=== PATIENT | male | born 1965 | race Caucasian/White ===

== ENCOUNTER 2023-03-01 12:14 | Observation (INO) ==
--- NOTE | 2023-03-01 12:20 | ED Triage Note ---
Date of Service March 01, 2023 History of Present Illness This patient was briefly evaluated while in triage. An abbreviated physical exam was performed. This patient is a 57-year-old Male who was referred to the ED by his [facility] physician. The patient reports chest pain across the entire chest. The pain started a couple of months ago. Patient reports that walking and ambulation. The patient reports that the pain usually goes away when he takes Tums. Patient denies any shortness of breath, substernal or abdominal discomfort. Patient denies history of GERD. Physical Exam CONSTITUTIONAL: Healthy and well nourished. Patient does not appear in any acute distress. HEENT: No scleral icterus or conjunctival injection. RESPIRATORY: Clear to auscultation bilaterally with no wheezing, crackles, rhonchi or stridor. CARDIOVASCULAR: Regular rate and rhythm with no murmurs, rubs or gallops. GASTROINTESTINAL: Bowel sounds present in all quadrants. MUSCULOSKELETAL: No tenderness to palpation across the anterior chest wall or costochondral joints. INTEGUMENTARY: No rash or other significant dermatologic conditions noted. HEMATOLOGIC: No ecchymosis or petechiae. PSYCHIATRIC: Positive affect. NEUROLOGIC: No focal neurologic deficits noted. Initial orders for labs and / or imaging were placed and patient was placed in the waiting area until a bed is available. Please see further documentation for the full ED course.
[2023-03-01 12:38] LABS: Basophils # (auto) 0.05 K/uL (0.00-0.20); Basophils % (auto) 0.6 %; Eosinophils # (auto) 0.09 K/uL (0.00-0.50); Hematocrit (blood only) 43.2 % (42.0-52.0); Hemoglobin 15.6 g/dl (14.0-18.0); Immature Granulocytes # (auto) 0.03 K/uL (0.01-0.20); Immature Granulocytes % (auto) 0.3 %; Lymphocytes # (auto) 2.36 K/uL (1.20-3.40); Lymphocytes % (auto) 27.3 %; Mean Corpuscular Hemoglobin 32.6 pg (25.0-34.0); Mean Corpuscular Hgb Conc 36.1 g/dL (32.0-36.0); Mean Corpuscular Volume 90.2 fL (80.0-100.0); Mean Platelet Volume 9.6 fL (9.4-12.4); Monocytes # (auto) 0.72 K/uL (0.11-0.59); Monocytes % (auto) 8.3 %; Neutrophils # (auto) 5.39 K/uL (1.40-6.50); Neutrophils % (auto) 62.5 %; Platelet Count 237 K/uL (130-400); RDW Coefficient of Variation 11.9 % (11.5-14.5); RDW Standard Deviation 39.4 fL (36.4-46.3); Red Blood Count 4.79 M/uL (4.70-6.10); White Blood Count 8.64 K/ul (4.8-10.8)
[2023-03-01 12:48] LABS: Partial Thromboplastin Ratio 0.9; Partial Thromboplastin Time 26.3 Seconds (21.0-31.0); Prothrombin Time 10.8 Seconds (9.0-12.0)
[2023-03-01 13:06] LABS: Albumin Level 4.9 gm/dl (3.4-5.0); Bilirubin,Total 0.8 mg/dl (0.2-1.0); Calcium 9.8 mg/dl (8.6-10.3)
[2023-03-01 13:12] LABS: BUN Creatinine Ratio 19.8 (10-20); Creatinine Clr Calc Pharmacy 91.9 ml/min; Est GFR (African American) 93.9 ml/min; Globulin 2.4 gm/dl (2.5-4.0); Total Protein 7.3 gm/dl (6.0-8.3)
--- NOTE | 2023-03-01 13:14 | Emergency Department Note ---
Impression & Plan Chest pain ADMIT ED Provider Note HPI: History obtained from patient. The patient is a 57-year-old gentleman who presents emergency department with a chief complaint of chest pain. Patient states that for the past several weeks he has had chest pain that seems to worsen when he exerts himself. Patient states that he gets a substernal discomfort when he goes upstairs or takes a long walk. Patient states he has a history of hyperlipidemia, he is not a smoker, states he does have family history of heart disease. On arrival here to the ED the patient is in no acute distress, denies any current chest pain. ROS: - Per HPI Differential Diagnosis: Acute coronary syndrome, acute gastritis, esophageal spasms, aortic dissection, pneumothorax, amongst other potential pathologies. *Outpatient medications and allergy history reviewed. *Pertinent external medical records reviewed - PE: General: Alert HEENT: Normocephalic, trachea midline Eyes: Extraocular eye movement is intact, no scleral erythema Pulmonary: Clear to auscultation bilaterally, no wheezing Cardio: Regular rate and rhythm GI: Abdomen is soft to palpation : No suprapubic tenderness MSK: No evidence of trauma or malformation of the extremities, no edema Skin: No evidence of rash Neuro: Alert, no focal deficits Psychiatric: Cooperative INDEPENDENT INTERPRETATIONS: cardiac monitor: (As interpreted by myself): - An order was placed for continuous cardiac monitoring - Patient was noted to be in sinus rhythm with a rate of 60 EKG: (As interpreted by myself): Rate: 63 Rhythm: Normal sinus rhythm Intervals: Within normal limits ST changes: No ST elevation Time: 1226 Chest x-ray: (As interpreted by myself): No acute disease Interventions provided in ED: -Aspirin Medical Decision Making: IV was established lab work obtained, patient was placed on cardiac rehabilitation program director when placed in ED room. Lab work shows no leukocytosis, hemoglobin is normal, platelet count is normal, CMP was obtained and shows no critical findings, troponin is negative x1. Chest x-ray per my interpretation does not show any evidence of acute disease. EKG per my interpretation does not show any evidence of acute ischemic changes however there is noted to be some nonspecific T wave flattening in the lateral leads. Given the patient's typical nature of pain that worsens with exertion with lack of improvement with recent PPI therapy, I think would be reasonable to admit the patient for further rule out of ACS. He tells me he has not had a stress test in about 10 years, his risk factors include his age, family history, and history of hyperlipidemia. I discussed the patient's presentation with the [facility] and the patient was placed for admission in stable condition for further care to the service of Dr. Tyson. Consultants/Discussions held with other healthcare providers: [facility] Dr[facility] Tyson Disposition discussion held by myself with: -Patient Diagnosis: 1. Chest pain, acute, exertional in nature 2. History of hyperlipidemia 3. Family history of coronary artery disease 4. Abnormal EKG Disposition: Admission Husam Bolden DO Emergency Medicine Past Med/Surg History Medical History (Updated 03/01/23 @ 17:21 by Husam Bolden DO) GERD (gastroesophageal reflux disease) Gout HLD (hyperlipidemia) Surgical History (Updated 03/01/23 @ 14:09 by Nasima Romero PA-C) Hx of colonoscopy Family History (Updated 03/01/23 @ 14:59 by Nasima Romero PA-C) Father Myocardial infarction sudden [place] at age 75 Sister Myocardial infarction, Onset Age: 54 sudden Social History (Updated 03/01/23 @ 14:10 by Nasima Romero PA-C) Smoking Status: Never smoker Tobacco Type: Smokeless Tobacco (Dip or Chew) Cigarettes Per Day: currently uses chewing tobacco; Hx Alcohol Use: Yes Preferred Language: [place] marital status: Feels Safe at Home: Yes Allergies Allergies Allergy/AdvReac Type Severity Reaction Status Date / Time Penicillins Allergy Unknown Verified 03/26/20 23:34 Sulfa (Sulfonamide Allergy Unknown Verified 03/26/20 23:34 Antibiotics) Home Meds Home Medications Medication Instructions Recorded Confirmed atorvastatin 40 mg tablet 40 mg PO DAILY 03/01/23 03/01/23 fluticasone propionate 50 2 spray intranasal DAILY 03/01/23 03/01/23 mcg/actuation nasal spray,suspension meloxicam 15 mg tablet 15 mg PO DAILY 03/01/23 03/01/23 omeprazole 20 mg capsule,delayed 40 mg PO DAILY 03/01/23 03/01/23 release Results & Data (ED) Vital Signs Vital Signs - 24 hr 03/01/23 12:16 03/01/23 14:52 03/01/23 14:55 Temperature 36.5 C Temperature Source Temporal Artery Scan Pulse Rate 65 53 L Pulse Rate [Left Finger] 57 L Pulse Rate from SpO2 Sensor Pulse Rhythm [Left Finger] Regular Pulse Strength [Left Finger] Normal Respiratory Rate 18 14 Respiratory Effort / Characteristics Non-Labored Spontaneous Respiratory Depth Normal Normal Respiratory Pattern Regular Blood Pressure 164/93 H Blood Pressure [Right Arm] 136/102 H Blood Pressure Mean 116 Blood Pressure Mean [Right Arm] 113 Blood Pressure Position [Right Arm] Lying Pulse Oximetry 96 98 Oxygen Delivery Method Room Air Room Air Sepsis Recent Fever Within 48 Hours No Sepsis New/Unexplained Change in Mental Status No Sepsis Action Taken by Nursing No Action Required 03/01/23 14:56 03/01/23 14:59 03/01/23 14:59 Temperature Temperature Source Pulse Rate 56 L 53 L Pulse Rate [Left Finger] Pulse Rate from SpO2 Sensor 56 L 53 L Pulse Rhythm [Left Finger] Pulse Strength [Left Finger] Respiratory Rate 19 16 Respiratory Effort / Characteristics Respiratory Depth Respiratory Pattern Blood Pressure 142/100 H Blood Pressure [Right Arm] Blood Pressure Mean 108 Blood Pressure Mean [Right Arm] Blood Pressure Position [Right Arm] Pulse Oximetry 97 97 Oxygen Delivery Method Sepsis Recent Fever Within 48 Hours Sepsis New/Unexplained Change in Mental Status Sepsis Action Taken by Nursing 03/01/23 15:00 03/01/23 15:03 03/01/23 15:03 Temperature Temperature Source Pulse Rate 63 51 L Pulse Rate [Left Finger] Pulse Rate from SpO2 Sensor 57 L Pulse Rhythm [Left Finger] Pulse Strength [Left Finger] Respiratory Rate 14 14 Respiratory Effort / Characteristics Respiratory Depth Respiratory Pattern Blood Pressure 156/90 H Blood Pressure [Right Arm] Blood Pressure Mean 104 Blood Pressure Mean [Right Arm] Blood Pressure Position [Right Arm] Pulse Oximetry 97 Oxygen Delivery Method Sepsis Recent Fever Within 48 Hours Sepsis New/Unexplained Change in Mental Status Sepsis Action Taken by Nursing 03/01/23 15:10 03/01/23 15:20 03/01/23 15:30 Temperature Temperature Source Pulse Rate 54 L 49 L 54 L Pulse Rate [Left Finger] Pulse Rate from SpO2 Sensor 54 L 49 L 54 L Pulse Rhythm [Left Finger] Pulse Strength [Left Finger] Respiratory Rate 15 12 13 Respiratory Effort / Characteristics Respiratory Depth Respiratory Pattern Blood Pressure Blood Pressure [Right Arm] Blood Pressure Mean Blood Pressure Mean [Right Arm] Blood Pressure Position [Right Arm] Pulse Oximetry 97 96 99 Oxygen Delivery Method Sepsis Recent Fever Within 48 Hours Sepsis New/Unexplained Change in Mental Status Sepsis Action Taken by Nursing 03/01/23 15:40 03/01/23 15:46 Temperature Temperature Source Pulse Rate 57 L Pulse Rate [Left Finger] Pulse Rate from SpO2 Sensor 59 L Pulse Rhythm [Left Finger] Pulse Strength [Left Finger] Respiratory Rate 14 Respiratory Effort / Characteristics Respiratory Depth Respiratory Pattern Blood Pressure Blood Pressure [Right Arm] Blood Pressure Mean Blood Pressure Mean [Right Arm] Blood Pressure Position [Right Arm] Pulse Oximetry 100 97 Oxygen Delivery Method Room Air Sepsis Recent Fever Within 48 Hours Sepsis New/Unexplained Change in Mental Status Sepsis Action Taken by Nursing Laboratory Data 03/01/23 12:23 03/01/23 12:23 Lab Results 03/01/23 03/01/23 Range/Units 12: 14:53 WBC 8.64 (4.8-10.8) K/ul RBC 4.79 (4.70-6.10) M/uL Hgb 15.6 (14.0-18.0) g/dl Hct 43.2 (42.0-52.0) % MCV 90.2 (80.0-100.0) fL MCH 32.6 (25.0-34.0) pg MCHC 36.1 H (32.0-36.0) g/dL RDW Std Deviation 39.4 (36.4-46.3) fL RDW Coeff of Clint 11.9 (11.5-14.5) % Plt Count 237 (130-400) K/uL MPV 9.6 (9.4-12.4) fL Immature Gran % (Auto) 0.3 % Neut % (Auto) 62.5 % Lymph % (Auto) 27.3 % Pierce % (Auto) 8.3 % Eos % (Auto) 1.0 % Baso % (Auto) 0.6 % Neut # (Auto) 5.39 (1.40-6.50) K/uL Lymph # (Auto) 2.36 (1.20-3.40) K/uL Pierce # (Auto) 0.72 H (0.11-0.59) K/uL Eos # (Auto) 0.09 (0.00-0.50) K/uL Baso # (Auto) 0.05 (0.00-0.20) K/uL Immature Gran # (Auto) 0.03 (0.01-0.20) K/uL PT 10.8 (9.0-12.0) Seconds INR 1.0 (0.9-1.1) APTT 26.3 (21.0-31.0) Seconds PTT Ratio 0.9 Sodium 139 (136-145) mmol/L Potassium 4.0 (3.5-5.1) mmol/L Chloride 107 (98-107) mmol/L Carbon Dioxide 27 (21-32) mmol/L Anion Gap 5 (3-11) BUN 20 (6-23) mg/dl Creatinine 1.01 (0.6-1.4) mg/dl Est Cr Clr Drug Dosing 91.9 ml/min Est GFR ( Amer) 93.9 ml/min Est GFR (Non-Af Amer) 81.0 ml/min BUN/Creatinine Ratio 19.8 (10-20) Glucose 83 (70-99(Fasting)) mg/dl Calcium 9.8 (8.6-10.3) mg/dl Total Bilirubin 0.8 (0.2-1.0) mg/dl AST 21 (13-39) U/L ALT 21 (7-52) U/L Alkaline Phosphatase 57 (34-104) U/L Troponin I High Sens 18.5 19.6 (0-20) pg/ml Total Protein 7.3 (6.0-8.3) gm/dl Albumin 4.9 (3.4-5.0) gm/dl Globulin 2.4 L (2.5-4.0) gm/dl Albumin/Globulin Ratio 2.0 (0.9-2) Lipase 62 (11-82) U/L Administered Medications Discontinued Medications Aspirin (Aspirin Chew 324 Mg) 324 mg PO NOW STA Stop: 03/01/23 13:52 Last Admin: 03/01/23 15:28 Dose: 324 mg Documented By: [facility] Imaging Data Radiologist's Impression: Chest X-Ray 03/01/23 12:20 XR chest 2V PA/lateral CLINICAL HISTORY: C/P TECHNIQUE: 2 views of the chest were obtained. Comparison: None available at the time of this dictation. FINDINGS: No lines and tubes are seen. The cardiomediastinal silhouette is normal. The lungs are clear. No evidence of pleural effusion or pneumothorax. IMPRESSION: No acute chest disease. ACT 112: Negative or not required by law. Electronically signed by: Edwin Ji M.D. 03/01/2023 1:56 PM Discharge Plan Visit Data Chief Complaint: Chest Pain Stated Complaint: CHEST PAIN ED Provider: Husam Bolden Discharge Problem: Chest pain Patient Disposition: Admitted As Inpatient Discharge Instructions Interventions: ED Discharge Assessment Last Done: 03/01/23 17:11 Forms Stand Alone Forms: [facility] Prescriptions Prescriptions: No Action atorvastatin 40 mg tablet 40 mg PO DAILY meloxicam 15 mg tablet 15 mg PO DAILY omeprazole 20 mg capsule,delayed release(DR/EC) 40 mg PO DAILY fluticasone propionate 50 mcg/actuation spray,suspension 2 spray INTRANASAL DAILY Referrals Referrals: PCP,NO [Physician] - Discharge Problem: Chest pain Qualifiers: Chest pain type: unspecified Qualified Code(s): R07.9 - Chest pain, unspecified
[2023-03-01 13:15] LABS: Troponin I High Sensitivity 18.5 pg/ml (0-20)
[2023-03-01] MEDS ORDERED: ASPIRIN CHEW 324 MG PO STA (13:51)
--- NOTE | 2023-03-01 13:58 | XRay Report ---
XR chest 2V PA/lateral CLINICAL HISTORY: C/P TECHNIQUE: 2 views of the chest were obtained. Comparison: None available at the time of this dictation. FINDINGS: No lines and tubes are seen. The cardiomediastinal silhouette is normal. The lungs are clear. No evid ence of pleural effusion or pneumothorax. IMPRESSION: No acute chest disease. ACT 112: Negative or not required by law. Electronically signed by: Edwin Ji M.D. 03/01/2023 1:56 PM
--- NOTE | 2023-03-01 14:14 | History & Physical Report ---
Date of Service March 01, 2023 Assessment & Plan (1) Atypical chest pain: (2) HLD (hyperlipidemia): (3) Tobacco abuse: (4) Obesity (BMI 30.0-34.9): Plan This is a 57 yr old male who has a significant PMH of HLD, GERD and Gout who presents to ED 2/2 chest pain x8 weeks. Atypical chest pain Admit to PCU Cycle troponin, monitor on telemetry Repeat ECG in a.m. Obtain echocardiogram Consult cardiology for consideration for nuclear stress test vs cardiac cath Risk factors include: HLD, obesity, tobacco abuse, Strong FH of sudden with sister in 50s recent lipid panel/a1c done as outpatient A1C 5.4 HLD chronic, stable continue statin 02/16 total chol panel trig 139, [id number]; LDL 97; HDL36 Tobacco abuse chewing tobacco 1/2 can/day encourage cessation Obesity BMI 32.7 encourage diet/lifestyle modifications DVT ppx: SQ Lovenox FULL CODE PCP: Dr. Ricks Dispo: PCU, pending cardiac eval Pt was seen and examined in collaboration with Dr. Tyson, please see addendum History of Present Illness Chief Complaint: Chest pain x 8 weeks. Primary Care Provider: Husam Ricks This is a 57 yr old male who has a significant PMH of HLD, GERD and Gout who presents to ED 2/2 chest pain x8 weeks. He recently saw PCP on 02/20 due to similar sx. He noted that he had chest pain that was located across his chest, "like a band across." It typically would occur with walking a distance, but most recently started with walking up a flight of steps when carrying laundry. He would occasionally get similar sx with eating and tried tums with relief; therefore, PCP started omeprazole without relief. He states he is active been on Prilosec for the past month without any significant improvement. He feels in the last 8 weeks symptoms have been worsening. Chest pain is located on his a nterior aspect of his chest. It is nonradiating. It is not associated with any diaphoresis, dizziness, lightheadedness, nausea or vomiting. He has never experienced anything like this in the past. Every time chest pain would come on he will take Tums and symptoms resolved within 1 to 2 minutes. He also would rest at this time as well. He states just yesterday he was out walking in the [place] when it came on and was persistent while walking for approximately 1 mile. Symptoms again resolved with rest. He also tends to note symptoms are worse in the evening. He denies any pleuritic component of symptoms. He also denies any worsening of symptoms with position change. He denies any orthopnea or PND. He denies recent illness, fever, chills, sweats, lightheadedness, dizziness, nausea, vomit, abdominal pain, changes bowel or urinary habits, melena or hematochezia. Overall he has a good appetite. 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 He also recently from his . He denies any recent traumatic stressful events. He does have a strong family history of cardiac disease. His sister in her 50s of sudden in their father in his 70s. He previously had significantly elevated cholesterol but this has been improving significantly while being on atorvastatin. He is compliant with his medications. He denies any prior history of hypertension. He does chew tobacco approximately half a can a day. He also drinks approximately 10 beers a week. In ED patient's lab work was mostly unremarkable and troponin was undetectable. EKG did reveal some nonspecific T wave abnormalities but otherwise revealed normal sinus rhythm without any significant ischemic change. He did receive full dose aspirin while in ED. Allergies Allergy/AdvReac Type Severity Reaction Status Date / Time Penicillins Allergy Unknown Verified 03/26/20 23:34 Sulfa (Sulfonamide Allergy Unknown Verified 03/26/20 23:34 Antibiotics) Home Medications Medication Instructions Recorded Confirmed Type atorvastatin 40 mg tablet 40 mg PO DAILY 03/01/23 03/01/23 History fluticasone propionate 50 2 spray intranasal DAILY 03/01/23 03/01/23 History mcg/actuation nasal spray,suspension meloxicam 15 mg tablet 15 mg PO DAILY 03/01/23 03/01/23 History omeprazole 20 mg capsule,delayed 40 mg PO DAILY 03/01/23 03/01/23 History release Past Med/Surg History Medical History (Updated 03/01/23 @ 15:20 by Nasima Romero PA-C) GERD (gastroesophageal reflux disease) Gout HLD (hyperlipidemia) Surgical History (Updated 03/01/23 @ 14:09 by Nasima Romero PA-C) Hx of colonoscopy Family History (Updated 03/01/23 @ 14:59 by Nasima Romero PA-C) Father Myocardial infarction sudden [place] at age 75 Sister Myocardial infarction, Onset Age: 54 sudden Social History (Updated 03/01/23 @ 14:10 by Nasima Romero PA-C) Smoking Status: Never smoker Tobacco Type: Smokeless Tobacco (Dip or Chew) Cigarettes Per Day: currently uses chewing tobacco; Hx Alcohol Use: Yes Preferred Language: Pashto marital status: Feels Safe at Home: Yes Review of Systems Review of Systems: All systems reviewed & are unremarkable except as noted in HPI & below Physical Exam Physical Exam: Constitutional: WD/WN, vitals as above, NAD, sitting up in bed, pleasant, conversing easily Head: Normocephalic, Atraumatic Eyes: PERRL, conjunctivae normal, anicteric sclerae ENMT: external ear and nose normal, oropharynx normal Neck: trachea midline, no thyromegaly normal visual inspection Respiratory: normal respiratory effort, lungs clear to auscultation, no wheeze, rales, rhonchi. Normal insp/exp effort, no accessory muscle use Cardiovascular: RRR, no murmur, no edema Vessels: no JVD or carotid bruit Chest: normal inspection of chest Abdomen: normal bowel sounds, soft, nontender, no hepatosplenomegaly Musculoskeletal: no cyanosis or clubbing, extremities motor strength 5/5 Skin: no rashes, warm and dry normal turgor Neurologic: PERRL, EOMI, accommodation nl, no face palsy, no dysarthria CN's II-XI intact bilaterally and moves all extremities Psychiatric: A+Ox3, euthymic affect : deferred Results & Data Results & Data Vital Signs (Past 12 Hours) Vital Signs Temp Pulse Resp BP Pulse Ox O2 Del Method 03/01/23 12:16 36.5 C 65 18 164/93 H 96 Room Air Diagnostic Findings Chest X-Ray 03/01/23 12:20 XR chest 2V PA/lateral CLINICAL HISTORY: C/P TECHNIQUE: 2 views of the chest were obtained. Comparison: None available at the time of this dictation. FINDINGS: No lines and tubes are seen. The cardiomediastinal silhouette is normal. The lungs are clear. No evidence of pleural effusion or pneumothorax. IMPRESSION: No acute chest disease. ACT 112: Negative or not required by law. Electronically signed by: Edwin iJ M.D. 03/01/2023 1:56 PM ECG Additional Comments: 63 bpm, NSR, nonspecific t wave abn noted, qtc 409ms COVID-19 Results Results COVID-19 Adm Lab Results: RBC 4.79 M/uL (4.70-6.10) 03/01/23 WBC 8.64 K/ul (4.8-10.8) 03/01/23 Hgb 15.6 g/dl (14.0-18.0) 03/01/23 Hct 43.2 % (42.0-52.0) 03/01/23 Plt Count 237 K/uL (130-400) 03/01/23 Neutrophils (%) (Auto) 62.5 % 03/01/23 Lymphocytes (%) (Auto) 27.3 % 03/01/23 Monocytes # (Auto) 0.72 K/uL (0.11-0.59) H 03/01/23 Eosinophils # (Auto) 0.09 K/uL (0.00-0.50) 03/01/23 Immature Granulocyte % (Auto) 0.3 % 03/01/23 Neutrophils # (Auto) 5.39 K/uL (1.40-6.50) 03/01/23 Lymphocytes # (Auto) 2.36 K/uL (1.20-3.40) 03/01/23 Monocytes # (Auto) 0.72 K/uL (0.11-0.59) H 03/01/23 Eosinophils # (Auto) 0.09 K/uL (0.00-0.50) 03/01/23 Basophils # (Auto) 0.05 K/uL (0.00-0.20) 03/01/23 Immature Granulocyte # (Auto) 0.03 K/uL (0.01-0.20) 3 Na 139 mmol/L (136-145) 03/01/23 K 4.0 mmol/L (3.5-5.1) 03/01/23 Cl 107 mmol/L (98-107) 03/01/23 CO2 27 mmol/L (21-32) 03/01/23 Anion Gap 5 (3-11) 03/01/23 BUN 20 mg/dl (6-23) 03/01/23 Creatinine 1.01 mg/dl (0.6-1.4) 03/01/23 BUN/Creatinine Ratio 19.8 (10-20) 03/01/23 Glucose Level 83 mg/dl (70-99(Fasting)) 03/01/23 Ca 9.8 mg/dl (8.6-10.3) 03/01/23 Total Bilirubin 0.8 mg/dl (0.2-1.0) 03/01/23 AST/SGOT 21 U/L (13-39) 03/01/23 ALT/SGPT 21 U/L (7-52) 03/01/23 Alkaline Phosphatase 57 U/L (34-104) 03/01/23 Total Protein 7.3 gm/dl (6.0-8.3) 03/01/23 Albumin 4.9 gm/dl (3.4-5.0) 03/01/23 Globulin 2.4 gm/dl (2.5-4.0) L 03/01/23 Albumin/Globulin Ratio 2.0 (0.9-2) 03/01/23 PTT 26.3 Seconds (21.0-31.0) 03/01/23 INR 1.0 (0.9-1.1) 03/01/23 Chest X-Ray 03/01/23 Code Status & VTE Plan Code Status FULL CODE VTE Prophylaxis Plan VTE Prophylaxis will be ordered: Yes Supervising Physician Co-Signing Physician Notes I have seen and discussed the case with the collaborating JOE. I agree with the above H&P. I have reviewed and confirmed the patients medical history, the findings on physical examination, and the patients diagnosis and treatment plan with Heather DIAZ and agree with the information documented. In short, Mr. Ward is a 57 year old gentleman with history of HLD, HTN, obesity, chronic tobacco use, and family history of CAD who is admitted for chest pain evalutation. Pain is present with exertion, substernal and pressure like in character, and resolves with rest. Patient states that TUMS may alleviate pain--but he also notes that he takes the tums when he sits and relaxes, so cannot really parse out whether TUMS v rest contribute the most. HEART score of 6, SILVANO of 61; symptoms consistent with stable angina and story convincing for concerns of underlying CAD. PE notable for man without any acute distress, laying supine, no signs of HF (no crackles, edema) #Chest pain, c/f stable angina -Cardiology for Stress v cath -NPO at midnight -Continue asa and statin Rest of plan as above
--- NOTE | 2023-03-01 16:47 | Electrocardiogram Report ---
Test Reason : Blood Pressure : / mmHG Vent. Rate : 063 BPM Atrial Rate : 063 BPM P-R Int : 168 ms QRS Dur : 090 ms QT Int : 400 ms P-R-T Axes : 045 -18 042 degrees QTc Int : 409 ms Normal sinus rhythm Nonspecific T wave abnormality Lateral leads Abnormal ECG When compared with ECG of 26-MAR-2020 23:12, Nonspecific T wave abnormality now present Confirmed by Mario Kramer ([id number]) on 03/01/2023 4:46:48 PM Referred By: Confirmed By:Mario Kramer
[2023-03-01] MEDS ORDERED: MAGNESIUM HYDROXIDE SUSP 30 ML UDC PO PRN (17:35)
[2023-03-01] MEDS ORDERED: ONDANSETRON INJ 2 MG/ML 2 ML VIAL IV PRN (17:35)
[2023-03-01] MEDS ORDERED: ALUMINUM/MAGNESIUM SUSP 30 ML UDC PO PRN (17:35)
[2023-03-01] MEDS ORDERED: POLYETHYLENE (MIRALAX) 17 GM PACK PO PRN (17:35)
[2023-03-01] MEDS ORDERED: ACETAMINOPHEN 325 MG TAB PO PRN (17:35)
[2023-03-01] MEDS: ENOXAPARIN INJ 40 MG/0.4 ML SYR SQ SCH (21:10)
[2023-03-02 03:17] LABS: Basophils # (auto) 0.03 K/uL (0.00-0.20); Basophils % (auto) 0.4 %; Eosinophils # (auto) 0.16 K/uL (0.00-0.50); Hematocrit (blood only) 39.7 % (42.0-52.0); Hemoglobin 14.4 g/dl (14.0-18.0); Immature Granulocytes # (auto) 0.01 K/uL (0.01-0.20); Immature Granulocytes % (auto) 0.1 %; Lymphocytes # (auto) 2.77 K/uL (1.20-3.40); Lymphocytes % (auto) 34.5 %; Mean Corpuscular Hemoglobin 32.1 pg (25.0-34.0); Mean Corpuscular Hgb Conc 36.3 g/dL (32.0-36.0); Mean Corpuscular Volume 88.4 fL (80.0-100.0); Mean Platelet Volume 9.9 fL (9.4-12.4); Monocytes # (auto) 0.63 K/uL (0.11-0.59); Monocytes % (auto) 7.8 %; Neutrophils # (auto) 4.43 K/uL (1.40-6.50); Neutrophils % (auto) 55.2 %; Platelet Count 202 K/uL (130-400); RDW Coefficient of Variation 11.8 % (11.5-14.5); RDW Standard Deviation 37.8 fL (36.4-46.3); Red Blood Count 4.49 M/uL (4.70-6.10); White Blood Count 8.03 K/ul (4.8-10.8)
[2023-03-02 03:31] LABS: Albumin Globulin Ratio 1.7 (0.9-2); Bilirubin,Total 0.9 mg/dl (0.2-1.0); Calcium 8.9 mg/dl (8.6-10.3); Creatinine Clr Calc Pharmacy 89.9 ml/min; Est GFR (African American) 95.1 ml/min; Globulin 2.4 gm/dl (2.5-4.0); Potassium 3.6 mmol/L (3.5-5.1); Total Protein 6.4 gm/dl (6.0-8.3)
[2023-03-02] MEDS: ATORVASTATIN 40 MG TAB PO SCH (08:24)
[2023-03-02] MEDS: FLUTICASONE PROPIONATE NA SPR 16 GM BTL SCH (08:24)
[2023-03-02] MEDS: PANTOprazole 40 MG TAB PO SCH (08:25)
--- NOTE | 2023-03-02 08:45 | Electrocardiogram Report ---
Test Reason : Blood Pressure : / mmHG Vent. Rate : 047 BPM Atrial Rate : 047 BPM P-R Int : 176 ms QRS Dur : 092 ms QT Int : 462 ms P-R-T Axes : 063 -07 234 degrees QTc Int : 408 ms Sinus bradycardia Nonspecific T wave abnormality Lateral leads Abnormal ECG When compared with ECG of 01-MAR-2023 12:26, No significant change was found Confirmed by Mario Kramer ([id number]) on 03/02/2023 8:45:07 AM Referred By: Husam Ricks Confirmed By:Mario Kramer
[2023-03-02] MEDS ORDERED: MELOXICAM 7.5 MG TAB PO SCH (09:00)
--- NOTE | 2023-03-02 09:51 | Cardiology Consultation ---
Date of Consultation March 02, 2023 Assessment & Plan (1) Unstable angina: (2) HLD (hyperlipidemia): (3) Tobacco abuse: Plan Patient currently chest pain-free at rest. Recommend further ischemic evaluation with cardiac catheterization. Risk, benefits, alternatives to proc edure discussed. Patient agreeable to proceed. Discontinue meloxicam. Add aspirin 81 mg daily. Continue statin therapy. As needed sublingual nitroglycerin and repeat ECG with any recurrent chest discomfort. N.p.o. except medications in anticipation of cardiac catheterization. History of Present Illness Reason for Consultation: Angina, family history of coronary artery disease Requesting Physician: Nasima Romero PA-C Attending Physician: Annalise Ortega MD History of Present Illness 57-year-old male present to the emergency department due to progressive, exertio nal chest discomfort. Symptoms dating back several months. Describes a bandlike tightness and pain across his chest which is consistently reproduced with activity and exertion. Generally reproduces symptoms when climbing stairs. Over the past week symptoms have become progressively more severe, coming on at lower levels of activity and exertion. States "I did not want to go out into the [employer] and of a heart attack". Voices concern regarding sister who in her 50s of a myocardial infarction. Allergies Allergy/AdvReac Type Severity Reaction Status Date / Time Penicillins Allergy Unknown Verified 03/26/20 23:34 Sulfa (Sulfonamide Allergy Unknown Verified 03/26/20 23:34 Antibiotics) Home Medications Medication Instructions Recorded Confirmed Type atorvastatin 40 mg tablet 40 mg PO DAILY 03/01/23 03/01/23 History fluticasone propionate 50 2 spray intranasal DAILY 03/01/23 03/01/23 History mcg/actuation nasal spray,suspension meloxicam 15 mg tablet 15 mg PO DAILY 03/01/23 03/01/23 History omeprazole 20 mg capsule,delayed 40 mg PO DAILY 03/01/23 03/01/23 History release Patient History Medical History GERD (gastroesophageal reflux disease) Gout HLD (hyperlipidemia) Surgical History Hx of colonoscopy Family History Father Myocardial infarction sudden CA at age 75 Sister Myocardial infarction, Onset Age: 54 sudden Social History Smoking Status: Former smoker Tobacco Type: Smokeless Tobacco (Dip or Chew) Cigarettes Per Day: currently uses chewing tobacco; Second Hand Exposure: No; Do You Dip or Chew Tobacco: Yes; Tobacco Cessation Education Requested by Patient: No Hx Alcohol Use: Yes Alcohol type: beer Hx Substance Use: No Preferred Language: Arabic Communication Ability: Effective Manager Balance Required: No Beliefs That Will Affect Care: None marital status: Current Living Situation: Alone Other Information That Helps Us Care for You: No Feels Safe at Home: Yes Safety Concerns: Feels Safe At This Time Assistive Devices: None Review of Systems Review of Systems: All systems reviewed & are unremarkable except as noted in Subjective Physical Exam Constitutional: well nourished and + obese; no acute distress Respiratory: no respiratory distress, no labored breathing and no retractions Auscultation: no crackles, no rales, no rhonchi and no wheezes Cardiovascular: Rate/Rhythm: regular rate and regular rhythm Heart Sounds: normal S1 and normal S2; no murmur Vessels: femoral pulses present and radial pulses present; no JVD and no carotid bruit Extremities: no edema Gastrointestinal (Abdomen): Inspection/Auscultation: normal bowel sounds; abdomen not distended Percussion/Palpation: abdomen soft; abdomen nontender, no guarding and abdomen not rigid Neurologic: CN's II-XI intact bilaterally and moves all extremities; no focal motor deficits Psychiatric: A+Ox3, euthymic affect Results & Data Vital Signs (Past 12 Hours) Vital Signs Temp Pulse Resp BP Pulse Ox O2 Del Method 03/02/23 07:35 36.5 C 54 L 16 125/79 95 Room Air 03/02/23 03:10 36.3 C L 53 L 18 152/80 H 96 Room Air 03/01/23 23:18 36.6 C 51 L 18 103/67 92 Room Air Laboratory Results Cardiac Enzymes 03/01/23 03/01/23 03/01/23 Range/Units 12:23 14:53 21:00 AST 21 (13-39) U/L Troponin I High Sens 18.5 19.6 19.0 (0-20) pg/ml 03/02/23 Range/Units 02:48 AST 17 (13-39) U/L Troponin I High Sens 17.9 (0-20) pg/ml Coagulation 03/01/23 Range/Units 12:23 PT 10.8 (9.0-12.0) Seconds APTT 26.3 (21.0-31.0) Seconds CBC 03/01/23 03/02/23 Range/Units 12:23 02:48 WBC 8.64 8.03 (4.8-10.8) K/ul RBC 4.79 4.49 L (4.70-6.10) M/uL Hgb 15.6 14.4 (14.0-18.0) g/dl Hct 43.2 39.7 L (42.0-52.0) % Plt Count 237 202 (130-400) K/uL Neut # (Auto) 5.39 4.43 (1.40-6.50) K/uL Lymph # (Auto) 2.36 2.77 (1.20-3.40) K/uL [place] # (Auto) 0.72 H 0.63 H (0.11-0.59) K/uL Eos # (Auto) 0.09 0.16 (0.00-0.50) K/uL Baso # (Auto) 0.05 0.03 (0.00-0.20) K/uL Comprehensive Metabolic Panel 03/01/23 03/02/23 Range/Units 12:23 02:48 Sodium 139 139 (136-145) mmol/L Potassium 4.0 3.6 (3.5-5.1) mmol/L Chloride 107 108 H (98-107) mmol/L Carbon Dioxide 27 24 (21-32) mmol/L BUN 20 20 (6-23) mg/dl Creatinine 1.01 1.00 (0.6-1.4) mg/dl Glucose 83 94 (70-99(Fasting)) mg/dl Calcium 9.8 8.9 (8.6-10.3) mg/dl AST 21 17 (13-39) U/L ALT 21 17 (7-52) U/L Alkaline Phosphatase 57 49 (34-104) U/L Total Protein 7.3 6.4 (6.0-8.3) gm/dl Albumin 4.9 4.0 (3.4-5.0) gm/dl Intake and Output 03/01/23 03/02/23 03/02/23 22:59 06:59 14:59 Other: Other Intake Source npo # Unmeasured Voids 1 Weight 100.7 kg 98.6 kg Weight Measurement Method Built in Bedscale Standing Scale ECG Additional Comments: ECG: Sinus bradycardia, nonspecific T wave abnormality. (2) HLD (hyperlipidemia) Hyperlipidemia type: unspecified Qualified Code(s): E78.5 - Hyperlipidemia, unspecified
[2023-03-02] MEDS: ASPIRIN 81 MG CHEW PO SCH (11:28)
--- NOTE | 2023-03-02 11:46 | Hospitalist Progress Note ---
Date of Service March 02, 2023 Assessment & Plan (1) Atypical chest pain: (2) HLD (hyperlipidemia): (3) Tobacco abuse: (4) Obesity (BMI 30.0-34.9): Plan This is a 57 yr old male who has a significant PMH of HLD, GERD and Gout who presents to ED 2/2 chest pain x8 weeks. Atypical chest pain Last EKG with sinus bradycardia hs-trops within normal limits Echocardiogram with EF 60-65%, LVH and grade II diastolic dysfunction Risk factors include: HLD, obesity, tobacco abuse, Strong FH of sudden with sister in 50s recent lipid panel/a1c done as outpatient A1C 5.4 Cardiology consult -pt had cath on 03/02 - recs HLD chronic, stable continue statin 02/16 total chol panel trig 139, [id number]; LDL 97; HDL36 Tobacco abuse chewing tobacco 1/2 can/day encourage cessation Obesity BMI 32.7 encourage diet/lifestyle modifications DVT ppx: SQ Lovenox FULL CODE PCP: Dr. Ricks Dispo: pending cardiac eval Admission and Anticipated Discharge Date Admission Date: March 01, 2023 Subjective Pt seen in the AM before his procedure. States that he was asymptomatic at this time. Denied acute concerns. Review of Systems Review of Systems: All systems reviewed & are unremarkable except as noted in Subjective Physical Exam Physical Exam: General: Alert, oriented. No acute distress Skin: No noted rashes or bruises Psych: Appropriate mood and affect Neuro: No gross deficits HEENT: NC/AT Chest: Nontender to palpation. CV: RRR, Normal s1, s2. No murmurs appreciated Resp: Breath sounds clear bilaterally, no increased effort of breathing. Abdomen: Soft, nontender, nondistended. Extremities: No edema in lower extremities bilaterally. Results & Data Results & Data Vital Signs (Past 12 Hours) Vital Signs Temp Pulse Resp BP Pulse Ox O2 Del Method 03/02/23 11:07 37.0 C 46 L 16 116/77 95 Room Air 03/02/23 07:35 36.5 C 54 L 16 125/79 95 Room Air 03/02/23 03:10 36.3 C L 53 L 18 152/80 H 96 Room Air (2) HLD (hyperlipidemia) Hyperlipidemia type: unspecified Qualified Code(s): E78.5 - Hyperlipidemia, unspecified
--- NOTE | 2023-03-02 15:21 | Pre Anesthesia Assessment ---
Date of Service March 02, 2023 Pre Sedation Assessment Vital Signs Temp Pulse Pulse Resp BP Pulse Ox O2 Del Method 03/02/23 15:04 46 L 18 141/84 H 96 Room Air 03/02/23 14:35 52 L 03/02/23 11:07 37.0 C 46 L 16 116/77 95 Room Air 03/02/23 07:35 36.5 C 54 L 16 125/79 95 Room Air 03/02/23 03:10 36.3 C L 53 L 18 152/80 H 96 Room Air 03/01/23 23:18 36.6 C 51 L 18 103/67 92 Room Air 03/01/23 19:11 36.6 C 53 L 18 126/84 93 Room Air 03/01/23 18:37 147/86 H 03/01/23 18:30 59 L 03/01/23 17:36 36.6 C 53 L 18 182/98 H 99 Room Air 03/01/23 17:35 36.6 C 51 L 182/98 H 99 Room Air 03/01/23 15:46 97 Room Air 03/01/23 15:40 57 L 14 100 03/01/23 15:30 54 L 13 99 Cardiovascular + regular rate, + regular rhythm and + bradycardic + S1 normal and + S2 normal; no murmur + femoral pulses present and + radial pulses present; no JVD and no carotid bruit no edema Respiratory no respiratory distress and no labored breathing no crackles, no rales, no rhonchi and no wheezes Pre-Sedation Airway Assessment Smoking Status: Former smoker Hx Sleep Apnea: No Short, Thick Neck: Yes Thyromental Distance: > or= 3.5 Finger Breadths Oral Cavity: + WNL Mallampati Class: I ASA: ASA2 NPO Status Date of Last Intake of Fluids: 03/01/23 Date of Last Intake of Solid Food: 03/01/23 Procedure Planning Contraindications for Sedation: none Current Medications Reviewed: Yes Notes The planned sedation has been discussed with the patient. Informed Consent was obtained. I have identified the patient, determined the appropriateness of sedation and have assessed the patient immediately prior to the procedure. All medicine(s) and interventions are by my order.
[2023-03-02] MEDS ORDERED: MIDAZOLAM HCL 1 MG/ML 2ML VIAL ONE ×2 (15:22→16:37)
[2023-03-02] MEDS ORDERED: fentaNYL citrate PF 100 MCG/2 ML VIAL ONE (15:23)
[2023-03-02] MEDS ORDERED: niCARdipine HCL INJ 2.5 MG/ML 10 ML AMP ONE (15:23)
[2023-03-02] MEDS ORDERED: NITROGLYCERIN/D5W 100MCG/ML 20ML SYR ONE (15:23)
[2023-03-02] MEDS ORDERED: HEPARIN (PORCINE) 1000 UNIT/ML 10 ML (CATH LAB USE ONLY) ONE (15:23)
--- NOTE | 2023-03-02 16:21 | Cardiac Catheterization ---
Cardiac Cath Procedure Full Procedure Date March 02, 2023 Pre-Procedure Diagnosis Pre-Procedure Diagnosis: Angina AUC Score AUC Score: 7 Post-Procedure Diagnosis Post-Procedure Diagnosis: Severe CAD and Normal Intracardiac Pressures Procedure(s) Performed Procedure(s) Performed: Coronary Angiography and Left Heart Cath Fruit Picker Gaston Ordonez DO Major Case Detective(s) Showers RN Estimated Blood Loss Estimated Blood Loss: 5cc Medication(s) Medication(s): Aspirin Summary of Findings Multivessel coronary artery disease. 90% proximal left circumflex. 75% apical LAD. 100% occluded diagonal branch vessel 80% prox RCA 70% mid RCA Hemodynamics Rest Ao:: 112/55/85 Final Ao: 120/58/82 LV: 115/4/8 Recommendations Recommendations: Management Recommendatons (Case discussed with interventional cardiology. Patient will remain in [facility] for PCI) Radiation Exposure (mGy) 1630 Contrast (mls) 60 Fluids (cc crystalloids) Fluids (cc crystalloids): 110 Nss Drains Drains: N/A Anesthesia Moderate sedation. Start 1542. End 1606. Sedation monitor: Kersteter RN Procedural Complication(s) None I attest to the content of the Intraoperative Record and any orders documented therein. Any exceptions are noted below. ACC Data: [facility] Cardiac Status Clinical evaluation leading to the procedure 57-year-old patient presents to the emergency department with progressive, exertional angina. CAD Presenation: Unstable angina Coronary Anatomy Dominant: Right Left Main (% Stenosis): Normal LAD (% Stenosis): Proximal (Mild luminal irregularities, 10-20%), Mid (Luminal irregularities, 20-30%) and Distal (75%) D1 (% Stenosis): Normal D2 (% Stenosis): Ostial (100%, proximal staining) Circumflex (% Stenosis): Proximal (90%) and Mid (40% proximal to OM1) OM1 (% Stenosis): Proximal (20%) OM2 (% Stenosis): Normal L PL1 (% Stenosis): Normal RCA (% Stenosis): Proximal (80%), Mid (70%) and Distal (luminal irregularities 20%) R PDA (% Stenosis): Normal R PL1 (% Stenosis): Normal Diagnostic Physicians Name: Gaston Ordonez DO Closure Device Percutaneous Entry Location: Radial Closure Device: Radial Band Recommendations: Management Recommendatons (Case discussed with interventional cardiology. Patient will remain in [facility] for PCI) Intraprocedure Events Significant Disection: No Perforation: No
--- NOTE | 2023-03-02 16:21 | Post Anesthesia Assessment ---
Date of Service March 02, 2023 Post Sedation Assessment Vital Signs Temp Pulse Pulse Resp BP Pulse Ox O2 Del Method 03/02/23 15:04 46 L 18 141/84 H 96 Room Air 03/02/23 14:35 52 L 03/02/23 11:07 37.0 C 46 L 16 116/77 95 Room Air 03/02/23 07:35 36.5 C 54 L 16 125/79 95 Room Air 03/02/23 03:10 36.3 C L 53 L 18 152/80 H 96 Room Air 03/01/23 23:18 36.6 C 51 L 18 103/67 92 Room Air 03/01/23 19:11 36.6 C 53 L 18 126/84 93 Room Air 03/01/23 18:37 147/86 H 03/01/23 18:30 59 L 03/01/23 17:36 36.6 C 53 L 18 182/98 H 99 Room Air 03/01/23 17:35 36.6 C 51 L 182/98 H 99 Room Air Recovery Score Respiration: Deep Breath/Cough Circulation: +/-20% PreAnes Value Consciousness: Arouseable (by name) Oxygen Saturation: > 92% On Room Air Discharge Sedation Level of Care: Phase I Post Sedation Plan On clinical assessment, the patient appears to have tolerated the sedation without complications. Patient is recovering as anticipated. Patient will continue to be monitored by nursing and may be discharged when sedation discharge criteria are met per below protocol. Upon Completions of procedure up to 15 minutes continue every 5 minute vital signs and the P.A.R. score; then discharge to a Phase I or Fast Track to Phase II per the following guidelines: * Discharge Patient to appropriate Phase II area if PAR is 8 or greater or return to pre- procedure baseline. The post - procedure orders will be as directed. * If PAR score is less than 8 or not return to pre-procedure baseline then patient will follow Phase I monitoring till PAR is reached for Phase II. The Phase I may be done in procedure room or may call to secure a Phase I area. * If naloxone or flumazenil are used for reversal, hold in Phase I for continued monitoring from when last reversal dose was given for a minimum of 60 minutes or longer pending the nurse and/or physician discretion of patient condition before discharge to Phase II. Please call the Sedation Physician to re-evaluate and complete post-note for discharge to Phase II area. Do NOT discharge from procedure sedation or Phase 1 until post- sedation evaluation note is complete by procedure /sedation MD Sedation Discharge Instructions to be given to the patient at discharge to home.
[2023-03-02] MEDS ORDERED: TICAGRELOR 90 MG TAB ONE (16:57)
--- NOTE | 2023-03-02 17:11 | Post Anesthesia Assessment ---
Date of Service March 02, 2023 Post Sedation Assessment Vital Signs Temp Pulse Pulse Resp BP Pulse Ox O2 Del Method 03/02/23 15:04 46 L 18 141/84 H 96 Room Air 03/02/23 14:35 52 L 03/02/23 11:07 37.0 C 46 L 16 116/77 95 Room Air 03/02/23 07:35 36.5 C 54 L 16 125/79 95 Room Air 03/02/23 03:10 36.3 C L 53 L 18 152/80 H 96 Room Air 03/01/23 23:18 36.6 C 51 L 18 103/67 92 Room Air 03/01/23 19:11 36.6 C 53 L 18 126/84 93 Room Air 03/01/23 18:37 147/86 H 03/01/23 18:30 59 L 03/01/23 17:36 36.6 C 53 L 18 182/98 H 99 Room Air 03/01/23 17:35 36.6 C 51 L 182/98 H 99 Room Air Recovery Score Activity: Moves 4 extremities Respiration: Deep Breath/Cough Circulation: +/-20% PreAnes Value Consciousness: Arouseable (by name) Oxygen Saturation: > 92% On Room Air Discharge Sedation Level of Care: Fast Track Phase II Post Sedation Plan On clinical assessment, the patient appears to have tolerated the sedation without complications. Patient is recovering as anticipated. Patient will continue to be monitored by nursing and may be discharged when sedation discharge criteria are met per below protocol. Upon Completions of procedure up to 15 minutes continue every 5 minute vital signs and the P.A.R. score; then discharge to a Phase I or Fast Track to Phase II per the following guidelines: * Discharge Patient to appropriate Phase II area if PAR is 8 or greater or return to pre- procedure baseline. The post - procedure orders will be as directed. * If PAR score is less than 8 or not return to pre-procedure baseline then patient will follow Phase I monitoring till PAR is reached for Phase II. The Phase I may be done in procedure room or may call to secure a Phase I area. * If naloxone or flumazenil are used for reversal, hold in Phase I for continued monitoring from when last reversal dose was given for a minimum of 60 minutes or longer pending the nurse and/or physician discretion of patient condition before discharge to Phase II. Please call the Sedation Physician to re-evaluate and complete post-note for discharge to Phase II area. Do NOT discharge from procedure sedation or Phase 1 until post- sedation evaluation note is complete by procedure /sedation MD Sedation Discharge Instructions to be given to the patient at discharge to home. [facility] [place] Procedure Codes (Charges) Indication for Procedure Indication for procedure: UNSTABLE ANGINA SEVERE CAD ON DIAGNOSTIC CATH Sedation/Anesthesia Procedure 1: Sedation/Anesthesia: 90456 Mod Sedation by a different physician ;Init15 Min Child Age 5&Up (initial 15 min, new dice table operator start 1618) Total Sedation Time (minutes): 39 Procedure 2: Sedation/Anesthesia: 54275 Mod Sedation by a different physician;Ea Additional 15 Minutes (additional 24 min, end time 1657) Total Sedation Time (minutes): 39
[2023-03-02 21:49] VITALS: O2SAT 96
[2023-03-02] MEDS: TICAGRELOR 90 MG TAB PO SCH (22:42)
[2023-03-02] MEDS: ENOXAPARIN INJ 40 MG/0.4 ML SYR SQ SCH (22:43)
[2023-03-03 07:37] LABS: Basophils # (auto) 0.04 K/uL (0.00-0.20); Basophils % (auto) 0.4 %; Eosinophils # (auto) 0.07 K/uL (0.00-0.50); Eosinophils % (auto) 0.7 %; Hematocrit (blood only) 41.2 % (42.0-52.0); Hemoglobin 15.1 g/dl (14.0-18.0); Immature Granulocytes # (auto) 0.14 K/uL (0.01-0.20); Immature Granulocytes % (auto) 1.4 %; Lymphocytes # (auto) 2.22 K/uL (1.20-3.40); Lymphocytes % (auto) 21.5 %; Mean Corpuscular Hemoglobin 32.1 pg (25.0-34.0); Mean Corpuscular Hgb Conc 36.7 g/dL (32.0-36.0); Mean Corpuscular Volume 87.5 fL (80.0-100.0); Monocytes # (auto) 0.74 K/uL (0.11-0.59); Monocytes % (auto) 7.2 %; Neutrophils % (auto) 68.8 %; Platelet Count 195 K/uL (130-400); RDW Coefficient of Variation 11.7 % (11.5-14.5); RDW Standard Deviation 37.9 fL (36.4-46.3); Red Blood Count 4.71 M/uL (4.70-6.10); White Blood Count 10.31 K/ul (4.8-10.8)
[2023-03-03 07:38] LABS: Albumin Level 4.2 gm/dl (3.4-5.0); Bilirubin,Total 0.7 mg/dl (0.2-1.0); Calcium 9.2 mg/dl (8.6-10.3); Magnesium 2.1 mg/dl (1.7-2.4); Potassium 4.1 mmol/L (3.5-5.1)
[2023-03-03 07:44] LABS: Albumin Globulin Ratio 1.7 (0.9-2); Creatinine Clr Calc Pharmacy 82.3 ml/min; Est GFR (African American) 85.7 ml/min; Est GFR (Non-African American) 73.9 ml/min; Globulin 2.5 gm/dl (2.5-4.0); Phosphorus 3.4 mg/dl (2.5-4.9); Total Protein 6.7 gm/dl (6.0-8.3)
[2023-03-03] MEDS: PANTOprazole 40 MG TAB PO SCH ×2 (08:16→08:20)
[2023-03-03] MEDS: TICAGRELOR 90 MG TAB PO SCH (08:16)
[2023-03-03] MEDS: FLUTICASONE PROPIONATE NA SPR 16 GM BTL SCH ×2 (08:17→08:20)
[2023-03-03] MEDS: ASPIRIN 81 MG CHEW PO SCH (08:17)
[2023-03-03] MEDS: ATORVASTATIN 40 MG TAB PO SCH (08:17)
--- OUTSIDE RECORDS SUMMARY | 2023-03-03 10:06 | External Medical Summary ---
Author Name Unknown Address Unknown Organization [id number]:[facility] [place] [address] [place] [address] Laboratory Report Ordering Provider Test Date Status SYL FRANCISCO 02/16/2023 13:51:12 Final Observation Date Value Abnormality Reference (Units ) Status MYCODE SPECIMEN-SST 02/16/2023 13:51:12 Freezing of extracted DNA, whole blood and/or serum. Final Performing Location [facility] - [address] [place] [address]
--- OUTSIDE RECORDS SUMMARY | 2023-03-03 10:06 | External Medical Summary ---
Author Name Unknown Address Unknown Organization [id number]:[facility] [place] [address] [place] [address] Laboratory Report Ordering Provider Test Date Status SYL FRANCISCO 02/16/2023 13:51:12 Final Observation Date Value Abnormality Reference (Units ) Status MYCODE SPECIMEN-SST 02/16/2023 13:51:12 Freezing of extracted DNA, whole blood and/or serum. Final Performing Location [facility] - [address] [place] [address]
--- OUTSIDE RECORDS SUMMARY | 2023-03-03 10:06 | External Medical Summary | Summary of Care ---
Author Name Unknown Organization [facility] Address [address] [facility] [place] [address] Phone [phone] Care Team Providers Care [employer] Name Role Phone Ju Arboleda PA-C Primary Care Provider [phone] Reason for Referral * Evaluate & Treat - Unlimited Visits (Within 3 days (urgent)) - Authorized Specialty Diagnoses / Procedures Referred By Contmaria elena t Referred To Contact Cardiovascular Medicine / Cardiology Diagnoses Chest pain, unspecified type Gasotn Ordonez DO [address] [place] [address] Referral ID Status Reason Start Date Expiration Date Visits Requested Visits Authorized [id number] Authorized Specialty Services Required 3 [phone] Question Answer Referral Priority Within 3 days (urgent) Where should this appointment be scheduled? [facility] To which of the following clinics are you referring your patient? General Cardiology Clinic Reason for Visit * Reason Onset Date Comments Referral 02/21/2023 Encounter Details Date Type Department Care Team (Late st Contact Info) Description 02/21/2023 Telephone Cardiology, [facility] [address] [place] [address] Gaston Ordonez DO [address] [place] [address] Referral Allergies Active Allergy Reactions Criticality Noted Date Comments Indomethacin Other (Please comment) 11/28/2019 Dizziness Penicillins 11/02/1997 rash Sulfa Antibiotics 11/02/1997 rapid pulse documented as of this encounter (statuses as of 02/28/2023) Medications Medication Sig Dispensed Refills Start Date End Date Status Meclizine HCl 25 MG Oral Tablet ChewableIndications :Benign positional vertigo, bilateral Take 1 Tab by mouth 3 times a day as needed for Dizziness. 30 Tab 1 05/04/2020 Active guaiFENesin-Codeine 100-10 MG/5ML Oral Syrup (Robitussin AC)Indications:Acut e bronchitis, antibiotics not indicated Take 5 mL by mouth every 4 hours as needed for Cough. 120 mL 0 05/10/2022 Active Additional Information Patient not taking.Reported on 02/16/2023 Fluticasone Propionate 50 MCG/ACT Nasal Suspension (Flonase) Administer 2 Sprays into each nostril in the morning. 16 g 5 02/16/2023 Active Atorvastatin Calcium 40 MG Oral Tablet (Lipitor) Take 1 Tablet by mouth in the morning. 90 Tablet 3 02/16/2023 Active Meloxicam 15 MG Oral Tablet Take 1 Tablet by mouth in the morning. 30 Tablet 2 02/16/2023 Active Omeprazole 20 MG Oral Capsule Delayed Release (PriLOSEC)Indicatio ns:Other chest pain,Gastroesophage al reflux disease, unspecified whether esophagitis present Take 2 Capsules by mouth in the morning. Take 40 mg daily for 1 month then 20 mg daily. 0 02/20/2023 Active documented as of this encounter (statuses as of 02/28/2023) Active Problems Problem Noted Date Diagnosed Date Family history of WI (myocardial infarction) 06/2017 Dyslipidemia, goal LDL below 130 10/31/2012 Gout 10/31/2012 TOBACCO USE DISORDER- ORAL 01/29/2007 Esophageal reflux 01/29/2007 ACUTE STRESS 05/25/2004 documented as of this encounter (statuses as of 02/28/2023) Resolved Problems Problem Noted Date Diagnosed Date Resolved Date HTN, goal below 140/90 08/30/201104/18 OBESITY, BMI 30-34 (SEE ACTUAL BMI) 07/08/2009 10/31/2012 Overview: Per Obesity Taxonomy Elevated blood pressure, situational 02/19/2009 10/31/2012 Overview: Modified per HTN Taxonomy. Obesity, BMI not known 01/29/200707/08 Overview: Per Obesity Taxonomy Shortness of breath 01/29/2007 11/01/19 13 Chest pain 01/29/2007 10/31/2012 Elevated blood pressure, situational 01/29/2007 02/19/2009 Overview: Modified per HTN Taxonomy. Abdominal pain, generalized 05/25/2004 10/31/2012 Tobacco use disorder 05/25/2004 013 Chronic alcohol dependence, continuous 05/25/2004 04/03/2022 Dyslipidemia, goal to be determined 05/25/2004 10/31/2012 BACKACHE NOS 05/25/2004 10/31/2012 NONE 08/30/2011 documented as of this encounter (statuses as of 02/28/2023) Immunizations Name Administration Dates Next Due COVID-19, LNP-s, No Preserve , Jerel-sucrose, Ages 12+ (Pfizer) 10/07/2021 TD - Tetanus/Diptheria (ADULT) 02/12/2004 TDAP (age 10 and older)(Boostrix) 04/04/2019 04/04/2029 documented as of this encounter Social History Tobacco Use Types Packs/Day Years Used Date Smoking Tobacco: Never Passive Smoke Exposure: Past Smokeless Tobacco: Current Snuff Alcohol Use Standard Drinks/Week Comments Yes 0 (1 standard drink = 0.6 oz pur e alcohol) 6 pack 2-3 x per week PHQ-2 Answer Date Recorded PHQ-2 Score -1 01/04/2020 Hunger Vital Sign Answer Date Recorded Worried About Running Out of Food in the Last Ye ar Never true 04/04/2019 Ran Out of Food in the Last Year Never true 04/04/2019 Sex and Gender Information Value Date Recorded Sex Assigned at Male 04/04/2019 11:55 AM EST Gender Identity Male 04/04/2019 11:55 AM EST Sexual Orientation Straight 04/04/2019 11 :55 AM EST Job Start Date Occupation Industry Not on file Not on file Not on file documented as of this encounter Miscellaneous Notes * Addendum Note - Samuel Eagle MD - 02/28/2023 1:44 PM ESTAddended by: SAMUEL EAGLE on: 02/28/2023 01:44 PM Modules accepted: Orders * Telephone Encounter - Samuel Eagle MD - 02/28/2023 1:43 PM EST This was sent to me, so I signed referral - but will also forward to provider who saw pt for OV to make sure that 03/26/23 cardiology visit is appropriate. * Telephone Encounter - Josey Mcpherson OSA - 02/27/2023 3:26 PM EST Pt's daughter Mely returned call and patient has been scheduled with Dr. Matthew East in [facility] on 03/26/2023 at 10:00am. Pt has been added to wait list. * Addendum Note - Malu Dhillon LPN - 02/27/2023 2:17 PM ESTAddended by: MALU DHILLON on: 02/27/2023 02:17 PM Modules accepted: Orders * Telephone Encounter - Mariela Rizo OSA - 02/27/2023 11:[address] referral. Patient needs referral for PEBTF insurance nad it cannot be backdated. LMOM to schedule. 02/27/2023 * Telephone Encounter - Anais Flynn OSA - 02/26/2023 4:00 PM EST Patient is very concerned about getting into cardiology. He is having chest pain with any activity. Patient needs to know when he will see cardiology. Please call as soon as possible. Thank you. * Telephone Encounter - Corrine Howard OSA - 02/26/2023 2:09 PM EST Also he is not able to come for any appt in next 2 days due to his double work shift. Please can someone call him with appt date and time so he can request time off. If no answer can call his daughter due to not being allowed to have his phone the next two days, call him today or can speak to his daughter, Mely Mcraer to let her know if appt date and time ok to take or set up appt. Will have her call to the office tomorrow and Wed about setting up his appt. * Telephone Encounter - Shannan Medellin OSA - 02/26/2023 2:[address] cardiology referral, patient needs for insurance purposes. Thanks * Telephone Encounter - Sylvie Vega TECH - 02/21/2023 1:[address] Ricks, Dr. Ordonez reviewed the CAD imaging referral on [facility] for evaluation of chest pain. Symptoms sound concerning for angina and EKG shows new ST and T-wave abnormalities. Recommend urgent Cardiology referral for further evaluation (schedule within 3 days). Thank you, Sylvie Vega, MS, [facility]-CEP Manager Life, Cardiology Imaging Program documented in this encounter Plan of Treatment Upcoming Encounters Date Type Department Care Team (Latest Contact Info) Description 03/01/2023 1:20 PM EST Laboratory Laboratory, [place] [address] [place] [id number] [place] Laboratory [address] [place] [address] 03/26/2023 10:00 AM EST Office Visit Cardiology, [facility] [address] [place] [address] Matthew East MD [address] [place] [address] 04/04/2023 11:00 AM EST Office Visit [facility] [address] [facility] [place] [address] Ju Arboleda PA-C [address] [place] [address] 04/20/2023 1:20 PM EST Hospital Encounter [facility], Operating Room [facility] [address] [place] [id number] Chinmay Rankin, DO [address] [place] [address] 04/20/2023 1:20 PM EST - 04/20/2023 1:45 PM EST Surgery OR [facility], Operating Room [facility] [address] [place] [id number] Chinmay Rankin, DO [address] [place] [id number] INJECTION SPINE LUMBAR OR SACRAL Scheduled Procedures Name Priority Associated Diagnoses Date/Ti me INJECTION SPINE LUMBAR OR SACRAL Lumbar radiculopathy 04/20/2023 1:20 PM EST COLONOSCOPY FLEXIBLE PROXIMAL DIAGNOSTIC Recall History of colonic polyps Scheduled Referrals Name Type Priority Associated Diagnoses Orde r Schedule CARDIOLOGY REFERRAL OP Referral Within 3 days (urgent) Chest pain, unspecified type Ordered: 02/28/2023 Health Maintenance Due Date Last Done Comments Hepatitis B (1 of 3 - 3-dose series) 1963 HIV Screening 1978 Hepatitis C Screening 1981 Zoster Vaccines (1 of 2) 2013 Depression Screening 11/27/2020 11/28/2019 COLONOSCOPY-EVERY 3 YRS AGES 18-100 06/10/2022 06/10/2019, 06/10/2019, 06/18/2015, Additional history exists COVID-19 Vaccine (2 - 2022- season) 2022 10/07/2021 Influenza Vaccine (FLU shot) (#1) 2022 Diabetes Screening 02/16/2026 02/16/2023, 1 04/18/2022, 09/23/2022, Additional history exists Lipid Panel 02/17/2028 02/16/2023, 03/16, 03/31/2021, Additional history exists DTaP,Tdap,and Td Vaccines (2 - Td or Tdap) 04/04/2029 04/04/2019, 02/12/2004 GARDASIL-HPV IMMUNIZATION SERIES Aged Out No longer eligible based on patient's age to complete this topic MENINGOCOCCAL (MENACTRA/MENVEO) Aged Out No longer eligible based on patient's age to complete this topic Pneumococcal Vaccine: Pediatrics (0 to 5 Years) and At-Risk Patients (6 to 64 Years) Aged Out No longer eligible based on patient's age to complete this topic documented as of this encounter Medical Devices Not on filedocumented as of this encounter Visit Diagnoses Diagnosis Chest pain, unspecified type- Primary Lumbar radiculopathy Thoracic or lumbosacral neuritis or radiculitis, unspecified documented in this encounter Care Teams [employer] Relationship Specialty Start Date End Date Ju Arboleda PA-C [address] [facility] [place] [address] PCP - General Physician Rfid Technician 02/28/23 documented as of this encounter
--- OUTSIDE RECORDS SUMMARY | 2023-03-03 10:06 | External Medical Summary | Summary of Care ---
Author Name Unknown Organization [facility] Address [address] [place] [address] Phone [phone] Care Team Providers Care Manager Photography Name Role Phone Trevon Guan MD Primary Care Provider +1- [phone] Reason for Visit * Reason Comments Back Pain * Evaluate & Treat - Unlimited Visits (Within 10 days (routine)) - Authorized Specialty Diagnoses / Procedures Referred By Emelia covington Referred To Contact Pain Management / Pain Medicine Diagnoses Lumbosacral radiculopathy at L5 Mariela De La Torre DO [address] [place] [address] Referral ID Status Reason Start Date Expiration Date Visits Requested Visits Authorized [id number] Authorized Specialty Services Required 12/05/[phone] Encounter Details Date Type Department Care Team Description 01/23/2023 Office Visit [facility], [facility] [address] [place] [address] Marlene Gonzales PA-C [address] [place] [address] Lumbar radicular pain* Allergies Active Allergy Reactions Severity Noted Date Comments Indomethacin Other (Please comment) 11/28/2019 Dizziness Penicillins 11/02/1997 rash Sulfa Antibiotics 11/02/1997 rapid pulse documented as of this encounter (statuses as of 01/23/2023) Medications Medication Sig Dispensed Refills Start Date End Date Status Meclizine HCl 25 MG Oral Tablet ChewableIndicatio ns:Benign positional vertigo, bilateral Take 1 Tab by mouth 3 times a day as needed for Dizziness. 30 Tab 1 05/04/2020 Active guaiFENesin-Codei ne 100-10 MG/5ML Oral Syrup (Robitussin AC)Indications:Ac [place] bronchitis, antibiotics not indicated Take 5 mL by mouth every 4 hours as needed for Cough. 120 mL 0 05/10/2022 Active Montelukast Sodium 10 MG Oral Tablet (Singulair) Take 1 Tablet by mouth in the morning. 90 Tablet 1 06/13/2022 Active Fluticasone Propionate 50 MCG/ACT Nasal Suspension (Flonase) Administer 2 Sprays into each nostril in the morning. 16 g 2 06/21/2022 Active Additional Information Patient not taking.Reported on 01/23/2023 Atorvastatin Calcium 40 MG Oral Tablet (Lipitor) Take 1 Tablet by mouth in the morning. 30 Tablet 5 09/26/2022 Active Meloxicam 7.5 MG Oral Tablet (Mobic)Indication s:Lumbar radicular pain Take 1 Tablet by mouth in the morning. 90 Tablet 0 01/23/2023 Active Proventil HFA 108 (90 Base) MCG/ACT Inhalation Aerosol Solution Inhale 2 Puffs by mouth every 4 hours as needed for Wheezing (cough). 18 g 1 06/13/2022 3 Discontinue d(Patient preference/ discontinua tion) predniSONE 20 MG Oral Tablet (Deltasone) Take 3 tabs for 3 days, 2 tabs for 3 days, 1 tab for 3 days, 1/2 tab for 3 days 20 Tablet 0 11/10/2022 3 Discontinue d(Patient preference/ discontinua tion) documented as of this encounter (statuses as of 01/23/2023) Active Problems Problem Noted Date Family history of [place] (myocardial infarct ion) 04/18/2017 Dyslipidemia, goal LDL below 130 013 Gout 10/31/2012 TOBACCO USE DISORDER- ORAL 01/29/2007 Esophageal reflux 01/29/2007 ACUTE STRESS 05/25/2004 documented as of this encounter (statuses as of 01/23/2023) Resolved Problems Problem Noted Date Resolved Date HTN, goal below 140/90 08/30/2011 8 OBESITY, BMI 30-34 (SEE ACTUAL BMI) 07/08/2009 10/31/2012 Overview: Per Obesity Taxonomy Elevated blood pressure, situational 02/19/2009 10/31/2012 Overview: Modified per HTN Taxonomy. Obesity, BMI not known 01/29/2007 0 Overview: Per Obesity Taxonomy Shortness of breath 01/29/2007 10/31/2012 Chest pain 01/29/2007 10/31/2012 Elevated blood pressure, situational 01/29/2007 02/19/2009 Overview: Modified per HTN Taxonomy. Abdominal pain, generalized 05/25/200410/14 Tobacco use disorder 05/25/2004 10/31/2012 Chronic alcohol dependence, continuous 5 04/03/2022 Dyslipidemia, goal to be determined 05/25/2004 10/31/2012 BACKACHE NOS 05/25/2004 10/31/2012 NONE 08/30/2011 documented as of this encounter (statuses as of 01/23/2023) Immunizations Name Administration Dates Next Due COVID-19, LNP-s, No Preserve , Jerel-sucrose, Ages 12+ (Pfizer) 10/07/2021 TDAP (age 10 and older)(Boostrix) 04/04/2019 04/04/2029 documented as of this encounter Social History Tobacco Use Types Packs/Day Years Used Date Smoking Tobacco: Never Smokeless Tobacco: Current Snuff Alcohol Use Standard Drinks/Week Comments Yes 0 (1 standard drink = 0.6 oz pur e alcohol) 6 pack 2-3 x per week Food Insecurity Answer Date Recorded Within the past 12 months, y ou worried that your food would run out before you got money to buy more. Never true 04/04/2019 Within the past 12 months, t he food you bought just didn't last and you didn't have money to get more. Never true 04/04/2019 Sex Assigned at Date Recorded Male 04/04/2019 11:55 AM EST Job Start Date Occupation Industry Not on file Not on file Not on file documented as of this encounter Progress Notes * Marlene Gonzales PA-C - 01/23/2023 8:04 AM EDT GENERAL HISTORY & PHYSICAL EXAMINATION - Anesthesia and Pain Service Name: Otilio Ward Jr. Location: [facility], [facility] REFERRING PHYSICIAN: Mariela De La Torre DO Thank you for referring Otilio Ward Jr.. CHIEF COMPLAINT: R LE pain HPI: Otilio Ward Jr. is a 57 year old male who complains of R buttock pain that radiates to anterior thigh and mixon. This pain started three months ago after slipping and catching himself while [place] ladder. Did not fall, felt pain started a few days after such incident. 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 R LE U/S negative for DVT on 09/25/22. Reviewed L spine xray 09/23/22 - mild DDD with facet arthropathy, mild listhesis L4/5, mild scoliotic curvature. Reviewed L spine MRI11/17/22 - disc protrusion L2/3 causing moderate central stenosis, diffuse facet arthropathy, mild B subarticular narrowing L4/5, no area of high grade central stenosis. Mild relief with medication management. Symptoms occur daily. Pain is constant, rated 6/10 average, can increase to 9/10. Aggravating factors include: lumbar flexion, prolonged sitting, transitional movement. Alleviating factors include: walking. Admits associated numbness R anterior thigh and calf. Denies weakness R LE. Denies LEFT LE radicular pain, paraesthesia or weakness. Denies significant low back pain. Denies bowel or bladder incontinence. Denies hx spine surgery or injections. 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 EMG R LE 11/09/22 - chronic right L5/S1 radiculopathy with no active denervation. Significant past medical hx includes: HTN. Current medications used for pain: ibuprofen, tylenol. Anticoagulation therapy: no Diabetic: no PAST MEDICAL HISTORY: Past Medical History: Diagnosis Date Gout HTN, goal below 130/80 Past Medical History - Pertinent Findings: (-) clotting disorder PAST SURGICAL HISTORY: Past Surgical History: Procedure Laterality Date COLONOSCOPY, DIAGNOSTIC (RECTUM) 06/18/2015 adenomatous polyp, repeat 3 yrs/COLONOSCOPY FLEXIBLE PROXIMAL DIAGNOSTIC performed by Marti Zavala DO at [facility] COLONOSCOPY, DIAGNOSTIC (RECTUM) 06/10/2019 diverticulosis sigmoid colon/biopsies show hyperplastic polyps/recall 3-5 years/COLONOSCOPY FLEXIBLE PROXIMAL DIAGNOSTIC performed by Marti Zavala DO at [facility] FAMILY HISTORY: Family History Problem Relation Age of Onset Other (calcuili) Mother renal stones Heart Disorder Father sudden RI age 75 Cancer Father prostate Heart attack Sister 54 Family History - Pertinent Findings: (-) clotting disorder SOCIAL HISTORY: Social History Tobacco Use Smoking status: Never Smokeless tobacco: Current Types: Snuff Vaping Use Vaping Use: Not on file Substance Use Topics Alcohol use: Yes Comment: 6 pack 2-3 x per week Drug use: No CURRENT MEDICATIONS: Note that discontinued and completed medications (per the MAR) continue to display for 24 hours. Ordered medications to be given in the future also display. Current Outpatient Medications Medication Sig Dispense Refill Meclizine HCl 25 MG Oral Tablet Chewable Take 1 Tab by mouth 3 times a day as needed for Dizziness.30 Tab 1 guaiFENesin-Codeine 100-10 MG/5ML Oral Syrup (Robitussin AC) Take 5 mL by mouth every 4 hours as needed for Cough. 120 mL 0 Montelukast Sodium 10 MG Oral Tablet (Singulair) Take 1 Tablet by mouth in the morning. 90 Tablet 1 Proventil HFA 108 (90 Base) MCG/ACT Inhalation Aerosol Solution Inhale 2 Puffs by mouth every 4 hours as needed for Wheezing (cough). 18 g 1 Fluticasone Propionate 50 MCG/ACT Nasal Suspension (Flonase) Administer 2 Sprays into each nostril in the morning. 16 g 2 Atorvastatin Calcium 40 MG Oral Tablet (Lipitor) Take 1 Tablet by mouth in the morning. 30 Tablet 5 predniSONE 20 MG Oral Tablet (Deltasone) Take 3 tabs for 3 days, 2 tabs for 3 days, 1 tab for 3 days, 1/2 tab for 3 days 20 Tablet 0 No current facility-administered medications for this visit. ALLERGIES: Indomethacin, Penicillins, and Sulfa antibiotics ROS: Constitutional: Negative for fatigue, fever, appetite change, unexplained weight loss. ENT: Negative for hearing loss, sore throat. Respiratory: Negative for cough, shortness of breath, dyspnea. Musculoskeletal: Negative for neck, mid-back or low back pain. + R LE pain - see HPI Neurological: Negative for headaches, seizures. + paresthesias R LE - see HPI Genitourinary: Negative for dysuria, urinary frequency, hematuria. Hematologic/ Lymphatic: Negative for easy bleeding, bruising, lymphadenopathy. Gastrointestinal: Negative for abdominal pain, nausea, vomiting, constipation, diarrhea. Cardiovascular: Negative for chest pain, palpitations, ankle swelling, orthopnea. PHYSICAL EXAMINATION: Most Recent Vital Signs: There were no vitals filed for this visit. General Appearance: Patient appears to be about stated age, pleasant and cooperative with normal affect. HEENT: head normocephalic, pupils equal round and reactive to light and accommodation, EOMI, hearing intact and equal bilaterally, and nose clear, throat normal Chest: No gross abnormality. Nonlabored breathing. Lumbar Spine: Normal lumbar lordatic curvature is present. Skin is intact without gross abnormalities. No masses palpable. Midline and B paravertebral musculature nontender. B sacroiliac joint nontender. No evidence of myofascial trigger points. Limited active ROM with flexion and extension of the lumbar spine. Increased pain with extension. Lower Extremity Strength: Hip Flexion 5/5 bilaterally. Hip Abductor 5/5 bilaterally. Hip Adductor 5/5 bilaterally. Extensor Hallicus Longus 5/5 bilaterally. Deep Tendon Reflex: Patellar: 2/4 bilaterally. Achilles: 2/4 bilaterally. Low Back Provocative Testing: LOLITA test: negative bilaterally. Straight Leg Raise Test: positive R, negative L. Lumbar Facet Loading: positive R, negative L. Sensation: Dermatomal sensation not formally tested. Grossly normal and symmetric unless otherwise specified. Gait: Intact, no sign of ataxia. Ambulates without assistance. IMAGING: MRI LUMBAR SPINE WITHOUT CONTRAST 11/17/22 The retroperitoneal tissues are unremarkable in appearance. The conus terminates at the T12 level. Signal in the distal cord is normal. Alignment is anatomic aside from trace retrolisthesis of L2 on L3. Disc space heights are relatively well maintained. There is an incidental osseous venous vascular malformation (hemangioma) at L1. No additional focal marrow signal abnormalities are present. At L1-2 there is disc bulge without herniation or thecal sac stenosis and there is no foraminal impingement. At L2-3 a shallow central protrusion in conjunction with facet hypertrophy results in moderate thecal sac narrowing and there is bilateral subarticular narrowing. No foraminal impingement is present. At L3-4 there is disc bulge and facet hypertrophy without thecal sac or subarticular compromise. There is no foraminal impingement. At L4-5 bilateral facet degeneration is present which in conjunction with disc bulge causes bilateral subarticular narrowing but there is no thecal sac stenosis. No foraminal impingement is present. At L5-S1 there is no herniation, thecal sac stenosis, or foraminal compromise. IMPRESSION: Degenerative changes most notably at L2-3 and L4-5 as described above with subarticular narrowing but no thecal sac stenosis or high-grade foraminal compromise. XR L SPINE AP AND LATERAL 09/23/2022 3:04 pm Multilevel spine DDD, at least mild in severity--including [id number] lumbar facet arthropathy, multilevel vertebral endplate spurring, mild retrolisthesis at the intervertebral discs between L1-[id number], and grade 1 anterolisthesis at the L4-L5 level. Mild right convex lumbar spine scoliosis (Shaffer angle of 13 degrees from the superior endplate of L1 to inferior endplate of L5). Limited evaluation of SI joints. Overall maintained joint spaces. Limited evaluation of hip joints. Slight left superomedial hip joint space loss in OA changes). Atheromatous disease. Potential left renal calculi (versus dense alimentary canal debris). IMPRESSION Spine DDD. Other incidental/nonacute findings, as above. ASSESSMENT: Lumbar radicular pain, R LE PLAN: Persistent R LE radiculopathy x's three months despite medication management. Symptoms follows L5 pattern with associated paresthesia. Neurologically intact. EMG R LE 11/09/22 - chronic right L5/S1 radiculopathy with no active denervation. Reviewed L spine xray 09/23/22 - mild DDD with facet arthropathy, mild listhesis L4/5, mild scoliotic curvature. Reviewed L spine MRI 11/17/22 - disc protrusion L2/3 causing moderate central stenosis, diffuse facet arthropathy, mild B subarticular narrowing L4/5, no area of high grade central stenosis. Discussed LESI using fluoroscopy. Risks including, but notlimited to, bleeding, infection, worsening pain, failure to alleviate pain, nerve injury and possible steroid side effects were reviewed. Pre-procedure instructions reviewed, will stop NSAID three days prior, reiterated need for line driver. Due to severity and duration of symptoms, will schedule R interlaminar MIGUEL L5/S1. Follow up eight weeks after procedure. Requesting medication in the meantime, injection likely to occur Apr 2023. Discussed prescription NSAID, meloxicam. Risks of bleeding, GI upset were reviewed and accepted. Tolerating ibuprofen, dizziness with high dose indomethacin while being treated for gout. Follow up in 3 weeks via telephone for medication re-check, will contact clinic sooner if side effects occurs. Defer gabapentin for now, employed as [employer], concern for possible drowsiness. Declines PT referral. Activity as tolerated. Marlene Gonzales PA-C 01/23/2023 documented in this encounter Nursing Notes * Lorena Fay LPN - 01/23/2023 8:05 AM EDT Patient reports right buttock pain since slipping off a ladder [id number] Uses ibuprofen/tylenol No PT Did not take Pred MRI in chart documented in this encounter Plan of Treatment Upcoming Encounters Date Type Specialty Care Team Description 02/07/2023 Telemedicine Pain Medicine Marlene Gonzales PA-C [address] [place] [address] 04/04/2023 Office Visit Family Medicine Ju Arboleda PA-C [address] [place] [address] 04/20/2023 Hospital Encounter Surgery Chinmay Rankin, DO [address] [place] [phone] 04/20/2023 Surgery Surgery Chinmay Rankin, [address] [place] [id number] INJECTION SPINE LUMBAR OR SACRAL Scheduled Orders Name Type Priority Associated Diagnoses Orde r Schedule INJECT DX/THER SUBSTANCE INTERLAMINAR LUMBAR/SACRAL W IMAGE GUIDE Procedures Routine Lumbar radicular pain Ordered: 01/23/2023 Scheduled Procedures Name Priority Associated Diagnoses Date/Ti me INJECTION SPINE LUMBAR OR SACRAL Lumbar radiculopathy 04/20/2023 1:20 PM EST COLONOSCOPY FLEXIBLE PROXIMAL DIAGNOSTIC Recall History of colonic polyps Health Maintenance Due Date Last Done Comments Hepatitis B (1 of 3 - 3-dose series) 1963 HIV Screening 1978 Hepatitis C Screening 1981 Zoster Vaccines (1 of 2) 2013 Depression Screening 11/27/2020 11/28/2019 COLONOSCOPY-EVERY 3 YRS AGES 18-100 06/10/2022 06/10/2019, 06/10/2019, 06/18/2015, Additional history exists COVID-19 Vaccine (2 - 2022- season) 2022 10/07/2021 Influenza Vaccine (FLU shot) (#1) 2022 Diabetes Screening 09/23/2025 09/23/2022, 1 06/04/2021, 04/03/2022, Additional history exists Lipid Panel 04/03/2027 04/03/2022, 03/16, 04/04/2019, Additional history exists DTaP,Tdap,and Td Vaccines (2 [...] as of this encounter Visit Diagnoses Diagnosis Lumbar radicular pain- Primary Thoracic or lumbosacral neuritis or radiculitis, unspecified Lumbar radiculopathy Thoracic or lumbosacral neuritis or radiculitis, unspecified documented in this encounter Care Teams Manager Photography Relationship Specialty Start Date End Date rTevon Guan MD [address] [place] [address] PCP - General Family Medicine 04/04/19 documented as of this encounter
--- OUTSIDE RECORDS SUMMARY | 2023-03-03 10:06 | External Medical Summary | Summary of Care ---
Author Name Unknown Organization [facility] Address [address] [facility] [address] Phone [phone] Care Team Providers Care Waiter/Waitress Economy Class Name Role Phone Trevon Guan MD Primary Care Provider +1- [phone] Reason for Visit * Reason Onset Date Comments Referral 02/21/2023 Encounter Details Date Type Department Care Team (Late st Contact Info) Description 02/21/2023 Telephone Cardiology, [facility] [address] [place] [address] Gaston Ordonez, [address] [place] [address] Referral Allergies Active Allergy Reactions Criticality Noted Date Comments Indomethacin Other (Please comment) 11/28/2019 Dizziness Penicillins 11/02/1997 rash Sulfa Antibiotics 11/02/1997 rapid pulse documented as of this encounter (statuses as of 02/27/2023) Medications Medication Sig Dispensed Refills Start Date [...] as of this encounter (statuses as of 02/27/2023) Active Problems Problem Noted Date Diagnosed Date Family history of [place] (myocardial infarction) 06/2017 Dyslipidemia, goal LDL below 130 10/31/2012 Gout 10/31/2012 TOBACCO USE DISORDER- ORAL 01/29/2007 Esophageal reflux 01/29/2007 ACUTE STRESS 05/25/2004 documented as of this encounter (statuses as of 02/27/2023) Resolved Problems Problem Noted Date Diagnosed Date [...] as of this encounter (statuses as of 02/27/2023) Immunizations Name Administration Dates Next Due COVID-19, [...] as of this encounter Miscellaneous Notes * Telephone Encounter - Mariela Rizo OSA [...] Ordonez reviewed the CAD imaging referral on Otilio Ward for evaluation of chest pain. Symptoms sound concerning for angina and EKG shows new ST and T-wave abnormalities. Recommend urgent Cardiology referral for further evaluation (schedule within 3 days). Thank you, Sylvie Vega MS, [facility] Entry Level Accountant, Cardiology Imaging Program documented in this encounter Plan of Treatment Upcoming Encounters Date Type Department Care Team (Latest Contact Info) Description 04/04/2023 11:00 AM EST Office Visit [facility] [address] [place] [phone] Ju Arboleda PA-C [address] [place] [address] 04/20/2023 1:20 PM EST Hospital Encounter [facility], Operating Room [facility] [address] [place] [phone] Chinmay Rankin DO [address] [place] [phone] 04/20/2023 1:20 PM EST - 04/20/2023 1:45 PM EST Surgery OR [facility], Operating Room [facility] [address] [place] [phone] Chinmay Rankin, DO [address] [place] [phone] INJECTION SPINE LUMBAR OR SACRAL Scheduled Procedures [...] Not on filedocumented as of this encounter Care Teams Waiter/Waitress Economy Class Relationship Specialty Start Date End Date Trevon Guan MD [address] [place] [address] PCP - General Family Medicine 04/04/19 documented as of this encounter
--- OUTSIDE RECORDS SUMMARY | 2023-03-03 10:06 | External Medical Summary | Summary of Care ---
Author Name Unknown Organization [facility] Address [address] [facility] [place] [address] Phone [phone] Care Team Providers Care Deli Manager Name Role Phone Trevon Guan MD Primary Care Provider +1- [phone] Reason for Referral * Evaluate & Treat - Unlimited Visits (Within 10 days (routine)) - Authorized Specialty Diagnoses / Procedures Referred By Emelia covington Referred To Contact Pain Management / Pain Medicine Diagnoses Lumbosacral radiculopathy at L5 Alexandra Bernard DO [address] [place] [address] Referral ID Status Reason Start Date Expiration Date Visits Requested Visits Authorized [id number] Authorized Specialty Services Required 12/05/2022 999 999 Question Answer Referral Priority Within 10 days (routine) Reason for referral? Interventional Pain Management - (Injection) What is the preferred location to have this test performed? [facility] Comments Patient Name: Otilio Ward Jr. Date of : 1965 Department Phone Number: MRI or CT (if unable to have a MRI) is recommended if any of the following apply: 1. Patient has neck or back pain with radiation to extremities. A previous MRI will be accepted if symptoms unchanged since prior MRI. 2. Spinal surgery since last MRI. If yes, order a MRI with and without contrast. 3. Hx or ongoing cancer treatment. Patient will need spine x-ray (Ap/Lat) for axial neck or back pain if not done previously. Fax No. [facility] [phone] or contact front man [phone] Fax No. [facility] [phone] or contact front man [phone] Fax No. [facility] [phone] or contact front man [phone] Reason for Visit * Reason Onset Date Comments Test Results 11/19/2022 Encounter Details Date Type Department Care Team Description 11/19/[address] [facility] [address] [place] [address] Alexandra Bernard DO [address] [place] [id number] Test Results (/) Allergies Active Allergy Reactions Severity Noted Date Comments Indomethacin Other (Please comment) 11/28/2019 Dizziness Penicillins 11/02/1997 rash Sulfa Antibiotics 11/02/1997 rapid pulse documented as of this encounter (statuses as of 12/07/2022) Medications Medication Sig Dispensed Refills Start Date End Date Status Meclizine HCl 25 MG Oral Tablet ChewableIndications: Benign positional vertigo, bilateral Take 1 Tab by mouth 3 times a day as needed for Dizziness. 30 Tab 1 05/04/2020 Active guaiFENesin-Codeine 100-10 MG/5ML Oral Syrup (Robitussin AC)Indications:Acute bronchitis, antibiotics not indicated Take 5 mL by mouth every 4 hours as needed for Cough. 120 mL 0 05/10/2022 Active Montelukast Sodium 10 MG Oral Tablet (Singulair) Take 1 Tablet by mouth in the morning. 90 Tablet 1 06/13/2022 Active Proventil HFA 108 (90 Base) MCG/ACT Inhalation Aerosol Solution Inhale 2 Puffs by mouth every 4 hours as needed for Wheezing (cough). 18 g 1 06/13/2022 Active Fluticasone Propionate 50 MCG/ACT Nasal Suspension (Flonase) Administer 2 Sprays into each nostril in the morning. 16 g 2 06/21/2022 Active Atorvastatin Calcium 40 MG Oral Tablet (Lipitor) Take 1 Tablet by mouth in the morning. 30 Tablet 5 09/26/2022 Active predniSONE 20 MG Oral Tablet (Deltasone) Take 3 tabs for 3 days, 2 tabs for 3 days, 1 tab for 3 days, 1/2 tab for 3 days 20 Tablet 0 11/10/2022 Active documented as of this encounter (statuses as of 12/07/2022) Active Problems Problem Noted Date Family history of [place] (myocardial infarct ion) 04/18/2017 Dyslipidemia, goal LDL below 130 013 Gout 10/31/2012 TOBACCO USE DISORDER- ORAL 01/29/2007 Esophageal reflux 01/29/2007 ACUTE STRESS 05/25/2004 documented as of this encounter (statuses as of 12/07/2022) Resolved Problems Problem Noted Date Resolved Date [...] as of this encounter (statuses as of 12/07/2022) Immunizations Name Administration Dates Next Due COVID-19, [...] encounter Miscellaneous Notes * Telephone Encounter - Antonina Lerma - 12/07/2022 7:51 AM EDT Appt was scheduled * Telephone Encounter - Antonina Lerma - 12/05/2022 10:51 AM EDT LM for pt to call back to schedule with pain mgmt * Addendum Note - Alexandra Bernard DO - 12/05/2022 10:43 AM EDTAddended by: ALEXANDRA BERNARD on: 12/05/2022 10:43 AM Modules accepted: Orders * Telephone Encounter - LOREN Bañuelos - 12/05/2022 9:19 AM EDT Patient has been notified of the message. Patient would like to proceed with pain medicine. Patient can be reached at [phone] * Telephone Encounter - Cassandra Trinh LPN - 11/20/2022 10:27 AM EDT Called voice verified cell and left message below and pt to call back with what he decides to do. * Telephone Encounter - Alexandra Bernard DO - 11/19/2022 9:53 AM EDT Mri showing degenerative changes can offer to see pain medicine for possible injections Thank you documented in this encounter Plan of Treatment Upcoming Encounters Date Type Specialty Care Team Description 01/04/2023 Office Visit Pain Medicine Driss Gtz DO [address] [place] [address] 04/04/2023 Office Visit [facility] [address] [facility] [phone] Scheduled Procedures Name Priority Associated Diagnoses Date/Ti me COLONOSCOPY FLEXIBLE PROXIMA L DIAGNOSTIC Recall History of colonic polyps Scheduled Referrals Name Type Priority Associated Diagnoses Orde r Schedule PAIN MEDICINE REFERRAL OP Referral Within 10 days (routine) Lumbosacral radiculopathy at L5 Ordered: 12/05/2022 Health Maintenance Due Date Last Done Comments Hepatitis B (1 of 3 - 3-dose series) 1965 HIV Screening 1978 Hepatitis C Screening 1981 Zoster Vaccines (1 of 2) 2013 Depression Screening, Annual for Pts 12 and Over 11/27/2020 11/28/2019 COVID-19 Vaccine (2 - Pfizer series) 12/02/2021 10/07/2021 COLONOSCOPY-EVERY 3 YRS AGES 18-100 06/10/2022 06/10/2019, 06/10/2019, 06/18/2015, Additional history exists Influenza Vaccine (FLU shot) (#1) 2022 Diabetes [...] as of this encounter Visit Diagnoses Diagnosis Lumbosacral radiculopathy at L5- Primary Thoracic or lumbosacral neuritis or radiculitis, unspecified documented in this encounter Care Teams Deli Manager Relationship Specialty Start Date End Date Trevon Guan MD [address] [place], [place] [phone] PCP - General Family Medicine 04/04/19 documented as of this encounter
--- OUTSIDE RECORDS SUMMARY | 2023-03-03 10:06 | External Medical Summary | Summary of Care ---
Author Name Unknown Organization [facility] Address [address] [facility] [place] [address] Phone [phone] Care Team Providers Care Spindle Tester Name Role Phone Trevon Guan MD Primary Care Provider +1- [phone] Encounter Details Date Type Department Care Team (Late st Contact Info) Description 02/16/2023 3:30 PM EDT Telemedicine Interventional Pain Center, [facility] [address] [place] [address] Marlene PA-C [address] [place] [phone] Lumbar radicular pain* Allergies Active Allergy Reactions Criticality Noted Date Comments Indomethacin Other (Please comment) 11/28/2019 Dizziness Penicillins 11/02/1997 rash Sulfa Antibiotics 11/02/1997 rapid pulse documented as of this encounter (statuses as of 02/16/2023) Medications Medication Sig Dispensed Refills Start Date End Date Status Meclizine HCl 25 MG Oral Tablet ChewableIndicatio ns:Benign positional vertigo, bilateral Take 1 Tab by mouth 3 times a day as needed for Dizziness. 30 Tab 1 05/04/2020 Active guaiFENesin-Codei ne 100-10 MG/5ML Oral Syrup (Robitussin AC)Indications:Ac aidan bronchitis, antibiotics not indicated Take 5 mL by mouth every 4 hours as needed for Cough. 120 mL 0 05/10/2022 Active Additional Information Patient not taking.Reported on 02/16/2023 Meloxicam 15 MG Oral Tablet Take 1 Tablet by mouth in the morning. 30 Tablet 2 02/16/2023 Active Meloxicam 7.5 MG Oral Tablet (Mobic)Indication s:Lumbar radicular pain Take 1 Tablet by mouth in the morning. 90 Tablet 0 01/23/2023 Discontinue d(Medicatio n List Clean Up) documented as of this encounter (statuses as of 02/16/2023) Active Problems Problem Noted Date Diagnosed Date Family history of [place] (myocardial infarction) 06/2017 Dyslipidemia, goal LDL below 130 10/31/2012 Gout 10/31/2012 TOBACCO USE DISORDER- ORAL 01/29/2007 Esophageal reflux 01/29/2007 ACUTE STRESS 05/25/2004 documented as of this encounter (statuses as of 02/16/2023) Resolved Problems Problem Noted Date Diagnosed Date [...] as of this encounter (statuses as of 02/16/2023) Immunizations Name Administration Dates Next Due COVID-19, [...] Progress Notes * Marlene Gonzales PA-C - 02/16/2023 2:51 PM EDT Name: Otilio Ward Jr. Date: 02/16/2023 After connecting to the patient via telephone, the patient was identified by name and date of . Patient was then informed that this was a telephone call only visit. The patient agreed to participate. Visit Disposition: Routine follow-up Total call duration five minutes. HPI: Otilio Ward Jr. is a 57 year old male known to the Pain Management clinic presents for follow up after starting meloxicam for chronic low back pain. Mld relief, interested in possibly increasing the medication. Denies unwanted side effects. Does follow with family practice for GERD, denies p rogression of such symptoms since starting meloxicam. Denies dizziness, this occurred when using indomethacin. Scheduled for MIGUEL Apr 2023, requesting to be added to cancellation list. History: Past Medical History: Diagnosis Date Gout HTN, goal below 130/80 Past Surgical History: Procedure Laterality Date COLONOSCOPY, DIAGNOSTIC (RECTUM) 06/18/2015 adenomatous polyp, repeat 3 yrs/COLONOSCOPY FLEXIBLE PROXIMAL DIAGNOSTIC performed by Marti Zavala DO at [facility]COPY [facility] COLONOSCOPY, DIAGNOSTIC (RECTUM) 06/10/2019 diverticulosis sigmoid colon/biopsies show hyperplastic polyps/recall 3-5 years/COLONOSCOPY FLEXIBLE PROXIMAL DIAGNOSTIC performed by Marti Zavala DO at ENDOSCOPY [facility] Current Outpatient Medications Medication Sig Dispense Refill Meclizine HCl 25 MG Oral Tablet Chewable Take 1 Tab by mouth 3 times a day as needed for Dizziness.30 Tab 1 guaiFENesin-Codeine 100-10 MG/5ML Oral Syrup (Robitussin AC) Take 5 mL by mouth every 4 hours as needed for Cough. (Patient not taking: Reported on 02/16/2023) 120 mL 0 Meloxicam 7.5 MG Oral Tablet (Mobic) Take 1 Tablet by mouth in the morning. 90 Tablet 0 Fluticasone Propionate 50 MCG/ACT Nasal Suspension (Flonase) Administer 2 Sprays into each nostril in the morning. 16 g 5 Atorvastatin Calcium 40 MG Oral Tablet (Lipitor) Take 1 Tablet by mouth in the morning. 90 Tablet 3 Omeprazole 20 MG Oral Capsule Delayed Release (PriLOSEC) Take 1 Capsule by mouth in the morning. 1 hour before the first meal of the day. 90 Capsule 3 No current facility-administered medications for this visit. Review of patient's allergies indicates: Allergen Reactions Indomethacin Other (Please comment) Dizziness Penicillins rash Sulfa Antibiotics rapid pulse ASSESSMENT: Chronic low back pain RECOMMENDATION: Increased meloxicam to 15 mg once daily, two refills provided. Aware to stop if GERD increases. Denies unwanted side effects. Will send staff message to scheduling team to add to injection cancellation list. Total call duration 5 minutes. Marlene Gonzales PA-C 02/16/2023 documented in this encounter Plan of Treatment Upcoming Encounters Date Type Department Care Team (Latest Contact Info) Description 04/04/2023 11:00 AM EST [facility] [address] [facility] [phone] Ju Arboleda PA-C [address] [facility] [place] [address] 04/20/2023 1:20 PM EST Hospital Encounter OR [facility], Operating Room [facility] [address] [place] [address] Chinmay Rankin DO [address] [place] [phone] 04/20/2023 1:20 PM EST - 04/20/2023 1:45 PM EST Surgery OR [facility], Operating Room [facility] [address] [place] [phone] Chinmay Rankin, [address] [place] [phone] INJECTION SPINE LUMBAR OR SACRAL Scheduled Procedures [...] unspecified documented in this encounter Care Teams Spindle Tester Relationship Specialty Start Date End Date Trevon Guan MD [address] [place] [address] PCP - General Family Medicine 04/04/19 documented as of this encounter
--- OUTSIDE RECORDS SUMMARY | 2023-03-03 10:06 | External Medical Summary | Summary of Care ---
Author Name Unknown Organization [facility] Address [address] [place] [address] Phone [phone] Care Team Providers Care Well Logging Mud Analysis Captain Name Role Phone Trevon Guan MD Primary Care Provider +1- [phone] Encounter Details Date Type Department Care Team (Late st Contact Info) Description 02/07/2023 3:30 PM EDT Telemedicine Interventional Pain Center, [facility] [address] [place] [address] Marlene PA-C [address] [place] [phone] Lumbar radicular pain* Allergies Active Allergy Reactions Criticality Noted Date Comments Indomethacin Other (Please comment) 11/28/2019 Dizziness Penicillins 11/02/1997 rash Sulfa Antibiotics 11/02/1997 rapid pulse documented as of this encounter (statuses as of 02/07/2023) Medications Medication Sig Dispensed Refills Start Date [...] 09/26/2022 Active Meloxicam 7.5 MG Oral Tablet (Mobic)Indications: Lumbar radicular pain Take 1 Tablet by mouth in the morning. 90 Tablet 0 01/23/2023 Active documented as of this encounter (statuses as of 02/07/2023) Active Problems Problem Noted Date Diagnosed Date Family history of [place] (myocardial infarction) 06/2017 Dyslipidemia, goal LDL below 130 10/31/2012 Gout 10/31/2012 TOBACCO USE DISORDER- ORAL 01/29/2007 Esophageal reflux 01/29/2007 ACUTE STRESS 05/25/2004 documented as of this encounter (statuses as of 02/07/2023) Resolved Problems Problem Noted Date Diagnosed Date [...] as of this encounter (statuses as of 02/07/2023) Immunizations Name Administration Dates Next Due COVID-19, [...] Progress Notes * Marlene Gonzales PA-C - 02/07/2023 3:22 PM EDT Name: Otilio Ward Date: 02/07/2023 Unable to connect with patient for scheduled telephone follow up for medication recheck, started mobic for R low back and LE pain. First attempt 1524, second attempt 1551. Left voicemail to return call. Marlene Gonzales PA-C 02/07/2023 documented in this encounter Plan of Treatment Upcoming Encounters Date Type Department Care Team (Latest Contact Info) Description 04/04/2023 11:00 AM EST [facility] [address] [facility] [phone] Ju Arboleda [facility]-C [address] [facility] [place] [address] 04/20/2023 1:20 PM EST Hospital Encounter OR [facility], Operating Room [facility] [address] [place] [address] Chinmay Rankin, [address] [place] [address] 04/20/2023 1:20 PM EST - 04/20/2023 1:45 PM EST Surgery OR [facility], Operating Room [facility] [address] [place] [address] Chinmay Rankin, [address] [place] [address] INJECTION SPINE LUMBAR OR SACRAL Scheduled Procedures [...] unspecified documented in this encounter Care Teams Well Logging Mud Analysis Captain Relationship Specialty Start Date End Date Trevon Guan MD [address] [place] [address] PCP - General Family Medicine 04/04/19 documented as of this encounter
--- OUTSIDE RECORDS SUMMARY | 2023-03-03 10:06 | External Medical Summary ---
Author Name Unknown Address Unknown Organization K01:[facility] [place] - [address] [facility] [place] [address] Laboratory Report Ordering Provider Test Date Status KALYN WASHINGTON 02/16/2023 13:51:12 Final Observation Date Value Abnormality Reference (Units ) Status Triglyceride 02/16/2023 13:51:12 139 <=174 ( mg/dL) Final Triglyceride Reference Range s (mg/dL):
<150 Acceptable
150-174 Borderline high
175-499 High
>=500 Very high Cholesterol 02/16/2023 13:51:12 161 <200 (mg /dL) Final Total Cholesterol Reference Ranges (mg/dL):
<200 Desirable
200-239 Borderline high
>=240 High HDL 02/16/2023 13:51:12 36 Below low normal >39 (mg/dL) Final HDL Cholesterol Reference Ra nges (mg/dL):
>=60 High (Desirable)
<50 Low (Undesirable) For Females
<40 Low (Undesirable) For Males NON-HDL CHOLESTEROL 02/16/2023 13:51:12 125 <=159 (mg/dL) Final Non-HDL Cholesterol Referenc e Range (mg/dL):
<100 Target level for high risk ASCVD patient
<130 Optimal for general population
130-159 Near optimal for general population
160-189 Borderline High
190-219 High
>=220 Very High LDL, (calculated) 02/16/2023 13:51:12 97 <= 129 (mg/dL) Final LDL Cholesterol Reference Ra nges (mg/dL):
<70 Target level for high risk ASCVD patient
<100 Optimal for general population
100-129 Near optimal for general population
130-159 Borderline high
160-189 High
>=190 Very high Performing Location [facility] [place] - [address] [place] [address]
--- OUTSIDE RECORDS SUMMARY | 2023-03-03 10:06 | External Medical Summary | Summary of Care ---
Author Name Unknown Organization [facility] Address [address] [place] [address] Phone [phone] Care Team Providers Care Gum Rolling Machine Tender Name Role Phone Trevon Guan MD Primary Care Provider +1- [phone] Reason for Visit * Reason Comments Outpatient Testing Encounter Details Date Type Department Care Team (Late st Contact Info) Description 02/16/2023 1:50 PM EDT Laboratory Laboratory, [facility] [address] [place] [address] [facility] [address] [place] [address] Arrived Allergies Active Allergy Reactions Criticality Noted Date [...] Information Patient not taking.Reported on 02/16/2023 Meloxicam 7.5 MG Oral Tablet (Mobic)Indications: Lumbar radicular pain Take 1 Tablet by mouth in the morning. 90 Tablet 0 01/23/2023 Active Fluticasone Propionate 50 MCG/ACT Nasal Suspension (Flonase) Administer 2 Sprays into each nostril in the morning. 16 g 5 02/16/2023 Active Atorvastatin Calcium 40 MG Oral Tablet (Lipitor) Take 1 Tablet by mouth in the morning. 90 Tablet 3 02/16/2023 Active Omeprazole 20 MG Oral Capsule Delayed Release (PriLOSEC) Take 1 Capsule by mouth in the morning. 1 hour before the first meal of the day. 90 Capsule 3 02/16/2023 Active documented as of this encounter (statuses as of 02/16/2023) Active Problems Problem Noted Date Diagnosed Date Family history of [place] (myocardial infarction) 06/2017 Dyslipidemia, goal LDL below [...] on file documented as of this encounter Plan of Treatment Upcoming Encounters Date Type Department Care Team (Latest Contact Info) Description 02/16/2023 3:30 PM EDT Telemedicine Interventional Pain Center, [facility] [address] [place] [address] Marlene Gonzales PA-C [address] [place] [address] Arrived 04/04/2023 11:00 AM EST Office Visit [facility] [address] [facility] [phone] Ju Arboleda PA-C [address] [facility] [address] 04/20/2023 1:20 PM EST Hospital Encounter OR [facility], Operating Room [facility] [address] [place] [phone] Chinmay Rankin DO [address] [place] [address] 04/20/2023 1:20 PM EST - 04/20/2023 1:45 PM EST Surgery OR [facility], Operating Room [facility] [address] [place] [phone] Chinmay Rankin, DO [address] [place] [phone] INJECTION SPINE LUMBAR OR SACRAL Scheduled Procedures [...] filedocumented as of this encounter Care Teams Gum Rolling Machine Tender Relationship Specialty Start Date End Date Trevon Guan MD [address] [facility] [place] [address] PCP - General Family Medicine 04/04/19 documented as of this encounter
--- OUTSIDE RECORDS SUMMARY | 2023-03-03 10:06 | External Medical Summary | Summary of Care ---
Author Name Unknown Organization [facility] Address [address] [place] [address] Phone [phone] Care Team Providers Care Command Center Analyst Name Role Phone Trevon Guan MD Primary Care Provider +1- [phone] Reason for Visit * Reason Onset Date Comments Films 12/07/2022 Encounter Details Date Type Department Care Team Description 12/07/2022 Telephone Radiology Film File [address] [place], [place] [phone] Mariela De La Torre, DO [address] [place] [address] Films Allergies Active Allergy Reactions Severity Noted Date [...] Problems Problem Noted Date Family history of [place] (myocardial infarct ion) 04/18/2017 Dyslipidemia, goal LDL [...] encounter Miscellaneous Notes * Telephone Encounter - LOREN Upton - 12/07/2022 11:02 AM EDT [facility] requesting 2022 L Spine images be pushed to their system. [place] Authorization to Release on file. Images pushed to [facility] external connection through [employer] Report(s) faxed to [phone] . Successful fax confirmation received. documented in this encounter Plan of Treatment Upcoming Encounters Date Type Specialty Care Team Description 01/04/2023 Office Visit Pain Medicine Driss Gtz DO [address] [place] [address] 04/04/2023 Office Visit Family Medicine Ju Arboleda PA-C [address] [facility] [place] [address] Scheduled Procedures Name Priority Associated Diagnoses Date/Ti me COLONOSCOPY FLEXIBLE PROXIMA L DIAGNOSTIC Recall History of colonic polyps Health [...] filedocumented as of this encounter Care Teams Command Center Analyst Relationship Specialty Start Date End Date Trevon Guan MD [address] [place], [place] [phone] PCP - General Family Medicine 04/04/19 documented as of this encounter
--- OUTSIDE RECORDS SUMMARY | 2023-03-03 10:06 | External Medical Summary | Summary of Care ---
Author Name Unknown Organization [facility] Address [address] [facility] [address] Phone [phone] Care Team Providers Care Director Of Vital Statistics Name Role Phone Trevon Guan MD Primary Care Provider +1- [phone] Reason for Visit * Reason Onset Date Comments Referral 02/21/2023 Encounter Details Date Type Department Care Team (Late st Contact Info) Description 02/21/2023 Telephone Cardiology, [facility] [address] [place] [address] Gaston Ordonez, [address] [place] [address] Referral Allergies Active Allergy Reactions Criticality Noted [...] Noted Date Diagnosed Date Family history of [place] (myocardial infarction) 06/2017 Dyslipidemia, goal LDL below [...] encounter Miscellaneous Notes * Addendum Note - Malu Dhillon LPN [...] or can speak to his daughter, Mely Abbasi to let her know if appt date [...] Vega TECH - 02/21/2023 1:[address] Ricks, Dr. Ordonez reviewed the CAD imaging referral on Otilio [facility] for evaluation of chest pain. Symptoms sound concerning for angina and EKG shows new ST and T-wave abnormalities. Recommend urgent Cardiology referral for further evaluation (schedule within 3 days). Thank you, Sylvie Vega MS, [facility] Commercial Construction Estimator, Cardiology Imaging Program documented in this encounter Plan of Treatment Upcoming Encounters Date Type Department Care Team (Latest Contact Info) Description 04/04/2023 11:00 AM EST Office Visit [address] [phone] Ju Arboleda PA-C [address] [facility] [place] [address] 04/20/2023 1:20 PM EST Hospital Encounter OR [facility], Operating Room [facility] [address] [place] [phone] Chinmay Rankin, DO [address] [place] [phone] 04/20/2023 1:20 PM EST - 04/20/2023 1:45 PM EST Surgery OR [facility], Operating Room [facility] [address] [place] [phone] Chinmay Rankin, DO [address] [place] [phone] INJECTION SPINE LUMBAR OR SACRAL Scheduled Procedures [...] filedocumented as of this encounter Care Teams Director Of Vital Statistics Relationship Specialty Start Date End Date Trevon Guan MD [address] [place] [address] PCP - General Family Medicine 04/04/19 documented as of this encounter
--- OUTSIDE RECORDS SUMMARY | 2023-03-03 10:06 | External Medical Summary ---
Author Name Unknown Address Unknown Organization K01:[facility] [place] [address] [place] [address] Laboratory Report Ordering Provider Test Date Status DRUGABRIELEKALYN 02/16/2023 13:51:12 Final Observation Date Value Abnormality Reference (Units ) Status HbA1C 02/16/2023 13:51:12 5.4 4.0-5.6 (% ) Final The use of HbA1c to monitor glycemic status is based on normal hemoglobin and HbA composition. This test should not be used in patients with abnormal hemoglobin that affects the half life of the red blood cell or the in vivo glycation rates. Glucose, estimated average 02/16/2023 13:51:12 108 <126 (mg/dL) Final Performing Location [facility] - [address] [place] [address]
--- OUTSIDE RECORDS SUMMARY | 2023-03-03 10:06 | External Medical Summary | Summary of Care ---
Author Name Unknown Organization [facility] Address [address] [place] [address] Phone [phone] Care Team Providers Care Iron Cutter Name Role Phone Trevon Guan MD Primary Care Provider +1- [phone] Reason for Visit * Reason Comments Outpatient Testing Encounter Details Date Type Department Care Team (Late st Contact Info) Description 02/16/2023 2:00 PM EDT Laboratory Laboratory, [place] [address] [place] [address] [place] [address] [place] [address] [employer] Other*[id number]; Dyslipidemia, goal LDL below 130; Physical exam, annual; Class 1 obesity without serious comorbidity with body mass index (BMI) of 34.0 to 34.9 in adult, unspecified obesity type; Gastroesophageal reflux disease, unspecified whether esophagitis present Allergies Active Allergy Reactions Criticality Noted Date [...] Noted Date Diagnosed Date Family history of [place] (myocardial infarction) 06/2017 Dyslipidemia, goal LDL below [...] 3:30 PM EDT Telemedicine Interventional Pain Center, [facility] [address] [place] [address] Marlene Gonzales PA-C [address] [place] [address] Arrived 04/04/2023 11:00 AM EST [facility] [address] [facility] [address] Ju Arboleda PA-C [address] [facility] [place] [address] 04/20/2023 1:20 PM EST Hospital Encounter OR [facility], Operating Room [facility] [address] [place] [address] Chinmay Rankin, DO [address] [place] [address] 04/20/2023 1:20 PM EST - 04/20/2023 1:45 PM EST Surgery OR [facility], Operating Room [facility] [address] [place] [address] Chinmay Rankin, DO [address] [place] [address] INJECTION SPINE LUMBAR OR SACRAL Pending Results Name Type Priority Associated Diagnoses Date /Time MYCODE SUBSEQUENT ADULT Lab Routine [employer] Other*[id number] 02/16/2023 1:51 PM EDT LIPID PANEL WITH DIRECT LDL IF TG IS HIGH Lab Routine Dyslipidemia, goal LDL below 130 Physical exam, annual Class 1 obesity without serious comorbidity with body mass index (BMI) of 34.0 to 34.9 in adult, unspecified obesity type 02/16/2023 1:51 PM EDT HEMOGLOBIN A1C Lab Routine Physical exam, annual Class 1 obesity without serious comorbidity with body mass index (BMI) of 34.0 to 34.9 in adult, unspecified obesity type 02/16/2023 1:51 PM EDT COMPREHENSIVE METABOLIC PANEL Lab Routine Gastroesophageal reflux disease, unspecified whether esophagitis present Dyslipidemia, goal LDL below 130 Physical exam, annual Class 1 obesity without serious comorbidity with body mass index (BMI) of 34.0 to 34.9 in adult, unspecified obesity type 02/16/2023 1:51 PM EDT MYCODE SST1 Lab Routine [employer] Other*[id number] 02/16/2023 1:51 PM EDT MYCODE SST2 Lab Routine [employer] Other*[id number] 02/16/2023 1:51 PM EDT Scheduled Procedures Name Priority Associated Diagnoses Date/Ti [...] as of this encounter Visit Diagnoses Diagnosis [employer] Other*[id number] Dyslipidemia, goal LDL below 130 Other and unspecified hyperlipidemia Physical exam, annual Routine general medical examination at a health care facility Class 1 obesity without serious comorbidity with body mass index (BMI) of 34.0 to 34.9 in adult, unspecified obesity type Gastroesophageal reflux disease, unspecified whether esophagitis present Lumbar radiculopathy Thoracic or lumbosacral neuritis or radiculitis, unspecified documented in this encounter Care Teams Iron Cutter Relationship Specialty Start Date End Date Trevon Guan MD [address], [place] [address] PCP - General Family Medicine 04/04/19 documented as of this encounter
--- OUTSIDE RECORDS SUMMARY | 2023-03-03 10:06 | External Medical Summary | Summary of Care ---
Author Name Unknown Organization [facility] Address [address] [place] [place] [place] [address] Phone [phone] Care Team Providers Care Folding Machine Setter Name Role Phone Trevon Guan MD Primary Care Provider +1- [phone] Reason for Visit * Reason Comments Acute Chest pain and when takes tums it goes away.Taking OTC PrilosecHas a wellness sheet from work that will need filles out.Needs labs Encounter Details Date Type Department Care Team (Latest Contact Info) Description 02/16/2023 1:20 PM EDT Office Visit [facility] [address] [place] [address] Syeda Bueno MD [address] [place] [address] Gastroesophageal reflux disease, unspecified whether esophagitis present*; Class 1 obesity without serious comorbidity with body mass index (BMI) of 34.0 to 34.9 in adult, unspecified obesity type; Dyslipidemia, goal LDL below 130; Physical exam, annual Allergies Active Allergy Reactions Criticality Noted Date Comments Indomethacin Other (Please comment) 11/28/2019 Dizziness Penicillins 11/02/1997 rash Sulfa Antibiotics 11/02/1997 rapid pulse documented as of this encounter (statuses as of 02/16/2023) Medications Medication Sig Dispensed Refills Start Date End Date Status Meclizine HCl 25 MG Oral Tablet ChewableIndicati ons:Benign positional vertigo, bilateral Take 1 Tab by mouth 3 times a day as needed for Dizziness. 30 Tab 1 1 Active guaiFENesin-Code ine 100-10 MG/5ML Oral Syrup (Robitussin AC)Indications:A cute bronchitis, antibiotics not indicated Take 5 mL by mouth every 4 hours as needed for Cough. 120 mL 0 3 Active Additional Information Patient not taking.Reported on 02/16/2023 Meloxicam 7.5 MG Oral Tablet (Mobic)Indicatio ns:Lumbar radicular pain Take 1 Tablet by mouth in the morning. 90 Tablet 0 3 Active Fluticasone Propionate 50 MCG/ACT Nasal Suspension (Flonase) Administer 2 Sprays into each nostril in the morning. 16 g 5 3 Active Atorvastatin Calcium 40 MG Oral Tablet (Lipitor) Take 1 Tablet by mouth in the morning. 90 Tablet 3 3 Active Omeprazole 20 MG Oral Capsule Delayed Release (PriLOSEC) Take 1 Capsule by mouth in the morning. 1 hour before the first meal of the day. 90 Capsule 3 3 Active Montelukast Sodium 10 MG Oral Tablet (Singulair) Take 1 Tablet by mouth in the morning. 90 Tablet 1 3 02/17/20 23 Discontinued Fluticasone Propionate 50 MCG/ACT Nasal Suspension (Flonase) Administer 2 Sprays into each nostril in the morning. 16 g 2 3 02/17/20 23 Discontinued(Ref ill) Atorvastatin Calcium 40 MG Oral Tablet (Lipitor) Take 1 Tablet by mouth in the morning. 30 Tablet 5 3 02/17/20 23 Discontinued(Ref ill) documented as of this encounter (statuses as of 02/16/2023) Active Problems Problem Noted Date Diagnosed Date Family history of [place] (myocardial infarction) 06/2017 Dyslipidemia, goal LDL below [...] Smoke Exposure: Past Smokeless Tobacco: Current Snuff Tobacco Cessation:Ready to Q uit: Not Asked; Counseling Given: Not Answered Alcohol Use Standard Drinks/Week Comments Yes 0 [...] on file documented as of this encounter Last Filed Vital Signs Vital Sign Reading Time Taken Comments Blood Pressure 130/68 02/16/2023 1:20 PM EDT Pulse 65 02/16/2023 1:20 PM EDT Temperature 36.5 C (97.7 F) 02/16/2023 1:20 PM ED T Respiratory Rate 20 02/16/2023 1:20 PM EDT Oxygen Saturation 96% 02/16/2023 1:20 PM EDT Inhaled Oxygen Concentration - - Weight 99.8 kg (220 lb) 02/16/2023 1:20 PM EDT Height 168.9 cm (5' 6.5") 02/16/2023 1:20 PM EDT Body Mass Index 34.98 02/16/2023 1:20 PM EDT documented in this encounter Progress Notes * Syeda Bueno MD - 02/16/2023 1:34 PM EDT Subjective Otilio Ward Jr. is a 57 year old male. Chief Complaint Patient presents with Acute Chest pain and when takes tums it goes away. Taking OTC Prilosec Has a wellness sheet from work that will need filles out. Needs labs HPI: Here for B/L heartburn sx, reflux Usually it resolved right after taking tums Also tried omeprazole which seems most helpful Denies lt sided , exertional chest pain , SOB, abd pain, leg swelling, palpitation, arm pain neck pain Some weight gain Chew tobacco Poor diet, late night eating, occ alcohol drinks, and fast eating Allergy , stable, flonase HL, statin PMH: Patient Active Problem List Diagnosis Code ACUTE STRESS F43.89 TOBACCO USE DISORDER- ORAL F17.200 Esophageal reflux K21.9 Dyslipidemia, goal LDL below 130 E78.5 Gout M10.9 Family history of [place] (myocardial infarction) Z82.49 Current Outpatient Medications Medication Sig Dispense Refill Meclizine HCl 25 MG Oral Tablet Chewable Take 1 Tab by mouth 3 times a day as needed for Dizziness.30 Tab 1 Meloxicam 7.5 MG Oral Tablet (Mobic) Take [...] meal of the day. 90 Capsule 3 guaiFENesin-Codeine 100-10 MG/5ML Oral Syrup (Robitussin AC) Take 5 mL by mouth every 4 hours as needed for Cough. (Patient not taking: Reported on 02/16/2023) 120 mL 0 No current facility-administered medications for this visit. Past Medical History: Diagnosis Date Gout HTN, goal below 130/80 Past Surgical History: Procedure Laterality Date COLONOSCOPY, DIAGNOSTIC (RECTUM) 06/18/2015 adenomatous polyp, repeat 3 yrs/COLONOSCOPY FLEXIBLE PROXIMAL DIAGNOSTIC performed by Marti Zavala DO at [facility] COLONOSCOPY, DIAGNOSTIC (RECTUM) 06/10/2019 diverticulosis sigmoid colon/biopsies show hyperplastic polyps/recall 3-5 years/COLONOSCOPY FLEXIBLE PROXIMAL DIAGNOSTIC performed by Marti Zavala DO at [facility] Review of patient's allergies indicates: Allergen Reactions Indomethacin Other (Please comment) Dizziness Penicillins rash Sulfa Antibiotics rapid pulse Family History Problem Relation Age of Onset Other (calcuili) Mother renal stones Heart Disorder Father sudden [place] age 75 Cancer Father prostate Heart attack Sister 54 Family Status Relation Status Mo Alive renal calculi Fa at age 75 Sis Sis Alive Sis Alive Brayden Alive Son Alive Son Alive Social History Socioeconomic History Marital status: Spouse name: Tomasa Lamar Number of children: 3 Years of education: Not on file Highest education level: Not on file Occupational History 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 Tobacco Use Smoking status: Never Passive exposure: Past Smokeless tobacco: Current Types: Snuff Vaping Use Vaping Use: Not on file Substance and Sexual Activity Alcohol use: Yes Comment: 6 pack 2-3 x per week Drug use: No Sexual activity: Yes Partners: Female Other Topics Concern Not on file Social History Narrative Not on file Social Determinants of Health Financial Resource Strain: Not on file Food Insecurity: No Food Insecurity (04/04/2019) Hunger Vital Sign Worried About Running Out of Food in the Last Year: Never true Ran Out of Food in the Last Year: Never true Transportation Needs: Not on file Physical Activity: Not on file Stress: Not on file Social Connections: Not on file Intimate Partner Violence: Not on file Housing Stability: Not on file Review of Systems Constitutional: Negative for activity change, appetite change, chills, diaphoresis, fatigue, fever and unexpected weight change. HENT: Positive for congestion. Negative for ear pain, postnasal drip, rhinorrhea, sinus pressure and sinus pain. Eyes: Negative for visual disturbance. Respiratory: Negative for cough, chest tightness, shortness of breath and wheezing. Cardiovascular: Negative for chest pain, palpitations and leg swelling. Gastrointestinal: Positive for nausea. Negative for abdominal distention, abdominal pain, blood in stool, constipation, diarrhea and vomiting. Heartburn , comes and goes Allergic/Immunologic: Positive for environmental allergies. Neurological: Negative for dizziness and light-headedness. Psychiatric/Behavioral: Positive for sleep disturbance (reflux). Negative for agitation and behavioral problems. Objective BP 130/68 | Pulse 65 | Temp 36.5 C (97.7 F) (Infrared ) | Resp 20 | Ht 1.689 m (5' 6.5") | Wt 99.8 kg (220 lb) | SpO2 96% | BMI 34.98 kg/m | BSA 2.16 m Physical Exam Constitutional: General: He is not in acute distress. Appearance: Normal appearance. He is obese. He is not ill-appearing, toxic- appearing or diaphoretic. HENT: Head: Normocephalic and atraumatic. Nose: Nose normal. Eyes: Extraocular Movements: Extraocular movements intact. Cardiovascular: Rate and Rhythm: Normal rate and regular rhythm. Pulmonary: Effort: Pulmonary effort is normal. No respiratory distress. Abdominal: Tenderness: There is no abdominal tenderness. Musculoskeletal: Right lower leg: No edema. Left lower leg: No edema. Neurological: General: No focal deficit present. Mental Status: He is alert and oriented to person, place, and time. Psychiatric: Behavior: Behavior normal. ASSESSMENT/PLAN: Gastroesophageal reflux disease, unspecified whether esophagitis present (Primary) - COMPREHENSIVE METABOLIC PANEL; Future; Expected date: 02/16/2023 - TROPONIN T, HIGH SENSITIVITY; Future; Expected date: 02/16/2023 Class 1 obesity without serious comorbidity with body mass index (BMI) of 34.0 to 34.9 in adult, unspecified obesity type - LIPID PANEL WITH DIRECT LDL IF TG IS HIGH; Future; Expected date: 02/16/2023 - HEMOGLOBIN A1C; Future; Expected date: 02/16/2023 - COMPREHENSIVE METABOLIC PANEL; Future; Expected date: 02/16/2023 Dyslipidemia, goal LDL below 130 - LIPID PANEL WITH DIRECT LDL IF TG IS HIGH; Future; Expected date: 02/16/2023 - COMPREHENSIVE METABOLIC PANEL; Future; Expected date: 02/16/2023 Physical exam, annual - LIPID PANEL WITH DIRECT LDL IF TG IS HIGH; Future; Expected date: 02/16/2023 - HEMOGLOBIN A1C; Future; Expected date: 02/16/2023 - COMPREHENSIVE METABOLIC PANEL; Future; Expected date: 02/16/2023 Other orders - Fluticasone Propionate 50 MCG/ACT Nasal Suspension (Flonase); Administer 2 Sprays into each nostril in the morning. - Atorvastatin Calcium 40 MG Oral Tablet (Lipitor); Take 1 Tablet by mouth in the morning. - Omeprazole 20 MG Oral Capsule Delayed Release (PriLOSEC); Take 1 Capsule by mouth in the morning.1 hour before the first meal of the day. Omeprazole, Diet change Fasting 4 hours before bed time Slow eating F/u blood tsets If no improvement, will consider EGD Syeda Bueno MD documented in this encounter Nursing Notes * Cris Kelsey LPN - 02/16/2023 1:16 PM EDT Chief Complaint Patient presents with Acute Chest pain and when takes tums it goes away. Taking OTC Prilosec Has a wellness sheet from work that will need filles out. Needs labs documented in this encounter Plan of Treatment Upcoming Encounters Date Type Department Care Team (Latest Contact Info) Description 02/16/2023 3:30 PM EDT Telemedicine Interventional Pain Center, [facility] [address] [place] [address] Marlene Gonzales PA-C [address] [address] Arrived 04/04/2023 11:00 AM EST [address] [address] Ju Arboleda PA-C [address] [facility], [place] [address] 04/20/2023 1:20 PM EST Hospital Encounter OR [facility], Operating Room [facility] [address] [place] [phone] Chinmay Rankin, DO [address] [place] [address] 04/20/2023 1:20 PM EST - 04/20/2023 1:45 PM EST Surgery OR [facility], Operating Room [facility] [address] [place] [phone] Chinmay Rankin, DO [address] [place] [address] INJECTION SPINE LUMBAR OR SACRAL Pending Results Name Type Priority Associated Diagnoses Date /Time LIPID PANEL WITH DIRECT LDL IF TG [...] unspecified obesity type 02/16/2023 1:51 PM EDT Scheduled Orders Name Type Priority Associated Diagnoses Orde r Schedule LIPID PANEL WITH DIRECT LDL IF TG IS HIGH Lab Routine Dyslipidemia, goal LDL below 130 Physical exam, annual Class 1 obesity without serious comorbidity with body mass index (BMI) of 34.0 to 34.9 in adult, unspecified obesity type Expected: 02/16/2023, Expires: 02/17/2024 HEMOGLOBIN A1C Lab Routine Physical exam, annual Class 1 obesity without serious comorbidity with body mass index (BMI) of 34.0 to 34.9 in adult, unspecified obesity type Expected: 02/16/2023 (Approximate), Expires: 02/16/2024 COMPREHENSIVE METABOLIC PANEL Lab Routine Gastroesophageal reflux disease, unspecified whether esophagitis present Dyslipidemia, goal LDL below 130 Physical exam, annual Class 1 obesity without serious comorbidity with body mass index (BMI) of 34.0 to 34.9 in adult, unspecified obesity type Expected: 02/16/2023 (Approximate), Expires: 02/16/2024 TROPONIN T, HIGH SENSITIVITY Lab Routine Gastroesophageal reflux disease, unspecified whether esophagitis present Expected: 02/16/2023 (Approximate), Expires: 02/16/2024 Scheduled Procedures Name Priority Associated Diagnoses Date/Ti [...] as of this encounter Visit Diagnoses Diagnosis Gastroesophageal reflux disease, unspecified whether esophagitis present- Primary Class 1 obesity without serious comorbidity with body mass index (BMI) of 34.0 to 34.9 in adult, unspecified obesity type Dyslipidemia, goal LDL below 130 Other and unspecified hyperlipidemia Physical exam, annual Routine general medical examination at a health care facility Lumbar radiculopathy Thoracic or lumbosacral neuritis or radiculitis, unspecified documented in this encounter Care Teams Folding Machine Setter Relationship Specialty Start Date End Date Trevon Guan MD [address] [place] [facility] [place] [address] PCP - General Family Medicine 04/04/19 documented as of this encounter
--- OUTSIDE RECORDS SUMMARY | 2023-03-03 10:06 | External Medical Summary | Summary of Care ---
Author Name Unknown Organization [facility] Address [address] [facility] [place] [address] Phone [phone] Care Team Providers Care Business Office Manager Name Role Phone Trevon Guan MD Primary Care Provider +1- [phone] Reason for Visit * Reason Onset Date Comments Referral 02/21/2023 Encounter Details Date Type Department Care Team (Late st Contact Info) Description 02/21/2023 Telephone Cardiology, [facility] [address] [place] [id number] Gaston Ordonez, [address] [place] [address] Referral Allergies Active Allergy Reactions Criticality Noted [...] Noted Date Diagnosed Date Family history of [place] (myocardial infarction) 06/2017 Dyslipidemia, goal LDL below [...] encounter Miscellaneous Notes * Telephone Encounter - Josey Mcpherson [facility] - 02/27/2023 3:26 PM EST Pt's daughter Mely returned call and patient has been scheduled with Dr. Matthew East in [facility] on 03/26/2023 at 10:00am. Pt has [...] within 3 days). Thank you, Sylvie Vega, , [facility] Customer Energy Specialist, Cardiology Imaging Program documented in this encounter Plan of Treatment Upcoming Encounters Date Type Department Care Team (Latest Contact Info) Description 03/26/2023 10:00 AM EST Office Visit Cardiology, [facility] [address] [place] [address] Matthew East MD [address] [place] [address] 04/04/2023 11:00 AM EST Office Visit [facility] [address] [place] [address] Ju Arboleda PASupaC [address] [place] [address] 04/20/2023 1:20 PM EST Hospital Encounter OR [facility], Operating Room [facility] [address] [place] [address] Chinmay Rankin, [address] [place] [phone] 04/20/2023 1:20 PM EST - 04/20/2023 1:45 PM EST Surgery OR [facility], Operating Room [facility] [address] [place] [phone] Chinmay Rankin, DO [address] [place] [phone] INJECTION SPINE LUMBAR OR SACRAL Scheduled Procedures [...] filedocumented as of this encounter Care Teams Business Office Manager Relationship Specialty Start Date End Date Trevon Guan MD [address] [place] [address] PCP - General Family Medicine 04/04/19 documented as of this encounter
--- OUTSIDE RECORDS SUMMARY | 2023-03-03 10:06 | External Medical Summary | Summary of Care ---
Author Name Unknown Organization [facility] Address [address] [place] [address] Phone [phone] Care Team Providers Care Boiler/Chiller Operator Name Role Phone Trevon Guan MD Primary Care Provider +1- [phone] Reason for Referral * Ancillary Services (Within 10 days (routine)) - Authorized Specialty Diagnoses / Procedures Referred By Emelia covington Referred To Contact Cardiovascular Medicine Diagnoses Other chest pain Husam Ricks MD [address] [place] [address] Referral ID Status Reason Start Date Expiration Date Visits Requested Visits Authorized [id number] Authorized Ancillary Services Required 02/20/2023 999 999 Question Answer Referral Priority Within 10 days (routine) Where should this appointment be scheduled? [facility] What is the preferred location to have this test performed? [facility] How soon should this test be performed? 1 Month or Less Comments Not for rest Echo. Reason for Study (chest pain or anginal equivalent): Stable chest pain, no CAD: first imaging exam Select the preferred exam: Stress Echo Exercise: ischemia, EF, wall motion, and structural heart disease Does the patient have a current EKG? Yes Does the patient have a prior history of a stent or bypass? No Lab Results Component Value Date/Time CREATININE - [facility]* 1.1 02/16/2023 01:51 PM CREATININE - GEISIN* 1.1 04/04/2019 01:19 PM Lab Results Component Value Date/Time BUN - [facility] 18 02/16/2023 01:51 PM BUN - [facility] 16 04/04/2019 01:19 PM Reason for Visit * Reason Comments Follow Up Fill out forms and p t has pains in chest as getting worse Encounter Details Date Type Department Care Team (Late st Contact Info) Description 02/20/2023 1:20 PM EST Office Visit [facility] [place] [address] [facility] [address] Husam Ricks MD [address] [facility] [address] Other chest pain*; Gastroesophageal reflux disease, unspecified whether esophagitis present Allergies Active Allergy Reactions Criticality Noted Date Comments Indomethacin Other (Please comment) 11/28/2019 Dizziness Penicillins 11/02/1997 rash Sulfa Antibiotics 11/02/1997 rapid pulse documented as of this encounter (statuses as of 02/20/2023) Medications Medication Sig Dispensed Refills Start Date [...] Omeprazole 20 MG Oral Capsule Delayed Release (PriLOSEC)Indicat ions:Other chest pain,Gastroesopha geal reflux disease, unspecified whether esophagitis present Take 2 Capsules by mouth in the morning. Take 40 mg daily for 1 month then 20 mg daily. 0 02/20/2023 Active Omeprazole 20 MG Oral Capsule Delayed Release (PriLOSEC) Take 1 Capsule by mouth in the morning. 1 hour before the first meal of the day. 90 Capsule 3 02/16/2023 Discontinue d(Refill) documented as of this encounter (statuses as of 02/20/2023) Active Problems Problem Noted Date Diagnosed Date Family history of [place] (myocardial infarction) 06/2017 Dyslipidemia, goal LDL below 130 10/31/2012 Gout 10/31/2012 TOBACCO USE DISORDER- ORAL 01/29/2007 Esophageal reflux 01/29/2007 ACUTE STRESS 05/25/2004 documented as of this encounter (statuses as of 02/20/2023) Resolved Problems Problem Noted Date Diagnosed Date [...] as of this encounter (statuses as of 02/20/2023) Immunizations Name Administration Dates Next Due COVID-19, [...] Sign Reading Time Taken Comments Blood Pressure 136/76 02/20/2023 1:41 PM EST Pulse 60 02/20/2023 1:41 PM EST Temperature 36.2 C (97.1 F) 02/20/2023 1:41 PM ES T Respiratory Rate 22 02/20/2023 1:41 PM EST Oxygen Saturation 96% 02/20/2023 1:41 PM EST Inhaled Oxygen Concentration - - Weight 101.4 kg (223 lb 9.6 oz) 02/20/2023 1:41 PM EST Height 168.9 cm (5' 6.5") 02/20/2023 1:41 PM EST Body Mass Index 35.55 02/20/2023 1:41 PM EST documented in this encounter Progress Notes * Husam Ricks MD - 02/20/2023 2:49 PM EST Subjective: Otilio Ward . is a 57 year old male. Chief Complaint Patient presents with Follow Up Fill out forms and pt has pains in chest as getting worse HPI: 57-year-old seen today because of persistent chest pain. He also needs his wellness form completed for his employer. He is already had the blood work done. He has been bothered with a chest discomfort that he describes as a band across the chest. This predictably occurs if he is walking a distance. It also occurs walking up cellar steps especially if he is carrying laundry. He gets the same d iscomfort often times after eating but it does not matter what he eats in it only then occurs if heis walking after eating. The discomfort is consistently relieved if he takes a couple of antacid tablets. He was just started on omeprazole a couple of days ago but had already use 2 weeks worth before the prescription refill. No affect 1 way or another so far. Patient Active Problem List Diagnosis Code ACUTE STRESS F43.89 TOBACCO USE DISORDER- ORAL F17.200 Esophageal reflux K21.9 Dyslipidemia, goal LDL below 130 E78.5 Gout M10.9 Family history of [place] (myocardial infarction) Z82.49 Current Outpatient Medications Medication Sig Dispense Refill Meclizine HCl 25 MG Oral Tablet Chewable Take 1 Tab by mouth 3 times a day as needed for Dizziness.30 Tab 1 Fluticasone Propionate 50 MCG/ACT Nasal Suspension [...] meal of the day. 90 Capsule 3 Meloxicam 15 MG Oral Tablet Take 1 Tablet by mouth in the morning. 30 Tablet 2 guaiFENesin-Codeine 100-10 MG/5ML Oral Syrup (Robitussin AC) Take 5 mL by mouth every 4 hours as needed for Cough. (Patient not taking: Reported on 02/16/2023) 120 mL 0 No current facility-administered medications for this visit. Review of patient's allergies indicates: Allergen Reactions Indomethacin Other (Please comment) Dizziness Penicillins rash Sulfa Antibiotics rapid pulse Objective: BP 136/76 | Pulse 60 | Temp 36.2 C (97.1 F) (Infrared ) | Resp 22 | Ht 1.689 m (5' 6.5") | Wt 101.4 kg (223 lb 9.6 oz) | SpO2 96% | BMI 35.55 kg/m | BSA 2.18 m Physical Exam: CONST: alert, pleasant, no acute distress HEAD: normocephalic, atraumatic Eyes - PERRLA, EOM'I OROPHARYNX: clear, no swelling or erythema, moist CV: regular rate and rhythm, no murmur CHEST: clear to auscultation bilaterally, no rales or wheezing. No chest wall tenderness ABD: soft, non tender, non distended, no masses or hepatosplenomegaly EXT: no edema, no joint swelling or deformities, EKG shows sinus bradycardia with a rate of 55. There were ST he-T wave abnormalities. Lateral ischemia to be considered. I did compare this EKG to 1 done [address] their are [address] changes-depression in the lateral leads. ASSESSMENT/PLAN: Other chest pain (Primary)-consider ischemic heart disease. - EKG I ordered stress testing-. I ordered stress echo but ultimately this will be up to Cardiology Possible gastroesophageal reflux disease-increase his omeprazole to tablets daily i.e. 40 mg daily.He may continue the antacid tablets as necessary. If his stress test is unremarkable and he still having chest discomfort, then he needs to be set up for EGD and probable GI referral. Husam Ricks MD documented in this encounter Procedure Notes * Gaston Ordonez DO - 02/20/2023 2:45 PM ESTAssociated Order(s): EKG REASON FOR STUDY: exertional chest pain CONCLUSIONS: Sinus bradycardia ST & T wave abnormality, consider lateral ischemia Abnormal ECG When compared with ECG of 15-OCT-2014 18:23, Nonspecific T wave abnormality, worse in Inferior leads Ventricular Rate: 55 Atrial Rate: 55 SC Interval: 160 QRS Duration: 92 QT/QTc: 450/430 ms P-R-T [place]: 42 : -2 : 225 degrees documented in this encounter Nursing Notes * rCis Kelsey LPN - 02/20/2023 1:39 PM EST Chief Complaint Patient presents with Follow Up Fill out forms and pt has pains in chest as getting worse documented in this encounter Plan of Treatment Upcoming Encounters Date Type Department Care Team (Latest Contact Info) Description 04/04/2023 11:00 AM EST Office Visit [facility] [address] [facility], [place] [address] Ju Arboleda PA-C [address] [facility], [place] [address] 04/20/2023 1:20 PM EST Hospital Encounter OR [facility], Operating Room [facility] [address] [place] [id number] Chinmay Rankin, DO [address] [place] [address] 04/20/2023 1:20 PM EST - 04/20/2023 1:45 PM EST Surgery OR [facility], Operating Room [facility] [address] [place] [id number] Chinmay Rankni, [address] [place] [id number] INJECTION SPINE LUMBAR OR SACRAL Scheduled Procedures Name Priority Associated Diagnoses Date/Ti me INJECTION SPINE LUMBAR OR SACRAL Lumbar radiculopathy 04/20/2023 1:20 PM EST COLONOSCOPY FLEXIBLE PROXIMAL DIAGNOSTIC Recall History of colonic polyps Scheduled Referrals Name Type Priority Associated Diagnoses Orde r Schedule CAD IMAGING REFERRAL OP Referral Within 10 days (routine) Other chest pain Ordered: 02/20/2023 Health Maintenance Due Date Last Done Comments [...] Not on filedocumented as of this encounter Procedures Procedure Name Priority Date/Time Associated Diagnosis Comments SC ECG ROUTINE ECG W/LEAST 12 LDS I&R ONLY Routine 02/20/2023 2:45 PM EST Other chest pain documented in this encounter Results * EKG (02/20/2023 2:45 PM EST) 02/20/2023 2:45 PM EST Narrative Procedure Note Gaston Ordonez DO - 02/20/2023 2:45 PM EST REASON FOR STUDY: exertional chest pain CONCLUSIONS: Sinus bradycardia ST & T wave abnormality, consider lateral ischemia Abnormal ECG When compared with ECG of 15-OCT-2014 18:23, Nonspecific T wave abnormality, worse in Inferior leads Ventricular Rate: 55 Atrial Rate: 55 SC Interval: 160 QRS Duration: 92 QT/QTc: 450/430 ms P-R-T [place]: 42 : -2 : 225 degrees Husam Ricks MD EKG [facility] documented in this encounter Visit Diagnoses Diagnosis Other chest pain- Primary Gastroesophageal reflux disease, unspecified whether esophagitis present Lumbar radiculopathy Thoracic or lumbosacral neuritis or radiculitis, unspecified documented in this encounter Care Teams Boiler/Chiller Operator Relationship Specialty Start Date End Date Trevon Guan MD [address] [place] [address] PCP - General Family Medicine 04/04/19 documented as of this encounter
--- OUTSIDE RECORDS SUMMARY | 2023-03-03 10:06 | External Medical Summary ---
Author Name Unknown Address Unknown Organization [id number][place] [place] [address] [place] [address] Laboratory Report Ordering Provider Test Date Status KALYN WASHINGTON 02/16/2023 13:51:12 Final Observation Date Value Abnormality Reference (Units ) Status BUN 02/16/2023 13:51:12 18 6-20 (mg/dL) Final Creatinine 02/16/2023 13:51:12 1.1 0.6-1.2 (mg/dL) Final Glomerular filtration rate/1.73 sq M.predicted [Volume Rate/Area] in Serum, Plasma or Blood by Creatinine-based formula (CKD-EPI) 02/16/2023 13:51:12 81 >=60 (mL/min) Final eGFR is calculated based on the CKD-EPI 2020 equation SODIUM 02/16/2023 13:51:12 138 135-146 (m mol/L) Final Potassium 02/16/2023 13:51:12 4.4 3.5-5.1 (m mol/L) Final Cl 02/16/2023 13:51:12 104 98-107 (mm ol/L) Final CO2 02/16/2023 13:51:12 23 22-32 (mmo l/L) Final Anion gap 02/16/2023 13:51:12 11 7-15 (mmol /L) Final Glucose 02/16/2023 13:51:12 88 70-120 (mg /dL) Final Albumin 02/16/2023 13:51:12 5.0 3.8-5.0 (g /dL) Final AST (Aspartate aminotransferase) 02/16/2023 13:51:12 25 10-50 (U/L) Final Alk Phos 02/16/2023 13:51:12 66 35-130 (U/ L) Final Bilirubin, Total 02/16/2023 13:51:12 1.1 <=1 .2 (mg/dL) Final Calcium 02/16/2023 13:51:12 9.6 8.4-10.2 ( mg/dL) Final Protein 02/16/2023 13:51:12 7.3 6.0-8.3 (g /dL) Final ALT (Alanine aminotransferase) 02/16/2023 13:51:12 30 10-50 (U/L) Final Performing Location [facility] [place] [facility] [address] [facility] [address]
--- OUTSIDE RECORDS SUMMARY | 2023-03-03 10:07 | External Medical Summary ---
Author Name Unknown Address Unknown Organization [id number]:[facility] [place] [facility] [address] [facility] [address] [place] [address] Laboratory Report Ordering Provider Test Date Status ALEXANDRAITZ MAHONEYTA 09/23/2022 14:55:02 Final Observation Date Value Abnormality Reference (Units ) Status WBC, Total 09/23/2022 14:55:02 8.49 4.00-10.80 (K/uL) Final RBC 09/23/2022 14:55:02 5.00 4.50-5.25 (M/uL) Final Hemoglobin 09/23/2022 14:55:02 15.8 14.0-16.8 (g/dL) Final HCT 09/23/2022 14:55:02 46.0 40.0-48.4 (%) Final MCV 09/23/2022 14:55:02 92.0 82.0-99.5 (fL) Final MCH 09/23/2022 14:55:02 31.6 27.0-34.0 (pg) Final MCHC 09/23/2022 14:55:02 34.3 32.0-36.0 (g/dL) Final RDW 09/23/2022 14:55:02 12.7 11.5-15.5 (%) Final Platelets 09/23/2022 14:55:02 221 140-400 (K/uL) Final MPV 09/23/2022 14:55:02 10.2 6.6-11.1 (fL) Final Nucleated erythrocytes/100 leukocytes [Ratio] in Blood by Automated count 09/23/2022 14:55:02 0 <=0 (/100 WBCs) Final Performing Location [facility] [place] [address] [place] [address]
--- OUTSIDE RECORDS SUMMARY | 2023-03-03 10:07 | External Medical Summary | Summary of Care ---
Author Name Unknown Organization [facility] Address [address] [place] [address] Phone [phone] Care Team Providers Care Roofer Vinyl Coating Name Role Phone Trevon Guan MD Primary Care Provider +1- [phone] Reason for Visit * Reason Onset Date Comments Test Results 11/19/2022 Encounter Details Date Type Department Care Team Description 11/19/2022 Telephone Family Practice [facility] [address] [place] [address] Mariela De La Torre DO [address] [facility] [address] Test Results (/) Allergies Active Allergy Reactions Severity Noted Date Comments Indomethacin Other (Please comment) 11/28/2019 Dizziness Penicillins 11/02/1997 rash Sulfa Antibiotics 11/02/1997 rapid pulse documented as of this encounter (statuses as of 12/05/2022) Medications Medication Sig Dispensed Refills Start Date [...] as of this encounter (statuses as of 12/05/2022) Active Problems Problem Noted Date Family history of [place] (myocardial infarct ion) 04/18/2017 Dyslipidemia, goal LDL below 130 013 Gout 10/31/2012 TOBACCO USE DISORDER- ORAL 01/29/2007 Esophageal reflux 01/29/2007 ACUTE STRESS 05/25/2004 documented as of this encounter (statuses as of 12/05/2022) Resolved Problems Problem Noted Date Resolved Date [...] as of this encounter (statuses as of 12/05/2022) Immunizations Name Administration Dates Next Due COVID-19, LNP-s, No Preserve , Jeerl-sucrose, Ages 12+ (Pfizer) 10/07/2021 TD - Tetanus/Diptheria [...] Miscellaneous Notes * Telephone Encounter - LOREN Bañuelos - 12/05/2022 9:19 AM EDT Patient has been notified of the message. Patient would like to proceed with pain medicine. Patient can be reached at [phone] * Telephone Encounter - Cassandra Trinh LPN - 11/20/2022 10:27 AM EDT Called voice verified cell and left message below and pt to call back with what he decides to do. * Telephone Encounter - Mariela De La Torre DO - 11/19/2022 9:53 AM EDT Mri showing degenerative changes can offer to see pain medicine for possible injections Thank you documented in this encounter Plan of Treatment Upcoming Encounters Date Type Specialty Care Team Description 04/04/2023 Office Visit Family Medicine Ju Arboleda PA-C [address] [place] [address] Scheduled Procedures Name Priority Associated Diagnoses Date/Ti [...] filedocumented as of this encounter Care Teams Roofer Vinyl Coating Relationship Specialty Start Date End Date Trevon Guan MD [address] [place] [address] PCP - General Family Medicine 04/04/19 documented as of this encounter
--- OUTSIDE RECORDS SUMMARY | 2023-03-03 10:07 | External Medical Summary | Summary of Care ---
Author Name Unknown Organization [facility] Address [address] [place] [address] Phone [phone] Care Team Providers Care Cupola Patcher Name Role Phone Trevon Guan MD Primary Care Provider +1- [phone] Reason for Visit * Reason Onset Date Comments Test Results 11/19/2022 Encounter Details Date Type Department Care Team Description 11/19/2022 Telephone Family Practice [facility] [address] [place] [address] Mariela De La Torre DO [address] [place] [address] Test Results (/) Allergies Active Allergy Reactions Severity Noted Date Comments Indomethacin Other (Please comment) 11/28/2019 Dizziness Penicillins 11/02/1997 rash Sulfa Antibiotics 11/02/1997 rapid pulse documented as of this encounter (statuses as of 11/20/2022) Medications Medication Sig Dispensed Refills Start Date [...] as of this encounter (statuses as of 11/20/2022) Active Problems Problem Noted Date Family history of [place] (myocardial infarct ion) 04/18/2017 Dyslipidemia, goal LDL below 130 013 Gout 10/31/2012 TOBACCO USE DISORDER- ORAL 01/29/2007 Esophageal reflux 01/29/2007 ACUTE STRESS 05/25/2004 documented as of this encounter (statuses as of 11/20/2022) Resolved Problems Problem Noted Date Resolved Date [...] as of this encounter (statuses as of 11/20/2022) Immunizations Name Administration Dates Next Due COVID-19, [...] encounter Miscellaneous Notes * Telephone Encounter - Cassandra Trinh LPN [...] Family Medicine Ju Arboleda PA-C [address] [place] [address] Scheduled Procedures Name Priority Associated Diagnoses Date/Ti [...] filedocumented as of this encounter Care Teams Cupola Patcher Relationship Specialty Start Date End Date Trevon Guan MD [address] [place], [place] [phone] PCP - General Family Medicine 04/04/19 documented as of this encounter
--- OUTSIDE RECORDS SUMMARY | 2023-03-03 10:07 | External Medical Summary | Summary of Care ---
Author Name Unknown Organization [facility] Address [address] [place] [address] Phone [phone] Care Team Providers Care Track Repairer Helper Name Role Phone Trevon Guan MD Primary Care Provider +1- [phone] Reason for Visit * Reason Comments EMG Encounter Details Date Type Department Care Team Description 11/09/2022 NeuroDiagnostic Study Neurophysiology [facility] [address] [facility] [place] [address] Alireza Calzada, [address] [facility] [place] [id number] Arrived Allergies Active Allergy Reactions Severity Noted Date Comments Indomethacin Other (Please comment) 11/28/2019 Dizziness Penicillins 11/02/1997 rash Sulfa Antibiotics 11/02/1997 rapid pulse documented as of this encounter (statuses as of 11/09/2022) Medications Medication Sig Dispensed Refills Start Date [...] the morning. 30 Tablet 5 09/26/2022 Active documented as of this encounter (statuses as of 11/09/2022) Active Problems Problem Noted Date Family history of [place] (myocardial infarct ion) 04/18/2017 Dyslipidemia, goal LDL below 130 013 Gout 10/31/2012 TOBACCO USE DISORDER- ORAL 01/29/2007 Esophageal reflux 01/29/2007 ACUTE STRESS 05/25/2004 documented as of this encounter (statuses as of 11/09/2022) Resolved Problems Problem Noted Date Resolved Date [...] as of this encounter (statuses as of 11/09/2022) Immunizations Name Administration Dates Next Due COVID-19, [...] as of this encounter Progress Notes * Alireza Calzada DO - 11/09/2022 11:03 AM EDT [facility] Neurophysiology Laboratory Electromyography Report Name: Otilio Ward Date of : 1965 (57 year old) Sex: male Referring Physician: Mariela De La Torre DO Examining Physician: Alireza Calzada DO Examination Date: 11/09/2022 Ht Readings from Last 1 Encounters: 06/21/22 1.727 m (5' 7.99") Wt Readings from Last 1 Encounters: 06/21/22 97.8 kg (215 lb 11.2 oz) Impression: Abnormal study. This electrodiagnostic study suggestive of a chronic right L5/S1 radiculopathy withno active denervation. MRI of the lumbar spine may be useful for further evaluation. History and Physical examination: A 57-year-old male with numbness in his right lateral thigh particularly in the L5 nerve distribution. He denies sciatic pain. Sensation is intact to light touch. EMG/NCS performed for evaluation of radiculopathy. Nerve Conduction Studies Examination Findings: Nerve conduction studies were performed in the right lower extremity. The sural and superficial peroneal sensory nerve study showed normal peak latencies, normal amplitudes, and normal conduction velocities. The peroneal motor nerve study showed a normal distal latency, normal amplitude, and normalconduction velocity. Tibial motor nerve study showed a normal distal latency, reduced amplitude, slow conduction velocity with temporal dispersion. Please see the attached document for raw data or the scanned document in EPIC. Reference values are from the [facility] normative data guidelines that are attached at the end ofthis document. Electromyography Examination Findings: Needle examination was performed with a disposable concentric needle electrode in selected muscles of the right lower extremity, as recorded in the tables. No abnormal spontaenous activity was seen. The tibialis anterior and medial gastrocnemius muscles demonstrated normal size and mildly reduced recruitment. The motor unit action potentials in the other muscles tested demonstrated normal size, duration, and recruitment. Please see the attached document for raw data or the scanned document in EPIC. The study was done with a concentric needle examination. Alireza Calzada DO documented in this encounter Plan of Treatment Upcoming Encounters Date Type Specialty Care Team Description 04/04/2023 Office Visit Family Medicine Ju Arboleda PA-C [address] [place], [place] [phone] Scheduled Procedures Name Priority Associated Diagnoses Date/Ti [...] as of this encounter Visit Diagnoses Diagnosis Numbness and tingling of right leg- Primary Disturbance of skin sensation documented in this encounter Care Teams Track Repairer Helper Relationship Specialty Start Date End Date Trevon Guan MD [address] [place], [place] [phone] PCP - General Family Medicine 04/04/19 documented as of this encounter
--- OUTSIDE RECORDS SUMMARY | 2023-03-03 10:07 | External Medical Summary ---
Author Name Unknown Address Unknown Organization [id number]:[facility] [place] [address] [place] [address] Laboratory Report Ordering Provider Test Date Status MARCO ANTONIO MORRIS 09/23/2022 14:55:02 Final Observation Date Value Abnormality Reference (Units ) Status Vitamin B12 09/23/2022 14:55:02 [id number] (pg/mL) Final Performing Location [facility] [place] - [address] [place] [address]
--- OUTSIDE RECORDS SUMMARY | 2023-03-03 10:07 | External Medical Summary ---
Author Name Unknown Address Unknown Organization [id number]:[facility] [place] [address] [place] [address] Laboratory Report Ordering Provider Test Date Status MARCO ANTONIO MORRIS 09/23/2022 14:55:02 Final Observation Date Value Abnormality Reference (Units ) Status TSH 09/23/2022 14:55:02 3.33 0.27-4.20 (uIU/mL) Final Performing Location [facility]ORY [facility] - [address] [facility] [address]
--- OUTSIDE RECORDS SUMMARY | 2023-03-03 10:07 | External Medical Summary | Summary of Care ---
Author Name Unknown Organization [facility] Address [address] [place] [address] Phone [phone] Care Team Providers Care Commercial Green Retrofit Architect Name Role Phone Trevon Guan MD Primary Care Provider +1- [phone] Reason for Visit * Reason Onset Date Comments FYI 12/05/2022 Encounter Details Date Type Department Care Team Description 12/05/2022 Telephone [facility] [address] [place] [address] Trevon Guan MD [address] [place] [address] FYI Allergies Active Allergy Reactions Severity Noted Date [...] Problems Problem Noted Date Family history of [place] (myocardial infarct ion) 04/18/2017 Dyslipidemia, goal LDL [...] encounter Miscellaneous Notes * Telephone Encounter - Mary Shore LPN - 12/05/2022 4:04 PM EDT noted * Telephone Encounter - LOREN Millard - 12/05/2022 3:42 PM EDT Pt returning call from the clinic - he was asked to call Timothy Lancaster but he got me - re" schedulingpain mgmnt appt - tried warm transferred to clinic - no answer and pt stated he will call the clinic directly documented in this encounter Plan of Treatment Upcoming Encounters Date Type Specialty Care Team Description 04/04/2023 Office Visit Family Medicine Ju Arboleda PA-C [address] [place] [address] Scheduled Procedures Name Priority Associated Diagnoses Date/Ti [...] filedocumented as of this encounter Care Teams Commercial Green Retrofit Architect Relationship Specialty Start Date End Date Trevon Guan MD [address] [place] [address] PCP - General Family Medicine 04/04/19 documented as of this encounter
--- OUTSIDE RECORDS SUMMARY | 2023-03-03 10:07 | External Medical Summary | Summary of Care ---
Author Name Unknown Organization [facility] Address [address] [facility] [address] Phone [phone] Care Team Providers Care Store Stocker Name Role Phone Trevon Guan MD Primary Care Provider +1- [phone] Reason for Visit * Reason Comments Acute Noted right lower le g sensation, vein is bulging a bit. Mom has blood clot hx. Can "maybe feel a bit of warmth". Pins/needle sensation. Encounter Details Date Type Department Care Team Description 09/23/2022 Office Visit Family Medicine [facility] [address] [place] [id number] Mariela Villaseñor DO [address] [place] [address] Right leg paresthesias*; Varicose veins of right lower extremity, unspecified whether complicated Allergies Active Allergy Reactions Severity Noted Date Comments Indomethacin Other (Please comment) 11/28/2019 Dizziness Penicillins 11/02/1997 rash Sulfa Antibiotics 11/02/1997 rapid pulse documented as of this encounter (statuses as of 09/23/2022) Medications Medication Sig Dispensed Refills Start Date End Date Status Meclizine HCl 25 MG Oral Tablet ChewableIndicatio ns:Benign positional vertigo, bilateral Take 1 Tab by mouth 3 times a day as needed for Dizziness. 30 Tab 1 05/04/2020 Active Atorvastatin Calcium 20 MG Oral Tablet (Lipitor)Indicati ons:Dyslipidemia, goal LDL below 130 Take 1 Tablet by mouth in the morning. 30 Tablet 11 04/03/2022 Active guaiFENesin-Codei ne 100-10 MG/5ML Oral Syrup [...] the morning. 16 g 2 06/21/2022 Active Azithromycin 250 MG Oral Tablet (Zithromax Z-Toribio) Take two tablets by mouth on first day, then 1 tablet daily until gone 6 Tablet 0 06/13/2022 09/23/2022 Discontinue d(Medicatio n List Clean Up) documented as of this encounter (statuses as of 09/23/2022) Active Problems Problem Noted Date Family history of [place] (myocardial infarct ion) 04/18/2017 Dyslipidemia, goal LDL below 130 013 Gout 10/31/2012 TOBACCO USE DISORDER- ORAL 01/29/2007 Esophageal reflux 01/29/2007 ACUTE STRESS 05/25/2004 documented as of this encounter (statuses as of 09/23/2022) Resolved Problems Problem Noted Date Resolved Date [...] as of this encounter (statuses as of 09/23/2022) Immunizations Name Administration Dates Next Due COVID-19, [...] Sign Reading Time Taken Comments Blood Pressure 130/80 09/23/2022 2:32 PM EDT Pulse 60 09/23/2022 2:32 PM EDT Temperature - - Respiratory Rate - - Oxygen Saturation - - Inhaled Oxygen Concentration - - Weight - - Height - - Body Mass Index - - documented in this encounter Progress Notes * Mariela Villaseñor, DO - 09/23/2022 2:39 PM EDT Subjective: Otilio Ward Jr. is a 57 year old male. Chief Complaint Patient presents with Acute Noted right lower leg sensation, vein is bulging a bit. Mom has blood clot hx. Can "maybe feel a bit of warmth". Pins/needle sensation. There are no exam notes on file for this visit. HPI: This is a 57 year old male with PMHx as below presents with acute illness 1 month with paresthesias in R leg and bulging vein Health Maintenance Due Topic Date Due Hepatitis B (1 of 3 - 3-dose series) Never done HIV Screening Never done Hepatitis C Screening Never done Zoster Vaccines (1 of 2) Never done Depression Screening, Annual for Pts 12 and Over 11/27/2020 COVID-19 Vaccine (2 - Pfizer series) 12/02/2021 COLONOSCOPY-EVERY 3 YRS AGES 18-100 06/10/2022 Patient Active Problem List Diagnosis Code ACUTE STRESS F43.89 TOBACCO USE DISORDER- ORAL F17.200 Esophageal reflux K21.9 Dyslipidemia, goal LDL below 130 E78.5 Gout M10.9 Family history of [place] (myocardial infarction) Z82.49 Current Outpatient Medications Medication Sig Dispense Refill Meclizine HCl 25 MG Oral Tablet Chewable Take 1 Tab by mouth 3 times a day as needed for Dizziness. 30 Tab 1 Atorvastatin Calcium 20 MG Oral Tablet (Lipitor) Take 1 Tablet by mouth in the morning. 30 Tablet 11 guaiFENesin-Codeine 100-10 MG/5ML Oral Syrup (Robitussin AC) Take 5 mL by mouth every 4 hours as needed for Cough. 120 mL 0 Montelukast Sodium 10 MG Oral Tablet (Singulair) Take 1 Tablet by mouth in the morning. 90 Tablet 1 Proventil HFA 108 (90 Base) MCG/ACT Inhalation Aerosol Solution Inhale 2 Puffs by mouth every 4hours as needed for Wheezing (cough). 18 g 1 Fluticasone Propionate 50 MCG/ACT Nasal Suspension (Flonase) Administer 2 Sprays into each nostril in the morning. 16 g 2 No current facility-administered medications for this visit. Past Medical History: Diagnosis Date Gout HTN, goal below 130/80 Past Surgical History: Procedure Laterality Date COLONOSCOPY, DIAGNOSTIC (RECTUM) 06/18/2015 adenomatous polyp, repeat 3 yrs/COLONOSCOPY FLEXIBLE PROXIMAL DIAGNOSTIC performed by Marti Zavala DO at [facility] COLONOSCOPY, DIAGNOSTIC (RECTUM) 06/10/2019 diverticulosis sigmoid colon/biopsies show hyperplastic polyps/recall 3-5 years/COLONOSCOPY FLEXIBLE PROXIMAL DIAGNOSTIC performed by Marti Zavala DO at [facility] Review of patient's allergies indicates: Allergen Reactions Indomethacin Other (Please comment) Dizziness Penicillins rash Sulfa Antibiotics rapid pulse Family History Problem Relation Age of Onset Other (calcuili) Mother renal stones Heart Disorder Father sudden [place] age 75 Cancer Father prostate Heart attack Sister 54 Family Status Relation Status Mo Alive renal calculi Fa at age 75 Sis Sis Alive Sis Alive Brayden Alive Son Alive Son Alive Social History Socioeconomic History Marital status: Spouse name: Tomasa Lamar Number of children: 3 Years of education: Not on file Highest education level: Not on file Occupational History 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 Tobacco Use Smoking status: Never Smokeless tobacco: Current Types: Snuff Vaping Use Vaping Use: Not on file Substance and Sexual Activity Alcohol use: Yes Comment: 6 pack 2-3 x per week Drug use: No Sexual activity: Yes Partners: Female Other Topics Concern Not on file Social History Narrative Not on file Social Determinants of Health Financial Resource Strain: Not on file Food Insecurity: Not on file Transportation Needs: Not on file Physical Activity: Not on file Stress: Not on file Social Connections: Not on file Intimate Partner Violence: Not on file Housing Stability: Not on file Review of Systems: As per HPI all other ROS negative. Wt Readings from Last 3 Encounters: 06/21/22 97.8 kg (215 lb 11.2 oz) 06/13/22 98.7 kg (217 lb 11.2 oz) 05/10/22 98.9 kg (218 lb) Results for orders placed or performed in visit on 08/04/22 ECHO, COMPLETE (2D), TRANS-THORACIC Result Value Ref Range LEFT VENTRICULAR EJECTION FRACTION 55 % OBJECTIVE: Physical Exam: BP 130/80 | Pulse 60 General: alert, healthy and no distress Heart: regular rate & rhythm Lungs: lungs clear to auscultation Back: no tenderness to percussion or palpation Extremities: no joint deformities, effusion, or inflammation, no edema Neuro Exam: alert & oriented x 3 with fluent speech, no focal motor/sensory deficits, gait normal Right leg paresthesias (Primary) - VASC DUPLEX VENOUS LE UNILAT - XR L SPINE AP AND LATERAL - EMG - CBC WITH WBC DIFFERENTIAL; Future; Expected date: 09/23/2022 - COMPREHENSIVE METABOLIC PANEL; Future; Expected date: 09/23/2022 - VITAMIN B12; Future; Expected date: 09/23/2022 - TSH WITH FREE T4 IF INDICATED; Future; Expected date: 09/23/2022 Varicose veins of right lower extremity, unspecified whether complicated - VASC DUPLEX VENOUS LE UNILAT low suspicion for DVT at this time Mariela Villaseñor DO documented in this encounter Plan of Treatment Upcoming Encounters Date Type Specialty Care Team Description 04/04/2023 Office Visit Family Medicine Ju Arboleda PA-C [address] [place] [address] Pending Results Name Type Priority Associated Diagnoses Date /Time XR L SPINE AP AND LATERAL Medical Imaging Routine Right leg paresthesias 09/23/2022 3:04 PM EDT CBC WITH WBC DIFFERENTIAL Lab Routine Right leg paresthesias 09/23/2022 2:55 PM EDT COMPREHENSIVE METABOLIC PANEL Lab Routine Right leg paresthesias 09/23/2022 2:55 PM EDT VITAMIN B12 Lab Routine Right leg paresthesias 09/23/2022 2:55 PM EDT TSH WITH FREE T4 IF INDICATED Lab Routine Right leg paresthesias 09/23/2022 2:55 PM EDT Scheduled Orders Name Type Priority Associated Diagnoses Orde r Schedule VASC DUPLEX VENOUS LE UNILAT Medical Imaging Routine Right leg paresthesias Varicose veins of right lower extremity, unspecified whether complicated Ordered: 09/23/2022 CBC WITH WBC DIFFERENTIAL Lab Routine Right leg paresthesias Expected: 09/23/2022 (Approximate), Expires: 09/24/2023 COMPREHENSIVE METABOLIC PANEL Lab Routine Right leg paresthesias Expected: 09/23/2022 (Approximate), Expires: 09/23/2023 VITAMIN B12 Lab Routine Right leg paresthesias Expected: 09/23/2022 (Approximate), Expires: 09/23/2023 TSH WITH FREE T4 IF INDICATED Lab Routine Right leg paresthesias Expected: 09/23/2022 (Approximate), Expires: 09/23/2023 Scheduled Procedures Name Priority Associated Diagnoses Date/Ti [...] Additional history exists Influenza Vaccine (FLU shot) (Season Ended) 2022 Diabetes Screening 04/03/2025 04/03/2022, 1 06/04/2021, 03/31/2021, Additional history exists Lipid Panel 04/03/2027 04/03/2022, [...] as of this encounter Visit Diagnoses Diagnosis Right leg paresthesias- Primary Disturbance of skin sensation Varicose veins of right lower extremity, unspecified whether complicated documented in this encounter Care Teams Store Stocker Relationship Specialty Start Date End Date Trevon Guan MD [address] [place] [address] PCP - General Family Medicine 04/04/19 documented as of this encounter
--- OUTSIDE RECORDS SUMMARY | 2023-03-03 10:07 | External Medical Summary | Summary of Care ---
Author Name Unknown Organization [facility] Address [address] [facility] [place] [address] Phone [phone] Care Team Providers Care Industrial Maintenance Electrician Name Role Phone Trevon Guan MD Primary Care Provider +1- [phone] Reason for Visit * Reason Onset Date Comments Test Results 09/26/2022 Encounter Details Date Type Department Care Team Description 09/26/2022 Telephone Family Practice [facility] [address] [place] [address] Mariela Villaseñor DO [address] [place] [address] Test Results (/) Allergies Active Allergy Reactions Severity Noted Date Comments Indomethacin Other (Please comment) 11/28/2019 Dizziness Penicillins 11/02/1997 rash Sulfa Antibiotics 11/02/1997 rapid pulse documented as of this encounter (statuses as of 09/26/2022) Medications Medication Sig Dispensed Refills Start Date End Date Status Meclizine HCl 25 MG Oral Tablet ChewableIndicatio ns:Benign positional vertigo, bilateral Take 1 Tab by mouth 3 times a day as needed for Dizziness. 30 Tab 1 05/04/2020 Active guaiFENesin-Codei ne 100-10 MG/5ML Oral Syrup (Robitussin AC)Indications:Ac [place] bronchitis, antibiotics not indicated Take 5 mL [...] the morning. 30 Tablet 5 09/26/2022 Active Atorvastatin Calcium 20 MG Oral Tablet (Lipitor)Indicati ons:Dyslipidemia, goal LDL below 130 Take 1 Tablet by mouth in the morning. 30 Tablet 11 04/03/2022 3 Discontinued documented as of this encounter (statuses as of 09/26/2022) Active Problems Problem Noted Date Family history of [place] (myocardial infarct ion) 04/18/2017 Dyslipidemia, goal LDL below 130 013 Gout 10/31/2012 TOBACCO USE DISORDER- ORAL 01/29/2007 Esophageal reflux 01/29/2007 ACUTE STRESS 05/25/2004 documented as of this encounter (statuses as of 09/26/2022) Resolved Problems Problem Noted Date Resolved Date [...] as of this encounter (statuses as of 09/26/2022) Immunizations Name Administration Dates Next Due COVID-19, [...] Telephone Encounter - Cassandra Trinh LPN - 09/26/2022 3:20 PM EDT Pt has been called and given information below and will let Dr Villaseñor know if any problems arise with dose in crease with the statin. He has no issues with pain and will hold off doing any further testing at this time. * Telephone Encounter - Mariela Villaseñor DO - 09/26/2022 1:43 PM EDT Statin sent - advise to call pcp with any problems after dosage adjustment Based on xray it is "potential" stone vs debris - if not having symptoms would not do any additional testing at this time, if wants to confirm can consider renal US Scoliosis is curvature of back - nothing to do at this time Thank you * Telephone Encounter - Vaishali Carrion LPN - 09/26/2022 1:08 PM EDT Called patient. Informed of message. Willing to comply with cholesterol medication. Asking about the kidney stone. Is that something to worry about? He has no symptoms at all. Should he change his diet? Also asking about the scoliosis. What does he need to do for it? Pharmacy pended. * Telephone Encounter - Mariela Villaseñor DO - 09/26/2022 12:41 PM EDT Please call pt re: xray 1. Mild arthritis of low back with spine scoliosis 2. Pos cholesterol noted in arteries 3. Possible L renal stone Please continue with EMG for further eval Incidental notes of cholesterol and possible renal stone - would recommend inc dosage of statin. Any urinary sx? Thank you documented in this encounter Plan of Treatment Upcoming Encounters Date Type Specialty Care Team Description 11/09/2022 NeuroDiagnostic Study Neurophysiology Alireza Calzada DO [address] [facility] [place] [address] 04/04/2023 Office Visit Family Medicine Ju Arboleda PA-C [address], [place] [id number] Scheduled Procedures Name Priority Associated Diagnoses Date/Ti [...] (FLU shot) (Season Ended) 2022 Diabetes Screening 09/23/2025 09/23/2022, 1 06/04/2021, [...] filedocumented as of this encounter Care Teams Industrial Maintenance Electrician Relationship Specialty Start Date End Date Trevon Guan MD [address] [place] [address] PCP - General Family Medicine 04/04/19 documented as of this encounter
--- OUTSIDE RECORDS SUMMARY | 2023-03-03 10:07 | External Medical Summary | Summary of Care ---
Author Name Unknown Organization [facility] Address [address] [facility] [place] [address] Phone [phone] Care Team Providers Care Department Of Mathematics Chair Name Role Phone Trevon Guan MD Primary Care Provider +1- [phone] Reason for Referral * Evaluate & Treat - Unlimited Visits (Within 10 days (routine)) - Authorized Specialty Diagnoses / Procedures Referred By Emelia covington Referred To Contact Pain Management / Pain Medicine Diagnoses Lumbosacral radiculopathy at L5 Alexandra Bernard DO [address] [place] [address] Referral ID Status Reason Start Date Expiration Date Visits Requested Visits Authorized [id number] Authorized Specialty Services Required 12/05/2022 999 999 [...] pain if not done previously. Fax No. [facility] [phone] or contact front window cashier [phone] Fax No. [facility] [phone] or contact front window cashier [phone] Fax No. [facility] [phone] or contact front window cashier [phone] Reason for Visit * Reason Onset Date Comments Test Results 11/19/2022 Encounter Details Date Type Department Care Team Description 11/19/2022 Telephone Family Practice [facility] [address] [place] [address] Alexandra Bernard DO [address] [place] [address] Test Results (/) Allergies Active Allergy Reactions [...] Problems Problem Noted Date Family history of [place] (myocardial infarct ion) 04/18/2017 Dyslipidemia, goal LDL [...] encounter Miscellaneous Notes * Addendum Note - Alexandra Bernard DO - 12/05/2022 10:43 AM EDTAddended by: ALEXANDRA BERNARD on: 12/05/2022 10:43 AM Modules accepted: Orders * Telephone Encounter - LOREN Bañuelos - 12/05/2022 9:19 AM EDT Patient has been notified of the message. Patient would like to proceed with pain medicine. Patient can be reached at [phone] * Telephone Encounter - Cassandra Trinh LPN [...] Family Medicine Ju Arboleda PA-C [address] [place] [address] Scheduled Procedures Name Priority Associated Diagnoses Date/Ti [...] unspecified documented in this encounter Care Teams Department Of Mathematics Chair Relationship Specialty Start Date End Date Trevon Guan MD [address] [place] [facility] [place] [address] PCP - General Family Medicine 04/04/19 documented as of this encounter
--- OUTSIDE RECORDS SUMMARY | 2023-03-03 10:07 | External Medical Summary | Summary of Care ---
Author Name Unknown Organization [facility] Address [address] [facility] [place] [address] Phone [phone] Care Team Providers Care Unload Associate Name Role Phone Trevon Guan MD Primary Care Provider +1- [phone] Reason for Referral * Evaluate & Treat - Unlimited Visits (Within 10 days (routine)) - Authorized Specialty Diagnoses / Procedures Referred By Emelia covington Referred To Contact Pain Management / Pain Medicine Diagnoses Lumbosacral radiculopathy at L5 Alexandra Bernard DO [address] [place] [address] Referral ID Status Reason Start Date Expiration Date Visits Requested Visits Authorized [id number] Authorized Specialty Services Required 12/05/2022 999 999 [...] pain if not done previously. Fax No. [facility] [phone] or contact front elevator operator [phone] Fax No. [facility] [phone] or contact front elevator operator [phone] Fax No. [facility] [phone] or contact front elevator operator [phone] Reason for Visit * Reason Onset Date Comments Test Results 11/19/2022 Encounter Details Date Type Department Care Team Description 11/19/2022 Telephone Family Practice [facility] [address] [place] [address] Alexandra Bernard DO [address] [place] [address] Test Results (/) Allergies Active Allergy Reactions [...] Problems Problem Noted Date Family history of [place] (myocardial infarct ion) 04/18/2017 Dyslipidemia, goal LDL [...] pain medicine. Patient can be reached at [phone] * Telephone Encounter - Cassandra Trinh LPN [...] Family Medicine Ju Arboleda PA-C [address] [place] [address] Scheduled Procedures Name Priority Associated Diagnoses Date/Ti [...] unspecified documented in this encounter Care Teams Unload Associate Relationship Specialty Start Date End Date Trevon Guan MD [address] [place] [address] PCP - General Family Medicine 04/04/19 documented as of this encounter
--- OUTSIDE RECORDS SUMMARY | 2023-03-03 10:07 | External Medical Summary ---
Author Name Unknown Address Unknown Organization K01:[facility] [place] [address] [facility] [address] [place] [address] Laboratory Report Ordering Provider Test Date Status MARCO ANTONIO MORRIS 09/23/2022 14:55:02 Final Observation Date Value Abnormality Reference (Units ) Status SYNC LEUKOCYTES IN BLOOD BY AUTOMATED COUNT 09/23/2022 14:55:02 8.49 4.00-10.80 (K/uL) Final Segs 09/23/2022 14:55:02 50.9 40.0-75.0 (%) Final Lymphs % 09/23/2022 14:55:02 38.6 18.0-42.0 (%) Final Monos 09/23/2022 14:55:02 7.9 1.0-11.0 (%) Final Eosinophils 09/23/2022 14:55:02 2.0 0.0-6.0 (%) Final Basos 09/23/2022 14:55:02 0.5 0.0-2.0 (%) Final Immature Granulocyte, Percent 09/23/2022 14:55:02 0.1 0.0-2.0 (%) Final Absolute Segs 09/23/2022 14:55:02 4.32 1.80-7.70 (K/uL) Final Lymphs, absolute 09/23/2022 14:55:02 3.28 1.00-4.80 (K/ul) Final Monos, Abs 09/23/2022 14:55:02 0.67 0.00-1.10 (K/uL) Final Eos, Abs 09/23/2022 14:55:02 0.17 0.00-0.70 (K/uL) Final Basos, Abs 09/23/2022 14:55:02 0.04 0.00-0.20 (K/uL) Final Immature Granulocytes, Number 09/23/2022 14:55:02 0.01 0.00-0.20 (K/uL) Final Performing Location [facility] - [address] [facility] [address]
--- OUTSIDE RECORDS SUMMARY | 2023-03-03 10:07 | External Medical Summary | Summary of Care ---
Author Name Unknown Organization [facility] Address [address] [place] [facility] [place] [address] Phone [phone] Care Team Providers Care Tree Tapping Laborer Name Role Phone Trevon Guan MD Primary Care Provider +1- [phone] Reason for Visit * Reason Onset Date Comments Appointment 09/25/2022 EMG Encounter Details Date Type Department Care Team Description 09/25/2022 Telephone [facility] [address] [place] [address] Trevon Guan MD [address] [place] [address] Appointment (EMG) Allergies Active Allergy Reactions Severity Noted Date Comments Indomethacin Other (Please comment) 11/28/2019 Dizziness Penicillins 11/02/1997 rash Sulfa Antibiotics 11/02/1997 rapid pulse documented as of this encounter (statuses as of 09/25/2022) Medications Medication Sig Dispensed Refills Start Date End Date Status Meclizine HCl 25 MG Oral Tablet ChewableIndications: Benign positional vertigo, bilateral Take 1 Tab by mouth 3 times a day as needed for Dizziness. 30 Tab 1 05/04/2020 Active Atorvastatin Calcium 20 MG Oral Tablet (Lipitor)Indications :Dyslipidemia, goal LDL below 130 Take 1 Tablet by mouth in the morning. 30 Tablet 11 04/03/2022 Active guaiFENesin-Codeine 100-10 MG/5ML Oral Syrup (Robitussin [...] the morning. 16 g 2 06/21/2022 Active documented as of this encounter (statuses as of 09/25/2022) Active Problems Problem Noted Date Family history of [place] (myocardial infarct ion) 04/18/2017 Dyslipidemia, goal LDL below 130 013 Gout 10/31/2012 TOBACCO USE DISORDER- ORAL 01/29/2007 Esophageal reflux 01/29/2007 ACUTE STRESS 05/25/2004 documented as of this encounter (statuses as of 09/25/2022) Resolved Problems Problem Noted Date Resolved Date [...] as of this encounter (statuses as of 09/25/2022) Immunizations Name Administration Dates Next Due COVID-19, [...] Miscellaneous Notes * Telephone Encounter - LOREN Noriega - 09/25/2022 1:24 PM EDT Patient has been notified of the message. Patient has no further questions. * Telephone Encounter - LOREN Fernandez - 09/25/2022 8:50 AM EDT LMOM to schedule EMG. 09/25/2022 documented in this encounter Plan of Treatment Upcoming Encounters Date Type Specialty Care Team Description 09/25/2022 Imaging Radiology 11/09/2022 NeuroDiagnostic Study Neurophysiology Alireza Calzada, DO [address] [place] [address] 04/04/2023 Office Visit Family Medicine Ju Arboleda PA-C [address] [place], [place] [phone] Scheduled Procedures Name Priority Associated Diagnoses Date/Ti [...] filedocumented as of this encounter Care Teams Tree Tapping Laborer Relationship Specialty Start Date End Date Trevon Guan MD [address] [place], [place] [id number] PCP - General Family Medicine 04/04/19 documented as of this encounter
--- OUTSIDE RECORDS SUMMARY | 2023-03-03 10:07 | External Medical Summary | Summary of Care ---
Author Name Unknown Organization [facility] Address [address] [place] [address] Phone [phone] Care Team Providers Care Correctional Maintenance Technician Name Role Phone Trevon Guan MD Primary Care Provider +1- [phone] Reason for Visit * Reason Onset Date Comments Appointment 09/25/2022 LVM TO SCHED EMG Encounter Details Date Type Department Care Team Description 09/25/2022 Telephone Neurophysiology, [place] [address] [place] [address] Specified, [place] [facility] [address] [place] [address] Appointment (LVM TO SCHED EMG) Allergies Active Allergy Reactions Severity Noted Date [...] Problems Problem Noted Date Family history of [place] (myocardial infarct ion) 04/18/2017 Dyslipidemia, goal LDL [...] Miscellaneous Notes * Telephone Encounter - LOREN Cristina - 09/25/2022 9:08 AM EDT LVM TO SCHED EMG documented in this encounter Plan of Treatment Upcoming Encounters Date Type Specialty Care Team Description 09/25/2022 Imaging Radiology 04/04/2023 Office Visit Family Medicine Ju Arboleda, JOE [address] [place] [address] Scheduled Procedures Name Priority Associated Diagnoses Date/Ti [...] filedocumented as of this encounter Care Teams Correctional Maintenance Technician Relationship Specialty Start Date End Date Trevon Guan MD [address] [place] [address] PCP - General Family Medicine 04/04/19 documented as of this encounter
--- OUTSIDE RECORDS SUMMARY | 2023-03-03 10:07 | External Medical Summary ---
Author Name Unknown Address Unknown Organization K01:LABORATORY [facility] [place] - [address] [facility] [address] [place] [address] Laboratory Report Ordering Provider Test Date Status MARCO ANTONIO MORRIS 09/23/2022 14:55:02 Final Observation Date Value Abnormality Reference (Units ) Status BUN 09/23/2022 14:55:02 21 Above high normal 6-20 (mg/dL) Final Creatinine 09/23/2022 14:55:02 1.0 0.6-1.2 (mg/dL) Final Glomerular filtration rate/1.73 sq M.predicted [Volume Rate/Area] in Serum, Plasma or Blood by Creatinine-based formula (CKD-EPI) 09/23/2022 14:55:02 87 >=60 (mL/min) Final eGFR is calculated based on the CKD-EPI 2020 equation SODIUM 09/23/2022 14:55:02 138 135-146 (m mol/L) Final Potassium 09/23/2022 14:55:02 4.2 3.5-5.1 (m mol/L) Final Cl 09/23/2022 14:55:02 106 98-107 (mm ol/L) Final CO2 09/23/2022 14:55:02 20 Below low normal 22- 32 (mmol/L) Final Anion gap 09/23/2022 14:55:02 12 7-15 (mmol /L) Final Glucose 09/23/2022 14:55:02 94 70-120 (mg /dL) Final Albumin 09/23/2022 14:55:02 4.6 3.8-5.0 (g /dL) Final AST (Aspartate aminotransferase) 09/23/2022 14:55:02 27 10-50 (U/L) Fin al Alk Phos 09/23/2022 14:55:02 68 35-130 (U/ L) Final Bilirubin, Total 09/23/2022 14:55:02 0.5 <=1 .2 (mg/dL) Final Calcium 09/23/2022 14:55:02 9.3 8.4-10.2 ( mg/dL) Final Protein 09/23/2022 14:55:02 7.2 6.0-8.3 (g /dL) Final ALT (Alanine aminotransferase) 09/23/2022 14:55:02 27 10-50 (U/L) Claudio lafleur Performing Location LABORATORY [facility] [place] - [address] [facility] [address]
--- OUTSIDE RECORDS SUMMARY | 2023-03-03 10:07 | External Medical Summary | Summary of Care ---
Author Name Unknown Organization [facility] Address [address] [place] [facility] [place] [address] Phone [phone] Care Team Providers Care Tank Truck Milk Receiver Name Role Phone Trevon Guan MD Primary Care Provider +1- [phone] Reason for Visit * Reason Onset Date Comments Test Results 09/25/2022 Encounter Details Date Type Department Care Team Description 09/25/2022 Telephone Family Practice [facility] [address] [place] [address] Mariela De La Torre DO [address] [facility], [place] [id number] Test Results Allergies Active Allergy Reactions Severity Noted Date [...] Telephone Encounter - Cassandra Trinh LPN - 09/25/2022 6:17 PM EDT Pt called and aware of message below. * Telephone Encounter - Mariela De La Torre DO - 09/25/2022 5:33 PM EDT Please call pt neg DVT Thank you documented in this encounter Plan of Treatment Upcoming Encounters Date Type Specialty Care Team Description 11/09/2022 NeuroDiagnostic Study Neurophysiology Alireza Calzada DO [address] [place] [address] 04/04/2023 Office Visit Family Medicine Ju Arboleda PA-C [address] [place], [place] [id number] Scheduled Procedures Name Priority Associated Diagnoses Date/Ti [...] filedocumented as of this encounter Care Teams Tank Truck Milk Receiver Relationship Specialty Start Date End Date Trevon Guan MD [address] [place] [address] PCP - General Family Medicine 04/04/19 documented as of this encounter
--- OUTSIDE RECORDS SUMMARY | 2023-03-03 10:07 | External Medical Summary | Summary of Care ---
Author Name Unknown Organization [facility] Address [address] [facility] [address] Phone [phone] Care Team Providers Care Weather Analyst Name Role Phone Trevon Guan MD Primary Care Provider +1- [phone] Reason for Referral * Precert (Within 10 days (routine)) - Pending Review Specialty Diagnoses / Procedures Referred By Emelia covington Referred To Contact Radiology Diagnoses Lumbosacral radiculopathy at L5 Procedures MRI L SPINE WO CONTRAST Mariela De La Torre DO [address] [place] [address] Referral ID Status Reason Start Date Expiration Date V isits Requested Visits Authorized [id number] Pending Review 11/17/2022 999 999 Reason for Visit * Reason Onset Date Comments Test Results 11/09/2022 Encounter Details Date Type Department Care Team Description 11/09/2022 Telephone Family Practice [facility] [address] [place] [address] Mariela De La Torre DO [address] [place] [address] Test Results (/) Allergies Active Allergy Reactions Severity Noted Date Comments Indomethacin Other (Please comment) 11/28/2019 Dizziness Penicillins 11/02/1997 rash Sulfa Antibiotics 11/02/1997 rapid pulse documented as of this encounter (statuses as of 11/19/2022) Medications Medication Sig Dispensed Refills Start Date [...] as of this encounter (statuses as of 11/19/2022) Active Problems Problem Noted Date Family history of [place] (myocardial infarct ion) 04/18/2017 Dyslipidemia, goal LDL below 130 013 Gout 10/31/2012 TOBACCO USE DISORDER- ORAL 01/29/2007 Esophageal reflux 01/29/2007 ACUTE STRESS 05/25/2004 documented as of this encounter (statuses as of 11/19/2022) Resolved Problems Problem Noted Date Resolved Date [...] as of this encounter (statuses as of 11/19/2022) Immunizations Name Administration Dates Next Due COVID-19, [...] encounter Miscellaneous Notes * Telephone Encounter - Queta Durand - 11/10/2022 2:01 PM EDT Appt scheduled with patient. * Telephone Encounter - Mariela De La Torre DO - 11/10/2022 10:57 AM EDT Prednisone sent MRI ordered Regarding hip pain and neck pain - not fully evaluated at exam - pt was having R leg pain, will need to set up acute appt with pcp Thank you * Telephone Encounter - Cassandra Trinh LPN - 11/09/2022 2:28 PM EDT Provider to address: [place] Reason for Call: Test Results (/) Contact: Telephone Call Contact Type: Test Results Outcome: Pt called and given test results, he is willing to do the MRI you suggested. He did say heis still is having pain in hip really bad and asking if there is anything he can try to take. He also states he has pain the goes up into his neck area as well. Told him we will send message to the doctor to address and order MRI and possible medication for pain. Total Time including non face to face (minutes): 10 * Telephone Encounter - Mariela De La Torre DO - 11/09/2022 11:16 AM EDT EMG Abnormal study. This electrodiagnostic study suggestive of a chronic right L5/S1 radiculopathy withno active denervation. MRI of the lumbar spine may be useful for further evaluation. Please see if agreeable to MRI Thank you documented in this encounter Plan of Treatment Upcoming Encounters Date Type Specialty Care Team Description 04/04/2023 Office Visit Family Medicine Ju Arboleda, PASupaC [address] [place] [address] Scheduled Procedures Name Priority Associated Diagnoses Date/Ti [...] Not on filedocumented as of this encounter Results * MRI L SPINE WO CONTRAST (11/17/2022 3:06 PM EDT) Anatomical Region Laterality Modality Vertebra, Lspine Magnetic Resona nce 11/18/2022 6:23 PM EDT Narrative 11/18/2022 6:21 PM EDT EXAM: MRI LUMBAR SPINE WITHOUT CONTRAST HISTORY: Low back pain; Neurologic deficit, non-traumatic; LE numbness/paresthesia; Increasing/persistent LE numbness/paresthesia; No known/automatically detected potential contraindications to imaging COMPARISON: September 23, 2022. TECHNIQUE: Multiplanar multisequence MRI of the lumbar spine without contrast was performed. FINDINGS: The retroperitoneal tissues are unremarkable in appearance. [...] thecal sac stenosis or high-grade foraminal compromise. Procedure Note Cristóbal Steele MD - 11/18/2022 EXAM: MRI LUMBAR SPINE WITHOUT CONTRAST HISTORY: Low back pain; Neurologic deficit, non-traumatic; LE numbness/paresthesia;Increasing/persistent LE numbness/paresthesia; No known/automaticallydetected potential contraindications to imaging COMPARISON: September 23, 2022. TECHNIQUE: Multiplanar multisequence MRI of the lumbar spine without contrast wasperformed. FINDINGS: The retroperitoneal tissues are unremarkable in appearance. The conusterminates at the T12 level. Signal in the distal cord is normal.Alignment is anatomic aside from trace retrolisthesis of L2 on L3. Discspace heights are relatively well maintained. There is an incidentalosseous venous vascular malformation (hemangioma) at L1. No additionalfocal marrow signal abnormalities are present. At L1-2 there is disc bulge without herniation or thecal sac stenosis andthere is no foraminal impingement. At L2-3 a shallow central protrusion in conjunction with facet hypertrophyresults in moderate thecal sac narrowing and there is bilateralsubarticular narrowing. No foraminal impingement is present. At L3-4 there is disc bulge and facet hypertrophy without thecal sac orsubarticular compromise. There is no foraminal impingement. At L4-5 bilateral facet degeneration is present which in conjunction withdisc bulge causes bilateral subarticular narrowing but there is no thecalsac stenosis. No foraminal impingement is present. At L5-S1 there is no herniation, thecal sac stenosis, or foraminalcompromise. IMPRESSION: Degenerative changes most notably at L2-3 and L4-5 as described above withsubarticular narrowing but no thecal sac stenosis or high-grade foraminalcompromise. Mariela De La Torre DO RAD MRI-MRA documented in this encounter Visit Diagnoses Diagnosis Lumbosacral radiculopathy at L5- Primary Thoracic or lumbosacral neuritis or radiculitis, unspecified Lumbosacral radiculopathy at L5 Thoracic or lumbosacral neuritis or radiculitis, unspecified documented in this encounter Care Teams Weather Analyst Relationship Specialty Start Date End Date Trevon Guan MD [address] [place] [address] PCP - General Family Medicine 04/04/19 documented as of this encounter
--- OUTSIDE RECORDS SUMMARY | 2023-03-03 10:07 | External Medical Summary | Summary of Care ---
Author Name Unknown Organization [facility] Address [address] [place] [address] Phone [phone] Care Team Providers Care Saddle And Side Wire Stitcher Name Role Phone Trevon Guan MD Primary Care Provider +1- [phone] Reason for Visit * Reason Onset Date Comments Test Results 11/19/2022 Encounter Details Date Type Department Care Team Description 11/19/2022 Telephone Family Practice [facility] [address] [place] [address] Mariela De La Torre DO [address] [employer] [facility] [place] [address] Test Results (/) Allergies Active Allergy Reactions [...] Problems Problem Noted Date Family history of [place] (myocardial infarct ion) 04/18/2017 Dyslipidemia, goal LDL [...] pain medicine. Patient can be reached at [phone] * Telephone Encounter - Cassandra Trinh LPN [...] Family Medicine Ju Arboleda PA-C [address] [place] [address] Scheduled Procedures Name Priority Associated Diagnoses Date/Ti [...] filedocumented as of this encounter Care Teams Saddle And Side Wire Stitcher Relationship Specialty Start Date End Date Trevon Guan MD [address] [place] [address] PCP - General Family Medicine 04/04/19 documented as of this encounter
[2023-03-03 10:27] LABS: Estimated Average Glucose 105 mg/dl; Hemoglobin A1C 5.3 % (4.5-5.6)
[2023-03-03 11:30] VITALS: BP 134/90; PULSE 61; RESP 20; TEMP 97.2
--- NOTE | 2023-03-03 12:09 | Cardiology Progress Note ---
"Date of Service March 03, 2023 Assessment & Plan (1) Unstable angina: (2) HLD (hyperlipidemia): (3) Tobacco abuse: Plan Mr. Ward is a 57 year old gentleman with history of HLD, HTN, obesity, chronic tobacco use, and family history of CAD who is admitted for chest pain evaluation. s/p coronary angiogram yesterday. S/p JAIDEN to pLCx 90%-->0% RCA lesion: p80% and 70% mid Plan for staged PCI early next week (03/06 or 03/07) Pt is insisting on discharge. No chest pain or unstable angina. Plan for DC home today. Increase lipitor to 80mg qday Continue aspirin 81mg qday and Ticagrelor 90mg bid Discussed plan with Dr. Ordnoez. Patient will be notified Sunday AM in regards to time of repeat catheterization. I provided 55 min of care to the patient, discussing CAD and ICMP. Admission and Anticipated Discharge Date Admission Date: March 01, 2023 Subjective No acute events overnight. No chest pain. Wants to go home. Review of Systems Review of Systems: A comprehensive review of systems is otherwise negative unless noted above. Physical Exam Constitutional: well nourished and + obese; no acute distress ENMT: Mallampati Class: I Respiratory: no respiratory distress, no labored breathing and no retractions Auscultation: no crackles, no rales, no rhonchi and no wheezes Cardiovascular: Rate/Rhythm: regular rate, regular rhythm and + bradycardic Heart Sounds: normal S1 and normal S2; no murmur Vessels: femoral pulses present and radial pulses present; no JVD and no carotid bruit Extremities: no edema Gastrointestinal (Abdomen): Inspection/Auscultation: normal bowel sounds; abdomen not distended Percussion/Palpation: abdomen soft; abdomen nontender, no guarding and abdomen not rigid Neurologic: CN's II-XI intact bilaterally and moves all extremities; no focal motor deficits Psychiatric: A+Ox3, euthymic affect Results & Data Vital Signs (Past 12 Hours) Vital Signs Temp Pulse Pulse Resp BP BP Pulse Ox 03/03/23 11:29 36.2 C L 61 20 134/90 96 03/03/23 07:44 36.9 C 60 18 126/82 96 03/03/23 07:17 51 L 03/03/23 03:17 36.9 C 52 L 18 161/70 H 96 03/03/23 00:18 63 O2 Del Method 03/03/23 11:29 Room Air 03/03/23 07:44 Room Air 03/03/23 07:17 03/03/23 03:17 Room Air 03/03/23 00:18 Laboratory Results Na | 139 | | 136-145 mmol/L | K | 4.1 | | 3.5-5.1 mmol/L | Cl | 110 | H | 98-107 mmol/L | CO2 | 21 | | 21-32 mmol/L | Gap | 8 | | 3-11 | BUN | 24 | H | 6-23 mg/dl | Creat | 1.09 | | 0.6-1.4 mg/dl | Creat Calc PHA | 82.3 | | ml/min | | Est. Creatinine Clearance (Mod Cockcroft-Gault) for pharmacy | dosing purposes. EGFR AA | 85.7 | | ml/min | | Units: ml/min per 1.73 meters squared | | The estimated GFR (CKD-EPI equation) has not been validated | for inpatient settings and may not be an accurate reflection | of renal function in critically ill patients or those with | rapidly changing renal function (e.g. CHANEL). EGFR LEON | 73.9 | | ml/min | | Units: ml/min per 1.73 meters squared | | The estimated GFR (CKD-EPI equation) has not been validated | for inpatient settings and may not be an accurate reflection | of renal function in critically ill patients or those with | rapidly changing renal function (e.g. CHANEL). BUN Creat Ratio | 22.0 | H | 10-20 | Glu | 98 | | 70-99(Fasting) mg/dl | Ca | 9.2 | | 8.6-10.3 mg/dl | Phos | 3.4 | | 2.5-4.9 mg/dl | MG | 2.1 | | 1.7-2.4 mg/dl | Total Bilirubin | 0.7 | | 0.2-1.0 mg/dl | AST | 17 | | 13-39 U/L | Alt | 16 | | 7-52 U/L | TP | 6.7 | | 6.0-8.3 gm/dl | Alb | 4.2 | | 3.4-5.0 gm/dl | Globulin | 2.5 | | 2.5-4.0 gm/dl | A/G Ratio | 1.7 | | 0.9-2 | Alk Phos | 57 | | 34-104 U/L | Medications Administered Aspirin 81mg Ticagrelor 90mg bid Lipitor 40mg qday (2) HLD (hyperlipidemia) Hyperlipidemia type: unspecified Qualified Code(s): E78.5 - Hyperlipidemia, unspecified"
--- NOTE | 2023-03-03 13:49 | Discharge Summary ---
Discharge Summary Date of Service March 03, 2023 Notes For Next Care Provider Pt had cardiac catheterization on 03/02, with PCI scheduled for 03/06 or 03/07 Continue aspirin 81mg and Brilinta 90mg BID Increased Atorvastatin from 40mg to 80mg daily Close cardiology and PCP follow up after discharge Medication Changes From Visit Atorvastatin dose increased to 80mg daily Aspirin 81mg daily with Brilinta 90mg BID Admission HPI Per Admitting Provider This is a 57 yr old male who has a significant PMH of HLD, GERD and Gout who presents to ED 2/2 chest pain x8 weeks. He recently saw PCP on 02/20 due to similar sx. He noted that he had chest pain that was located across his chest, "like a band across." It typically would occur with walking a distance, but most recently started with walking up a flight of steps when carrying laundry. He would occasionally get similar sx with eating and tried tums with relief; therefore, PCP started omeprazole without relief. He states he is active been on Prilosec for the past month without any significant improvement. He feels in the last 8 weeks symptoms have been worsening. Chest pain is located on his anterior aspect of his chest. It is nonradiating. It is not associated with any diaphoresis, dizziness, lightheadedness, nausea or vomiting. He has never experienced anything like this in the past. Every time chest pain would come on he will take Tums and symptoms resolved within 1 to 2 minutes. He also would rest at this time as well. He states just yesterday he was out walking in [place] when it came on and was persistent while walking for approximately 1 mile. Symptoms again resolved with rest. He also tends to note symptoms are worse in the evening. He denies any pleuritic component of symptoms. He also denies any worsening of symptoms with position change. He denies any orthopnea or PND. He denies recent illness, fever, chills, sweats, lightheadedness, dizziness, nausea, vomit, abdominal pain, changes bowel or urinary habits, melena or hematochezia. Overall he has a good appetite. 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 He also recently from his . He denies any recent traumatic stressful events. He does have a strong family history of cardiac disease. His sister in her 50s of sudden in their fa ther in his 70s. He previously had significantly elevated cholesterol but this has been improving significantly while being on atorvastatin. He is compliant with his medications. He denies any prior history of hypertension. He does chew tobacco approximately half a can a day. He also drinks approximately 10 beers a week. In ED patient's lab work was mostly unremarkable and troponin was undetectable. EKG did reveal some nonspecific T wave abnormalities but otherwise revealed normal sinus rhythm without any significant ischemic change. He did receive full dose aspirin while in ED. Admission Exam Per Admitting Provider Constitutional: WD/WN, vitals as above, NAD, sitting up in bed, pleasant, conversing easily Head: Normocephalic, Atraumatic Eyes: PERRL, conjunctivae normal, anicteric sclerae ENMT: external ear and nose normal, oropharynx normal Neck: trachea midline, no thyromegaly normal visual inspection Respiratory: normal respiratory effort, lungs clear to auscultation, no wheeze, rales, rhonchi. Normal insp/exp effort, no accessory muscle use Cardiovascular: RRR, no murmur, no edema Vessels: no JVD or carotid bruit Chest: normal inspection of chest Abdomen: normal bowel sounds, soft, nontender, no hepatosplenomegaly Musculoskeletal: no cyanosis or clubbing, extremities motor strength 5/5 Skin: no rashes, warm and dry normal turgor Neurologic: PERRL, EOMI, accommodation nl, no face palsy, no dysarthria CN's II-XI intact bilaterally and moves all extremities Psychiatric: A+Ox3, euthymic affect : deferred Principal Dx & Hospital Course #1 = Principal Diagnosis (1) Atypical chest pain: (2) HLD (hyperlipidemia): (3) Tobacco abuse: (4) Obesity (BMI 30.0-34.9): Plan This is a 57 yr old male who has a significant PMHx of HLD, GERD and Gout who presents to ED with chest pain x8 weeks. Atypical chest pain CAD EKG with sinus bradycardia hs-troponin within normal limits Echocardiogram with EF 60-65%, LVH and grade II diastolic dysfunction Risk factors include: HLD, obesity, tobacco abuse, Strong FH of sudden with sister in 50s recent lipid panel/a1c done as outpatient, A1C 5.4 Cardiology consulted -pt had cardiac catheterization on 03/02, with PCI scheduled for 03/06 or 03/07 -Continue aspirin 81mg and Brilinta 90mg BID -Increase Atorvastatin from 40mg to 80mg daily Close cardiology and PCP follow up after discharge HLD chronic, stable Statin increased to Atorvastatin 80mg per Cardiology recs 02/16 total chol panel trig 139, roct639; LDL 97; HDL36 Tobacco abuse chewing tobacco 1/2 can/day encourage cessation Obesity BMI 32.7 encourage diet/lifestyle modifications Discharge Exam General: Alert, oriented. No acute distress Skin: No noted rashes or bruises Psych: Appropriate mood and affect Neuro: No gross deficits HEENT: NC/AT Chest: Nontender to palpation. CV: RRR, Normal s1, s2. No murmurs appreciated Resp: Breath sounds clear bilaterally, no increased effort of breathing. Abdomen: Soft, nontender, nondistended. Extremities: No edema in lower extremities bilaterally. Updated Medication List Medication Instructions Recorded Confirmed Type fluticasone propionate 50 2 spray intranasal DAILY 03/01/23 03/01/23 History mcg/actuation nasal spray,suspension meloxicam 15 mg tablet 15 mg PO DAILY 03/01/23 03/01/23 History omeprazole 20 mg capsule,delayed 40 mg PO DAILY 03/01/23 03/01/23 History release aspirin 81 mg chewable tablet 81 mg PO DAILY #30 tabs 03/03/23 Rx (Children's Aspirin) atorvastatin 80 mg tablet 80 mg PO DAILY #30 tabs 03/03/23 Rx ticagrelor 90 mg tablet (Brilinta) 90 mg PO BID #60 tabs 03/03/23 Rx Hospital Stay Data Consultations 03/01/23 14:02 ED Decision to Admit Stat 03/01/23 15:13 Consult Cardiology Routine Procedures Performed Operation Date: 03/02/23 15:30 Actual Procedures p Cineradiography w/Routine Exam - Gaston Ordonez DO p Cath, Left with Cors and Vent - Gaston Ordonez DO s Drug Eluting Stent SGl Vessel - Sebastien Shine MD, PhD s Placement Art Occlusive Device - Sebastien Shine MD, PhD s Ultrasound Vascular Access - Sebastien Shine MD, PhD Diagnostic Imagining Performed 03/02/23 09:39 CL Cath Imgs for PACS use only Routine Chest X-Ray 03/01/23 12:20 XR chest 2V PA/lateral CLINICAL HISTORY: C/P TECHNIQUE: 2 views of the chest were obtained. Comparison: None available at the time of this dictation. FINDINGS: No lines and tubes are seen. The cardiomediastinal silhouette is normal. The lungs are clear. No evidence of pleural effusion or pneumothorax. IMPRESSION: No acute chest disease. ACT 112: Negative or not required by law. Electronically signed by: Edwin Ji M.D. 03/01/2023 1:56 PM Discharge Instructions Given to Patient (Per Discharging Provider) Mr. Ward, You were admitted with chest pain and had a procedure done by cardiology yesterday on 03/03. They put a stent into one of your heart vessels but they determined that another procedure is needed to further investigate and help your symptoms. Per Cardiology, this will likely be done on 03/06 or 03/07 but you would like to be discharged home. Cardiology is recommending discharging you home with the medications aspirin and Brilinta, and increasing the dose of your cholesterol medication Atorvastatin to 80mg. Cardiology will contact you the needed procedure on 03/06 or 03/07. Please keep close follow up with your aircraft metalsmith and primary care provider after discharge. Please do not hesitate to come back to the emergency room with chest pain or trouble breathing, or if your symptoms return or feel like they are worsening. It was a pleasure taking care of you while you were here. Total Time Total Time Spent Total Time Spent (In Minutes): >30 minutes
--- NOTE | 2023-03-04 11:55 | Cardiac Catheterization ---
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 Cardiac Status Clinical evaluation leading to the procedure CAD Presenation: Stable angina Anginal Classification: CCS III Heart Failure: No Cardiogenic Shock within 24 Hours: No Cardiac Arrest within 24 Hours: No Coronary Anatomy Dominant: Right Circumflex (% Stenosis): Proximal (90%) Diagnostic Physicians Name: Sebastien Shine MD, PhD Closure Device Percutaneous Entry Location: Radial and femoral Closure Device: Angio-Seal and Radial Band Recommendations: Medical Therapy and/or Counseling and PCI without planned CABG PCI Indication: Stable Angina Lesion Segment Name: Proximal circumflex Culprit Artery: Yes Stenosis Prior to Rx (%): 90 Chronic Total Occlusion: No Pre-Procedure IVANA Flow: 3 Previously Treated Lesion: No Lesion Complexity: Non-High/Non-C Lesion Length (mm): 8 Thrombus Present: No Bifurcation Lesion: No Guidewire Across Lesion: Yes Intraprocedure Events Significant Disection: No Perforation: No Cardiac Cath Procedure Full Procedure Date March 04, 2023 Pre-Procedure Diagnosis Pre-Procedure Diagnosis: Angina AUC Score AUC Score: 7 Post-Procedure Diagnosis Post-Procedure Diagnosis: Severe CAD and Successful PCI Procedure(s) Performed Procedure(s) Performed: Drug Eluting Stent and Ultrasound Guided Vascular Access Skip Tender Sebastien Shine MD, PhD Dish Stacker(s) Showers RN Estimated Blood Loss Estimated Blood Loss: 5cc Medication(s) Medication(s): Fentanyl, Heparin, Lidocaine 1% and Versed Summary of Findings Brief description: Patient had just completed diagnostic coronary angiography performed by Dr. Ordonez. He had a 6 Vincentian radial artery sheath in place. He had been sedated prior to the diagnostic cath. Patient received additional sedation using IV Versed and fentanyl. ACT was checked and additional heparin was provided as needed to maintain therapeutic anticoagulation. A 6 Vincentian EBU 3.0 guide catheter was advanced through the radial artery sheath. However because of the tortuosity in his innominate artery we were unable to deliver the catheter and engage the left main coronary. Decision was made to proceed with femoral artery approach. Soft tissue the right groin were anesthetized using 10 mils of 1% Xylocaine. Using ultrasound for guidance (image saved), right femoral artery was accessed and a 6 Vincentian femoral artery sheath was placed. All catheters were advanced and exchanged over a 0.035 J-tip wire. EBU 3.5 guide catheter was used to engage the left main. BMW universal guidewire was advanced and with significant difficulty was eventually passed across the lesion in the circumflex and positioned distally. The lesion was predilated using a 2.5 x 8 mm trek balloon at 8 followed by 14 melissa. Balloon was removed. Attempted to pass a 2.5 x 8 mm [place] drug-eluting stent but because of the tortuosity in the early circumflex we could not deliver this. Stent was removed. A guide liner was advanced over the guidewire to the ostium of the circumflex. A 2.5 x 8 mm [place] drug-eluting stent was then advanced through the guide liner and eventually we were able to cross the lesion. Ady drug-eluting stent was deployed at 14 melissa. The guide liner was removed. Stent delivery system was removed and seed expert angiography performed. Guidewire was removed. Final angiographic evaluation was performed. Guide catheter was removed. Limited right femoral artery angiography was performed to evaluate for closure. Findings were favorable, therefore, the femoral artery sheath was exchanged for a 6 Vincentian Angio-Seal closure device. This was deployed in the recommended fashion. We obtained immediate hemostasis and the patient remained hemodynamically stable. The the radial artery sheath was removed and hemostasis obtained using the TR band. Patient was then transported to the recovery area. This ended the case. PCI of proximal circumflex: Severely angulated/tortuous proximal segment with lesion of 90%. This is reduced to 0% residual stenosis after stent implantation. No evidence of dissection or perforation post PCI. IVANA-3 flow post PCI Summary: 1. Successful PCI of severe left circumflex lesion. There remains severe residual stenosis in the RCA as described in diagnostic report 2. Dual antiplatelet therapy with aspirin 81 mg daily and Brilinta 90 mg p.o. twice daily 3. Guideline directed medical therapy for secondary prevention of coronary disease per primary casing trimmer 4. Staged PCI of the RCA at the discretion of and arranged by primary cardiology Hemodynamics Rest Ao:: 112/55 mmHg Final Ao: 120/59 mmHg LV: Not performed Recommendations Recommendations: Medical Therapy and/or Counseling and PCI without planned CABG Radiation Exposure (mGy) Intervention 2102 mGy, total 3732 mGy. Fluoroscopy time 22.1 min Contrast (mls) Intervention 90 cc, total 150 cc Anesthesia Total 3 mg IV Versed, 75 mg IV fentanyl start 1618. End 1657 Disposition Recovery Room\PACU I attest to the content of the Intraoperative Record and any orders documented therein. Any exceptions are noted below. 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 End time 1657) Stenting Procedure 1: Cardiovascular Stent Procedures: 47334 Perc transcatheter placement of intracoronary stent(s), with ang (LCx) PG Care Time/CCT Total # of Minutes Spent Total Time Spent with Patient: Total time spent is greater than 50% in coordination of care (as documented) at patient's floor/unit and/or counseling patient:
== END 2023-03-03 15:16 | disposition home or self-care (01) ==
LOC: ED 12:14 → 2S 12:14 → SUATTDRO 14:05 → 2S 17:11
DX: Z88.0 Allergy status to penicillin; F17.220 Nicotine dependence, chewing tobacco, uncomplicated; R07.89 Other chest pain; I25.118 Atherosclerotic heart disease of native coronary artery with other forms of angina pectoris; Z68.30 Body mass index [BMI] 30.0-30.9, adult; Z79.899 Other long term (current) drug therapy; E66.9 Obesity, unspecified; Z88.2 Allergy status to sulfonamides

== ENCOUNTER 2024-05-06 13:34 | Inpatient (IN) ==
--- NOTE | 2024-05-06 13:39 | ED Triage Note ---
Date of Service May 06, 2024 Provider in Triage Author: Birgit Pham History of Present Illness This patient was briefly evaluated while in triage. An abbreviated physical exam was performed. This patient is a 58-year-old Male who presents to the ED for evaluation left sided chest pain since this morning, nausea and vomiting didn't try any nitro hx of CAD, stents, only on baby ASA Physical Exam GENERAL: NAD CARDIOVASCULAR: RRR RESPIRATORY: CTA ABDOMEN: BS x 4. Nontender to palpation. Initial orders for labs and / or imaging were placed and patient was placed in the waiting area until a bed is available. Please see further documentation for the full ED course.
[2024-05-06] MEDS: ASPIRIN 81 MG CHEW PO STA (14:00)
--- NOTE | 2024-05-06 14:09 | Electrocardiogram Report ---
Test Reason : Blood Pressure : */* mmHG Vent. Rate : 111 BPM Atrial Rate : 111 BPM P-R Int : 128 ms QRS Dur : 80 ms QT Int : 324 ms P-R-T Axes : 6 -27 34 degrees QTcB Int : 440 ms Sinus tachycardia Otherwise normal ECG When compared with ECG of 11-Jan-2024 13:29, Vent. rate has increased by 43 bpm Confirmed by Alexander Murcia ([id number]) on 05/06/2024 2:09:07 PM Referred By: Confirmed By: Alexander Murcia
[2024-05-06 14:20] LABS: Basophils # (auto) 0.01 K/uL (0.00-0.20); Basophils % (auto) 0.2 %; Hematocrit (blood only) 45.8 % (42.0-52.0); Hemoglobin 16.3 g/dl (14.0-18.0); Immature Granulocytes # (auto) 0.03 K/uL (0.01-0.20); Immature Granulocytes % (auto) 0.5 %; Lymphocytes # (auto) 0.37 K/uL (1.20-3.40); Lymphocytes % (auto) 6.5 %; Mean Corpuscular Hemoglobin 32.8 pg (25.0-34.0); Mean Corpuscular Hgb Conc 35.6 g/dL (32.0-36.0); Mean Corpuscular Volume 92.2 fL (80.0-100.0); Mean Platelet Volume 9.2 fL (9.4-12.4); Monocytes # (auto) 0.29 K/uL (0.11-0.59); Monocytes % (auto) 5.1 %; Neutrophils % (auto) 87.7 %; Platelet Count 198 K/uL (130-400); RDW Coefficient of Variation 13.2 % (11.5-14.5); RDW Standard Deviation 44.5 fL (36.4-46.3); Red Blood Count 4.97 M/uL (4.70-6.10)
[2024-05-06 14:36] LABS: Albumin Globulin Ratio 1.7 (0.9-2); Albumin Level 4.5 gm/dl (3.4-5.0); BUN Creatinine Ratio 22.5 (10-20); Bilirubin,Total 1.3 mg/dl (0.2-1.0); Calcium 8.9 mg/dl (8.6-10.3); Creatinine Clr Calc Pharmacy 79.6 ml/min; Globulin 2.7 gm/dl (2.5-4.0); Potassium 4.3 mmol/L (3.5-5.1); Total Protein 7.2 gm/dl (6.0-8.3)
--- NOTE | 2024-05-06 14:42 | XRay Report ---
XR chest 1V not portable CLINICAL HISTORY: Chest pain. COMPARISON STUDY: Chest radiograph January 11, 2024. FINDINGS: Lung volumes are normal. Lungs are clear. There is no pneumothorax or pleural effusion. Car diac size is normal. Mediastinal contours are normal. There is no evidence for pulmonary edema. IMPRESSION: No acute cardiopulmonary findings. ACT 112: Negative or not required by law. Electronically signed by: Bart Alvarado M.D. 05/06/2024 2:41 PM
[2024-05-06 14:45] LABS: Troponin I High Sensitivity 1181.7 pg/ml (0-20)
--- NOTE | 2024-05-06 14:58 | Emergency Department Note ---
Impression & Plan NSTEMI (non-ST elevated myocardial infarction), Chest pain, Unstable angina ED Provider Note NAME: SHAWN LUU Jr AGE: 58 SEX: M : 1965 ARRIVES VIA: Walk-In INFORMANT: Patient ED PROVIDER(S): Blayne Emmanuel DO CHIEF COMPLAINT: chest pain HPI: Patient is a 58-year-old male with a past medical history of obesity, hyperlipidemia, multivessel CAD who presents to the ER for chest pain which started this morning around 4 AM. He notes he started vomiting with it. He had shortness of breath and right shoulder pain. He notes he eventually fell back asleep. Pain lasted for about 2 hours. He came in as he notes this felt like his previous [place]. He has no pain currently, no arm or jaw pain. No symptoms at this time. Denies any dysuria, urgency, or frequency. Denies any exertional symptoms recently but notes that he has been weak and tired. Denies any recent trips or travel, coughing up blood history of blood clots or clotting disorders. No swelling of the cast. ADDITIONAL HISTORY OBTAINED: Per HPI Chronic Medical/Social Conditions Affecting Care: Per HPI PAST MEDICAL HISTORY:See Below PAST SURGICAL HISTORY:See Below FAMILY HISTORY:See Below SOCIAL HISTORY:See Below HOME MEDICATIONS:See Below ALLERGIES:See Below VITALS:See Below PHYSICAL EXAMINATION: GENERAL: Sitting up in bed, alert, well appearing, well nourished, no distress, non-toxic EYE EXAM: normal conjunctiva. OROPHARYNX: mucous membranes are moist NECK: supple, no nuchal rigidity, no adenopathy, non-tender LUNGS: Clear to auscultation. Normal chest wall mechanics HEART: no murmurs, S1 normal and S2 normal ABDOMEN: abdomen soft, non-tender, normo-active bowel sounds, no masses, no rebound or guarding. UPPER EXTREMITIES: upper extremities are grossly normal. Radial pulses are equal bilaterally LOWER EXTREMITIES: No pitting edema. Calves are equal bilaterally NEURO EXAM: Normal sensorium, cranial nerves II-XII grossly intact, normal speech, no gross weakness of arms, no gross weakness of legs. MEDICAL DECISION MAKING: Patient is a 58-year-old male who presents to the ER with history of CAD for chest pain this morning and that has now resolved. IV was established and blood work was obtained. Labs show no significant leukocytosis or anemia. INR unremarkable. BMP with LFTs and bilirubin is unremarkable. Troponin was significantly elevated at 1200. Lipase was normal. Discussed with cardiology Dr. Murcia as well as Dr. Shine. Patient was given heparin low-dose without bolus per Dr. Toro. They will see and evaluate. Discussed with Dr. Tim from the [facility] service for further evaluation management treatment. Consults/Care Managements Discussions: Per [facility] Triage Nursing notes reviewed. Limited review of prior medical records performed Vital Signs: reviewed and remarkable for tachy Differential diagnosis: Cardiac ischemia, aortic dissection, pulmonary embolism, pneumothorax, pneumonia, pericarditis, myocarditis, esophageal rupture, GERD, cholecystitis, pancreatitis, musculoskeletal, as well as other pathologies. ER treatment provided: See below Diagnostics interpreted by me include EKG and cardiac monitoring as listed below: -Cardiac Monitoring: An order was placed for continuous cardiac monitoring. The monitor shows a rate of 98 with sinus rhythm. -ECG: Sinus tachycardia rate of 111 Left axis No PVCs QTc 440 -Laboratory studies:Interpreted by me as stated above in MDM and shown below. Imaging studies: Xrays: As interpreted by me: Portable AP upright 1 view of the chest shows no focal infiltrate CTs show: none Procedures:none Critical Care: I have personally spent 45 minutes of critical care time in the direct management of this patient. This includes bedside care, interpretation of diagnostic studies, and testing, discussion with consultants, patient, and family members, and other required patient management activities. This 45 minutes is in excess of all separately billable procedures. Past Med/Surg History Problem List (Updated 05/06/24 @ 21:40 by Blayne Emmanuel DO) NSTEMI (non-ST elevated myocardial infarction) (Acute) Multi-vessel coronary artery stenosis Atypical chest pain Tobacco abuse Obesity (BMI 30.0-34.9) Chest pain (Acute) Unstable angina (Acute) HLD (hyperlipidemia) Medical History GERD (gastroesophageal reflux disease) Gout Surgical History H/O heart artery stent Hx of colonoscopy Family History Father Myocardial infarction sudden [place] at age 75 Heart disease Sister Myocardial infarction, Onset Age: 54 sudden Mother Heart disease Uncle Heart disease Social History Smoking Status: Never smoker Tobacco Type: Smokeless Tobacco (Dip or Chew) Cigarettes Per Day: currently uses chewing tobacco; Second Hand Exposure: No; Do You Dip or Chew Tobacco: Yes; Hx Alcohol Use: Yes Alcohol type: beer Hx Substance Use: No Preferred Language: Yemeni Communication Ability: Effective Freight Booker Required: No Beliefs That Will Affect Care: None marital status: Legally Current Living Situation: Alone Current Living Situation Comment: home in a house by self current occupational status: employed Other Information That Helps Us Care for You: No Feels Safe at Home: Yes Safety Concerns: Feels Safe At This Time Diet: regular during the past year weight has: remained stable Assistive Devices: None Allergies Allergies Allergy/AdvReac Type Severity Reaction Status Date / Time Penicillins Allergy Unknown Verified 03/11/24 14:04 Sulfa (Sulfonamide Allergy Unknown Verified 03/11/24 14:04 Antibiotics) Home Meds Home Medications Medication Instructions Recorded Confirmed fluticasone propionate 50 2 spray intranasal DAILY 03/01/23 05/06/24 mcg/actuation nasal spray,suspension nitroglycerin 0.4 mg sublingual 0.4 mg sublingual UD PRN Chest Pain 04/22/23 05/06/24 tablet gabapentin 300 mg capsule 300 mg PO TID 03/11/24 05/06/24 Previous Rx's Medication Instructions Recorded aspirin 81 mg chewable tablet 81 mg PO DAILY #30 tabs 03/03/23 (Children's Aspirin) ezetimibe 10 mg tablet (Zetia) 10 mg PO DAILY #30 tabs 03/12/24 losartan 100 mg tablet 100 mg PO DAILY #30 tabs 03/12/24 rosuvastatin 40 mg tablet 40 mg PO DAILY #30 tabs 03/12/24 Results & Data (ED) Vital Signs Vital Signs - 24 hr 05/06/24 13:37 05/06/24 15:05 05/06/24 15:32 Temperature 36.5 C Temperature Source Temporal Artery Scan Pulse Rate 112 H 93 H Respiratory Rate 20 Respiratory Effort / Characteristics Non-Labored Respiratory Depth Normal Blood Pressure 120/87 Blood Pressure Mean 98 Pulse Oximetry 98 97 Oxygen Delivery Method Room Air Sepsis Recent Fever Within 48 Hours No Sepsis New/Unexplained Change in Mental Status N/A Sepsis Action Taken by Nursing No Action Required 05/06/24 15:41 Temperature Temperature Source Pulse Rate Respiratory Rate Respiratory Effort / Characteristics Respiratory Depth Blood Pressure 117/78 Blood Pressure Mean 97 Pulse Oximetry Oxygen Delivery Method Sepsis Recent Fever Within 48 Hours Sepsis New/Unexplained Change in Mental Status Sepsis Action Taken by Nursing Laboratory Data 05/06/24 13:54 05/06/24 13:54 Lab Results 05/06/24 Range/Units 13:54 WBC 5.70 (4.8-10.8) K/ul RBC 4.97 (4.70-6.10) M/uL Hgb 16.3 (14.0-18.0) g/dl Hct 45.8 (42.0-52.0) % MCV 92.2 (80.0-100.0) fL MCH 32.8 (25.0-34.0) pg MCHC 35.6 (32.0-36.0) g/dL RDW Std Deviation 44.5 (36.4-46.3) fL RDW Coeff of Clint 13.2 (11.5-14.5) % Plt Count 198 (130-400) K/uL MPV 9.2 L (9.4-12.4) fL Immature Gran % (Auto) 0.5 % Neut % (Auto) 87.7 % Lymph % (Auto) 6.5 % Buchanan % (Auto) 5.1 % Eos % (Auto) 0.0 % Baso % (Auto) 0.2 % Neut # (Auto) 5.00 (1.40-6.50) K/uL Lymph # (Auto) 0.37 L (1.20-3.40) K/uL Buchanan # (Auto) 0.29 (0.11-0.59) K/uL Eos # (Auto) 0.00 (0.00-0.50) K/uL Baso # (Auto) 0.01 (0.00-0.20) K/uL Immature Gran # (Auto) 0.03 (0.01-0.20) K/uL PT 10.3 (9.0-12.0) Seconds INR 0.9 (0.9-1.1) APTT 24 (21-31) Seconds PTT Ratio 0.9 Sodium 137 (136-145) mmol/L Potassium 4.3 (3.5-5.1) mmol/L Chloride 105 (98-107) mmol/L Carbon Dioxide 23 (21-32) mmol/L Anion Gap 9 (3-11) BUN 25 H (6-23) mg/dl Creatinine 1.11 (0.6-1.4) mg/dl Est Cr Clr Drug Dosing 79.6 ml/min eGFR 76.02 BUN/Creatinine Ratio 22.5 H (10-20) Glucose 127 H (70-99(Fasting)) mg/dl Calcium 8.9 (8.6-10.3) mg/dl Total Bilirubin 1.3 H (0.2-1.0) mg/dl AST 22 (13-39) U/L ALT 23 (7-52) U/L Alkaline Phosphatase 43 (34-104) U/L Troponin I High Sens 1181.7 H* (0-20) pg/ml Total Protein 7.2 (6.0-8.3) gm/dl Albumin 4.5 (3.4-5.0) gm/dl Globulin 2.7 (2.5-4.0) gm/dl Albumin/Globulin Ratio 1.7 (0.9-2) Lipase 31 (11-82) U/L Administered Medications Acetaminophen (Acetaminophen 325 Mg Tab) 650 mg PO Q4H PRN PRN Reason: Pain or Fever Stop: 06/05/24 16:52 Last Admin: 05/06/24 17:57 Dose: 650 mg Documented By: REGINE Gabapentin (Gabapentin 300 Mg Cap) 300 mg PO TID [facility] Stop: 06/05/24 20:59 Last Admin: 05/06/24 20:19 Dose: Not Given Documented By: ALONSO Heparin Sodium/Dextrose (Heparin Sodium/Dextrose) 25,000 units in 500 mls @ 19 mls/hr IV .Q24H [facility]; Protocol Stop: 06/05/24 15:29 Last Titration: 05/06/24 19:02 Dose: 950 units/hr, 19 mls/hr Documented By: REGINE Co-signed By: ALONSO Admin: 05/06/24 15:35 Dose: 950 units/hr, 19 mls/hr Documented By: YASMIN Co-signed By: DERRICK Nitroglycerin (Nitroglycerin Sl 0.4 Mg/Tab Tab) 0.4 mg SL Q5M PRN PRN Reason: Chest Pain Stop: 06/05/24 16:52 Last Admin: 05/06/24 17:27 Dose: 0.4 mg Documented By: REGINE Discontinued Medications Aspirin (Aspirin 81 Mg Chew) 324 mg PO NOW STA Stop: 05/06/24 13:39 Last Admin: 05/06/24 14:00 Dose: 324 mg Documented By: JUANA Heparin Sodium/Dextrose (Heparin Iv Adult Wt-Based Low-Dose *No* Initial Bolus Protocol) 1 each IV ONE STA; Protocol Stop: 05/06/24 15:09 Last Admin: 05/06/24 19:02 Dose: Not Given Documented By: REGINE Metoprolol Tartrate (Metoprolol Tartrate 1 Mg/Ml Vial) 5 mg IV NOW ONE Stop: 05/06/24 16:24 Last Admin: 05/06/24 18:11 Dose: Not Given Documented By: REGINE Ticagrelor (Ticagrelor 90 Mg Tab) 180 mg PO ONE ONE Stop: 05/06/24 16:27 Last Admin: 05/06/24 18:01 Dose: 180 mg Documented By: REGINE Imaging Data Radiologist's Impression: Chest X-Ray 05/06/24 13:38 XR chest 1V not portable CLINICAL HISTORY: Chest pain. COMPARISON STUDY: Chest radiograph January 11, 2024. FINDINGS: Lung volumes are normal. Lungs are clear. There is no pneumothorax or pleural effusion. Cardiac size is normal. Mediastinal contours are normal. There is no evidence for pulmonary edema. IMPRESSION: No acute cardiopulmonary findings. ACT 112: Negative or not required by law. Electronically signed by: Bart Alvarado M.D. 05/06/2024 2:41 PM Discharge Plan Visit Data Chief Complaint: Chest Pain Stated Complaint: CHEST PAIN ED Provider: Blayne Emmanuel Discharge Problem: NSTEMI (non-ST elevated myocardial infarction), Chest pain, Unstable angina Patient Disposition: Admitted As Inpatient Discharge Instructions Interventions: ED Discharge Assessment Last Done: 05/06/24 16:30 Discharge Problem: Chest pain Qualifiers: Chest pain type: unspecified Qualified Code(s): R07.9 - Chest pain, unspecified
--- NOTE | 2024-05-06 15:08 | History & Physical Report ---
Date of Service May 06, 2024 Assessment & Plan (1) NSTEMI (non-ST elevated myocardial infarction): Plan Otilio Ward is a 58y/o M with PMHx significant for HLD, HTN, multivessel CAD, unstable angina s/p 2 JAIDEN to RCA + 1 JAIDEN to pLCx in 02/2023, LVH with diastolic dysfunction, sinus bradycardia, paroxysmal SVT, GERD, lumbar DDD, primary osteoarthritis of R hip, chronic pain of R knee, chewing tobacco use and gout who presented to the ED on 05/06/2024 for evaluation of chest pain and was found to have an NSTEMI. NSTEMI: Patient with chest pain radiating across his entire chest wall starting this morning around 4AM with associated vomiting, body sweats and SOB. Initial troponin 1181.7. EKG without any evidence of ST elevation. He was loaded with aspirin 324mg in the ED. Cardiology consulted by ED provider. Chest pain free at the time of our conversation however he mentions it does still come and go. Patient follows with [facility] [place] cardiology, Dr. Morgan. IV heparin was initiated in the ED as directed by Dr. Murcia; Dr. Shine also contacted to evaluate the patient. Keep him NPO for now. Vitals in the ED only notable for transient tachycardia which has since resolved. NSR on telemetry. CXR negative. Additional laboratory evaluation reviewed and unremarkable. Repeat troponin pending. Continue close telemetry monitoring. Trend troponin Q4H for now. EKG with chest pain PRN. PRN sublingual nitro ordered. Check AM fasting lipid panel. Hgb A1c was 5.6% this month. Obtain resting echocardiogram. Further plans of care as outlined by cardiology. Multivessel CAD, HLD H/O Unstable Angina S/P Intervention: Of note, patient was seen admitted to [facility] back in 02/2023 with progressive exertional chest discomfort over the preceding few months. He underwent cardiac catheterization at that time which revealed multivessel disease including 95% proximal LCx and sequential severe lesions in RCA. He subsequently had JAIDEN placed to proximal circumflex at that time and then later underwent staged outpatient PCI of RCA with 2 nonoverlapping JAIDEN. Outpatient lipid panel from 02/2024 revealed triglycerides 303, total cholesterol 188, HDL 45 and LDL 107. Continue rosuvastatin, Zetia and ASA. Resting echocardiogram from 02/2023 showed LVEF = 60-65%, mild concentric LVH, grade II diastolic dysfunction. There was no significant valvular pathology. HTN: Patient reports his losartan dosage was increased to 100mg daily from 50mg daily back in February [address] Morgan, however there was confusion at his outpatient pharmacy and therefore he is still only taking the 50mg daily. Relatively hypotensive in the ED. Holding losartan for now. Monitor BP closely and resume losartan as able. Other Chronic Medical Conditions: Lumbar DDD/primary osteoarthritis of R hip --> Can continue gabapentin. DVT Prophylaxis: On IV heparin as per above - continue. Code Status: FULL CODE PCP: Husam Ricks MD Disposition: Admit to PCU/Telemetry for further inpatient evaluation and management. Patient seen in collaboration with Dr. Tim. Please see addendum. I spent a total of 55 minutes coordinating, documenting, and providing care for this patient excluding time spent in the performance of separately billed services and time spent by another provider/QHP. This included personally reviewing all current laboratories and imaging studies, medical reconciliation, outpatient chart review and discussion with specialists. This chart was completed in part utilizing Speech Voice Recognition Software. Grammatical errors, random word insertions, pronoun errors, and incomplete sentences are an occasional consequence of this system due to software limitations, ambient noise, and hardware issues. Any formal questions or concerns about the content, text, or information contained within the body of this dictation should be directly addressed to the provider for clarification. History of Present Illness Chief Complaint: Chest Pain Primary Care Provider: Husam Ricks MD Otilio Ward is a 58y/o M with PMHx significant for HLD, HTN, multivessel CAD, unstable angina s/p 2 JAIDEN to RCA + 1 JAIDEN to pLCx in 02/2023, LVH with diastolic dysfunction, sinus bradycardia, paroxysmal SVT, GERD, lumbar DDD, primary os teoarthritis of R hip, chronic pain of R knee, chewing tobacco use and gout who presented to the ED on 05/06/2024 for evaluation of chest pain. History obtained from the patient and associated chart review. Patient seen in the ED with Dr. Tim. Patient with chest pain radiating across his entire chest wall starting this morning around 4AM with associated vomiting, body sweats and SOB. Initial troponin 1181.7. EKG without any evidence of ST elevation. He was loaded with aspirin 324mg in the ED. Currently without any chest pain at the time of our conversation however he mentions it does still come and go. He also endorses some abdominal bloating. ED provider, Dr. Emmanuel, contacted Dr. Murcia who is on-call with [facility] cardiology. Patient follows with [facility] cardiology, Dr. Morgan, as an outpatient. IV heparin was initiated in the ED as directed by Dr. Murcia; Dr. Shine also contacted to evaluate the patient. Vitals in the ED notable for transient tachycardia with had resolved at the time of our evaluation in the ED, his HR was in the 80s and he was in NSR. CXR negative. Additional laboratory evaluation reviewed and unremarkable. Of note, patient was seen admitted to [facility] back in 02/2023 with progressive exertional chest discomfort over the preceding few months. He underwent cardiac catheterization at that time which revealed multivessel disease including 95% proximal LCx and sequential severe lesions in RCA. He subsequently had JAIDEN placed to proximal circumflex at that time and then later underwent staged outpatient PCI of RCA with 2 nonoverlapping JAIDEN. Outpatient lipid panel from 02/2024 revealed triglycerides 303, total cholesterol 188, HDL 45 and LDL 107. Hgb A1c was 5.6% on 04/22/2024. Resting echocardiogram from 02/2023 showed LVEF = 60-65%, mild concentric LVH, grade II diastolic dysfunction. There was no significant valvular pathology. Dr. Tim and I discussed the patient's case with Dr. Murcia in the ED. Allergies Allergy/AdvReac Type Severity Reaction Status Date / Time Penicillins Allergy Unknown Verified 03/11/24 14:04 Sulfa (Sulfonamide Allergy Unknown Verified 03/11/24 14:04 Antibiotics) Home Medications Medication Instructions Recorded Confirmed Type fluticasone propionate 50 2 spray intranasal DAILY 03/01/23 05/06/24 History mcg/actuation nasal spray,suspension aspirin 81 mg chewable tablet 81 mg PO DAILY #30 tabs 03/03/23 05/06/24 Rx (Children's Aspirin) nitroglycerin 0.4 mg sublingual 0.4 mg sublingual UD PRN Chest Pain 04/22/23 05/06/24 History tablet gabapentin 300 mg capsule 300 mg PO TID 03/11/24 05/06/24 History ezetimibe 10 mg tablet (Zetia) 10 mg PO DAILY #30 tabs 03/12/24 05/06/24 Rx losartan 100 mg tablet 100 mg PO DAILY #30 tabs 03/12/24 05/06/24 Rx rosuvastatin 40 mg tablet 40 mg PO DAILY #30 tabs 03/12/24 05/06/24 Rx Past Med/Surg History Problem List NSTEMI (non-ST elevated myocardial infarction) Multi-vessel coronary artery stenosis Atypical chest pain Tobacco abuse Obesity (BMI 30.0-34.9) Chest pain (Acute) Unstable angina HLD (hyperlipidemia) Medical History GERD (gastroesophageal reflux disease) Gout Surgical History H/O heart artery stent Hx of colonoscopy Family History Father Myocardial infarction sudden [place] at age 75 Heart disease Sister Myocardial infarction, Onset Age: 54 sudden Mother Heart disease Uncle Heart disease Social History Smoking Status: Never smoker Tobacco Type: Smokeless Tobacco (Dip or Chew) Cigarettes Per Day: currently uses chewing tobacco; Second Hand Exposure: No; Do You Dip or Chew Tobacco: Yes; Hx Alcohol Use: Yes Alcohol type: beer and hard liquor Hx Substance Use: No Preferred Language: Frisian Communication Ability: Effective Talent Management Specialist Required: No Beliefs That Will Affect Care: None marital status: Legally Current Living Situation: Alone current occupational status: employed Feels Safe at Home: Yes Diet: regular during the past year weight has: remained stable Assistive Devices: None Review of Systems Review of Systems: At least ten systems reviewed and negative, except as noted in the HPI. Physical Exam Physical Exam: Please refer to Dr. Tim's addendum for physical examination findings. Results & Data Results & Data Vital Signs (Past 12 Hours) Vital Signs Temp Pulse Resp BP Pulse Ox O2 Del Method 05/06/24 15:05 97 Room Air 05/06/24 13:37 36.5 C 112 H 20 120/87 98 Laboratory Results Short CBC 05/06/24 Range/Units 13:54 WBC 5.70 (4.8-10.8) K/ul Hgb 16.3 (14.0-18.0) g/dl Hct 45.8 (42.0-52.0) % Plt Count 198 (130-400) K/uL BMP 05/06/24 13:54 Sodium 137 Potassium 4.3 Chloride 105 Carbon Dioxide 23 BUN 25 H Creatinine 1.11 Glucose 127 H Calcium 8.9 Liver Function 05/06/24 Range/Units 13:54 Total Bilirubin 1.3 H (0.2-1.0) mg/dl AST 22 (13-39) U/L ALT 23 (7-52) U/L Alkaline Phosphatase 43 (34-104) U/L Albumin 4.5 (3.4-5.0) gm/dl Diagnostic Findings Chest X-Ray 05/06/24 13:38 XR chest 1V not portable CLINICAL HISTORY: Chest pain. COMPARISON STUDY: Chest radiograph January 11, 2024. FINDINGS: Lung volumes are normal. Lungs are clear. There is no pneumothorax or pleural effusion. Cardiac size is normal. Mediastinal contours are normal. There is no evidence for pulmonary edema. IMPRESSION: No acute cardiopulmonary findings. ACT 112: Negative or not required by law. Electronically signed by: Bart Alvarado M.D. 05/06/2024 2:41 PM Medications Administered Discontinued Medications Aspirin (Aspirin 81 Mg Chew) 324 mg PO NOW STA Stop: 05/06/24 13:39 Last Admin: 05/06/24 14:00 Dose: 324 mg Documented By: AMS Code Status & VTE Plan Code Status FULL CODE Supervising Physician Co-Signing Physician Notes Pt seen and examined by me, care coordinated w/ JOE, pls refer to her note above for further detail. 58y/o M w/ HLD, HTN, multivessel CAD s/p 2 JAIDEN to RCA + 1 JAIDEN to pLCx in 02/2023, LVH with diastolic dysfunction, sinus bradycardia, paroxysmal SVT, GERD, lumbar DDD, primary osteoarthritis of R hip, chronic pain of R knee, chewing tobacco use and gout who presents w/ chest pain, elevated troponin c/w NSTEMI. Pt reports chest pain, nausea, vomiting, diaphoresis this AM, which made him present to the hospital. ED provider already contacted cardiology, IV heparin was started. Currently without any chest pain however he mentions it does still come and go. He is awake, alert, oriented, answers appropriately. Heart sounds regular, lungs CTAB, abdomen soft, nontender. No significant LE edema, pt is moving extremities. Discussed w/ Dr. Murcia (cardiology), IV heparin started, echo ordered, likely plan for cardiac cath tmrw.
[2024-05-06] MEDS: HEPARIN 25000 UNIT/500 ML 25,000 UNITS/500 ML BAG IV SCH (15:35)
[2024-05-06 15:50] LABS: INR 0.9 (0.9-1.1); Partial Thromboplastin Ratio 0.9; Partial Thromboplastin Time 24 Seconds (21-31); Prothrombin Time 10.3 Seconds (9.0-12.0)
[2024-05-06] MEDS ORDERED: CLOPIDOGREL BISULFATE 300 MG TAB PO ONE (16:24)
--- NOTE | 2024-05-06 16:37 | Cardiology Consultation ---
Date of Consultation May 06, 2024 Assessment & Plan (1) NSTEMI (non-ST elevated myocardial infarction): (2) Multi-vessel coronary artery stenosis: (3) Chest pain: (4) HLD (hyperlipidemia): Plan 1. NSTEMI: Patient has symptoms suggestive of an acute coronary syndrome and elevations in cardiac biomarkers. Known history of coronary disease. Will plan on invasive evaluation. Essentially pain-free at this point. Some residual atypical symptoms. We will give a dose of metoprolol, will load him with ticagrelor, will continue heparin infusion. 2. Coronary artery disease: History of multivessel disease including severe stenosis of the proximal left circumflex and right coronary artery. Known residual disease in the apical portion of the LAD. Known 100% occlusion of a second diagonal. Will continue aggressive secondary prevention with aspirin, Zetia and high-dose rosuvastatin. Will evaluate high-sensitivity CRP to see if the patient benefits from anti-inflammatory therapy. 3. Chest pain: Most likely associated with an acute coronary syndrome. There are some atypical features and he still has some abdominal bloating. However, the history and elevated biomarkers would suggest this is the true etiology. Essentially pain-free at this point. Will continue to monitor for recurrent symptoms. The goal this evening will be to keep him pain-free. For additional symptoms more beta-blockade, nitrates or analgesics can be administered. For refractory symptoms more urgent evaluation may be required. 4. Hyperlipidemia: Not at goal previously. On Zetia and high-dose rosuvastatin, changed from high-dose atorvastatin. We can measure lipids tomorrow morning. History of Present Illness Reason for Consultation: Chest pain, elevated troponin Requesting Physician: Cholo Attending Physician: Glenroy History of Present Illness The patient is a 58-year-old gentleman with a history of coronary artery disease having previously presented with unstable angina in February 2023. At that time he was discovered to have significant left circumflex and right coronary disease. The circumflex artery was addressed first with PCI and 3 days later the patient underwent intervention to the right coronary artery. He was noted to have residual disease in the distal LAD. He states that since that time he is active done quite well. He is limited mostly by orthopedic disease at this point. He has significant left hip discomfort and is entertaining the option of operative intervention. This morning patient states that about 4 AM he awoke with significant nausea and vomiting. He was somewhat diaphoretic at that time and subsequently developed some substernal chest pain. He took some antacids for relief and was able to fall back asleep. However, when he woke up he was again diaphoretic and not feeling well. He continued to have some substernal chest discomfort and right shoulder pain. He recalls the symptoms as similar to those he experienced in 2022. Based on the nature of the symptoms he eventually decided to present to the emergency room for an evaluation. It seems that symptoms had resolved significantly prior to evaluation. He reports resolution of most of the chest discomfort. Now he seems to have some intermittent and fairly discrete points of discomfort. Overall just not feeling well. Still some abdominal bloating. Mild dyspnea when the episode started earlier this morning. This appears resolved currently. Earlier this week the patient felt as if his heart was racing. This was not an irregularity but just a higher heart rate. Perhaps some mild dyspnea throughout the week as well. No dizziness or lightheadedness. No chest pain until this morning. He was able to work yesterday and ambulate with difficulty but without chest pain. No history of lower extremity edema. Allergies Allergy/AdvReac Type Severity Reaction Status Date / Time Penicillins Allergy Unknown Verified 03/11/24 14:04 Sulfa (Sulfonamide Allergy Unknown Verified 03/11/24 14:04 Antibiotics) Home Medications Medication Instructions Recorded Confirmed Type fluticasone propionate 50 2 spray intranasal DAILY 03/01/23 05/06/24 History mcg/actuation nasal spray,suspension aspirin 81 mg chewable tablet 81 mg PO DAILY #30 tabs 03/03/23 05/06/24 Rx ([facility] Aspirin) nitroglycerin 0.4 mg sublingual 0.4 mg sublingual UD PRN Chest Pain 04/22/23 05/06/24 History tablet gabapentin 300 mg capsule 300 mg PO TID 03/11/24 05/06/24 History ezetimibe 10 mg tablet (Zetia) 10 mg PO DAILY #30 tabs 03/12/24 05/06/24 Rx losartan 100 mg tablet 100 mg PO DAILY #30 tabs 03/12/24 05/06/24 Rx rosuvastatin 40 mg tablet 40 mg PO DAILY #30 tabs 03/12/24 05/06/24 Rx Patient History Medical History GERD (gastroesophageal reflux disease) Gout Surgical History H/O heart artery stent Hx of colonoscopy Family History Father Myocardial infarction sudden [place] at age 75 Heart disease Sister Myocardial infarction, Onset Age: 54 sudden Mother Heart disease Uncle Heart disease Social History Smoking Status: Never smoker Tobacco Type: Smokeless Tobacco (Dip or Chew) Cigarettes Per Day: currently uses chewing tobacco; Second Hand Exposure: No; Do You Dip or Chew Tobacco: Yes; Hx Alcohol Use: Yes Alcohol type: beer and hard liquor Hx Substance Use: No Preferred Language: Vincentian Communication Ability: Effective Front End Assistant Required: No Beliefs That Will Affect Care: None marital status: Legally Current Living Situation: Alone current occupational status: employed Feels Safe at Home: Yes Diet: regular during the past year weight has: remained stable Assistive Devices: None Review of Systems Review of Systems: Per HPI Physical Exam Physical Exam: The patient is alert and oriented. Mood and affect appeared normal. He answered all questions appropriately. HEENT: Pupils are equal and reactive to light and accommodation. Extraocular movements are intact. The sclerae are anicteric. Neuro: Cranial nerves intact Lungs: Clear to auscultation bilaterally. He has good air movement without use of accessory muscles. No rales wheezes or rhonchi. Cardiac: Heart demonstrates a regular rate and rhythm. Normal S1 and S2. No murmurs on examination. Pulses: The patient has palpable radial pulses bilaterally that are equal in intensity Extremities: There was no evidence of hypoperfusion. There is no cyanosis or clubbing. There is no edema. Skin: I did not appreciate any rashes on examination today. Results & Data Vital Signs (Past 12 Hours) Vital Signs Temp Pulse Resp BP Pulse Ox O2 Del Method 05/06/24 16:00 84 13 94 05/06/24 15:45 88 16 94 05/06/24 15:41 117/78 05/06/24 15:32 93 H 05/06/24 15:05 97 Room Air 05/06/24 13:37 36.5 C 112 H 20 120/87 98 Laboratory Results Abnormal Lab Results 05/06/24 05/06/24 13:54 15:45 WBC 5.70 RBC 4.97 Hgb 16.3 Hct 45.8 MCV 92.2 MCH 32.8 MCHC 35.6 RDW Std Deviation 44.5 RDW Coeff of Clint 13.2 Plt Count 198 MPV 9.2 L Immature Gran % (Auto) 0.5 Neut % (Auto) 87.7 Lymph % (Auto) 6.5 [place] % (Auto) 5.1 Eos % (Auto) 0.0 Baso % (Auto) 0.2 Neut # (Auto) 5.00 Lymph # (Auto) 0.37 L [place] # (Auto) 0.29 Eos # (Auto) 0.00 Baso # (Auto) 0.01 Immature Gran # (Auto) 0.03 PT 10.3 INR 0.9 APTT 24 PTT Ratio 0.9 Sodium 137 Potassium 4.3 Chloride 105 Carbon Dioxide 23 Anion Gap 9 BUN 25 H Creatinine 1.11 Est Cr Clr Drug Dosing 79.6 eGFR 76.02 BUN/Creatinine Ratio 22.5 H Glucose 127 H Calcium 8.9 Total Bilirubin 1.3 H AST 22 ALT 23 Alkaline Phosphatase 43 Troponin I High Sens 1181.7 H* 1503.4 H* D Total Protein 7.2 Albumin 4.5 Globulin 2.7 Albumin/Globulin Ratio 1.7 Lipase 31 Diagnostic Findings Cardiac catheterization 03/02/2023: 75% distal small LAD, 100% ostial D2, 90% proximal circumflex, 80% proximal RCA and 70% mid RCA. PCI to left circumflex with staged procedure to RCA Echocardiogram 03/02/2023: Normal LV systolic function with ejection fraction of 60 to 65%. Mild LVH. Stage II diastolic dysfunction. No significant valvular heart disease. Chest x-ray obtained at time admission: No acute cardiopulmonary disease Medications Administered EKG obtained at time admission revealed a sinus rhythm without significant ST or T wave changes. PG Care Time/CCT Total # of Minutes Spent Total Time Spent with Patient: Total time spent is greater than 50% in coordination of care (as documented) at patient's floor/unit and/or counseling patient: Coding Level of Care Code 76376 IN/OBS CONSULT LVL 4,60M Diagnoses NSTEMI (non-ST elevated myocardial infarction) I21.4 Multi-vessel coronary artery stenosis I25.10 Chest pain R07.9 Chest pain type: unspecified Hyperlipidemia, unspecified hyperlipidemia type E78.5 Hyperlipidemia type: unspecified (3) Chest pain Chest pain type: unspecified Qualified Code(s): R07.9 - Chest pain, unspecified (4) HLD (hyperlipidemia) Hyperlipidemia type: unspecified Qualified Code(s): E78.5 - Hyperlipidemia, unspecified
[2024-05-06] MEDS ORDERED: ONDANSETRON INJ 2 MG/ML 2 ML VIAL IV PRN (16:53)
[2024-05-06] MEDS ORDERED: POLYETHYLENE (MIRALAX) 17 GM PACK PO PRN (16:53)
[2024-05-06] MEDS ORDERED: MAGNESIUM HYDROXIDE SUSP 30 ML UDC PO PRN (16:53)
[2024-05-06] MEDS: NITROGLYCERIN SL 0.4 MG/TAB TAB SL PRN (17:27)
[2024-05-06] MEDS: ACETAMINOPHEN 325 MG TAB PO PRN (17:57)
[2024-05-06] MEDS: TICAGRELOR 90 MG TAB PO ONE (18:01)
[2024-05-06] MEDS: METOPROLOL TARTRATE 1 MG/ML VIAL IV ONE (18:11)
[2024-05-06] MEDS: Heparin IV Adult Wt-Based Low-Dose *NO* INITIAL Bolus Protocol IV STA (19:02)
--- OUTSIDE RECORDS SUMMARY | 2024-05-06 19:42 | External Medical Summary | Summary of Care ---
Author Name Unknown Organization [facility] Address [address] [place] [address] Phone [phone] Care Team Providers Care Urban Planning Teacher Name Role Phone Syeda Bueno MD Primary Care Provider [phone] Encounter Details Date Type Department Care Team (Late st Contact Info) Description 05/05/2024 Population Health External Data Unspecified Department Allergies Active Allergy Reactions Criticality Noted Date Comments Indomethacin Other (Please comment) 11/28/2019 Dizziness Penicillins 11/02/1997 rash Sulfa Antibiotics 11/02/1997 rapid pulse documented as of this encounter (statuses as of 05/05/2024) Medications Aspirin 81 MG Oral Tablet Delayed Release (Aspirin 81) Take 1 Tablet by mouth in the morning. Active Nitroglycerin 0.4 MG Sublingual Tablet Sublingual (Nitrostat) Place 1 Tablet under the tongue every 5 minutes as needed for Pain, Chest. up to 3 doses in 15 minutes 25 Tablet 11 3 Active Cyclobenzaprine HCl 5 MG Oral Tablet (Flexeril) Take 1 Tablet by mouth in the morning and 1 Tablet at noon and 1 Tablet before bedtime. 4 Active Gabapentin 300 MG Oral Capsule (Neurontin) Take 1 Capsule by mouth in the morning and 1 Capsule at noon and 1 Capsule before bedtime. 90 Capsule 5 4 Active Ezetimibe 10 MG Oral Tablet (Zetia) Take 1 Tablet by mouth in the morning. 4 Active Rosuvastatin Calcium 40 MG Oral Tablet (Crestor) Take 1 Tablet by mouth in the morning. 4 Active Losartan Potassium 100 MG Oral Tablet (Cozaar) Take 1 Tablet by mouth in the morning. 4 Active Fluticasone Propionate 50 MCG/ACT Nasal Suspension (Flonase) Administer 2 Sprays into nostril in the morning. 48 g 1 5 Active Cyclobenzaprine HCl 10 MG Oral Tablet (Flexeril) Take 1 Tablet by mouth in the morning and 1 Tablet before bedtime. 60 Tablet 1 5 Active documented as of this encounter (statuses as of 05/05/2024) Active Problems Problem Noted Date Diagnosed Date Primary osteoarthritis of right hip 05/01/2024 Chronic pain of right knee 05/01/2024 DDD (degenerative disc disease), lumbar 04/30/19 24 S/P angioplasty with stent 03/16/2023 Coronary artery disease invo lving [place] heart with unstable angina pectoris 03/16/2023 Family history of [place] (myocardial infarction) 06/2017 Dyslipidemia, goal LDL below 130 10/31/2012 Gout 10/31/2012 HTN, goal below 140/90 08/30/2011 TOBACCO USE DISORDER- ORAL 01/29/2007 Esophageal reflux 01/29/2007 ACUTE STRESS 05/25/2004 documented as of this encounter (statuses as of 05/05/2024) Resolved Problems Problem Noted Date Diagnosed Date Resolved Date OBESITY, BMI 30-34 (SEE ACTUAL BMI) 07/08/2009 10/31/2012 Overview (07/08/2009): Per Obesity Taxonomy Elevated blood pressure, situational 02/19/2009 10/31/2012 Overview (02/19/2009): Modified per HTN Taxonomy. Obesity, BMI not known 01/29/200707/08 Overview (07/08/2009): Per Obesity Taxonomy Shortness of breath 01/29/2007 11/01/19 13 Chest pain 01/29/2007 10/31/2012 Elevated blood pressure, situational 01/29/2007 02/19/2009 Overview (02/19/2009): Modified per HTN Taxonomy. Abdominal pain, generalized 05/25/2004 10/31/2012 Tobacco use disorder 05/25/2004 013 Chronic alcohol dependence, continuous 05/25/2004 04/03/2022 Dyslipidemia, goal to be determined 05/25/2004 10/31/2012 BACKACHE NOS 05/25/2004 10/31/2012 NONE 08/30/2011 documented as of this encounter (statuses as of 05/05/2024) Immunizations Name Administration Dates Next Due COVID-19, [...] x per week PHQ-2 Answer Date Recorded PHQ Adult Total Score 0 02/28/2024 Hunger Vital Sign Answer Date Recorded Within the past 12 months, y ou worried that your food would run out before you got the money to buy more. Never true 02/28/20 Within the past 12 months, t he food you bought just didn't last and you didn't have money to get more. Never true 02/28/2024 Childcare Answer Date Recorded Do you feel overwhelmed with taking care of a child, family member or friend? No 02/28/2024 Does your family need help f inding childcare? (Household - for ages 0-17 years) Not on file 02/28/2024 Clothing Answer Date Recorded Have you been unable to get clothing when it was really needed? No 02/28/2024 Is your family able to get c lothes or diapers when needed? (Household - for ages 0-17 years) Not on file 02/28/2024 Personal Safety Answer Date Recorded Do you feel unsafe or have concerns for your saf ety? No 02/28/2024 Do you have concerns for you r family's safety? (Household - for ages 0-17 years) Not on file 02/28/2024 Utilities Answer Date Recorded Do you have trouble paying y our heating, water, or electric bill? No 02/28/2024 Is your family able to pay t he heat, water, or electric bill? (Household - for ages 0-17 years) Not on file 02/28/2024 Does your family have access to good internet? (Household - for ages 0-17 years) Not on file 02/28/2024 Employment Status Answer Date Recorded Are you unemployed or without regular income? No 02/28/2024 Does the household have a re gular source of income? (Household - for ages 0-17 years) Not on file 02/28/2024 Social Connections Answer Date Recorded How often do you feel lonely or isolated from th ose around you? Never 02/28/2024 Financial Resource Strain Answer Date R ecorded Do you have any trouble payi ng for your medications, or do you think you might in the future? No 02/28/2024 Does your family have troubl e paying for medicine? (Household - for ages 0-17 years) Not on file 02/28/2024 Transportation Needs Answer Date Record ed Do you have trouble getting a ride to medical visits or work? (Adult - for ages 18 years and over) Not on file 02/28/2024 Does your family have a hard time getting a ride to doctors visits? (Household - for ages 0-17 years) Not on file 02/28/2024 Has lack of transportation k ept you from medical appointments, meetings, work, or from getting things needed for daily living? Check all that apply. No 02/28/2024 Do you (or your family) have trouble finding or paying for a ride (transportation)? (Household - for ages 0-17 years) Not on file 02/28/2024 Housing Stability Answer Date Recorded Do you currently live in a s helter or have no steady place to sleep at night? No 02/28/2024 Do you think you are at risk of becoming homeless? (Adult - for ages 18 years and over) Not on file 02/28/2024 Does your family worry about paying for your home or becoming homeless? (Household - for ages 0-17 years) Not on file 1 04/29/2023 Are you homeless or worried that you might be in the future? No 02/28/2024 Are you (or your family) selma eless or worried that you might be in the future? (Household - for ages 0-17 years) Not on file Food Insecurity Answer Date Recorded Do you need food for this week? No 02/28/2024 Are you able to get enough f ood for your family? (Household - for ages 0-17 years) Not on file 02/28/2024 Does your family need food t his week? (Household - for ages 0-17 years) Not on file 02/28/2024 Do you always have enough fo od for your family? 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 Not on file Not on file documented as of this encounter Plan of Treatment Upcoming Encounters Date Type Department Care Team (Late st Contact Info) Description 05/16/2024 1:30 PM EST Office Visit Interventional Pain Center [facility] [address] [place] [phone] Marlene Steinberg PA-C [address] [place] [phone] 06/17/2024 1:30 PM EST Office Visit Otolaryngology [facility] [address] [place] [address] Clary Mart PA-C [address] [place] [address] 03/02/2025 9:00 AM EST Office Visit Family [facility] [address] [phone] Syeda Bueno MD [address] [place] [address] Scheduled Procedures Name Priority Associated Diagnoses Date/Ti me COLONOSCOPY FLEXIBLE PROXIMA L DIAGNOSTIC Recall Appendicitis, unspecified appendicitis type Special screening for malignant neoplasm of colon Health Maintenance Due Date Last Done Comments Albumin/Creatinine Ratio 1981 Cologuard 2008 Fecal Occult Blood Test 2008 Sigmoidoscopy 2008 Pneumococcal Vaccine: 50+ Years (1 of 1 - PCV) 2013 Colonoscopy 06/10/2022 06/10/2019, 05/18, 06/18/2015, Additional history exists Colorectal Cancer Screening 06/10/2022 COVID-19 Vaccine ( season) 2023 10/07/2021, 08/12/2020, 07/22/2020 Influenza Vaccine (FLU shot) (#1) 2023 Depression Screening 02/27/2025 02/28/2024 GFR 04/22/2025 04/22/2024, 02/14, 03/03/2023, Additional history exists Diabetes Screening 04/22/2027 04/22/2024, 0 04/22/2024, 02/28/2024, Additional history exists DTap/Tdap Vaccines (2 - Td or Tdap) 04/04/2029 04/04/2019, 02/12/2004 HIV Screening Discontinued HPV (Gardasil) Vaccine Aged Out No lo nger eligible based on patient's age to complete this topic Hepatitis B Vaccine Aged Out No longe r eligible based on patient's age to complete this topic Hepatitis C Screening Discontinued MENINGOCOCCAL (MENACTRA/MENVEO) Aged Out No longer eligible based on patient's age to complete this topic Zoster Vaccines Discontinued documented as of this encounter Medical Devices Not on filedocumented as of this encounter Care Teams Urban Planning Teacher Relationship Specialty Start Date End Date Syeda Bueno MD [facility] [place] [address] PCP - General Internal Medicine 04/23/24 documented as of this encounter
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
--- OUTSIDE RECORDS SUMMARY | 2024-05-06 19:43 | External Medical Summary | Summary of Care ---
Author Name Unknown Organization [facility] Address [address] [facility] [place] [address] Phone [phone] Care Team Providers Care Hop Picker Name Role Phone Ju Arboleda PA-C Primary Care Provider [phone] Encounter Details Date Type Department Care Team (Late st Contact Info) Description 03/31/2024 Telephone [facility] [place] [address] [facility] [place] [phone] Ju Arboleda PA-C [address] [place] [address] Allergies Active Allergy Reactions Criticality Noted Date Comments Indomethacin Other (Please comment) 11/28/2019 Dizziness Penicillins 11/02/1997 rash Sulfa Antibiotics 11/02/1997 rapid pulse documented as of this encounter (statuses as of 04/02/2024) Medications Aspirin 81 MG Oral Tablet Delayed Release (Aspirin 81) Take 1 Tablet by mouth in the morning. Active Nitroglycerin 0.4 MG Sublingual Tablet Sublingual (Nitrostat) Place 1 Tablet under the tongue every 5 minutes as needed for Pain, Chest. up to 3 doses in 15 minutes 25 Tablet 11 03/26/2023 Active Fluticasone Propionate 50 MCG/ACT Nasal Suspension (Flonase) USE TWO SPRAYS IN EACH NOSTRIL IN THE MORNING 48 g 1 08/08/2023 Active Cyclobenzaprine HCl 5 MG Oral Tablet (Flexeril) Take 1 Tablet by mouth in the morning and 1 Tablet at noon and 1 Tablet before bedtime. 02/27/2024 Active traMADol HCl 50 MG Oral Tablet (Ultram) Take 1 Tablet by mouth every 8 hours as needed for Pain, Mild. 02/24/2024 Active Gabapentin 300 MG Oral Capsule (Neurontin) Take 1 Capsule by mouth in the morning and 1 Capsule at noon and 1 Capsule before bedtime. 90 Capsule 5 02/28/2024 Active documented as of this encounter (statuses as of 04/02/2024) Active Problems Problem Noted Date Diagnosed Date DDD (degenerative disc disease), lumbar 04/30/19 24 S/P angioplasty with stent 03/16/2023 Coronary artery disease invo lving [place] heart with unstable angina pectoris 03/16/2023 Family history of [place] (myocardial infarction) 06/2017 Dyslipidemia, goal LDL below 130 10/31/2012 Gout 10/31/2012 TOBACCO USE DISORDER- ORAL 01/29/2007 Esophageal reflux 01/29/2007 ACUTE STRESS 05/25/2004 documented as of this encounter (statuses as of 04/02/2024) Resolved Problems Problem Noted Date Diagnosed Date [...] as of this encounter (statuses as of 04/02/2024) Immunizations Name Administration Dates Next Due COVID-19, [...] money to buy more. 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 Not on file documented as of this encounter Plan of Treatment Upcoming Encounters Date Type Department Care Team (Late st Contact Info) Description 04/24/2024 2:00 PM EST Scheduled Telephone Interventional Pain Center, [facility] [address] [place] [address] [facility] Nurse Phone Call [facility] [address] [place] [address] 05/16/2024 1:30 PM EST Office Visit Interventional Pain [place], [facility] [address] [place] [address] Marlene Steinberg PA-C [address] [place] [address] 06/17/2024 1:30 PM EST Office Visit Otolaryngology [facility] [address] [place] [address] Clary Mart PA-C [address] [place] [address] 03/02/2025 9:00 AM EST Office Visit Family [address] [place] [phone] Syeda Bueno MD [address] [place] [address] Scheduled Procedures Name Priority Associated Diagnoses Date/Ti me COLONOSCOPY FLEXIBLE PROXIMA L DIAGNOSTIC Recall Appendicitis, unspecified appendicitis type Special screening for malignant neoplasm of colon Health Maintenance Due Date Last Done Comments Cologuard 2008 Fecal Occult Blood Test 2008 Sigmoidoscopy 2008 Colonoscopy 06/10/2022 06/10/2019, 05/18, 06/18/2015, Additional history exists Colorectal Cancer Screening 06/10/2022 COVID-19 Vaccine ( season) 2023 10/07/2021, 08/12/2020, 07/22/2020 Influenza Vaccine (FLU shot) (#1) 2023 Depression Screening 02/27/2025 02/28/2024 Diabetes Screening 02/27/2027 02/28/2024, 1 04/29/2023, 03/03/2023, Additional history exists DTap/Tdap Vaccines (2 - [...] filedocumented as of this encounter Care Teams Hop Picker Relationship Specialty Start Date End Date Ju Arboleda PA-C PCP - General Physician Supervisor Lead Burning 02/28/23 documented as of this encounter
--- OUTSIDE RECORDS SUMMARY | 2024-05-06 19:43 | External Medical Summary ---
Author Name Unknown Address Unknown Organization [id number]:[facility] [place] [address] [place] [address] Laboratory Report Ordering Provider Test Date Status DRUGABRIELEKALYN 04/22/2024 15:22:25 Final Observation Date Value Abnormality Reference (Units ) Status HbA1C 04/22/2024 15:22:25 5.6 4.0-5.6 (% ) Final The use of HbA1c to monitor glycemic status is based on normal hemoglobin and HbA composition. This test should not be used in patients with abnormal hemoglobin that affects the half life of the red blood cell or the in vivo glycation rates. Glucose, estimated average 04/22/2024 15:22:25 114 <126 (mg/dL) Final Performing Location [facility] - [address] [place] [address]
--- OUTSIDE RECORDS SUMMARY | 2024-05-06 19:43 | External Medical Summary | Summary of Care ---
Author Name Unknown Organization [facility] Address [address] [facility] [place] [address] Phone [phone] Care Team Providers Care Centralized Traffic Control Operator Name Role Phone Syeda Bueno MD Primary Care Provider [phone] Reason for Visit * Reason Onset Date Comments Advice 04/23/2024 Hip replacement Encounter Details Date Type Department Care Team (Late st Contact Info) Description 04/23/2024 Telephone [facility] [address]astacia Guillory [address] [facility] [place] [phone] Ju Arboleda PA-C [address] [employer] [facility] [place] [address] Advice (Hip replacement ) Allergies Active Allergy Reactions Criticality Noted Date Comments Indomethacin Other (Please comment) 11/28/2019 Dizziness Penicillins 11/02/1997 rash Sulfa Antibiotics 11/02/1997 rapid pulse documented as of this encounter (statuses as of 04/24/2024) Medications Aspirin 81 MG Oral Tablet Delayed [...] as of this encounter (statuses as of 04/24/2024) Active Problems Problem Noted Date Diagnosed Date DDD (degenerative disc disease), lumbar 04/30/19 24 S/P angioplasty with stent 03/16/2023 Coronary artery disease invo lving [place] heart with unstable angina pectoris 03/16/2023 Family history of [place] (myocardial infarction) 06/2017 Dyslipidemia, goal LDL below 130 10/31/2012 Gout 10/31/2012 TOBACCO USE DISORDER- ORAL 01/29/2007 Esophageal reflux 01/29/2007 ACUTE STRESS 05/25/2004 documented as of this encounter (statuses as of 04/24/2024) Resolved Problems Problem Noted Date Diagnosed Date [...] as of this encounter (statuses as of 04/24/2024) Immunizations Name Administration Dates Next Due COVID-19, [...] 02/28/2024 Does the household have a re lar source of income? 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 Let patient know that he needs to call the number on the back of his insurance card for a list of places that are in network. 04/24/2024 * Telephone Encounter - Emma Prieto LPN - 04/24/2024 9:16 AM EST Is this something you can assist the patient with? * Telephone Encounter - Mariela Meek OSA - 04/23/2024 3:35 PM EST Pt had a pre op clearance for a hip replacement on 04/22/24. Pt was scheduled at [facility] but pt was told that they now don't take his insurance. Pt is wondering where else he can go for his hipreplacement. Please call pt back. documented in this encounter Plan of Treatment Upcoming Encounters Date Type Department Care Team (Late st Contact Info) Description 04/24/2024 2:00 PM EST Scheduled Telephone Interventional Pain Center, [facility] [address] [address] [place], Nurse Phone Call Interventional Pain [facility] [address] [place] [address] Arrived 05/16/2024 1:30 PM EST Office Visit Interventional Pain [facility] [address] [place] [phone] Marlene Steinberg PA-C [address] [place] [address] 06/17/2024 1:30 PM EST Office Visit Otolaryngology [facility] [address] [place] [address] Clary Mart PA-C [address] [place] [address] 03/02/2025 9:00 AM EST Office Visit [facility] Anastacia Guillory [address] [place] [phone] Syeda Bueno MD [address] [place] [address] Scheduled Procedures Name Priority Associated Diagnoses Date/Ti [...] 2023 Depression Screening 02/27/2025 02/28/2024 Diabetes Screening 04/22/2027 04/22/2024, 0 04/22/2024, 02/28/2024, [...] filedocumented as of this encounter Care Teams Centralized Traffic Control Operator Relationship Specialty Start Date End Date Syeda Bueno MD [address] [place] [address] PCP - General Internal Medicine 04/23/24 documented as of this encounter
--- OUTSIDE RECORDS SUMMARY | 2024-05-06 19:43 | External Medical Summary | Summary of Care ---
Author Name Unknown Organization [facility] Address [address] [facility] [place] [address] Phone [phone] Care Team Providers Care General Education Professor Name Role Phone Syeda Bueno MD Primary Care Provider [phone] Reason for Visit * Reason Onset Date Comments Nurse Telephone Follow Up 04/24/2024 Encounter Details Date Type Department Care Team (Late st Contact Info) Description 04/24/2024 2:00 PM EST Scheduled Telephone Interventional Pain Center, [facility] [address] [place] [address] [facility] Nurse Phone Call Interventional Pain [facility] [address] [facility] [address] Allergies Active Allergy Reactions Criticality Noted Date [...] stent 03/16/2023 Coronary artery disease invo lving [place] heart with unstable angina pectoris 03/16/2023 Family history of [place] (myocardial infarction) 06/2017 Dyslipidemia, goal LDL below [...] 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 documented in this encounter Plan of Treatment Upcoming Encounters Date Type Department Care Team (Late st Contact Info) Description 05/16/2024 1:30 PM EST Office Visit Interventional Pain Center [facility] [address] [place] [phone] Marlene Steinberg PA-C [address] [place] [address] 06/17/2024 1:30 PM EST Office Visit Otolaryngology [facility] [address] [place] [address] Clary Mart PA-C [address] [place] [address] 03/02/2025 9:00 AM EST Office [facility] [address] [place] [phone] Syeda Bueno MD [address] [facility] [address] Scheduled Procedures Name Priority Associated Diagnoses Date/Ti [...] filedocumented as of this encounter Care Teams General Education Professor Relationship Specialty Start Date End Date Syeda Bueno MD [address] [place] [address] PCP - General Internal Medicine 04/23/24 documented as of this encounter
--- OUTSIDE RECORDS SUMMARY | 2024-05-06 19:43 | External Medical Summary | Summary of Care ---
Author Name Unknown Organization [facility] Address [address] [place] [facility] [facility] [place] [address] Phone [phone] Care Team Providers Care Is Technician Name Role Phone Syeda Bueno MD Primary Care Provider [phone] Reason for Visit * Reason Onset Date Comments Advice 04/23/2024 Hip replacement Encounter Details Date Type Department Care Team (Late st Contact Info) Description 04/23/2024 Telephone [facility] Anastacia Guillory [address] [facility] [place] [phone] Ju Arboleda PA-C [address] [facility] [place] [address] Advice (Hip replacement ) Allergies Active [...] stent 03/16/2023 Coronary artery disease invo lving [place] heart with unstable angina pectoris 03/16/2023 Family history of [place] (myocardial infarction) 06/2017 Dyslipidemia, goal LDL below [...] 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 I am not sure why they did not tell him this on the phone when he called as it is clearly stated below. 04/24/2024 * Telephone Encounter - Cris Mcmahan OSA - 04/24/2024 12:17 PM EST Pt is calling in stating he has [employer] insurance and was going to ask for [...] replacement on 04/22/24. [facility] but pt was told that they now don't take his insurance. Pt is wondering where else he can go for his hipreplacement. Please call pt back. documented in this encounter Plan of Treatment Upcoming Encounters Date Type Department Care Team (Late st Contact Info) Description 04/24/2024 2:00 PM EST Scheduled Telephone Interventional Pain Center, [facility] [address] [place] [place] [address] [place] Nurse Phone Call Interventional Pain [facility] [address] [place] [address] Arrived 05/16/2024 1:30 PM EST Office Visit Interventional Pain Center [facility] [address] [place] [phone] Marlene Steinberg PA-C [address] [place] [address] 06/17/2024 1:30 PM EST Office Visit Otolaryngology [facility] [address] [place] [address] Clary Mart PA-C [address] [place] [address] 03/02/2025 9:00 AM EST Office Visit [facility] Anastacia Guillory [address] [place] [phone] Syeda Bueno MD [address] [place] [address] Scheduled Procedures Name Priority Associated Diagnoses Date/Ti [...] filedocumented as of this encounter Care Teams Is Technician Relationship Specialty Start Date End Date Syeda Bueno MD [address] [place] [address] PCP - General Internal Medicine 04/23/24 documented as of this encounter
--- OUTSIDE RECORDS SUMMARY | 2024-05-06 19:43 | External Medical Summary | Summary of Care ---
Author Name Unknown Organization [facility] Address [address] [place] [facility] [place] [address] Phone [phone] Care Team Providers Care Marketing Instructor Name Role Phone ySeda Bueno MD Primary Care Provider [phone] Reason for Visit * Reason Onset Date Comments Advice 04/23/2024 Hip replacement Encounter Details Date Type Department Care Team (Late st Contact Info) Description 04/23/2024 Telephone [facility] Anastacia Guillory [address] [facility] [place] [phone] Ju Arboleda PA-C [address] [place] [facility] [address] Advice (Hip replacement [...] stent 03/16/2023 Coronary artery disease invo lving [place] heart with unstable angina pectoris 03/16/2023 Family [...] 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 Pt was scheduled at [facility] but pt was told that they now don't take his insurance. Pt is wondering where else he can go for his hipreplacement. Please call pt back. documented in this encounter Plan of Treatment Upcoming Encounters Date Type Department Care Team (Late st Contact Info) Description 04/24/2024 2:00 PM EST Scheduled Telephone Interventional Pain Center, [facility] [address] [place] [address] [place] Nurse Phone Call Interventional Pain [facility] [address] [place] [address] Arrived 05/16/2024 1:30 PM EST Office Visit Interventional Pain Center [facility] [address] [place] [phone] Marlene Steinberg PA-C [address] [place] [address] 06/17/2024 1:30 PM EST Office Visit Otolaryngology [facility] [address] [place] [address] Clary Mart PA-C [address] [place] [address] 03/02/2025 9:00 AM EST [facility] [place] [address] [place] [phone] Syeda Bueno MD [address] [place] [address] Scheduled Procedures Name Priority Associated Diagnoses Date/Ti [...] Colorectal Cancer Screening 06/10/2022 COVID-19 Vaccine ( - season) 2023 10/07/2021, 08/12/2020, 07/22/2020 Influenza Vaccine [...] filedocumented as of this encounter Care Teams Marketing Instructor Relationship Specialty Start Date End Date Syeda Bueno MD [address] [place] [address] PCP - General Internal Medicine 04/23/24 documented as of this encounter
--- OUTSIDE RECORDS SUMMARY | 2024-05-06 19:43 | External Medical Summary | Summary of Care ---
Author Name Unknown Organization [facility] Address [address] [facility] [place] [address] Phone [phone] Care Team Providers Care Hospital Scientist Name Role Phone Ju Arboleda PA-C Primary Care Provider [phone] Reason for Visit * Reason Comments eRx-Medication Refill Encounter Details Date Type Department Care Team (Late st Contact Info) Description 04/01/2024 Refill Cardiology, [facility] [address] [place] [place] [phone] Matthew Hickman MD [address] [place] [address] Allergies Active Allergy Reactions Criticality Noted Date Comments Indomethacin Other (Please comment) 11/28/2019 Dizziness Penicillins 11/02/1997 rash Sulfa Antibiotics 11/02/1997 rapid pulse documented as of this encounter (statuses as of 04/03/2024) Medications Aspirin 81 MG Oral Tablet Delayed Release (Aspirin 81) Take 1 Tablet by mouth in the morning. Active Nitroglycerin 0.4 MG Sublingual Tablet Sublingual (Nitrostat) Place 1 Tablet under the tongue every 5 minutes as needed for Pain, Chest. up to 3 doses in 15 minutes 25 Tablet 11 3 Active Fluticasone Propionate 50 MCG/ACT Nasal Suspension (Flonase) USE TWO SPRAYS IN EACH NOSTRIL IN THE MORNING 48 g 1 4 Active Cyclobenzaprin e HCl 5 MG Oral Tablet (Flexeril) Take 1 Tablet by mouth in the morning and 1 Tablet at noon and 1 Tablet before bedtime. 4 Active traMADol HCl 50 MG Oral Tablet (Ultram) Take 1 Tablet by mouth every 8 hours as needed for Pain, Mild. 4 Active Gabapentin 300 MG Oral Capsule (Neurontin) Take 1 Capsule by mouth in the morning and 1 Capsule at noon and 1 Capsule before bedtime. 90 Capsule 5 4 Active Losartan Potassium 50 MG Oral Tablet (Cozaar) TAKE 1 TABLET BY MOUTH EVERY MORNING 100 Tablet 4 Active Atorvastatin Calcium 80 MG Oral Tablet (Lipitor) TAKE 1 TABLET BY MOUTH EVERY MORNING 90 Tablet 3 4 Active Losartan Potassium 50 MG Oral Tablet (Cozaar) Take 1 Tablet by mouth in the morning. 100 Tablet 3 3 04/02/20 24 Discontinued documented as of this encounter (statuses as of 04/03/2024) Active Problems Problem Noted Date Diagnosed Date DDD (degenerative disc disease), lumbar 04/30/19 24 S/P angioplasty with stent 03/16/2023 Coronary artery disease invo lving [place] heart with unstable angina pectoris 03/16/2023 Family history of [place] (myocardial infarction) 06/2017 Dyslipidemia, goal LDL below 130 10/31/2012 Gout 10/31/2012 TOBACCO USE DISORDER- ORAL 01/29/2007 Esophageal reflux 01/29/2007 ACUTE STRESS 05/25/2004 documented as of this encounter (statuses as of 04/03/2024) Resolved Problems Problem Noted Date Diagnosed Date [...] as of this encounter (statuses as of 04/03/2024) Immunizations Name Administration Dates Next Due COVID-19, [...] No 02/28/2024 Does the household have a zuni hospitallar source of income? 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 Patient was notified. Successfully contacted patient and provided [facility] message. * Telephone Encounter - Alejandro Lang [facility] - 04/02/2024 1:57 PM ESTSigned Prescriptions: Disp Refills Losartan Potassium 50 MG Oral Tablet (Coza*100 Ta*0 Sig: TAKE 1 TABLET BY MOUTH EVERY MORNING Authorizing Provider: MATTHEW HICKMAN Ordering User: ALEJANDRO LANG * Telephone Encounter - Alejandro Lang RPh - 04/02/2024 1:53 PM EST Please contact patient so that an appointment can be scheduled with his CARDIOLOGY provider. Refillauthorized to hold patient over in the mean time. Last Visit: 03/26/2023 (in office), Visit date not found (telemedicine) Next Visit: Visit date not found Alejandro Lang, Pharm.D. Clinical Pharmacist Centralized Clinical Pharmacy Services ([facility]) 04/02/2024, 1:56 PM [phone] documented in this encounter Plan of Treatment Upcoming Encounters Date Type Department Care Team (Late st Contact Info) Description 04/24/2024 2:00 PM EST Scheduled Telephone Interventional Pain Center, [facility] [address] [address] [facility] Nurse Phone Call Interventional Pain [facility] [address] [place] [address] 05/16/2024 1:30 PM EST Office Visit Interventional Pain Center, [facility] [address] [place] [address] Marlene Setinberg PA-C [address] [place] [address] 06/17/2024 1:30 PM EST Office Visit Otolaryngology [facility] [address] [place] [address] Clary Mart PA-C [address] [place] [address] 03/02/2025 9:00 AM EST [facility] [place] [address] [place] [phone] Syeda Bueno MD [address] [place] [address] Scheduled Procedures Name Priority Associated Diagnoses Date/Ti [...] filedocumented as of this encounter Care Teams Hospital Scientist Relationship Specialty Start Date End Date Ju Arboleda PA-C PCP - General Physician Silk Screen Frame Assembler 02/28/23 documented as of this encounter
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
--- OUTSIDE RECORDS SUMMARY | 2024-05-06 19:43 | External Medical Summary | Summary of Care ---
Author Name Unknown Organization [facility] Address [address] [facility] [place] [address] Phone [phone] Care Team Providers Care Data Typist Name Role Phone Syeda Bueno MD Primary Care Provider [phone] Reason for Visit * Reason Onset Date Comments Nurse Telephone Follow Up 04/24/2024 Encounter Details Date Type Department Care Team (Late st Contact Info) Description 04/24/2024 2:00 PM EST Scheduled Telephone [facility] [address] [place] [address] [facility] Nurse Phone Call Interventional Pain [facility] [address] [place] [address] Allergies Active Allergy Reactions Criticality Noted Date Comments Indomethacin Other (Please comment) 11/28/2019 Dizziness Penicillins 11/02/1997 rash Sulfa Antibiotics 11/02/1997 rapid pulse documented as of this encounter (statuses as of 04/25/2024) Medications Aspirin 81 MG Oral Tablet Delayed [...] as of this encounter (statuses as of 04/25/2024) Active Problems Problem Noted Date Diagnosed Date DDD (degenerative disc disease), lumbar 04/30/19 24 S/P angioplasty with stent 03/16/2023 Coronary artery disease invo lving [place] heart with unstable angina pectoris 03/16/2023 Family history of [place] (myocardial infarction) 06/2017 Dyslipidemia, goal LDL below 130 10/31/2012 Gout 10/31/2012 TOBACCO USE DISORDER- ORAL 01/29/2007 Esophageal reflux 01/29/2007 ACUTE STRESS 05/25/2004 documented as of this encounter (statuses as of 04/25/2024) Resolved Problems Problem Noted Date Diagnosed Date [...] as of this encounter (statuses as of 04/25/2024) Immunizations Name Administration Dates Next Due COVID-19, [...] 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 file Not on file documented as of this encounter Miscellaneous Notes * Telephone Encounter - Lorena Fay LPN - 04/25/2024 8:57 AM EST Pt aware * Telephone Encounter - Lorena Fay LPN [...] PM EST Office Visit [facility] [address] [place] [phone] Marlene Steinberg PA-C [address] [place] [address] 06/17/2024 1:30 PM EST Office Visit Otolaryngology [facility] [address] [place] [address] Clary Mart PA-C [address] [place] [address] 03/02/2025 9:00 AM EST [facility] [address] [place] [phone] Syeda Bueno MD [address] [place] [address] Scheduled Procedures Name Priority Associated Diagnoses Date/Ti [...] filedocumented as of this encounter Care Teams Data Typist Relationship Specialty Start Date End Date Syeda Bueno MD [address] [facility] [place] [address] PCP - General Internal Medicine 04/23/24 documented as of this encounter
--- OUTSIDE RECORDS SUMMARY | 2024-05-06 19:43 | External Medical Summary ---
Author Name Unknown Address Unknown Organization [id number]:LABORATORY [facility] - [address] [facility] [place] [address] Laboratory Report Ordering Provider Test Date Status KALYN W[place] 04/22/2024 15:22:25 Final Observation Date Value Abnormality Reference (Units ) Status SYNC LEUKOCYTES IN BLOOD BY AUTOMATED COUNT 04/22/2024 15:22:25 11.34 Above high normal 4.00-10.80 (K/uL) Final Segs 04/22/2024 15:22:25 61.5 40.0-75.0 (%) Final Lymphs % 04/22/2024 15:22:25 30.6 18.0-42.0 (%) Final Monos 04/22/2024 15:22:25 6.6 1.0-11.0 (%) Final Eosinophils 04/22/2024 15:22:25 0.4 0.0-6.0 (%) Final Basos 04/22/2024 15:22:25 0.4 0.0-2.0 (%) Final Immature Granulocyte, Percent 04/22/2024 15:22:25 0.5 0.0-2.0 (%) Final Absolute Segs 04/22/2024 15:22:25 6.97 1.80-7.70 (K/uL) Final Lymphs, absolute 04/22/2024 15:22:25 3.47 1.00-4.80 (K/ul) Final Monos, Abs 04/22/2024 15:22:25 0.75 0.00-1.10 (K/uL) Final Eos, Abs 04/22/2024 15:22:25 0.05 0.00-0.70 (K/uL) Final Basos, Abs 04/22/2024 15:22:25 0.04 0.00-0.20 (K/uL) Final Immature Granulocytes, Number 04/22/2024 15:22:25 0.06 0.00-0.20 (K/uL) Final Performing Location LABORATORY [facility] - [address] [facility] [address]
--- OUTSIDE RECORDS SUMMARY | 2024-05-06 19:43 | External Medical Summary | Summary of Care ---
Author Name Unknown Organization [facility] Address [address] [facility] [place] [address] Phone [phone] Care Team Providers Care Senior Gamemaster Name Role Phone Syeda Bueno MD Primary Care Provider [phone] Reason for Referral * Evaluate & Treat - Unlimited Visits (Within 10 days (routine)) - Authorized Specialty Diagnoses / Procedures Referred By Contac t Referred To Contact Orthopaedic Surgery / Orthopedics Diagnoses Primary osteoarthritis of right hip Syeda Bueno MD [address] [place] [address] Phone: tel: fax: Referral ID Status Reason Start Date Expiration Date Visits Requested Visits Authorized [id number] Authorized Specialty Services Required 05/01/[phone] Question Answer Referral Priority Within 10 days (routine) Where should this appointment be scheduled? [facility] What body part is the patient being seen for? Hip What condition is the patient being seen for? Arthritis including related infection Reason for Visit * Reason Comments Follow Up Pt states that he wa nts to discuss going back to work Encounter Details Date Type Department Care Team (Late st Contact Info) Description 05/01/2024 1:40 PM EST Office Visit [facility] [address] [place] [phone] Syeda Bueno MD [address] [place] [address] Primary osteoarthritis of right hip*; Chronic pain of right knee; S/P angioplasty with stent; HTN, goal below 140/90 Allergies Active Allergy Reactions Criticality Noted Date [...] stent 03/16/2023 Coronary artery disease invo lving [place] heart with unstable angina pectoris 03/16/2023 Family history of [place] (myocardial infarction) 06/2017 Dyslipidemia, goal LDL below [...] 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 Not on file Not on file documented as of this encounter Last Filed Vital Signs Vital Sign Reading Time Taken Comments Blood Pressure 138/80 05/01/2024 1:32 PM EST Pulse 78 05/01/2024 1:32 PM EST Temperature 36.1 C (96.9 F) 05/01/2024 1:32 PM ES T Respiratory Rate 16 05/01/2024 1:32 PM EST Oxygen Saturation 96% 05/01/2024 1:32 PM EST Inhaled Oxygen Concentration - - Weight 101.3 kg (223 lb 4.8 oz) 05/01/2024 1:32 PM EST Height 170.2 cm (5' 7") 05/01/2024 1:32 PM EST Body Mass Index 34.97 05/01/2024 1:32 PM EST documented in this encounter Progress Notes * Syeda Bueno MD - 05/01/2024 1:42 PM EST Subjective Otilio Aston Ward Jr. is a 58 year old male. Chief Complaint Patient presents with Follow Up Pt states that he wants to discuss going back to work HPI: Here to discuss about date for returning to work His rt hip surgery was canceled due to possible insurance coverage problem Will need a surgeon under [facility] Had rt knee injection which seems helping But PT for hip does not help His MRI showed advanced hip OA and labral tear Has been missing work since nov Would like to return to work on may 05 Known HTN, CAD, stent Taking medication as prescribed, see med list. No medication side effects noted. Advised patient tokeep healthy life style, regular exercise with good diet, gracia. low sodium diet. And also check BP at home too. Denies associated chest discomfort, chest heaviness, chest pressure, chest tightness, edema, palpitations and shortness of breath. PMH: Patient Active Problem List Diagnosis ACUTE STRESS TOBACCO USE DISORDER- ORAL Esophageal reflux HTN, goal below 140/90 Dyslipidemia, goal LDL below 130 Gout Family history of [place] (myocardial infarction) S/P angioplasty with stent Coronary artery disease involving [place] heart with unstable angina pectoris (HCC) DDD (degenerative disc disease), lumbar Primary osteoarthritis of right hip Chronic pain of right knee Current Outpatient Medications Medication Sig Dispense Refill Aspirin 81 MG Oral Tablet Delayed Release (Aspirin 81) Take 1 Tablet by mouth in the morning. Nitroglycerin 0.4 MG Sublingual Tablet Sublingual (Nitrostat) Place 1 Tablet under the tongue every5 minutes as needed for Pain, Chest. up to 3 doses in 15 minutes 25 Tablet 11 Cyclobenzaprine HCl 5 MG Oral Tablet (Flexeril) Take 1 Tablet by mouth in the morning and 1 Tablet at noon and 1 Tablet before bedtime. Gabapentin 300 MG Oral Capsule (Neurontin) Take 1 Capsule by mouth in the morning and 1 Capsule at noon and 1 Capsule before bedtime. 90 Capsule 5 Ezetimibe 10 MG Oral Tablet (Zetia) Take 1 Tablet by mouth in the morning. Rosuvastatin Calcium 40 MG Oral Tablet (Crestor) Take 1 Tablet by mouth in the morning. Losartan Potassium 100 MG Oral Tablet (Cozaar) Take 1 Tablet by mouth in the morning. Fluticasone Propionate 50 MCG/ACT Nasal Suspension (Flonase) Administer 2 Sprays into nostril in the morning. 48 g 1 Cyclobenzaprine HCl 10 MG Oral Tablet (Flexeril) Take 1 Tablet by mouth in the morning and 1 Tabletbefore bedtime. 60 Tablet 1 No current facility-administered medications for this visit. Past Medical History: Diagnosis Date Gout HTN, goal below 130/80 Past Surgical History: Procedure Laterality Date COLONOSCOPY, DIAGNOSTIC (RECTUM) 06/18/2015 adenomatous polyp, repeat 3 yrs/COLONOSCOPY FLEXIBLE PROXIMAL DIAGNOSTIC performed by Marti Zavala DO at [facility]OSCOPY [facility] COLONOSCOPY, DIAGNOSTIC (RECTUM) 06/10/2019 diverticulosis sigmoid colon/biopsies show hyperplastic polyps/recall 3-5 years/COLONOSCOPY FLEXIBLE PROXIMAL DIAGNOSTIC performed by Marti Zavala DO at [facility]OSCOPY [facility] INJECT DX/THER SUBSTANCE INTERLAMINAR LUMBAR/SACRAL W IMAGE GUIDE 03/21/2024 INJECTION SPINE LUMBAR OR SACRAL performed by Chinmay Rankin DO at OR [facility] Review of patient's allergies indicates: Allergen Reactions Indomethacin Other (Please comment) Dizziness Penicillins rash Sulfa Antibiotics rapid pulse Family History Problem Relation Name Age of Onset Other (calcuili) Mother renal stones Heart Disorder Father sudden [place] age 75 Cancer Father prostate Heart attack Sister 54 Family Status Relation Status Mo Alive renal calculi Fa at age 75 Sis Sis Alive Sis Alive Brayden Alive Son Alive Son Alive Social History Socioeconomic History Marital status: Spouse name: Tomasa Lamar Number of children: 3 Years of education: Not on file Highest education level: Not on file Occupational History 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 (Adult - for ages 18 years and over): No Does your family have trouble paying for medicine? (Household - for ages 0-17 years): Not on file Food Insecurity: No Food Insecurity (02/28/2024) Food Insecurity Do you need food for this week? (Adult - for ages 18 years and over): No Are you able to get enough food for your family? (Household - for ages 0-17 years): Not on file Does your family need food this week? (Household - for ages 0-17 years): Not on file Do you always have enough food for your family? (Household - for ages 0-17 years): Not on file Transportation Needs: No Transportation Needs (02/28/2024) Transportation Needs Do you have trouble getting a ride to medical visits or work? (Adult - for ages 18 years and over):Not on file Does your family have a hard time getting a ride to doctors visits? (Household - for ages 0-17 years): Not on file Has lack of transportation kept you from medical appointments, meetings, work, or from getting things needed for daily living? Check all that apply. (Adult - for ages 18 years and over): No Do you (or your family) have trouble finding or paying for a ride (transportation)? (Household - for ages 0-17 years): Not on file Social Connections: Socially Integrated (02/28/2024) Social Connections How often do you feel lonely or isolated from those around you? (Adult - for ages 18 years and over): Never Housing Stability: Low Risk (02/28/2024) Housing Stability Do you currently live in a fpc or have no steady place to sleep at night? (Adult - for ages 18 years and over): No Do you think you are at risk of becoming homeless? (Adult - for ages 18 years and over): Not on file Does your family worry about paying for your home or becoming homeless? (Household - for ages 0-17 years): Not on file Are you homeless or worried that you might be in the future? (Adult - for ages 18 years and over): No Are you (or your family) homeless or worried that you might be in the future? (Household - for ages0-17 years): Not on file Review of Systems Constitutional: Positive for activity change (rt hip , knee pain) and fatigue. Negative for appetite change, chills, diaphoresis, fever and unexpected weight change. Respiratory: Negative for cough, chest tightness, shortness of breath and wheezing. Cardiovascular: Negative for chest pain, palpitations and leg swelling. Gastrointestinal: Negative for abdominal distention and abdominal pain. Musculoskeletal: Positive for arthralgias, back pain and gait problem. Neurological: Negative for dizziness and light-headedness. Psychiatric/Behavioral: Positive for sleep disturbance. Negative for agitation and behavioral problems. The patient is nervous/anxious. Objective BP 138/80 | Pulse 78 | Temp 96.9 F (36.1 C) (Tympanic) | Resp 16 | Ht 5' 7" (1.702 m) | Wt 223lb 4.8 oz (101.3 kg) | SpO2 96% | BMI 34.97 kg/m | BSA 2.19 m Physical Exam Constitutional: General: He is not in acute distress. Appearance: Normal appearance. He is obese. He is not ill-appearing, toxic- appearing or diaphoretic. HENT: Head: Normocephalic and atraumatic. Nose: Nose normal. Eyes: Extraocular Movements: Extraocular movements intact. Cardiovascular: Rate and Rhythm: Normal rate and regular rhythm. Pulses: Normal pulses. Heart sounds: Normal heart sounds. Pulmonary: Effort: Pulmonary effort is normal. No respiratory distress. Breath sounds: Normal breath sounds. Musculoskeletal: General: Tenderness present. Right lower leg: No edema. Left lower leg: No edema. Neurological: Mental Status: He is alert and oriented to person, place, and time. Psychiatric: Behavior: Behavior normal. ASSESSMENT/PLAN: Primary osteoarthritis of right hip (Primary) - ORTHOPAEDICS REFERRAL OP Chronic pain of right knee S/P angioplasty with stent HTN, goal below 140/90 Other orders - Cyclobenzaprine HCl 10 MG Oral Tablet (Flexeril); Take 1 Tablet by mouth in the morning and 1 Tablet before bedtime. Check-out note: Ortho referral Ortho referral for rt hip OA Cont meds Work note Syeda Bueno MD documented in this encounter Nursing Notes * Yahaira Shah LPN - 05/01/2024 1:32 PM EST Otilio Aston Ward Jr. is a 58 year old male who presents today for Chief Complaint Patient presents with Follow Up Pt states that he wants to discuss going back to work documented in this encounter Plan of Treatment Upcoming Encounters Date Type Department Care Team (Late st Contact Info) Description 05/16/2024 1:30 PM EST Office Visit Inter[facility] Center [facility] [address] [place] [phone] Marlene Steinberg PA-C [address] [place] [address] 06/17/2024 1:30 PM EST Office Visit Otolaryngology [facility] [address] [place] [address] Clary Mart PA-C [address] [place] [address] 03/02/2025 9:00 AM EST [facility] [address] [place] [phone] Syeda Bueno MD [address] [place] [address] Scheduled Procedures Name Priority Associated Diagnoses Date/Ti me COLONOSCOPY FLEXIBLE PROXIMA L DIAGNOSTIC Recall Appendicitis, unspecified appendicitis type Special screening for malignant neoplasm of colon Scheduled Referrals Name Type Priority Associated Diagnoses Orde r Schedule ORTHOPAEDICS REFERRAL OP Referral Within 10 days (routine) Primary osteoarthritis of right hip Ordered: 05/01/2024 Health Maintenance Due Date Last Done Comments [...] Primary localized osteoarthrosis, pelvic region and thigh Chronic pain of right knee S/P angioplasty with stent Postsurgical percutaneous transluminal coronary angioplasty status HTN, goal below 140/90 Unspecified essential hypertension documented in this encounter Care Teams Senior Gamemaster Relationship Specialty Start Date End Date Syeda Bueno MD [address] [place] [address] PCP - General Internal Medicine 04/23/24 documented as of this encounter
--- OUTSIDE RECORDS SUMMARY | 2024-05-06 19:43 | External Medical Summary ---
Author Name Unknown Address Unknown Organization K01:LABORATORY [facility] - [address] [place] [address] Laboratory Report Ordering Provider Test Date Status KALYN [place] 04/22/2024 15:22:25 Final Observation Date Value Abnormality Reference (Units ) Status WBC, Total 04/22/2024 15:22:25 11.34 Above high normal 4.00-10.80 (K/uL) Final RBC 04/22/2024 15:22:25 4.91 4.50-5.25 (M/uL) Final Hemoglobin 04/22/2024 15:22:25 16.3 14.0-16.8 (g/dL) Final HCT 04/22/2024 15:22:25 47.7 40.0-48.4 (%) Final MCV 04/22/2024 15:22:25 97.1 82.0-99.5 (fL) Final MCH 04/22/2024 15:22:25 33.2 27.0-34.0 (pg) Final MCHC 04/22/2024 15:22:25 34.2 32.0-36.0 (g/dL) Final RDW 04/22/2024 15:22:25 12.7 11.5-15.5 (%) Final Platelets 04/22/2024 15:22:25 282 140-400 (K/uL) Final MPV 04/22/2024 15:22:25 9.4 6.6-11.1 (fL) Final Nucleated erythrocytes/100 leukocytes [Ratio] in Blood by Automated count 04/22/2024 15:22:25 0 <=0 (/100 WBCs) Final Performing Location LAB[facility]ATORY [facility] - [address] [facility] [place] [address]
--- OUTSIDE RECORDS SUMMARY | 2024-05-06 19:43 | External Medical Summary | Summary of Care ---
Author Name Unknown Organization [facility] Address [address] [place] [address] Phone [phone] Care Team Providers Care Auto Headlight Mechanic Name Role Phone Ju Arboleda PA-C Primary Care Provider [phone] Reason for Visit * Reason Onset Date Comments Imaging Records Request 04/17/2024 Encounter Details Date Type Department Care Team (Late st Contact Info) Description 04/17/2024 Telephone Radiology Film File [address] [place] [address] Support, Imaging Radiology [address] [place] [address] Imaging Records Request Allergies Active Allergy Reactions Criticality Noted Date Comments Indomethacin Other (Please comment) 11/28/2019 Dizziness Penicillins 11/02/1997 rash Sulfa Antibiotics 11/02/1997 rapid pulse documented as of this encounter (statuses as of 04/17/2024) Medications Aspirin 81 MG Oral Tablet Delayed [...] before bedtime. 90 Capsule 5 02/28/2024 Active Losartan Potassium 50 MG Oral Tablet (Cozaar) TAKE 1 TABLET BY MOUTH EVERY MORNING 100 Tablet 04/02/2024 Active Atorvastatin Calcium 80 MG Oral Tablet (Lipitor) TAKE 1 TABLET BY MOUTH EVERY MORNING 90 Tablet 3 04/02/2024 Active documented as of this encounter (statuses as of 04/17/2024) Active Problems Problem Noted Date Diagnosed Date DDD (degenerative disc disease), lumbar 04/30/19 24 S/P angioplasty with stent 03/16/2023 Coronary artery disease invo lving [place] heart with unstable angina pectoris 03/16/2023 Family history of [place] (myocardial infarction) 06/2017 Dyslipidemia, goal LDL below 130 10/31/2012 Gout 10/31/2012 TOBACCO USE DISORDER- ORAL 01/29/2007 Esophageal reflux 01/29/2007 ACUTE STRESS 05/25/2004 documented as of this encounter (statuses as of 04/17/2024) Resolved Problems Problem Noted Date Diagnosed Date [...] as of this encounter (statuses as of 04/17/2024) Immunizations Name Administration Dates Next Due COVID-19, [...] No 02/28/2024 Does the household have [facility]? 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 [place] Authorization to Release on file. Images pushed to [facility] external connection through [employer] Report(s) faxed to [phone] . Successful fax confirmation received. documented in this encounter Plan of Treatment Upcoming Encounters Date Type Department Care Team (Late st Contact Info) Description 04/24/2024 2:00 PM EST Scheduled Telephone Interventional Pain Center, [facility] [address] [place] [address] [place] Nurse Phone Call Interventional Pain [facility] [address] [place] [address] 05/16/2024 1:30 PM EST Office Visit Interventional Pain Center [facility] [address] [phone] Marlene Steinberg PA-C [address] [place] [address] 06/17/2024 1:30 PM EST Office Visit Otolaryngology [facility] [address] [place] [address] Clary Mart PA-C [address] [place] [address] 03/02/2025 9:00 AM EST Office Visit [facility] [address] [facility] [place] [phone] Syeda Bueno MD [address] [facility] [place] [address] Scheduled Procedures Name Priority Associated Diagnoses Date/Ti [...] Cancer Screening 06/10/2022 COVID-19 Vaccine ( - 2023- season) 2023 10/07/2021, 08/12/2020, 07/22/2020 Influenza Vaccine [...] filedocumented as of this encounter Care Teams Auto Headlight Mechanic Relationship Specialty Start Date End Date Ju Arboleda PA-C PCP - General Physician Electronic Security Technician 02/28/23 documented as of this encounter
--- OUTSIDE RECORDS SUMMARY | 2024-05-06 19:43 | External Medical Summary | Summary of Care ---
Author Name Unknown Organization [facility] Address [address] [place] [facility] [place] [address] Phone [phone] Care Team Providers Care Track Production Engineer Name Role Phone Syeda Bueno MD Primary Care Provider [phone] Reason for Visit * Reason Onset Date Comments Advice 04/23/2024 Hip replacement Encounter Details Date Type Department Care Team (Late st Contact Info) Description 04/23/2024 Telephone [facility] [address] [facility] [phone] Ju Arboleda PA-C [address] [place] [place] [address] Advice (Hip replacement ) Allergies Active [...] stent 03/16/2023 Coronary artery disease invo lving [place] heart with unstable angina pectoris 03/16/2023 Family history of [place] (myocardial infarction) 06/2017 Dyslipidemia, goal LDL below [...] 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 Pt was scheduled at [facility] but pt was told that they now don't take his insurance. Pt is wondering where else he can go for his hipreplacement. Please call pt back. documented in this encounter Plan of Treatment Upcoming Encounters Date Type Department Care Team (Late st Contact Info) Description 04/24/2024 2:00 PM EST Scheduled Telephone Interventional Pain Center, [facility] [address] [place] [address] [place], Nurse Phone Call Interventional Pain [facility] [address] [place] [address] Arrived 05/16/2024 1:30 PM EST Office Visit Interventional Pain [facility] [address] [place] [phone] Marlene Steinberg PA-C [address] [place] [address] 06/17/2024 1:30 PM EST Office Visit Otolaryngology [facility] [address] [place] [address] Clary Mart PA-C [address] [place] [address] 03/02/2025 9:00 AM EST Office Visit [facility] [address]ast[address] Guillory [address] [place] [phone] Syeda Bueno MD [address] [place] [place] [address] Scheduled Procedures Name Priority Associated Diagnoses Date/Ti [...] filedocumented as of this encounter Care Teams Track Production Engineer Relationship Specialty Start Date End Date Syeda Bueno MD [address] [place] [address] PCP - General Internal Medicine 04/23/24 documented as of this encounter
--- OUTSIDE RECORDS SUMMARY | 2024-05-06 19:43 | External Medical Summary ---
Author Name Unknown Address Unknown Organization K[place] [place] [address] [place] [address] Laboratory Report Ordering Provider Test Date Status KALYN W[place] 04/22/2024 15:22:25 Final Warfarin Therapy
INR: 2 .0-3.0 conventional anticoagulation
INR: 2.5- 3.5 high intensity anticoagulation Observation Date Value Abnormality Reference (Units ) Status PT 04/22/2024 15:22:25 12.0 11.6-15.2 (seconds) Final INR 04/22/2024 15:22:25 0.9 0.8-1.2 Final Performing Location [facility] [place] [address] [place] [address]
--- OUTSIDE RECORDS SUMMARY | 2024-05-06 19:43 | External Medical Summary ---
Author Name Unknown Address Unknown Organization K[facility] [place] [address] [facility] [address] [address] Laboratory Report Ordering Provider Test Date Status KALYN W[place] 04/22/2024 15:22:25 Final Observation Date Value Abnormality Reference (Units ) Status BUN 04/22/2024 15:22:25 24 Above high normal 6-20 (mg/dL) Final Creatinine 04/22/2024 15:22:25 1.1 0.6-1.2 (mg/dL) Final Glomerular filtration rate/1.73 sq M.predicted [Volume Rate/Area] in Serum, Plasma or Blood by Creatinine-based formula (CKD-EPI) 04/22/2024 15:22:25 76 >=60 (mL/min) Final eGFR is calculated based on the CKD-EPI 2020 equation. Sodium 04/22/2024 15:22:25 138 135-146 (m mol/L) Final Potassium 04/22/2024 15:22:25 4.6 3.5-5.1 (m mol/L) Final Cl 04/22/2024 15:22:25 103 98-107 (mm ol/L) Final CO2 04/22/2024 15:22:25 21 Below low normal 22- 32 (mmol/L) Final Anion gap 04/22/2024 15:22:25 14 7-15 (mmol /L) Final Glucose 04/22/2024 15:22:25 78 70-120 (mg /dL) Final Albumin 04/22/2024 15:22:25 4.8 3.8-5.0 (g /dL) Final AST (Aspartate aminotransferase) 04/22/2024 15:22:25 20 10-50 (U/L) Fin al Alk Phos 04/22/2024 15:22:25 59 35-130 (U/ L) Final Bilirubin, Total 04/22/2024 15:22:25 0.8 <=1 .2 (mg/dL) Final Calcium 04/22/2024 15:22:25 9.4 8.4-10.2 ( mg/dL) Final Protein 04/22/2024 15:22:25 7.0 6.0-8.3 (g /dL) Final ALT (Alanine aminotransferase) 04/22/2024 15:22:25 45 10-50 (U/L) Claudio lafleur Performing Location [facility] [place] [address] [facility] [address]
--- OUTSIDE RECORDS SUMMARY | 2024-05-06 19:43 | External Medical Summary | Summary of Care ---
Author Name Unknown Organization [facility] Address [address] [facility] [address] Phone [phone] Care Team Providers Care Operating Room Assistant Name Role Phone Ju Arboleda PA-C Primary Care Provider [phone] Reason for Visit * Reason Comments Outpatient Testing Encounter Details Date Type Department Care Team (Late st Contact Info) Description 04/22/2024 2:50 PM EST [facility] [address] [place] [address] [facility] [address] [facility] [place] [id number] Preoperative general physical examination; Coronary artery disease involving [place] heart with unstable angina pectoris, unspecified vessel or lesion type (HCC) Allergies Active Allergy Reactions Criticality Noted Date Comments Indomethacin Other (Please comment) 11/28/2019 Dizziness Penicillins 11/02/1997 rash Sulfa Antibiotics 11/02/1997 rapid pulse documented as of this encounter (statuses as of 04/22/2024) Medications Aspirin 81 MG Oral Tablet Delayed [...] as of this encounter (statuses as of 04/22/2024) Active Problems Problem Noted Date Diagnosed Date DDD (degenerative disc disease), lumbar 04/30/19 24 S/P angioplasty with stent 03/16/2023 Coronary artery disease invo lving [place] heart with unstable angina pectoris 03/16/2023 Family history of [place] (myocardial infarction) 06/2017 Dyslipidemia, goal LDL below 130 10/31/2012 Gout 10/31/2012 TOBACCO USE DISORDER- ORAL 01/29/2007 Esophageal reflux 01/29/2007 ACUTE STRESS 05/25/2004 documented as of this encounter (statuses as of 04/22/2024) Resolved Problems Problem Noted Date Diagnosed Date [...] as of this encounter (statuses as of 04/22/2024) Immunizations Name Administration Dates Next Due COVID-19, [...] 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 Not on file Not on file documented as of this encounter Plan of Treatment Upcoming Encounters Date Type Department Care Team (Late st Contact Info) Description 04/24/2024 2:00 PM EST Scheduled Telephone Interventional Pain [place], [facility] [address] [place] [address] [place] Nurse Phone Call Interventional Pain [facility] [address] [place] [address] 05/16/2024 1:30 PM EST Office Visit Interventional Pain Center [facility] [address] [phone] Marlene Steinberg PA-C [address] [place] [address] 06/17/2024 1:30 PM EST Office Visit Otolaryngology [facility] [address] [address] Clary Mart PA-C [address] [place] [address] 03/02/2025 9:00 AM EST [facility] [address] [place] [phone] Syeda Bueno MD [address] [place] [address] Pending Results Name Type Priority Associated Diagnoses Date /Time CBC WITH WBC DIFFERENTIAL Lab Routine Preoperative general physical examination Coronary artery disease involving [place] heart with unstable angina pectoris, unspecified vessel or lesion type (HCC) 04/22/2024 3:22 PM EST COMPREHENSIVE METABOLIC PANEL Lab Routine Preoperative general physical examination Coronary artery disease involving [place] heart with unstable angina pectoris, unspecified vessel or lesion type (HCC) 04/22/2024 3:22 PM EST HEMOGLOBIN A1C Lab Routine Preoperative general physical examination 04/22/2024 3:22 PM EST PT INR Lab Routine Preoperative general physical examination Coronary artery disease involving [place] heart with unstable angina pectoris, unspecified vessel or lesion type (HCC) 04/22/2024 3:22 PM EST CBC Lab Routine Preoperative general physical examination Coronary artery disease involving [place] heart with unstable angina pectoris, unspecified vessel or lesion type (HCC) 04/22/2024 3:22 PM EST DIFFERENTIAL, AUTOMATED Lab Routine Preoperative general physical examination Coronary artery disease involving [place] heart with unstable angina pectoris, unspecified vessel or lesion type (HCC) 04/22/2024 3:22 PM EST Scheduled Procedures Name Priority Associated Diagnoses Date/Ti [...] as of this encounter Visit Diagnoses Diagnosis Preoperative general physical examination Other specified pre-operative examination Coronary artery disease involving [place] heart with unstable angina pectoris, unspecified vessel or lesion type (HCC) documented in this encounter Care Teams Operating Room Assistant Relationship Specialty Start Date End Date Ju Arboleda PA-C PCP - General Physician Radiologic Technologist Mammogram 02/28/23 documented as of this encounter
--- OUTSIDE RECORDS SUMMARY | 2024-05-06 19:43 | External Medical Summary | Summary of Care ---
Author Name Unknown Organization [facility] Address [address] [facility] [place] [address] Phone [phone] Care Team Providers Care Airline Managerial Supervisor Name Role Phone Ju Arboleda PA-C Primary Care Provider [phone] [phone] Reason for Visit * Reason Comments pre-op exam Pt is here today for pre op exam Encounter Details Date Type Department Care Team (Late st Contact Info) Description 04/22/2024 2:40 PM EST Office [facility] [address] [facility] [place] [address] Syeda Bueno MD [address] [facility] Gaby [place] [id number] Preoperative general physical examination*; Primary osteoarthritis of right hip; Coronary artery disease involving beaver heart with unstable angina pectoris, unspecified vessel or lesion type ([facility]); S/P angioplasty with stent; Idiopathic gout of left foot, unspecified chronicity; Dyslipidemia, goal LDL below 130; Degeneration of intervertebral disc of lumbar region with discogenic back pain and lower extremity pain; Atherosclerosis of beaver coronary artery with unstable angina pectoris, unspecified whether beaver or transplanted heart (HCC) Allergies Active Allergy Reactions Criticality Noted [...] doses in 15 minutes 25 Tablet 11 03/26/20 23 Active Cyclobenzaprin e HCl 5 MG Oral Tablet (Flexeril) Take 1 Tablet by mouth in the morning and 1 Tablet at noon and 1 Tablet before bedtime. 02/27/20 24 Active Gabapentin 300 MG Oral Capsule (Neurontin) Take 1 Capsule by mouth in the morning and 1 Capsule at noon and 1 Capsule before bedtime. 90 Capsule 5 02/28/20 24 Active Ezetimibe 10 MG Oral Tablet (Zetia) Take 1 Tablet by mouth in the morning. 04/14/20 24 Active Rosuvastatin Calcium 40 MG Oral Tablet (Crestor) Take 1 Tablet by mouth in the morning. 04/14/20 24 Active Losartan Potassium 100 MG Oral Tablet (Cozaar) Take 1 Tablet by mouth in the morning. 03/12/20 24 Active Fluticasone Propionate 50 MCG/ACT Nasal Suspension (Flonase) Administer 2 Sprays into nostril in the morning. 48 g 1 04/22/19 25 Active Fluticasone Propionate 50 MCG/ACT Nasal Suspension (Flonase) USE TWO SPRAYS IN EACH NOSTRIL IN THE MORNING 48 g 1 08/08/19 24 025 Discontinued(Re fill) traMADol HCl 50 MG Oral Tablet (Ultram) Take 1 Tablet by mouth every 8 hours as needed for Pain, Mild. 02/24/20 24 025 Discontinued(Jag negron preference/disc ontinuation) Losartan Potassium 50 MG Oral Tablet (Cozaar) TAKE 1 TABLET BY MOUTH EVERY MORNING 100 Tablet 04/02/20 24 025 Discontinued Atorvastatin Calcium 80 MG Oral Tablet (Lipitor) TAKE 1 TABLET BY MOUTH EVERY MORNING 90 Tablet 3 04/02/20 24 025 Discontinued(Pa migdalia preference/disc ontinuation) documented as of this encounter (statuses as of 04/22/2024) Active Problems Problem Noted Date Diagnosed Date DDD (degenerative disc disease), lumbar 04/30/19 24 S/P angioplasty with stent 03/16/2023 Coronary artery disease invo lving beaver heart with unstable angina pectoris 03/16/2023 Family [...] 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 Not on file Not on file documented as of this encounter Last Filed Vital Signs Vital Sign Reading Time Taken Comments Blood Pressure 120/83 04/22/2024 2:40 PM EST Pulse 76 04/22/2024 2:40 PM EST Temperature 36.4 C (97.6 F) 04/22/2024 2:40 PM ES T Respiratory Rate 16 04/22/2024 2:40 PM EST Oxygen Saturation 95% 04/22/2024 2:40 PM EST Inhaled Oxygen Concentration - - Weight 99.8 kg (220 lb) 04/22/2024 2:40 PM EST Height - - Body Mass Index 34.46 02/28/2024 1:54 PM EST documented in this encounter Patient Instructions * Patient Instructions* Cris Kelsey LPN - 04/22/2024 2:42 PM EST ~~PATIENT INSTRUCTIONS FOR PNEUMOCOCCAL VACCINE~~ Possible side effects of pneumococcal vaccine, (pneumonia shot), are usually mild and can include: 1. Soreness or redness at injection site 2. Low grade fever 3. Body aches You may use Tylenol/Acetaminophen as needed for these symptoms. LET YOUR DOCTOR KNOW IMMEDIATELY IF YOU HAVE DIFFICULTY BREATHING OR SWALLOWING, EXPERIENCE ITCHINGOF FEET OR HANDS, HAVE SWELLING OF EYES, FACE OR INSIDE OF NOSE. documented in this encounter Progress Notes * Syeda Bueno MD - 04/22/2024 2:47 PM EST Subjective: Otilio Aston Ward Jr. is a 58 year old male. Presents for medical clearance for Rt hip op MRI last oct showed .IMPRESSION 1. Moderate osteoarthritis of both hips, right greater than left. 2. Complex degenerative bilateral labral tears. 3. Right gluteus medius and minimus tendinopathy. EKG today and labs today Hypertension , CAD, stent ( feb 2023), HL Taking medication as prescribed, see med list. No medication side effects noted. Advised patient tokeep healthy life style, regular exercise with good diet, gracia. low sodium diet. And also check BP at home too. Denies associated chest discomfort, chest heaviness, chest pressure, chest tightness, edema, palpitations Taking neurontin for pain Known lumbar DDD, getting injection too but not very helpful PHM: Patient Active Problem List Diagnosis ACUTE STRESS TOBACCO USE DISORDER- ORAL Esophageal reflux Dyslipidemia, goal LDL below 130 Gout Family history of [place] (myocardial infarction) S/P angioplasty with stent Coronary artery disease involving beaver heart with unstable angina pectoris (HCC) DDD (degenerative disc disease), lumbar Current Outpatient Medications Medication Sig Dispense Refill [...] nostril in the morning. 48 g 1 No current facility-administered medications for this visit. Past Medical History: Diagnosis Date Gout HTN, goal below 130/80 Past Surgical History: Procedure Laterality Date COLONOSCOPY, DIAGNOSTIC (RECTUM) 06/18/2015 adenomatous polyp, repeat 3 yrs/COLONOSCOPY FLEXIBLE PROXIMAL DIAGNOSTIC performed by Marti Zavala DO at ENDOSCOPY [facility] COLONOSCOPY, DIAGNOSTIC (RECTUM) 06/10/2019 diverticulosis sigmoid colon/biopsies show hyperplastic polyps/recall 3-5 years/COLONOSCOPY FLEXIBLE PROXIMAL DIAGNOSTIC performed by Marti Zavala DO at ENDOSCOPY [facility] INJECT DX/THER SUBSTANCE INTERLAMINAR LUMBAR/SACRAL W IMAGE GUIDE 03/21/2024 INJECTION SPINE LUMBAR OR SACRAL performed by Chinmay Rankin DO at OR [facility] Review of patient's allergies indicates: Allergen Reactions Indomethacin Other (Please comment) Dizziness Penicillins rash Sulfa Antibiotics rapid pulse Family History Problem Relation Name Age of Onset Other (calcuili) Mother renal stones Heart Disorder Father sudden AL age 75 Cancer Father prostate Heart attack Sister 54 Family Status Relation Status Mo Alive renal calculi Fa at age 75 Sis Sis Alive Sis Alive Brayden Alive Son Alive Son Alive Social History Tobacco Use Smoking status: Never Passive exposure: Past Smokeless tobacco: Current Types: Snuff Substance Use Topics Alcohol use: Yes Comment: 6 pack 2-3 x per week Vaping/E-Cigarette Use Vaping/E-Cigarette Use Never Assessed Vaping/E-Cigarette Substances Vaping/E-Cigarette Devices Review of Systems Constitutional: Positive for activity change and fatigue. Negative for appetite change, chills, diaphoresis, fever and unexpected weight change. HENT: Negative for hearing loss. Eyes: Negative for visual disturbance. Respiratory: Positive for shortness of breath. Negative for cough, chest tightness and wheezing. Cardiovascular: Negative for chest pain, palpitations and leg swelling. Gastrointestinal: Negative for abdominal distention, abdominal pain, nausea and vomiting. Endocrine: Negative. Musculoskeletal: Positive for arthralgias, back pain, gait problem and myalgias (rt leg). Neurological: Positive for weakness (rt leg) and numbness. Negative for dizziness, light-headednessand headaches. Psychiatric/Behavioral: Positive for sleep disturbance. Negative for agitation and behavioral problems. The patient is nervous/anxious. Objective: BP 120/83 | Pulse 76 | Temp 97.6 F (36.4 C) (Infrared ) | Resp 16 | Wt 220 lb (99.8 kg) | SpO2 95% | BMI 34.46 kg/m | BSA 2.17 m Physical Exam Constitutional: General: He is not in acute distress. Appearance: Normal appearance. He is not ill-appearing, toxic-appearing or diaphoretic. HENT: Head: Normocephalic and atraumatic. Nose: Nose normal. Eyes: Extraocular Movements: Extraocular movements intact. Cardiovascular: Rate and Rhythm: Normal rate and regular rhythm. Pulses: Normal pulses. Heart sounds: Normal heart sounds. No murmur heard. Pulmonary: Effort: Pulmonary effort is normal. No respiratory distress. Breath sounds: Normal breath sounds. No stridor. No wheezing, rhonchi or rales. Chest: Chest wall: No tenderness. Musculoskeletal: General: Tenderness (rt hip , lower back , rt leg) present. Right lower leg: No edema. Left lower leg: No edema. Neurological: Mental Status: He is alert and oriented to person, place, and time. Cranial Nerves: No cranial nerve deficit. Psychiatric: Behavior: Behavior normal. ASSESSMENT: Diagnosis for procedure: Rt hip OA Preoperative Examination PLAN: Patient is medically cleared. (Z01.818) Preoperative general physical examination (primary encounter diagnosis) Plan: EKG, CBC WITH WBC DIFFERENTIAL, COMPREHENSIVE METABOLIC PANEL, HEMOGLOBIN A1C, PT INR op (M16.11) Primary osteoarthritis of right hip Plan: op (I25.110) Coronary artery disease involving beaver heart with unstable angina pectoris, unspecifiedvessel or lesion type (HCC) Plan: CBC WITH WBC DIFFERENTIAL, COMPREHENSIVE METABOLIC PANEL, PT INR Meds F/u with cardio (Z95.820) S/P angioplasty with stent (E78.5) Dyslipidemia, goal LDL below 130 Plan: med (M51.362) Degeneration of intervertebral disc of lumbar region with discogenic back pain and lower extremity pain Plan: pain medicine Syeda Bueno MD documented in this encounter Nursing Notes * Cris Kelsey LPN - 04/22/2024 3:08 PM EST ekg done as per 's order Pt tolerated well. * Cris Kelsey LPN - 04/22/2024 2:33 PM EST Chief Complaint Patient presents with pre-op exam Pt is here today for pre op exam documented in this encounter Plan of Treatment Upcoming Encounters Date Type Department Care Team (Late st Contact Info) Description 04/24/2024 2:00 PM EST Scheduled Telephone [facility] [address] [place] [address] [facility], Nurse Phone Call Interventional Pain [facility] [address] [place] [address] 05/16/2024 1:30 PM EST Office Visit [facility] [address] [place] [phone] Marlene Steinberg PA-C [address] [place] [address] 06/17/2024 1:30 PM EST Office Visit Otolaryngology [facility] [address] [place] [address] Clary Mart PA-C [address] [place] [address] 03/02/2025 9:00 AM EST [facility] [address] [facility] [place] [address] Syeda Bueno MD [address] [facility] [place] [address] Pending Results Name Type Priority Associated Diagnoses Date /Time CBC WITH WBC DIFFERENTIAL Lab Routine Preoperative general physical examination Coronary artery disease involving beaver heart with unstable angina pectoris, unspecified vessel or lesion type ([facility]) 04/22/2024 3:22 PM EST COMPREHENSIVE METABOLIC PANEL Lab Routine Preoperative general physical examination Coronary artery disease involving beaver heart with unstable angina pectoris, unspecified vessel or lesion type ([facility]) 04/22/2024 3:22 PM EST HEMOGLOBIN A1C Lab Routine Preoperative general physical examination 04/22/2024 3:22 PM EST PT INR Lab Routine Preoperative general physical examination Coronary artery disease involving beaver heart with unstable angina pectoris, unspecified vessel or lesion type ([facility]) 04/22/2024 3:22 PM EST Scheduled Orders Name Type Priority Associated Diagnoses Orde r Schedule EKG EKG Routine Preoperative general physical examination Expected: 04/22/2024 (Approximate), Expires: 05/23/2025 CBC WITH WBC DIFFERENTIAL Lab Routine Preoperative general physical examination Coronary artery disease involving beaver heart with unstable angina pectoris, unspecified vessel or lesion type (HCC) Expected: 04/22/2024 (Approximate), Expires: 04/22/2025 COMPREHENSIVE METABOLIC PANEL Lab Routine Preoperative general physical examination Coronary artery disease involving beaver heart with unstable angina pectoris, unspecified vessel or lesion type (HCC) Expected: 04/22/2024 (Approximate), Expires: 04/22/2025 HEMOGLOBIN A1C Lab Routine Preoperative general physical examination Expected: 04/22/2024 (Approximate), Expires: 04/22/2025 PT INR Lab Routine Preoperative general physical examination Coronary artery disease involving beaver heart with unstable angina pectoris, unspecified vessel or lesion type (HCC) Expected: 04/22/2024 (Approximate), Expires: 04/22/2025 Scheduled Procedures Name Priority Associated Diagnoses Date/Ti [...] encounter Visit Diagnoses Diagnosis Preoperative general physical examination- Primary Other specified pre-operative examination Primary osteoarthritis of right hip Primary localized osteoarthrosis, pelvic region and thigh Coronary artery disease involving beaver heart with unstable angina pectoris, unspecified vessel or lesion type (HCC) S/P angioplasty with stent Postsurgical percutaneous transluminal coronary angioplasty status Idiopathic gout of left foot, unspecified chronicity Dyslipidemia, goal LDL below 130 Other and unspecified hyperlipidemia Degeneration of intervertebral disc of lumbar region with discogenic back pain and lower extremity pain Atherosclerosis of beaver coronary artery with unstable angina pectoris, unspecified whether beaver or transplanted heart (HCC) documented in this encounter Care Teams Airline Managerial Supervisor Relationship Specialty Start Date End Date Ju Arboleda PA-C PCP - General Physician Airline Security Representative 02/28/23 documented as of this encounter"
--- OUTSIDE RECORDS SUMMARY | 2024-05-06 19:44 | External Medical Summary | Summary of Care ---
Author Name Unknown Organization [facility] Address [address] [facility] [address] Phone [phone] Care Team Providers Care Pharmacy Service Associate Name Role Phone Ju Arboleda PA-C Primary Care Provider [phone] Reason for Visit * Reason Onset Date Comments Medication Question 03/20/2024 Encounter Details Date Type Department Care Team (Late st Contact Info) Description 03/20/2024 Telephone [facility] [place] Guillory [address] [place] [address] Syeda Bueno MD [address] [place] [address] Medication Question Allergies Active Allergy Reactions Criticality Noted Date Comments Indomethacin Other (Please comment) 11/28/2019 Dizziness Penicillins 11/02/1997 rash Sulfa Antibiotics 11/02/1997 rapid pulse documented as of this encounter (statuses as of 03/20/2024) Medications Aspirin 81 MG Oral Tablet Delayed Release (Aspirin 81) Take 1 Tablet by mouth in the morning. Active Losartan Potassium 50 MG Oral Tablet (Cozaar) Take 1 Tablet by mouth in the morning. 100 Tablet 3 3 Active Nitroglycerin 0.4 MG Sublingual Tablet Sublingual (Nitrostat) Place 1 Tablet under the tongue every 5 minutes as needed for Pain, Chest. up to 3 doses in 15 minutes 25 Tablet 11 3 Active Brilinta 90 MG Oral Tablet (Ticagrelor) Take 1 Tablet by mouth in the morning and 1 Tablet before bedtime. 180 Tablet 3 3 Active Atorvastatin Calcium 80 MG Oral Tablet (Lipitor) Take 1 Tablet by mouth in the morning. 90 Tablet 3 3 Active predniSONE 20 MG Oral Tablet (Deltasone)Alina cations:Acute idiopathic gout of right foot Take 2 Tablets by mouth daily as needed for Other (gout flare). Take for 3-5 days as soon as gout flare starts. 20 Tablet 1 4 Active Additional Information Patient not taking.Reported on 03/07/2024 Fluticasone Propionate 50 MCG/ACT Nasal Suspension (Flonase) USE TWO SPRAYS IN EACH NOSTRIL IN THE MORNING 48 g 1 4 Active Cyclobenzaprine HCl 5 MG Oral Tablet [...] before bedtime. 90 Capsule 5 4 Active oxyCODONE HCl 5 MG Oral Capsule (Oxy IR) Take 1 Capsule by mouth every 4 hours as needed. Active documented as of this encounter (statuses as of 03/20/2024) Active Problems Problem Noted Date Diagnosed Date DDD (degenerative disc disease), lumbar 04/30/19 24 S/P angioplasty with stent 03/16/2023 Coronary artery disease invo lving [place] heart with unstable angina pectoris 03/16/2023 Family history of [place] (myocardial infarction) 06/2017 Dyslipidemia, goal LDL below 130 10/31/2012 Gout 10/31/2012 TOBACCO USE DISORDER- ORAL 01/29/2007 Esophageal reflux 01/29/2007 ACUTE STRESS 05/25/2004 documented as of this encounter (statuses as of 03/20/2024) Resolved Problems Problem Noted Date Diagnosed Date [...] as of this encounter (statuses as of 03/20/2024) Immunizations Name Administration Dates Next Due COVID-19, [...] 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 [facility]i refused refill until 03/28/2024. Pt says he only takes 3 per day. No more. Pt says [facility] didn't give him 90 capsules last time. Pharmacy says they did. Tomi needs DR Jimmy to call them to give permission to fill medication early for pt.Tomi can be reached at [phone]. Thank You, Bobo Lockhart [facility] Assignment Editor II Centralized Clinical Pharmacy Services 03/20/2024, 12:37 PM documented in this encounter Plan of Treatment Upcoming Encounters Date Type Department Care Team (Latest Contact Info) Description 03/21/2024 10:05 AM EST Hospital Encounter [facility], Operating Room [facility] [address] [place] [address] Chinmay Rankin, [address] [place] [address] 03/21/2024 10:05 AM EST - 03/21/2024 10:30 AM EST Surgery OR [facility], Operating Room [facility] [address] [place] [address] Chinmay Rankin, [address] [place] [address] INJECTION SPINE LUMBAR OR SACRAL 06/17/2024 1:30 PM EST Office Visit [facility]ol[facility]ology [facility] [address] [place] [address] Clary aMrt PA-C [address] [place] [address] 03/02/2025 9:00 AM EST Office Visit [facility] [place] Guillory [address] [place] [phone] Syeda Bueno MD [address] [place] [address] Scheduled Procedures Name Priority Associated Diagnoses Date/Ti me INJECTION SPINE LUMBAR OR SACRAL Lumbar radiculopathy 03/21/2024 10:05 AM EST COLONOSCOPY FLEXIBLE PROXIMAL DIAGNOSTIC Recall Appendicitis, unspecified appendicitis type Special [...] filedocumented as of this encounter Care Teams Pharmacy Service Associate Relationship Specialty Start Date End Date Ju Arboleda PA-C [address] [place] [address] PCP - General Physician Utilization Coordinator 02/28/23 documented as of this encounter
--- OUTSIDE RECORDS SUMMARY | 2024-05-06 19:44 | External Medical Summary | Summary of Care ---
Author Name Unknown Organization [facility] Address [address] [facility] [place] [address] Phone [phone] Care Team Providers Care Digital Analytics Manager Name Role Phone Ju Arboleda PA-C Primary Care Provider [phone] Reason for Visit * Reason Onset Date Comments Medication Question 03/20/2024 Encounter Details Date Type Department Care Team (Late st Contact Info) Description 03/20/2024 Telephone [facility] [place] Guillory [address] [place] [phone] Syeda Bueno MD [address] [place] [address] Medication Question Allergies Active Allergy Reactions [...] stent 03/16/2023 Coronary artery disease invo lving [place] heart with unstable angina pectoris 03/16/2023 Family history of [place] (myocardial infarction) 06/2017 Dyslipidemia, goal LDL below [...] No 02/28/2024 Does the household have a [facility] hospital[facility] source of income? 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 He will notify pt. * Telephone Encounter - Syeda Bueno MD - 03/20/2024 4:55 PM EST Yes * Telephone Encounter - Babar Aguilar CMA - 03/20/2024 4:14 PM EST Pharmacy stated it is the insurance blocking the early fill, but can be filled on Sunday. If pt is willing to pay OOP, they can run through a discount card, if they received the okay from provider. Would, if willing, this be ok for pt to pay OOP for fill so this can be relayed to the pharmacy? * Telephone Encounter - Syeda Bueno MD - 03/20/2024 3:07 PM EST Only this time I will approve Make sure to take three times per day * Telephone Encounter - Ju Arboleda PA-C - 03/20/2024 1:[address] EST Up to [address] Bueno as she has been seeing him recently * Telephone Encounter - Bobo Lockhart, biochemistry technician - 03/20/2024 12:36 PM EST Pt called stating he is out of Gabapentin. Tomi refused refill until 03/28/2024. Pt says he only takes 3 per day. No more. Pt says Tomi didn't give him 90 capsules last time. Pharmacy says they did. Tomi needs DR Marquez to call them to give permission to fill medication early for pt.Tomi can be reached at [phone]. Thank You, Bobo Lockhart [facility] Dive Master II Centralized Clinical Pharmacy Services 03/20/2024, 12:37 PM documented in this encounter Plan of Treatment Upcoming Encounters Date Type Department Care Team (Latest Contact Info) Description 03/21/2024 10:05 AM EST Hospital Encounter [facility], Operating Room [facility] [address] [place] [place] [phone] Chinmay Rankin, DO [address] [place] [phone] 03/21/2024 10:05 AM EST - 03/21/2024 10:30 AM EST Surgery OR [facility], Operating Room [facility] [address] [place] [phone] Chinmay Rankin, DO [address] [place] [address] INJECTION SPINE LUMBAR OR SACRAL 06/17/2024 1:30 PM EST Office Visit Otol[facility]ology [facility] [address] [place] [address] Clary Mart PA-C [address] [place] [address] 03/02/2025 9:00 AM EST [facility] [address] [place] [phone] Syeda Bueno MD [address] [address] Scheduled Procedures Name Priority Associated Diagnoses Date/Ti [...] filedocumented as of this encounter Care Teams Digital Analytics Manager Relationship Specialty Start Date End Date Ju Arboleda PA-C [address] [place] [address] PCP - General Physician Resident Associate 02/28/23 documented as of this encounter
--- OUTSIDE RECORDS SUMMARY | 2024-05-06 19:44 | External Medical Summary | Summary of Care ---
Author Name Unknown Organization [facility] Address [address] [place] [address] Phone [phone] Care Team Providers Care Business Job Titles Name Role Phone Ju Arboleda PA-C Primary Care Provider [phone] Reason for Visit * Reason Onset Date Comments Fax 03/06/2024 Update to [facility] results Encounter Details Date Type Department Care Team ([facility] st Contact Info) Description 03/06/2024 Telephone [facility] [address] [place] [address] Ju Arboleda PA-C [address] [place] [address] Fax (Update to [facility] results) Allergies Active Allergy Reactions Criticality Noted Date Comments Indomethacin Other (Please comment) 11/28/2019 Dizziness Penicillins 11/02/1997 rash Sulfa Antibiotics 11/02/1997 rapid pulse documented as of this encounter (statuses as of 03/12/2024) Medications Aspirin 81 MG Oral Tablet Delayed Release (Aspirin 81) Take 1 Tablet by mouth in the morning. Active Losartan Potassium 50 MG Oral Tablet (Cozaar) Take 1 Tablet by mouth in the morning. 100 Tablet 3 03/26/20 Active Nitroglycerin 0.4 MG Sublingual Tablet Sublingual (Nitrostat) Place 1 Tablet under the tongue every 5 minutes as needed for Pain, Chest. up to 3 doses in 15 minutes 25 Tablet 11 03/26/20 23 Active Brilinta 90 MG Oral Tablet (Ticagrelor) Take 1 Tablet by mouth in the morning and 1 Tablet before bedtime. 180 Tablet 3 03/26/20 23 Active Atorvastatin Calcium 80 MG Oral Tablet (Lipitor) Take 1 Tablet by mouth in the morning. 90 Tablet 3 04/10/20 23 Active predniSONE 20 MG Oral Tablet (Deltasone)Indicat ions:Acute idiopathic gout of right foot Take 2 Tablets by mouth daily as needed for Other (gout flare). Take for 3-5 days as soon as gout flare starts. 20 Tablet 1 07/18/19 24 Active Additional Information Patient not taking.Reported on 03/07/2024 Fluticasone Propionate 50 MCG/ACT Nasal Suspension (Flonase) USE TWO SPRAYS IN EACH NOSTRIL IN THE MORNING 48 g 1 08/08/19 24 Active Cyclobenzaprine HCl 5 MG Oral Tablet (Flexeril) Take 1 Tablet by mouth in the morning and 1 Tablet at noon and 1 Tablet before bedtime. 02/27/20 24 Active traMADol HCl 50 MG Oral Tablet (Ultram) Take 1 Tablet by mouth every 8 hours as needed for Pain, Mild. 02/24/20 24 Active Gabapentin 300 MG Oral Capsule (Neurontin) Take 1 Capsule by mouth in the morning and 1 Capsule at noon and 1 Capsule before bedtime. 90 Capsule 5 02/28/20 24 Active Meloxicam 15 MG Oral Tablet Disintegrating Take by mouth. 024 Discontin ued(End of Procedure ) documented as of this encounter (statuses as of 03/12/2024) Active Problems Problem Noted Date Diagnosed Date DDD (degenerative disc disease), lumbar 04/30/19 24 S/P angioplasty with stent 03/16/2023 Coronary artery disease invo lving [place] heart with unstable angina pectoris 03/16/2023 Family history of [place] (myocardial infarction) 06/2017 Dyslipidemia, goal LDL below 130 10/31/2012 Gout 10/31/2012 TOBACCO USE DISORDER- ORAL 01/29/2007 Esophageal reflux 01/29/2007 ACUTE STRESS 05/25/2004 documented as of this encounter (statuses as of 03/12/2024) Resolved Problems Problem Noted Date Diagnosed Date [...] as of this encounter (statuses as of 03/12/2024) Immunizations Name Administration Dates Next Due COVID-19, [...] No 02/28/2024 Are you (or your family) selam eless or worried that you might be [...] 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 * Telephone Encounter - Tami Cutler LPN - 03/12/2024 8:11 AM EST Attempted to call patient, there was no answer, left voicemail. When patient returns call, ok for LOREN to relay message, please refer to below documentation. If needed, can transfer to dedicated nurse line. * Telephone Encounter - Syeda Bueno MD - 03/06/2024 12:54 PM EST Please ask him to drop off new form * Telephone Encounter - Otilio Murray OSA - 03/06/2024 10:20 AM EST Patients otis Boone is asking if Dr. Bueno can review the forms filled out and faxed to [employer]. Caller requesting the following information to be faxed: Name/Company of caller: Patients otis [place] via [employer] Information requested to be faxed: Form from 02/28/[address] Bueno for work physical through [employer]. She states the forms lab test was missing and cannot complete the order request without this correction with new signature and date and time. This needs to be completed by Mar 16. Fax number: Attention to Name/Company: [employer] Any additional information?: None documented in this encounter Plan of Treatment Upcoming Encounters Date Type Department Care Team (Latest Contact Info) Description 03/21/2024 10:05 AM EST Hospital Encounter [facility], Operating Room [facility] [address] [place] [address] Chinmay Rankin, [address] [place] [address] 03/21/2024 10:05 AM EST - 03/21/2024 10:30 AM EST Surgery OR [facility], Operating Room [facility] [address] [place] [id number] Chinmay Rankin DO [address] [place] [address] INJECTION SPINE LUMBAR OR SACRAL 06/17/2024 1:30 PM EST Office Visit Otol[facility]ology [facility] [address] [place] [address] Clary Mart PA-C [address] [place] [address] 03/02/2025 9:00 AM EST [facility] [address] [place] [phone] Syeda Bueno MD [address] [place] [address] Scheduled Procedures Name Priority Associated Diagnoses Date/Ti [...] as of this encounter Care Teams Business Job Titles Relationship Specialty Start Date End Date Ju Arboleda PA-C [address] [place] [address] PCP - General Physician Insurance Sales Manager 02/28/23 documented as of this encounter
--- OUTSIDE RECORDS SUMMARY | 2024-05-06 19:44 | External Medical Summary | Summary of Care ---
Author Name Unknown Organization [facility] Address [address] [facility] [place] [address] Phone [phone] Care Team Providers Care Glycerin Operator Name Role Phone Ju Arboleda PA-C Primary Care Provider [phone] Reason for Visit * Auth/Cert Specialty Diagnoses / Procedures Referred By Emelia t Referred To Contact Diagnoses Lumbar radiculopathy Lumbar radiculopathy [M54.16] Procedures INJECT DX/THER SUBSTANCE INTERLAMINAR LUMBAR/SACRAL W IMAGE GUIDE INJECTION SPINE LUMBAR OR SACRAL Chinmay Rankin DO [address] [place] [address] Phone: tel: fax: OR [facility], Operating Room [facility] [address] [place] [address] Phone: tel: Referral ID Status Reason Start Date Expiration Date Visits Re quested Visits Authorized [id number] Encounter Details Date Type Department Care Team (Latest Contact Info) Description 03/21/2024 9:22 AM EST - 03/21/2024 11:07 AM EST Hospital Encounter OR [facility], Operating Room [facility] [address] [place] [address] Chinmay Rankin DO [address] [place] [phone] Discharge Disposition: Home - Self Care Allergies Active Allergy Reactions Criticality Noted Date Comments Indomethacin Other (Please comment) 11/28/2019 Dizziness Penicillins 11/02/1997 rash Sulfa Antibiotics 11/02/1997 rapid pulse documented as of this encounter (statuses as of 03/21/2024) Medications Aspirin 81 MG Oral Tablet Delayed [...] as of this encounter (statuses as of 03/21/2024) Active Problems Problem Noted Date Diagnosed Date DDD (degenerative disc disease), lumbar 04/30/19 24 S/P angioplasty with stent 03/16/2023 Coronary artery disease invo lving [place] heart with unstable angina pectoris 03/16/2023 Family history of [place] (myocardial infarction) 06/2017 Dyslipidemia, goal LDL below 130 10/31/2012 Gout 10/31/2012 TOBACCO USE DISORDER- ORAL 01/29/2007 Esophageal reflux 01/29/2007 ACUTE STRESS 05/25/2004 documented as of this encounter (statuses as of 03/21/2024) Resolved Problems Problem Noted Date Diagnosed Date [...] as of this encounter (statuses as of 03/21/2024) Immunizations Name Administration Dates Next Due COVID-19, [...] 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 Not on file Not on file documented as of this encounter Last Filed Vital Signs Vital Sign Reading Time Taken Comments Blood Pressure 156/90 03/21/2024 10:58 AM EST Pulse 63 03/21/2024 10:58 AM EST Temperature 36.2 C (97.2 F) 03/21/2024 10:[address] Respiratory Rate 20 03/21/2024 10:58 AM EST Oxygen Saturation 99% 03/21/2024 10:58 AM EST Inhaled Oxygen Concentration - - Weight - - Height - - Body Mass Index - - documented in this encounter Discharge Instructions * Discharge Instr - AVS* Chinmay Rankin DO - 03/21/2024 10:58 AM EST [facility] [address] [place] [address] Discharge Date: 03/21/2024 You may call [facility] at [phone] during business hours. For after-hours emergencies call 911. Your attending physician at the time of your discharge was: [facility] DO [address] [facility] [address] The information below provides you with the instructions and the list of medications you need to betaking following discharge from the hospital. If you have any questions, please ask before leaving.Please carry this letter with you when you see your doctor in the clinic. Diet: Resume your normal diet If you are diabetic, follow your blood sugars closely for next 2-3 days as they are likely to be elevated. If you are having difficulty controlling your blood sugars call your family doctor or the physician that treats your diabetes. Activity: Do not engage in strenuous activity today Resume your normal activities tomorrow Do not soak in water for 24 hours. No swimming, hot tub or bath but showering is allowed. Do not use heat on the injection site for 24 hours. If uncomfortable ice may be helpful. Some injections may make your arms or legs weak for a few hours. Be extremely careful when walking or changing positions that you do not fall. Have someone assist you for the next 6 hours. If weakness or numbness becomes progressive CALL IMMEDIATELY or GO TO THE NEAREST EMERGENCY ROOM Do not restart physical therapy or chiropractic manipulation until 48 hours after your injection Call : If weakness or numbness suddenly becomes worse or become progressive If the injection site becomes red, swollen, warm to the touch, begins to bleed or drain fluid, or is excessively painful. If you have any questions Medications: Resume all the medications you were taking prior to your injection. Resume your anticoagulants tomorrow unless otherwise instructed by your family physician, hog man or the anticoagulation clinic. Additional Instructions: None Driving: You may resume driving in 12-24 hours if no weakness is noted . Date you may return to work or school: N/A Follow Up: Please make a follow-up telephone appointment with our nursing staff in 4-6 weeks. documented in this encounter Progress Notes * Chinmay Rankin DO - 03/21/2024 10:58 AM EST [facility] [place] [address] [facility] [address] OUTPATIENT SURGERY DISCHARGE SUMMARY NOTE Name: Otilio Ward Location: [facility] Date: 03/21/2024 Time: 10:58 AM Surgery Date: 03/21/2024 Procedure: INJECTION SPINE LUMBAR OR SACRAL No laterality found for procedure #1 Surgeon: Chinmay Rankin DO Discharge Diagnosis: lumbosacral radicular pain After examination of this patient, I have determined he is ready for discharge to home when the patient meets criteria. Discharge instructions were given to the patient. Chinmay Rankin DO OR [facility], Operating Room [facility] [address] [facility] [address] documented in this encounter H&P Notes * Chinmay Rankin DO - 03/21/2024 10:38 AM EST Interventional Pain H&P Subjective: History of Present Illness: Otilio Ward Jr. is a 58 year old year-old male with a past medical history significant for lumbosacral radicular pain who is presenting for L4/5 MIGUEL to improve his pain and function. his pain is essentially unchanged since our last office visit with him . ASA 3 AW nml Review of Systems: A focused 12-pt ROS were of reviewed with the patient including difficulty with sleep, snoring, aspiration history, dysphagia, stomach pain, nausea and vomiting, severe headaches, confusion, open skin lesions or wounds, chest pain, shortness of breath, excessive thirst, somnolence, dysuria, incomplete bladder emptying, easy bruising, recent clotting problems or bleeding, depression or rushed thoughts unless noted previously. Review of patient's allergies indicates: Allergen Reactions Indomethacin Other (Please comment) Dizziness Penicillins rash Sulfa Antibiotics rapid pulse Medications, Past Medical History, Past Surgical History reviewed and documented in Epic. See detailed report if needed. Pertinent Labs/Test Results: No results found for: "INR" No results found for: "CREATININE" Hemoglobin A1C (%) Date Value 02/28/2024 5.6 04/04/2019 5.4 HEMOGLOBIN, [id number] LAB (%) Date Value 03/03/2023 5.3 No results found for: "AMPHETAMINE", "BARBITURATES", "BENZODIAZEPINES", "BUPRENORPHINE", "METHADONE", "OPIATES", "OXYCODONE", "PHENCYCLIDINE", "CANNABINOIDS", "TOX SCREEN", "URINE", "TOX SCREEN-SERUM", "TOX SCREEN, URINE" Imaging: I personally reviewed the imaging and my findings were . MRI HIP RIGHT WO CONTRAST Narrative: EXAM MRI HIP RIGHT WO CONTRAST-RT 02/09/2024 3:33 pm HISTORY Provided clinical history: "Tear of right acetabular labrum, initial encounter" COMPARISON CT scan dated April 22, 2023 (obtained at an outside institution). TECHNIQUE Multi-planar, multi-sequence MRI of the right hip and pelvis was obtained without IV contrast. FINDINGS Bones and Joints: Moderate osteoarthritis of both hips, right greater than left. No fracture or bone lesion identified. No evidence of avascular necrosis of the femoral heads. No significant joint effusion. Mild bilateral sacroiliac osteoarthritis, left greater than right. Labrum: Complex degenerative bilateral labral tears. Muscles and Tendons: Regional musculature is normal in bulk and signal intensity. Right gluteus medius and minimus tendinopathy. Neurovascular structures: Unremarkable. Other: Visualized pelvic viscera are unremarkable. Impression: IMPRESSION 1. Moderate osteoarthritis of both hips, right greater than left. 2. Complex degenerative bilateral labral tears. 3. Right gluteus medius and minimus tendinopathy. Objective Physical Exam: Vital Signs: There were no vitals taken for this visit. There is no height or weight on file to calculate BMI. General: No apparent distress. Eyes: pupils equal and round, sclera white, pupils midsize. ENT: mucous membranes moist Resp: Non-labored breathing CV: Extremities warm and well-perfused. Psych: Oriented; affect warm, insight good. Skin: No rashes or lesions appreciated on exposed skin Neuromuscular Exam: ,, TTT over lumbar spine Assessment: Otilio is a 58 year old year-old male with: Lumbosacral radicular pain Plan: The patient is undergoing L4/5 MIGUEL today to alleviate his pain and improve his function. The risks,benefits and alternatives to the procedure were reviewed at length and the patient was provided theopportunity to ask questions which were answered to their voiced understanding. Following this comprehensive discussion, the patient opted to proceed. The patient was consented to the procedure follow ing this comprehensive conversation. Chinmay Rankin DO OR [facility], Operating Room [address] [address] documented in this encounter Nursing Notes * Anna Mcclain RN - 03/21/2024 11:05 AM EST Visited by Dr Rankin. Verbalized understanding of discharge directions. Ready for discharge to home. * Georgina Sena RN - 03/21/2024 10:54 AM EST Band aid applied to area. Patient transferred to PACU 11 via wheelchair * Georgina Sena RN - 03/21/2024 10:51 AM EST Patient tolerating pain management injection well. documented in this encounter OR Notes * OR Surgeon - Chinmay Rankin DO - 03/21/2024 10:57 AM EST INTERLAMINAR LUMBAR EPIDURAL STEROID INJECTION DATE: 03/21/2024 PHYSICIAN: Chinmay Rankin DO PREOPERATIVE DIAGNOSIS: Lumbar spondylosis with lumbar radiculopathy. POSTOPERATIVE DIAGNOSIS: Lumbar spondylosis with lumbar radiculopathy. PROCEDURE PERFORMED: L4/5 interlaminar epidural steroid injection on the right side. Fluoroscopy for precise needle placement. ANESTHESIA: Local infiltration with 1% lidocaine. MONITORS: Automatic blood pressure cuff, pulse oximetry. There was no administrative services assistant, EBL or drains placed during this procedure. INDICATIONS: I had the pleasure of seeing Otilio Ward Jr. ([id number]) in the pain management clinic at the the [facility] today. Otilio Ward Jr. is a 58 year old year-old male has a history of lumbar radiculopathy. he is here today for an interlaminar lumbar epidural steroid injection today. MEDICATIONS: No current facility-administered medications for this encounter. ALLERGIES: Review of patient's allergies indicates: Allergen Reactions Indomethacin Other (Please comment) Dizziness Penicillins rash Sulfa Antibiotics rapid pulse REVIEW OF SYSTEMS: Negative for fever, chills, chest pain, SOB, bleeding abnormalities, nausea, vomiting, diarrhea, worsening edema, or new rashes. FOCUSED PHYSICAL EXAMINATION: The patient is awake, alert and oriented, and is in no acute distress. Vital signs are stable. The patient is afebrile. The rest of the PE is essentially unchanged from the patient's recent visit to our office. I explained the procedure to the patient including the risks, benefits and alternatives to the procedure. The risks discussed with the patient included but were not limited to: bleeding, infection, and damage to surrounding nerves, tissues, and organs, paralysis, increased pain, pain at the site ofinjection, allergic reaction, blood pressure instability, seizures, heart block, headaches, increase in blood sugar, worsening of glaucoma, blindness, manic episodes, mood instability, . Alternatives to the procedure were also explained and include: do nothing, surgery, medications, and physical therapy. The patient verbalized understanding and was willing to proceed. PROCEDURE IN DETAIL: An informed consent was obtained. The patient was taken to the procedure room,was positively identified by the staff and attending physician. The patient was positioned prone onthe procedure bed. Vital signs were monitored as above and remained stable throughout the procedure. The skin was prepped and draped in a standard sterile fashion. A surgical pause time-out was performed and agreed upon by the members of the team. Fluoroscopic view of the lumbar spine was obtained and the area of interest was identified. The skin and subcutaneous tissues were anesthetized using 1% lidocaine and 25-gauge 1-1/2 inch needle. After that, a 20-gauge, 3.5-inch epidural needle was advanced towards the L4/5 interlaminar window in the right paramedian position. AP, contralateral oblique and lateral views were used to assess appropriate needle position. Loss of resistance to air technique was utilized and was obtained at 7.5 cm from the skin. The needle's position was additionally verified by injecting radiopaque dye, whichshowed spread of the dye in the epidural space in AP and lateral views. After negative aspiration for CSF and blood, 80 mg of Kenalog diluted in 1 mL of 1% lidocaine and 1 mL of sterile PFNS was injected into the epidural space. The needle was withdrawn. The patient tolerated the procedure well. COMPLICATIONS: None DISPOSITION: 1. Return to clinic in 1-2 months for follow-up evaluation, sooner as needed. 2. Resume activity as tolerated. 3. Patient can drive after 12-24 hours if no weakness noted. Chinmay Rankin DO OR [facility], Operating Room [facility] [address] [facility] [place] [address] documented in this encounter Plan of Treatment Upcoming Encounters Date Type Department Care Team (Late st Contact Info) Description 04/24/2024 2:00 PM EST Scheduled Telephone Interventional Pain Center, [facility] [address] [place] [address] [place], Nurse Phone Call Interventional Pain Timothy [address] [place] [address] 06/17/2024 1:30 PM EST Office Visit Otol[facility]ology [facility] [address] [place] [address] Clary Mart PA-C [address] [place] [address] 03/02/2025 9:00 AM EST [facility] [address] [facility] [place] [phone] Syeda Bueno MD [address] [place] [address] Scheduled Procedures Name Priority Associated Diagnoses Date/Ti me INJECTION SPINE LUMBAR OR SACRAL Lumbar radiculopathy 03/21/2024 10:49 AM EST COLONOSCOPY FLEXIBLE PROXIMAL DIAGNOSTIC Recall [...] Procedure Name Priority Date/Time Associated Diagnosis Comments FLUORO INTERVENTIONAL PAIN PROCEDURE NONBILLABLE Routine 03/21/2024 11:00 AM EST documented in this encounter Results * FLUORO INTERVENTIONAL PAIN PROCEDURE NONBILLABLE (03/21/2024 11:00 AM EST) Narrative Scheduling, Silent - 03/21/2024 11:01 AM EST This procedure will not be read by a Radiologist. Please see operative note. us Chinmay Rankin DO RAD FLUOROSCOPY Final Result documented in this encounter Administered Medications Inactive Administered Medications - up to 3 most recent administrations Medication Order MAR Action Action Date Dose Rate Site Iohexol (Omnipaque 240) inj 0.5 mL 0.5 mL, Epidural, ONCE, On Sun03/21/24 at 1115, For 1 dose, For caudal epidural, Intra-Op Given 03/21/2024 10:52 AM EST 2 mL lidocaine 1 % inj 20 mg 20 mg (2 mL), Subcutaneous, ONCE, On Sun03/21/24 at 1115, For 1 dose, Intra-Op Given 03/21/2024 10:51 AM EST 5 mL Other-Specify Triamcinolone Acetonide (Kenalog) 40 MG/ML inj 40 mg 40 mg, Injection, ONCE, On Sun03/21/24 at 1115, For 1 dose, Intra-Op Given 03/21/2024 10:53 AM EST 80 mg documented in this encounter Active and Recently Administered Medications Times are shown in EST. Scheduled Medication Order 03/19/2024 03/20/2024 03/21/2024 Iohexol (Omnipaque 240) inj 0.5 mL (COMPLETED) 0.5 mL, Epidural, ONCE, On Sun03/21/24 at 1115, For 1 dose, For caudal epidural, Intra-Op 1052 (Given - Provid er: Georgina Sena RN) lidocaine 1 % inj 20 mg (COMPLETED) 20 mg (2 mL), Subcutaneous, ONCE, On Sun03/21/24 at 1115, For 1 dose, Intra-Op 1051 (Given - Provid er: Georgina Sena RN) Triamcinolone Acetonide (Kenalog) 40 MG/ML inj 40 mg (COMPLETED) 40 mg, Injection, ONCE, On Sun03/21/24 at 1115, For 1 dose, Intra-Op 1053 (Given - Provid er: Georgina Sena RN) documented in this encounter Care Teams Glycerin Operator Relationship Specialty Start Date End Date Ju Arboleda PA-C [address] [place] [address] PCP - General Physician Fellmongery Worker 02/28/23 documented as of this encounter
--- OUTSIDE RECORDS SUMMARY | 2024-05-06 19:44 | External Medical Summary | Summary of Care ---
Author Name Unknown Organization [facility] Address [address] [facility] [place] [address] Phone [phone] Care Team Providers Care Direct Support Staff Member Name Role Phone Ju Arboleda PA-C Primary Care Provider +1 [phone] Reason for Visit * Reason Onset Date Comments Medication Refill 03/19/2024 Encounter Details Date Type Department Care Team (Late st Contact Info) Description 03/19/2024 Refill [facility] Anastacia Guillory [address] [address] Ju Arboleda PA-C [address] [facility] [place] [place] [address] Allergies Active Allergy Reactions Criticality Noted Date Comments Indomethacin Other (Please comment) 11/28/2019 Dizziness Penicillins 11/02/1997 rash Sulfa Antibiotics 11/02/1997 rapid pulse documented as of this encounter (statuses as of 03/19/2024) Medications Aspirin 81 MG Oral Tablet Delayed [...] as of this encounter (statuses as of 03/19/2024) Active Problems Problem Noted Date Diagnosed Date DDD (degenerative disc disease), lumbar 04/30/19 24 S/P angioplasty with stent 03/16/2023 Coronary artery disease invo lving [place] heart with unstable angina pectoris 03/16/2023 Family history of [place] (myocardial infarction) 06/2017 Dyslipidemia, goal LDL below 130 10/31/2012 Gout 10/31/2012 TOBACCO USE DISORDER- ORAL 01/29/2007 Esophageal reflux 01/29/2007 ACUTE STRESS 05/25/2004 documented as of this encounter (statuses as of 03/19/2024) Resolved Problems Problem Noted Date Diagnosed Date [...] as of this encounter (statuses as of 03/19/2024) Immunizations Name Administration Dates Next Due COVID-19, [...] 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 Informed pt that RX is available at their pharmacy. Pt verbalized understanding and stated they will check with their pharmacy regarding this medication. Thank you, Merlyn Dong CPhT Clinical Dermatologist [facility] ([facility]) 03/19/2024, 11:13 AM documented in this encounter Plan of Treatment Upcoming Encounters Date Type Department Care Team (Latest Contact Info) Description 03/21/2024 10:05 AM EST Hospital Encounter [facility] Operating Room [facility] [address] [place] [phone] Chinmay Rankin, DO [address] [place] [phone] 03/21/2024 10:05 AM EST - 03/21/2024 10:30 AM EST Surgery OR [facility], Operating Room [facility] [address] [place] [phone] Chinmay Rankin, DO [address] [place] [address] INJECTION SPINE LUMBAR OR SACRAL 06/17/2024 1:30 PM EST Office Visit Otolaryngology [facility] [address] [place] [address] Clary Mart PA-C [address] [place] [address] 03/02/2025 9:00 AM EST Office Visit Jacinto Dove [address] [phone] Syeda Bueno MD [address] [address] Scheduled Procedures Name Priority Associated Diagnoses Date/Ti [...] filedocumented as of this encounter Care Teams Direct Support Staff Member Relationship Specialty Start Date End Date Ju Arboleda PA-C [address] [facility] [place] [address] PCP - General Physician Value Stream Coach 02/28/23 documented as of this encounter
--- OUTSIDE RECORDS SUMMARY | 2024-05-06 19:44 | External Medical Summary | Summary of Care ---
Author Name Unknown Organization [facility] Address [address] [place] [address] Phone [phone] Care Team Providers Care Modeling Teacher Name Role Phone Ju Arboleda PA-C Primary Care Provider [phone] [phone] Reason for Visit * Reason Onset Date Comments Fax 03/06/2024 Update to [facility] results Encounter Details Date Type Department Care Team ([facility] st Contact Info) Description 03/06/2024 Telephone [facility] [address] [place] [address] Ju Arboleda PA-C [address] [place] [address] Fax (Update to [facility] results) Allergies Active Allergy Reactions Criticality Noted Date Comments Indomethacin Other (Please comment) 11/28/2019 Dizziness Penicillins 11/02/1997 rash Sulfa Antibiotics 11/02/1997 rapid pulse documented as of this encounter (statuses as of 03/18/2024) Medications Aspirin 81 MG Oral Tablet Delayed [...] as of this encounter (statuses as of 03/18/2024) Active Problems Problem Noted Date Diagnosed Date DDD (degenerative disc disease), lumbar 04/30/19 24 S/P angioplasty with stent 03/16/2023 Coronary artery disease invo lving [place] heart with unstable angina pectoris 03/16/2023 Family history of [place] (myocardial infarction) 06/2017 Dyslipidemia, goal LDL below 130 10/31/2012 Gout 10/31/2012 TOBACCO USE DISORDER- ORAL 01/29/2007 Esophageal reflux 01/29/2007 ACUTE STRESS 05/25/2004 documented as of this encounter (statuses as of 03/18/2024) Resolved Problems Problem Noted Date Diagnosed Date [...] as of this encounter (statuses as of 03/18/2024) Immunizations Name Administration Dates Next Due COVID-19, LNP-s, No Preserve , Jreel-sucrose, Ages 12+ (Pfizer) 10/07/2021 TD - Tetanus/Diptheria [...] 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 Caller requesting the following information to be faxed: Name/Company of caller: [employer] [place] [employer] Information requested to be faxed: Form from 02/28/[address] Bueno for work physical through [employer]. She states the forms lab test was missing and cannot complete the order request without this correction with new signature and date and time. This needs to be completed by Mar 16. Fax number: Attention to Name/Company: [employer] Any additional information?: None documented in this encounter Plan of Treatment Upcoming Encounters Date Type Department Care Team (Latest Contact Info) Description 03/21/2024 10:05 AM EST Hospital Encounter OR [facility], Operating Room [facility] [address] [place] [address] Chinmay Rankin, DO [address] [place] [address] 03/21/2024 10:05 AM EST - 03/21/2024 10:30 AM EST Surgery [facility], Operating Room [facility] [address] [place] [address] Chinmay Rankin, DO [address] [place] [address] INJECTION SPINE LUMBAR OR SACRAL 06/17/2024 1:30 PM EST Office Visit Otolaryngology [facility] [address] [place] [address] Clary Mart PA-C [address] [place] [address] 03/02/2025 9:00 AM EST [facility] [address] [phone] Syeda Bueno MD [address] [address] Scheduled Procedures Name Priority Associated Diagnoses Date/Ti [...] filedocumented as of this encounter Care Teams Modeling Teacher Relationship Specialty Start Date End Date Ju Arboleda PA-C [address] [place] [address] PCP - General Physician Belt Cutter 02/28/23 documented as of this encounter
--- OUTSIDE RECORDS SUMMARY | 2024-05-06 19:44 | External Medical Summary | Summary of Care ---
Author Name Unknown Organization [facility] Address [address] [facility] [address] Phone [phone] Care Team Providers Care Cell Inspector Name Role Phone Ju Arboleda PA-C Primary Care Provider [phone] [phone] Reason for Visit * Reason Onset Date Comments Medication Question 03/20/2024 Encounter Details Date Type Department Care Team (Late st Contact Info) Description 03/20/2024 Telephone [facility] Anastacia Guillory [address] [phone] Syeda Bueno MD [address] [place] [address] Medication Question Allergies Active Allergy Reactions [...] stent 03/16/2023 Coronary artery disease invo lving [place] heart with unstable angina pectoris 03/16/2023 Family history of [place] (myocardial infarction) 06/2017 Dyslipidemia, goal LDL below [...] No 02/28/2024 Does the household have a [facility] source of income? 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 Tomi refused refill until 03/28/2024. Pt says he only takes 3 per day. No more. Pt says Tomi didn't give him 90 capsules last time. Pharmacy says they did. Tomi needs DR Jimmy to call them to give permission to fill medication early for pt.Tomi can be reached at [phone]. Thank You, Bobo Lockhart [facility] Nutrition Technician II [facility] 03/20/2024, 12:37 PM documented in this encounter Plan of Treatment Upcoming Encounters Date Type Department Care Team (Latest Contact Info) Description 03/21/2024 10:05 AM EST Hospital Encounter OR [facility], Operating Room [facility] [address] [place] [address] Chinmay Rankin DO [address] [place] [address] 03/21/2024 10:05 AM EST - 03/21/2024 10:30 AM EST Surgery OR [facility], Operating Room [facility] [address] [place] [phone] Chinmay Rankin DO [address] [place] [address] INJECTION SPINE LUMBAR OR SACRAL 06/17/2024 1:30 PM EST Office Visit Otolaryngology [facility] [address] [place] [place] [address] Clary Mart PA-C [address] [place] [address] 03/02/2025 9:00 AM EST [facility] [address] [phone] Syeda Bueno MD [address] [facility] [place] [address] Scheduled Procedures Name Priority Associated Diagnoses Date/Ti [...] filedocumented as of this encounter Care Teams Cell Inspector Relationship Specialty Start Date End Date Ju Arboleda PA-C [address] [place] [place] [address] PCP - General Physician Driver License Examiner 02/28/23 documented as of this encounter
--- OUTSIDE RECORDS SUMMARY | 2024-05-06 19:44 | External Medical Summary | Summary of Care ---
Author Name Unknown Organization [facility] Address [address] [facility] [place] [address] Phone [phone] Care Team Providers Care Bumboater Name Role Phone Ju Arboleda PA-C Primary Care Provider +1 [phone] Reason for Visit * Reason Onset Date Comments Forms Request 03/18/2024 Encounter Details Date Type Department Care Team (Late st Contact Info) Description 03/18/2024 [facility] [address] [phone] Ju Arboleda PA-C [address] [facility] [place] [address] Forms Request Allergies Active Allergy Reactions Criticality Noted [...] stent 03/16/2023 Coronary artery disease invo lving [place] heart with unstable angina pectoris 03/16/2023 Family history of [place] (myocardial infarction) 06/2017 Dyslipidemia, goal LDL below [...] 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 * Telephone Encounter - Millicent Westbrook OSA - 03/18/2024 9:52 AM EST Pt has FMLA paperwork he needs filled out for next week. Pt wants to come in to be seen but no appts until April. Please call pt back to advise if he needs to be seen or if he should just bring in the forms to be filled out. Thank you documented in this encounter Plan of Treatment Upcoming Encounters Date Type Department Care Team (Latest Contact Info) Description 03/21/2024 10:05 AM EST Hospital Encounter OR [facility], Operating Room [facility] [address] [place] [address] Chinmay Rankin, [address] [place] [address] 03/21/2024 10:05 AM EST - 03/21/2024 10:30 AM EST Surgery OR [facility], Operating Room [facility] [address] [place] [phone] Chinmay Rankin, [address] [place] [address] INJECTION SPINE LUMBAR OR SACRAL 06/17/2024 1:30 PM EST Office Visit Otolaryngology [facility] [address] [place] [address] Clary Mart PA-C [address] [place] [address] 03/02/2025 9:00 AM EST Office Visit Jacinto Dove [address] [phone] Syeda Bueno MD [address] [address] Scheduled Procedures Name Priority Associated Diagnoses Date/Ti [...] filedocumented as of this encounter Care Teams Bumboater Relationship Specialty Start Date End Date Ju Arboleda PA-C [address] [facility] [place] [address] PCP - General Physician Exercise Physiology Professor 02/28/23 documented as of this encounter
--- OUTSIDE RECORDS SUMMARY | 2024-05-06 19:44 | External Medical Summary | Summary of Care ---
Author Name Unknown Organization [facility] Address [address] [facility] [address] Phone [phone] Care Team Providers Care Retort Or Condenser Press Operator Name Role Phone Ju Arboleda PA-C Primary Care Provider +1 [phone] Encounter Details Date Type Department Care Team (Late st Contact Info) Description 03/31/2024 1:40 PM EST [facility] [address] [facility] [place] [address] Syeda Bueno MD [address] [facility] [place] [place] [id number] Degeneration of intervertebral disc of lumbar region with discogenic back pain and lower extremity pain*; Primary osteoarthritis of both hips; Coronary artery disease involving [place]ighini heart with unstable angina pectoris, unspecified vessel or lesion type (HCC); S/P angioplasty with stent Allergies Active Allergy Reactions Criticality Noted Date Comments Indomethacin Other (Please comment) 11/28/2019 Dizziness Penicillins 11/02/1997 rash Sulfa Antibiotics 11/02/1997 rapid pulse documented as of this encounter (statuses as of 03/31/2024) Medications Aspirin 81 MG Oral Tablet Delayed [...] 15 minutes 25 Tablet 11 3 Active Atorvastatin Calcium 80 MG Oral Tablet (Lipitor) Take 1 Tablet by mouth in the morning. 90 Tablet 3 3 Active Fluticasone Propionate 50 MCG/ACT Nasal [...] before bedtime. 90 Capsule 5 4 Active Brilinta 90 MG Oral Tablet (Ticagrelor) Take 1 Tablet by mouth in the morning and 1 Tablet before bedtime. 180 Tablet 3 3 03/31/20 24 Discontinued predniSONE 20 MG Oral Tablet (Deltasone)Ind ications:Acute idiopathic gout of right foot Take 2 Tablets by mouth daily as needed for Other (gout flare). Take for 3-5 days as soon as gout flare starts. 20 Tablet 1 4 03/31/20 24 Discontinued oxyCODONE HCl 5 MG Oral Capsule (Oxy IR) Take 1 Capsule by mouth every 4 hours as needed. 03/31/20 24 Discontinued documented as of this encounter (statuses as of 03/31/2024) Active Problems Problem Noted Date Diagnosed Date DDD (degenerative disc disease), lumbar 04/30/19 24 S/P angioplasty with stent 03/16/2023 Coronary artery disease invo lving [place] heart with unstable angina pectoris 03/16/2023 Family history of [place] (myocardial infarction) 06/2017 Dyslipidemia, goal LDL below 130 10/31/2012 Gout 10/31/2012 TOBACCO USE DISORDER- ORAL 01/29/2007 Esophageal reflux 01/29/2007 ACUTE STRESS 05/25/2004 documented as of this encounter (statuses as of 03/31/2024) Resolved Problems Problem Noted Date Diagnosed Date [...] as of this encounter (statuses as of 03/31/2024) Immunizations Name Administration Dates Next Due COVID-19, [...] 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 is a 58 year old male. No chief complaint on file. HPI: Patient location: HOME. I was in a hospital or clinic location. After connecting through Team My Mobile,patient was verified with two unique identifiers. Patient (or authorized legal sales representative trainee) was then informed that this was a Telemedicine visit and being conducted confidentially over secure lines. Methods to assure confidentiality were taken. Patient acknowledged consent and understanding of p rivacy and security of the Telemedicine visit. The patient agreed to participate. Here to discuss about FMLA paper form and short term leave due to severe lower back pain with sciatica Worse pain started in jan Couldn't work since feb 22 until now Was seen by me on feb 27 And had hip injection the end of Jan and has spinal injection last week Today feels slightly improved Paper form - reviewed and filled and signed Possible absence from feb 22 through May 04 And tentatively returning date on May 05 Known [place], stent , CAD, HL Seeing cardio Recently stopped brillanta Taking all other meds Stable conditions PMH: Patient Active Problem List Diagnosis ACUTE STRESS TOBACCO USE DISORDER- ORAL Esophageal reflux Dyslipidemia, goal LDL below 130 Gout Family history of [place] (myocardial infarction) S/P angioplasty with stent Coronary artery disease involving resighini heart with unstable angina pectoris (HCC) DDD (degenerative disc disease), lumbar Current Outpatient Medications Medication Sig Dispense Refill Aspirin 81 MG Oral Tablet Delayed Release (Aspirin 81) Take 1 Tablet by mouth in the morning. Losartan Potassium 50 MG Oral Tablet (Cozaar) Take 1 Tablet by mouth in the morning. 100 Tablet 3 Nitroglycerin 0.4 MG Sublingual Tablet Sublingual (Nitrostat) Place 1 Tablet under the tongue every5 minutes as needed for Pain, Chest. up to 3 doses in 15 minutes 25 Tablet 11 Atorvastatin Calcium 80 MG Oral Tablet (Lipitor) Take 1 Tablet by mouth in the morning. 90 Tablet 3 Fluticasone Propionate 50 MCG/ACT Nasal Suspension (Flonase) USE TWO SPRAYS IN EACH NOSTRIL IN THE MORNING 48 g 1 Cyclobenzaprine HCl 5 MG Oral Tablet (Flexeril) Take 1 Tablet by mouth in the morning and 1 Tablet at noon and 1 Tablet before bedtime. traMADol HCl 50 MG Oral Tablet (Ultram) Take 1 Tablet by mouth every 8 hours as needed for Pain, Mild. (Patient not taking: Reported on 03/21/2024) Gabapentin 300 MG Oral Capsule (Neurontin) Take 1 Capsule by mouth in the morning and 1 Capsule at noon and 1 Capsule before bedtime. 90 Capsule 5 No current facility-administered medications for this visit. Past Medical History: Diagnosis Date Gout HTN, goal below 130/80 Past Surgical History: Procedure Laterality Date COLONOSCOPY, DIAGNOSTIC (RECTUM) 06/18/2015 adenomatous polyp, repeat 3 yrs/COLONOSCOPY FLEXIBLE PROXIMAL DIAGNOSTIC performed by Marti Zavala DO at ENDOSCOPY [facility] COLONOSCOPY, DIAGNOSTIC (RECTUM) 06/10/2019 diverticulosis sigmoid colon/biopsies show hyperplastic polyps/recall 3-5 years/COLONOSCOPY FLEXIBLE PROXIMAL DIAGNOSTIC performed by Marti Zavala DO at ENDOSCOPY [facility] INJECT DX/THER SUBSTANCE INTERLAMINAR LUMBAR/SACRAL W IMAGE GUIDE 03/21/2024 INJECTION SPINE LUMBAR OR SACRAL performed by Chinmay Rankin DO at OR [facility] Review of patient's allergies indicates: Allergen Reactions Indomethacin Other (Please comment) Dizziness Penicillins rash Sulfa Antibiotics rapid pulse Family History Problem Relation Name Age of Onset Other (calcuili) Mother renal stones Heart Disorder Father sudden [place] age 75 Cancer Father prostate Heart attack Sister 54 Family Status Relation Status Mo Alive renal calculi Fa at age 75 Sis Sis Alive Sis Alive Brayden Alive Son Alive Son Alive Social History Socioeconomic History Marital status: Spouse name: Tomasa Lamar Number of children: 3 Years of education: Not on file Highest education level: Not on file Occupational History 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 Neurological: Positive for numbness. Psychiatric/Behavioral: Positive for sleep disturbance. Negative for agitation and behavioral problems. The patient is nervous/anxious. Objective There were no vitals taken for this visit. Physical Exam Constitutional: General: He is not in acute distress. Appearance: Normal appearance. He is obese. He is not ill-appearing, toxic- appearing or diaphoretic. HENT: Head: Normocephalic and atraumatic. Nose: Nose normal. Eyes: Extraocular Movements: Extraocular movements intact. Pulmonary: Effort: Pulmonary effort is normal. No respiratory distress. Musculoskeletal: General: Tenderness present. Neurological: General: No focal deficit present. Mental Status: He is alert and oriented to person, place, and time. Psychiatric: Behavior: Behavior normal. ASSESSMENT/PLAN: Degeneration of intervertebral disc of lumbar region with discogenic back pain and lower extremity pain (Primary) Primary osteoarthritis of both hips Coronary artery disease involving resighini heart with unstable angina pectoris, unspecified vessel orlesion type (HCC) S/P angioplasty with stent Cont meds Pain med - tylenol, neurontin currenlty F/u with pain medicine Form - signed Syeda Bueno MD documented in this encounter Plan of Treatment Upcoming Encounters Date Type Department Care Team (Late st Contact Info) Description 04/24/2024 2:00 PM EST Scheduled Telephone [facility] [address] [address] [place] Nurse Phone Call Interventional Pain [facility] [address] [place] [address] 05/16/2024 1:30 PM EST Office Visit [facility] [address] [place] [address] Marlene Steinberg PA-C [address] [place] [address] 06/17/2024 1:30 PM EST Office Visit Otolaryngology [facility] [address] [place] [address] Clary Mart PA-C [address] [place] [address] 03/02/2025 9:00 AM EST Office Visit [facility] [place] [address] [place] [phone] Syeda Bueno MD [address] [place] [address] Scheduled Procedures Name Priority Associated Diagnoses Date/Ti [...] as of this encounter Visit Diagnoses Diagnosis Degeneration of intervertebral disc of lumbar region with discogenic back pain and lower extremity pain- Primary Primary osteoarthritis of both hips Primary localized osteoarthrosis, pelvic region and thigh Coronary artery disease involving resighini heart with unstable angina pectoris, unspecified vessel or lesion type (HCC) S/P angioplasty with stent Postsurgical percutaneous transluminal coronary angioplasty status documented in this encounter Care Teams Retort Or Condenser Press Operator Relationship Specialty Start Date End Date Ju Arboleda PA-C [address] [place] [address] PCP - General Physician Construction Assistant 02/28/23 documented as of this encounter
--- OUTSIDE RECORDS SUMMARY | 2024-05-06 19:44 | External Medical Summary | Summary of Care ---
Author Name Unknown Organization [facility] Address [address] [facility] [address] Phone [phone] Care Team Providers Care Regional Sales Trainer Name Role Phone Ju Arboleda PA-C Primary Care Provider +1 -[phone] Reason for Visit * Reason Onset Date Comments Forms Request 03/18/2024 Encounter Details Date Type Department Care Team (Late st Contact Info) Description 03/18/2024 Telephone [facility] [place] Guillory [address] [place] [address] Ju Arboleda PA-C [address] [facility] [place] [address] Forms Request Allergies Active [...] stent 03/16/2023 Coronary artery disease invo lving sam[place] heart with unstable angina pectoris 03/16/2023 Family [...] 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 Bueno gave the forms to us at the front services agent. Patient will pick-up at front services agent. * Telephone Encounter - Tami Cutler LPN [...] PM EST Scheduled Telephone Interventional [facility], [facility] [address] [place] [address] Tonny Nurse Phone Call Interventional Pain [facility] [address] [place] [address] 05/16/2024 1:30 PM EST Office Visit [facility], [facility] [address] [place] [address] Marlene Steinberg PA-C [address] [place] [address] 06/17/2024 1:30 PM EST Office Visit Otolaryngology [facility] [address] [place] [address] Clary Mart PA-C [address] [place] [address] 03/02/2025 9:00 AM EST Office [facility] [place] [address] [place] [address] Syeda Bueno MD [address] [place] [id number] Scheduled Procedures Name Priority Associated Diagnoses Date/Ti [...] filedocumented as of this encounter Care Teams Regional Sales Trainer Relationship Specialty Start Date End Date Ju Arboleda PA-C [address] [facility] [place] [address] PCP - General Physician Coordinator Volunteer Services 02/28/23 documented as of this encounter
--- OUTSIDE RECORDS SUMMARY | 2024-05-06 19:44 | External Medical Summary | Summary of Care ---
Author Name Unknown Organization [facility] Address [address] [facility] [address] Phone [phone] Care Team Providers Care Information Receptionist Name Role Phone Ju Arboleda PA-C Primary Care Provider +1 [phone] Reason for Visit * Reason Onset Date Comments Medication Question 03/20/2024 Encounter Details Date Type Department Care Team (Late st Contact Info) Description 03/20/2024 Telephone [facility] Anastacia Guillory [address] [address] Syeda Bueno MD [address] [place] [address] Medication Question Allergies Active Allergy Reactions [...] stent 03/16/2023 Coronary artery disease invo lving [place] heart with unstable angina pectoris 03/16/2023 Family [...] No 02/28/2024 Does the household have a [facility] source of income? 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 Tomi refused refill until 03/28/2024. Pt says he only takes 3 per day. No more. Pt says Tomi didn't give him 90 capsules last time. Pharmacy says they did. Tomi needs DR Office to call them to give permission to fill medication early for pt.Tomi can be reached at [phone]. Thank You, Bobo Lockhart [facility] Customer Service Specialist II [facility] 03/20/2024, 12:37 PM documented in this encounter Plan of Treatment Upcoming Encounters Date Type Department Care Team (Latest Contact Info) Description 03/21/2024 10:05 AM EST Hospital Encounter OR [facility], Operating Room [facility] [address] [facility] [place] [address] Chucho, Max Salvatore, DO [address] [place] [address] 03/21/2024 10:05 AM EST - 03/21/2024 10:30 AM EST Surgery OR [facility], Operating Room [facility] [address] [place] [phone] Chinmay Rankin, DO [address] [place] [phone] INJECTION SPINE LUMBAR OR SACRAL 06/17/2024 1:30 PM EST Office Visit Otol[facility]ology [facility] [address] [place] [address] Clary Mart PA-C [address] [place] [address] 03/02/2025 9:00 AM EST Office [facility] [address] [facility] [place] [phone] Syeda Bueno MD [address] [address] Scheduled Procedures Name Priority Associated Diagnoses Date/Ti [...] filedocumented as of this encounter Care Teams Information Receptionist Relationship Specialty Start Date End Date Ju Arboleda PA-C [address] [facility] [place] [address] PCP - General Physician Machine Ii Coremaker 02/28/23 documented as of this encounter
--- OUTSIDE RECORDS SUMMARY | 2024-05-06 19:44 | External Medical Summary | Summary of Care ---
Author Name Unknown Organization [facility] Address [address] [place] [address] Phone [phone] Care Team Providers Care Courtesy Driver Name Role Phone Ju Arboleda PA-C Primary Care Provider +1 -[phone] Reason for Visit * Reason Onset Date Comments Fax 03/06/2024 Update to [facility] results Encounter Details Date Type Department Care Team ([facility] st Contact Info) Description 03/06/2024 Telephone [facility] [address] [place] [address] Ju Arboleda PA-C [address] [place] [address] Fax (Update to [facility] [...] stent 03/16/2023 Coronary artery disease invo lving [place] heart with unstable angina pectoris 03/16/2023 Family [...] 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 Caller requesting the following information to be faxed: Name/Company of caller: [employer] [place] [employer] Information requested to be faxed: Form from 02/28/[address] Bueno for work physical through [employer]. She states the forms lab test was missing and cannot complete the order request without this correction with new signature and date and time. This needs to be completed by Mar 16. Fax number: Attention to Name/Company: [employer] Any additional information?: None documented in this encounter Plan of Treatment Upcoming Encounters Date Type Department Care Team (Latest Contact Info) Description 03/21/2024 10:05 AM EST Hospital Encounter OR [facility], Operating Room [facility] [address] [place] [phone] Chinmay Rankin, [address] [place] [address] 03/21/2024 10:05 AM EST - 03/21/2024 10:30 AM EST Surgery OR [facility], Operating Room [facility] [address] [place] [address] Chinmay Rankin, [address] [place] [address] INJECTION SPINE LUMBAR OR SACRAL 06/17/2024 1:30 PM EST Office Visit Otolaryngology [facility] [address] [place] [address] Clary Mart PA-C [address] [place] [address] 03/02/2025 9:00 AM EST Office Visit [facility] Anastacia Guillory [address] [phone] Syeda Bueno MD 226 [facility] [place] [address] Scheduled Procedures Name Priority Associated Diagnoses Date/Ti [...] filedocumented as of this encounter Care Teams Courtesy Driver Relationship Specialty Start Date End Date Ju Arboleda PA-C [address] [facility] [place] [address] PCP - General Physician Floor Layer 02/28/23 documented as of this encounter
--- OUTSIDE RECORDS SUMMARY | 2024-05-06 19:44 | External Medical Summary | Summary of Care ---
Author Name Unknown Organization [facility] Address [address] [facility] [place] [address] Phone [phone] Care Team Providers Care Assisted Living Executive Director Name Role Phone Ju Arboleda PA-C Primary Care Provider +1 [phone] Reason for Visit * Reason Onset Date Comments Other 03/27/2024 Encounter Details Date Type Department Care Team (Late st Contact Info) Description 03/27/2024 [facility] [address] [address] Ju Arboleda PA-C [address] [place] [address] Other Allergies Active Allergy Reactions Criticality Noted Date Comments Indomethacin Other (Please comment) 11/28/2019 Dizziness Penicillins 11/02/1997 rash Sulfa Antibiotics 11/02/1997 rapid pulse documented as of this encounter (statuses as of 03/27/2024) Medications Aspirin 81 MG Oral Tablet Delayed [...] as of this encounter (statuses as of 03/27/2024) Active Problems Problem Noted Date Diagnosed Date DDD (degenerative disc disease), lumbar 04/30/19 24 S/P angioplasty with stent 03/16/2023 Coronary artery disease invo lving [place] heart with unstable angina pectoris 03/16/2023 Family history of [place] (myocardial infarction) 06/2017 Dyslipidemia, goal LDL below 130 10/31/2012 Gout 10/31/2012 TOBACCO USE DISORDER- ORAL 01/29/2007 Esophageal reflux 01/29/2007 ACUTE STRESS 05/25/2004 documented as of this encounter (statuses as of 03/27/2024) Resolved Problems Problem Noted Date Diagnosed Date [...] as of this encounter (statuses as of 03/27/2024) Immunizations Name Administration Dates Next Due COVID-19, [...] 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 Bueno . If pt calls back, please update email in chart. Thank You documented in this encounter Plan of Treatment Upcoming Encounters Date Type Department Care Team (Late st Contact Info) Description 03/31/2024 1:40 PM EST [facility] [place] [phone] Syeda Bueno MD [address] [place] [address] 04/24/2024 2:00 PM EST Scheduled Telephone Inter[facility] Center, [facility] [address] [place] [address] [facility] Nurse Phone Call Interventional Pain [facility] [address] [place] [address] 06/17/2024 1:30 PM EST Office Visit Otolaryngology [facility] [address] [place] [address] Clary Mart PA-C [address] [place] [address] 03/02/2025 9:00 AM EST Office Visit [facility] Jacinto Li Dayocorina [place] [phone] Syeda Bueno MD [address] [place] [address] Scheduled Procedures Name Priority Associated Diagnoses Date/Ti [...] filedocumented as of this encounter Care Teams Assisted Living Executive Director Relationship Specialty Start Date End Date Ju Arboleda PA-C [address] [facility] [place] [address] PCP - General Physician Dining Service Inspector 02/28/23 documented as of this encounter
--- OUTSIDE RECORDS SUMMARY | 2024-05-06 19:44 | External Medical Summary | Summary of Care ---
Author Name Unknown Organization [facility] Address [address] [place] [facility] [place] [place] [address] Phone [phone] Care Team Providers Care Remotely Piloted Vehicle Controller Name Role Phone Ju Arboleda PA-C Primary Care Provider +1 -[phone] Reason for Visit * Reason Comments eRx-Medication Refill Encounter Details Date Type Department Care Team (Late st Contact Info) Description 04/01/[address] [address] Syeda Bueno MD [address] [place] [address] Allergies Active Allergy Reactions Criticality [...] before bedtime. 90 Capsule 5 4 Active Atorvastatin Calcium 80 MG Oral Tablet (Lipitor) TAKE 1 TABLET BY MOUTH EVERY MORNING 90 Tablet 3 4 Active Atorvastatin Calcium 80 MG Oral Tablet (Lipitor) Take 1 Tablet by mouth in the morning. 90 Tablet 3 3 04/02/20 24 Discontinued documented as of this encounter (statuses as of 04/02/2024) Active Problems Problem Noted Date Diagnosed Date DDD (degenerative disc disease), lumbar 04/30/19 24 S/P angioplasty with stent 03/16/2023 Coronary artery disease invo lving [place] heart with unstable angina pectoris 03/16/2023 Family history of [place] (myocardial infarction) 06/2017 Dyslipidemia, goal LDL below [...] 02/28/2024 Does the household have a [facility] source [facility] income? 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 Not on file documented as of this encounter Miscellaneous Notes * Telephone Encounter - Laila Iraheta [facility] - 04/02/2024 11:09 AM ESTSigned Prescriptions: Disp Refills Atorvastatin Calcium 80 MG Oral Tablet (Li*90 Tab*3 Sig: TAKE 1 TABLET BY MOUTH EVERY MORNINGAuthorizing Provider: Dixie BUENO User: LAILA IRAHETARefused Prescriptions: Disp Refills Brilinta 90 MG Oral Tablet (Ticagrelor) 180 Ta*0 Sig: Take 1 Tablet by mouth in the morning and 1 Tablet before bedtime.Refused By: LAILA IRAHETA for Refusal: Course of treatment complete * Telephone Encounter - Laila Iraheta RP - 04/02/2024 11:07 AM EST Per 03/31 Telemed: "Known HI, stent , CAD, HL Seeing cardio Recently stopped brillanta " Thank you, Laila Iraheta, PharmD Clinical Pharmacist [facility] ([facility]) 04/02/24 11:09 AM [phone] documented in this encounter Plan of Treatment Upcoming Encounters Date Type Department Care Team (Late st Contact Info) Description 04/24/2024 2:00 PM EST Scheduled Telephone Interventional Pain Center, [facility] [address] [place] [address] Tonny Nurse Phone Call Interventional Pain [facility] [address] [place] [address] 05/16/2024 1:30 PM EST Office Visit Inter[facility] Pain Center, [facility] [address] [place] [address] Marlene Steinberg PA-C [address] [address] 06/17/2024 1:30 PM EST Office Visit Otolaryngology [facility] [address] [place] [address] Clary Mart PA-C [address] [place] [address] 03/02/2025 9:00 AM EST [facility] [address] [place] [phone] Syeda Bueno MD [address] [address] Scheduled Procedures Name Priority Associated Diagnoses Date/Ti [...] filedocumented as of this encounter Care Teams Remotely Piloted Vehicle Controller Relationship Specialty Start Date End Date Ju Arboleda PA-C [address] [facility] [place] [address] PCP - General Physician Flasher Adjuster 02/28/23 documented as of this encounter
[2024-05-06] MEDS: GABAPENTIN 300 MG CAP PO SCH (20:19)
[2024-05-06 20:48] LABS: ANTI-Xa, UFH(UnfractionatedHep 0.35 IU/ml (0.3-0.7)
[2024-05-06] MEDS ORDERED: CYCLOBENZAPRINE HCL 10 MG TAB PO SCH (21:00)
[2024-05-07 07:21] LABS: BUN Creatinine Ratio 22.1 (10-20); Calcium 8.7 mg/dl (8.6-10.3); Chol HDL Ratio 2.3 (0-5); Creatinine Clr Calc Pharmacy 83.9 ml/min; Magnesium 1.8 mg/dl (1.7-2.4); Phosphorus 2.8 mg/dl (2.5-4.9)
[2024-05-07 07:34] LABS: Hematocrit (blood only) 37.1 % (42.0-52.0); Hemoglobin 13.2 g/dl (14.0-18.0); Mean Corpuscular Hemoglobin 32.9 pg (25.0-34.0); Mean Corpuscular Hgb Conc 35.6 g/dL (32.0-36.0); Mean Corpuscular Volume 92.5 fL (80.0-100.0); Mean Platelet Volume 8.9 fL (9.4-12.4); Platelet Count 130 K/uL (130-400); RDW Coefficient of Variation 13.2 % (11.5-14.5); RDW Standard Deviation 44.8 fL (36.4-46.3); Red Blood Count 4.01 M/uL (4.70-6.10); White Blood Count 4.38 K/ul (4.8-10.8)
[2024-05-07 07:38] LABS: ANTI-Xa, UFH(UnfractionatedHep 0.47 IU/ml (0.3-0.7)
[2024-05-07 08:12] VITALS: RESP 18
[2024-05-07] MEDS: FLUTICASONE PROPIONATE NA SPR 16 GM BTL SCH (08:46)
[2024-05-07] MEDS: EZETIMIBE 10 MG TAB PO SCH (08:47)
[2024-05-07] MEDS: ASPIRIN 81 MG CHEW PO SCH (08:47)
[2024-05-07] MEDS: ROSUVASTATIN CALCIUM 20 MG TAB PO SCH (08:47)
[2024-05-07] MEDS ORDERED: LOSARTAN POTASSIUM 50 MG TAB PO SCH (09:00)
--- NOTE | 2024-05-07 10:56 | Pre Anesthesia Assessment ---
Date of Service May 07, 2024 Pre Sedation Assessment Vital Signs Temp Pulse Pulse Pulse Resp BP BP 05/07/24 10:43 77 18 115/90 05/07/24 09:43 58 L 05/07/24 08:11 36.8 C 62 18 102/66 05/07/24 03:24 36.8 C 64 16 92/58 L 05/06/24 23:56 76 05/06/24 23:09 37.0 C 70 17 99/61 L 05/06/24 20:05 37.0 C 81 21 103/67 05/06/24 19:07 90 05/06/24 18:12 37.0 C 86 20 101/67 05/06/24 18:11 89 103/69 05/06/24 17:19 37.0 C 86 16 101/67 05/06/24 16:53 05/06/24 16:00 84 13 05/06/24 15:45 88 16 05/06/24 15:41 117/78 05/06/24 15:32 93 H 05/06/24 15:05 05/06/24 13:37 36.5 C 112 H 20 120/87 Pulse Ox Pulse Ox O2 Del Method O2 Del Method 05/07/24 10:43 98 Room Air 05/07/24 09:43 05/07/24 08:11 95 Room Air 05/07/24 03:24 96 Room Air 05/06/24 23:56 05/06/24 23:09 95 Room Air 05/06/24 20:05 95 Room Air 05/06/24 19:07 05/06/24 18:12 94 Room Air 05/06/24 18:11 05/06/24 17:19 94 Room Air 05/06/24 16:53 95 Room Air 05/06/24 16:00 94 05/06/24 15:45 94 05/06/24 15:41 05/06/24 15:32 05/06/24 15:05 97 Room Air 05/06/24 13:37 98 Cardiovascular RRR, no murmur, no edema Respiratory normal respiratory effort, lungs clear to auscultation Pre-Sedation Airway Assessment Smoking Status: Never smoker Hx Sleep Apnea: No Hx Difficult Intubation: No Short, Thick Neck: Yes Thyromental Distance: < 3.5 Finger Breadths Oral Cavity: + WNL Mallampati Class: III ASA: ASA3 NPO Status Date of Last Intake of Solid Food: 05/05/24 Notes The planned sedation has been discussed with the patient. Informed Consent was obtained. I have identified the patient, determined the appropriateness of sedation and have assessed the patient immediately prior to the procedure. All medicine(s) and interventions are by my order.
--- NOTE | 2024-05-07 11:23 | Cardiology Progress Note ---
Date of Service May 07, 2024 Assessment & Plan (1) NSTEMI (non-ST elevated myocardial infarction): (2) Multi-vessel coronary artery stenosis: (3) Chest pain: (4) HLD (hyperlipidemia): Plan 1. NSTEMI: He reports symptoms similar to those during his initial presentation in 2022. Symptoms appear to have resolved currently. Biomarkers trending downward. No new wall motion of the maladies reduced LV function on echocardiography. Based on his history of known disease, symptoms and elevated biomarkers we elected to recommend an invasive strategy. He will continue on heparin, aspirin and ticagrelor. Will plan coronary angiography today. 2. Coronary artery disease: History of multivessel disease including severe stenosis of the proximal left circumflex and right coronary artery. Known residual disease in the apical portion of the LAD. Known 100% occlusion of a second diagonal. Will continue aggressive secondary prevention with aspirin, Zetia and high-dose rosuvastatin. CRP is still pending this morning. 3. Chest pain: Most likely associated with an acute coronary syndrome. He continues to have some abdominal distention. Initial symptoms involve nausea and vomiting. Will see what his angiography reveals. In the absence of new stenosis or change, a separate intra-abdominal process can be considered. 4. Hyperlipidemia: LDL 25 this morning. Perhaps artificially low, but certainly improved on rosuvastatin. Will continue this medication. Admission and Anticipated Discharge Date Admission Date: May 06, 2024 Subjective This morning the patient clinically feeling better. He did have 1 episode of chest discomfort again as needed seem to respond to a single sublingual nitroglycerin. No recurrent symptoms since that time. Still describing some mild dyspnea. Also worried about some abdominal distention and "bloating". No abdominal pain. No sense of nausea no additional vomiting. Review of Systems Review of Systems: Per HPI Physical Exam Physical Exam: The patient is alert and oriented. Mood and affect appeared normal. He answered all questions appropriately. HEENT: Pupils are equal and reactive to light and accommodation. Extraocular movements are intact. The sclerae are anicteric. Neuro: Cranial nerves intact Lungs: Clear to auscultation bilaterally. He has good air movement without use of accessory muscles. No rales wheezes or rhonchi. Cardiac: Heart demonstrates a regular rate and rhythm. Normal S1 and S2. No murmurs on examination. Pulses: The patient has palpable radial pulses bilaterally that are equal in intensity Extremities: There was no evidence of hypoperfusion. There is no cyanosis or clubbing. There is no edema. Skin: I did not appreciate any rashes on examination today. Results & Data Vital Signs (Past 12 Hours) Vital Signs Temp Pulse Pulse Resp BP BP Pulse Ox 05/07/24 10:43 77 18 115/90 98 05/07/24 09:43 58 L 05/07/24 08:11 36.8 C 62 18 102/66 95 05/07/24 03:24 36.8 C 64 16 92/58 L 96 05/06/24 23:56 76 O2 Del Method 05/07/24 10:43 Room Air 05/07/24 09:43 05/07/24 08:11 Room Air 05/07/24 03:24 Room Air 05/06/24 23:56 Laboratory Results Abnormal Lab Results 05/06/24 05/06/24 05/06/24 13:54 15:45 20:01 WBC 5.70 RBC 4.97 Hgb 16.3 Hct 45.8 MCV 92.2 MCH 32.8 MCHC 35.6 RDW Std Deviation 44.5 RDW Coeff of Clint 13.2 Plt Count 198 MPV 9.2 L Immature Gran % (Auto) 0.5 Neut % (Auto) 87.7 Lymph % (Auto) 6.5 [place] % (Auto) 5.1 Eos % (Auto) 0.0 Baso % (Auto) 0.2 Neut # (Auto) 5.00 Lymph # (Auto) 0.37 L [place] # (Auto) 0.29 Eos # (Auto) 0.00 Baso # (Auto) 0.01 Immature Gran # (Auto) 0.03 PT 10.3 INR 0.9 APTT 24 PTT Ratio 0.9 Heparin Anti-Xa, Unfract 0.35 Sodium 137 Potassium 4.3 Chloride 105 Carbon Dioxide 23 Anion Gap 9 BUN 25 H Creatinine 1.11 Est Cr Clr Drug Dosing 79.6 eGFR 76.02 BUN/Creatinine Ratio 22.5 H Glucose 127 H Calcium 8.9 Phosphorus Magnesium Total Bilirubin 1.3 H AST 22 ALT 23 Alkaline Phosphatase 43 Troponin I High Sens 1181.7 H* 1503.4 H* D 1539.7 H* Total Protein 7.2 Albumin 4.5 Globulin 2.7 Albumin/Globulin Ratio 1.7 Triglycerides Cholesterol LDL Cholesterol, Calc VLDL Cholesterol, Calc HDL Cholesterol Cholesterol/HDL Ratio Lipase 31 05/06/24 05/07/24 05/07/24 23:25 03:42 06:51 WBC 4.38 L RBC 4.01 L Hgb 13.2 L D Hct 37.1 L MCV 92.5 MCH 32.9 MCHC 35.6 RDW Std Deviation 44.8 RDW Coeff of Clint 13.2 Plt Count 130 MPV 8.9 L Immature Gran % (Auto) Neut % (Auto) Lymph % (Auto) [place] % (Auto) Eos % (Auto) Baso % (Auto) Neut # (Auto) Lymph # (Auto) [place] # (Auto) Eos # (Auto) Baso # (Auto) Immature Gran # (Auto) PT INR APTT PTT Ratio Heparin Anti-Xa, Unfract 0.47 Sodium 135 L Potassium 4.0 Chloride 104 Carbon Dioxide 25 Anion Gap 6 BUN 23 Creatinine 1.04 Est Cr Clr Drug Dosing 83.9 eGFR 81.69 BUN/Creatinine Ratio 22.1 H Glucose 117 H Calcium 8.7 Phosphorus 2.8 Magnesium 1.8 Total Bilirubin AST ALT Alkaline Phosphatase Troponin I High Sens 1248.2 H* 1004.8 H* 857.3 H* Total Protein Albumin Globulin Albumin/Globulin Ratio Triglycerides 177 H Cholesterol 105 LDL Cholesterol, Calc 25 VLDL Cholesterol, Calc 35 H HDL Cholesterol 45 Cholesterol/HDL Ratio 2.3 Lipase Diagnostic Findings Echocardiogram performed 05/07/2024: Normal LV systolic function with ejection fraction of 60 to 65%. Stage I diastolic dysfunction. No significant valvular heart disease. Normal wall motion. ECG Additional Comments: EKG obtained last evening demonstrated normal sinus rhythm without acute ST or T wave changes. PG Care Time/CCT Total # of Minutes Spent Total Time Spent with Patient: Total time spent is greater than 50% in coordination of care (as documented) at patient's floor/unit and/or counseling patient: Coding Level of Care Code 49440 SUB INP/OBS CARE 235MIN Diagnoses NSTEMI (non-ST elevated myocardial infarction) I21.4 Multi-vessel coronary artery stenosis I25.10 Chest pain R07.9 Chest pain type: unspecified Hyperlipidemia, unspecified hyperlipidemia type E78.5 Hyperlipidemia type: unspecified (3) Chest pain Chest pain type: unspecified Qualified Code(s): R07.9 - Chest pain, unspecified (4) HLD (hyperlipidemia) Hyperlipidemia type: unspecified Qualified Code(s): E78.5 - Hyperlipidemia, unspecified
[2024-05-07] MEDS: fentaNYL citrate PF 100 MCG/2 ML VIAL ONE (11:25)
[2024-05-07] MEDS: MIDAZOLAM HCL 1 MG/ML 2ML VIAL ONE (11:26)
[2024-05-07] MEDS: OPTIRAY 350 ONE (11:26)
[2024-05-07] MEDS: LIDOCAINE 1% LOCAL 20 ML VIAL ONE (11:29)
--- NOTE | 2024-05-07 11:31 | XCELERA ---
[id number] \\[id number]\[id number]
--- NOTE | 2024-05-07 11:39 | Electrocardiogram Report ---
Test Reason : Blood Pressure : */* mmHG Vent. Rate : 81 BPM Atrial Rate : 81 BPM P-R Int : 150 ms QRS Dur : 84 ms QT Int : 370 ms P-R-T Axes : 27 -10 22 degrees QTcB Int : 429 ms Normal sinus rhythm Normal ECG When compared with ECG of 06-May-2024 13:47, No significant change was found Confirmed by Alexander Murcia ([id number]) on 05/07/2024 11:39:30 AM Referred By: REFERRED SELF Confirmed By: Alexander Murcia
--- NOTE | 2024-05-07 11:49 | Electrocardiogram Report ---
Test Reason : Blood Pressure : */* mmHG Vent. Rate : 64 BPM Atrial Rate : 64 BPM P-R Int : 158 ms QRS Dur : 90 ms QT Int : 428 ms P-R-T Axes : 48 9 84 degrees QTcB Int : 441 ms Normal sinus rhythm Nonspecific T wave abnormality Abnormal ECG When compared with ECG of 06-May-2024 17:24, (unconfirmed) Nonspecific T wave abnormality, worse in Lateral leads Confirmed by Alexander Murcia ([id number]) on 05/07/2024 11:48:43 AM Referred By: REFERRED SELF Confirmed By: Alexander Murcia
--- NOTE | 2024-05-07 11:58 | Post Anesthesia Assessment ---
Date of Service May 07, 2024 Post Sedation Assessment Vital Signs Temp Pulse Pulse Pulse Resp BP BP 05/07/24 10:43 77 18 115/90 05/07/24 09:43 58 L 05/07/24 08:11 36.8 C 62 18 102/66 05/07/24 03:24 36.8 C 64 16 92/58 L 05/06/24 23:56 76 05/06/24 23:09 37.0 C 70 17 99/61 L 05/06/24 20:05 37.0 C 81 21 103/67 05/06/24 19:07 90 05/06/24 18:12 37.0 C 86 20 101/67 05/06/24 18:11 89 103/69 05/06/24 17:19 37.0 C 86 16 101/67 05/06/24 16:53 05/06/24 16:00 84 13 05/06/24 15:45 88 16 05/06/24 15:41 117/78 05/06/24 15:32 93 H 05/06/24 15:05 05/06/24 13:37 36.5 C 112 H 20 120/87 Pulse Ox Pulse Ox O2 Del Method O2 Del Method 05/07/24 10:43 98 Room Air 05/07/24 09:43 05/07/24 08:11 95 Room Air 05/07/24 03:24 96 Room Air 05/06/24 23:56 05/06/24 23:09 95 Room Air 05/06/24 20:05 95 Room Air 05/06/24 19:07 05/06/24 18:12 94 Room Air 05/06/24 18:11 05/06/24 17:19 94 Room Air 05/06/24 16:53 95 Room Air 05/06/24 16:00 94 05/06/24 15:45 94 05/06/24 15:41 05/06/24 15:32 05/06/24 15:05 97 Room Air 05/06/24 13:37 98 Recovery Score Activity: Moves 4 extremities Respiration: Deep Breath/Cough Circulation: +/-20% PreAnes Value Consciousness: Fully Awake Oxygen Saturation: > 92% On Room Air Discharge Sedation Level of Care: Fast Track Phase II Post Sedation Plan On clinical assessment, the patient appears to have tolerated the sedation without complications. Patient is recovering as anticipated. Patient will continue to be monitored by nursing and may be discharged when sedation discharge criteria are met per below protocol. Upon Completions of procedure up to 15 minutes continue every 5 minute vital signs and the P.A.R. score; then discharge to a Phase I or Fast Track to Phase II per the following guidelines: * Discharge Patient to appropriate Phase II area if PAR is 8 or greater or return to pre- procedure baseline. The post - procedure orders will be as directed. * If PAR score is less than 8 or not return to pre-procedure baseline then patient will follow Phase I monitoring till PAR is reached for Phase II. The Phase I may be done in procedure room or may call to secure a Phase I area. * If naloxone or flumazenil are used for reversal, hold in Phase I for continued monitoring from when last reversal dose was given for a minimum of 60 minutes or longer pending the nurse and/or physician discretion of patient condition before discharge to Phase II. Please call the Sedation Physician to re-evaluate and complete post-note for discharge to Phase II area. Do NOT discharge from procedure sedation or Phase 1 until post- sedation evaluation note is complete by procedure /sedation MD Sedation Discharge Instructions to be given to the patient at discharge to home. [facility] Procedure Codes (Charges) Indication for Procedure Indication for procedure: NSTEMI History of PCI Sedation/Anesthesia Procedure 1: Sedation/Anesthesia: 10509 Mod Sedation by the same physician;Init15 Min Child Age 5 & Up (Initial 15 minutes, start time 1117) Total Sedation Time (minutes): 23 Procedure 2: Sedation/Anesthesia: 17265 Mod Sedation by the same physician; Ea [id number] Minutes (Additional 8 minutes, end time 1140) Total Sedation Time (minutes): 23
[2024-05-07] MEDS: HEPARIN (PORCINE) 1000 UNIT/ML 10 ML (CATH LAB USE ONLY) ONE (14:02)
[2024-05-07] MEDS ORDERED: SIMETHICONE 80 MG CHEW PO PRN (14:20)
--- NOTE | 2024-05-07 14:27 | Cardiac Catheterization ---
[facility] Data: Wirer Maintenance Cardiac Status Clinical evaluation leading to the procedure CAD Presenation: Non STEMI Anginal Classification: CCS IV Heart Failure: No Cardiogenic Shock within 24 Hours: No Cardiac Arrest within 24 Hours: No Imaging Studies Past 6 Months: Yes Coronary Anatomy Dominant: Right Left Main (% Stenosis): Normal LAD (% Stenosis): Mid (20 to 30%) and Distal (Apical up to 75%) D1 (% Stenosis): Normal Circumflex (% Stenosis): Proximal (Stent patent) and Mid (40%) OM1 (% Stenosis): Normal L PL1 (% Stenosis): Normal RCA (% Stenosis): Proximal (Stent patent then less than 20%) and Mid (Stent patent) R PDA (% Stenosis): Normal R PL1 (% Stenosis): Normal Left Ventricular Angiography EF (%): 55 to 60% Diagnostic Physicians Name: Sebastien Shine MD, PhD Closure Device Percutaneous Entry Location: Femoral Closure Device: None-Manual Hold Recommendations: Medical Therapy and/or Counseling Cardiac Cath Procedure Full Procedure Date May 07, 2024 Pre-Procedure Diagnosis Pre-Procedure Diagnosis: Non STEMI and CAD AUC Score AUC Score: 7 Post-Procedure Diagnosis Post-Procedure Diagnosis: Mild CAD Procedure(s) Performed Procedure(s) Performed: Coronary Angiography, Left Heart Cath, LV Angiography and Ultrasound Guided Vascular Access Pega Developer Sebastien Shine MD, PhD Estimated Blood Loss Estimated Blood Loss: 10 cc Medication(s) Medication(s): Fentanyl, Lidocaine 1% and Versed Summary of Findings Brief description: Patient was brought to the cardiac catheterization suite where he was shaved and prepped in a sterile fashion. Sedated using IV Versed and fentanyl. Soft tissues the right groin were anesthetized using 10 mL of 1% Xylocaine. Using the ultrasound for guidance (image saved) the right femoral artery was accessed and a 5 Lebanese femoral artery sheath was placed. All catheters were advanced and exchanged over a 0.035 J-tip wire. Left coronary angiography was performed in orthogonal views with a 5 Lebanese JL 4 diagnostic catheter. Right coronary angiography was performed in orthogonal views with a 5 Lebanese JR4 diagnostic catheter. Left heart cath and left ventriculogram were performed with a 5 Lebanese pigtail catheter. Diagnostic catheters were removed. Limited right femoral artery angiography was performed to evaluate for closure. Findings were favorable, therefore, the femoral artery sheath was exchanged for a 6 Lebanese Angio-Seal closure device. However, we were unable to pass the Angio-Seal device into the femoral artery despite the use of an Amplatz stiff wire. Eventually, ACT was checked and decision was made to utilize manual compression. The femoral sheath and wires were removed and manual compression was held for more than 20 minutes to obtain hemostasis. Patient was hemodynamically stable and asymptomatic. He was returned to the recovery area. This ended the case. Coronary angiography and left ventriculogram findings: AGG-[id number] vessel bifurcating into LAD and circumflex. Mild luminal irregularities. LAD-this is large caliber. Proximally there is mild calcification with up to 10 to 20% stenosis. The LAD gives a large D1 which has no significant disease. The mid LAD has mild calcification and less than 20 to 30% narrowing. Distally, there is scattered disease with up to 75% stenosis. This is not near the apex and therefore not amenable to PCI. LCx-this is large caliber and nondominant. Proximal AV groove vessel with stent. In-stent restenosis is less than 10%. There is also significant calcification in the nondistended portion. Circumflex gives a small OM1 and small OM 2 without disease. The mid AV groove circumflex has up to 40% narrowing. The circumflex continues distally and terminates in the posterolateral branch. This has no disease. OLL-ogier-lopduzj and dominant. The proximal stent is widely patent. After the stent the [place] vessel has less than 20% stenosis and then in the mid segment there is a stent which is also widely patent. Distally the vessel has no disease and bifurcates into the PDA and posterolateral branches. These branch vessels have no disease. LVEF-55 to 60% Summary: 1. Widely patent prior stents 2. Mild nonocclusive coronary disease as described. Unchanged from prior study. 3. Preserved LV systolic function 4. Continue guideline directed medical therapy for secondary prevention of coronary artery disease. Hemodynamics Rest Ao:: 104/72 mmHg Final Ao: 95/66 mmHg LV: 114/3 mmHg, LVEDP 7 mmHg Recommendations Recommendations: Medical Therapy and/or Counseling Radiation Exposure (mGy) 955 mGy, fluoroscopy time 3.4 minutes Contrast (mls) 80 cc Anesthesia 1 mg Versed, 25 mcg fentanyl IV. Start time 1117, end time 1140 Procedural Complication(s) None Disposition Wirer Maintenance Holding/Recovery I attest to the content of the Intraoperative Record and any orders documented therein. Any exceptions are noted below. [facility] Card Cath Procedure Codes Cardiac Catheterization Procedure 1: Cardiovascular Cath Procedures: 11778 Coronaries and LHC (+/-LV) Therapeutic Services & Ancillary Procedure 1: Cardiovascular Tx and Anc Procedures: 54908 Ultrasonic Guidance Vascular Access Moderate Sedation Procedure 1: Sedation/Anesthesia: 91207 Mod Sedation by the same physician;Init15 Min Child Age 5 & Up (Initial 15 minutes, start time 1117) Procedure 2: Sedation/Anesthesia: 22745 Mod Sedation by the same physician; Ea Add [id number] Minutes (Additional 8 minutes, end time 1140) PG Care Time/CCT Total # of Minutes Spent Total Time Spent with Patient: Total time spent is greater than 50% in coordination of care (as documented) at patient's floor/unit and/or counseling patient:
[2024-05-07] MEDS: TICAGRELOR 90 MG TAB PO SCH (16:27)
[2024-05-07] MEDS: SIMETHICONE 80 MG CHEW PO ONE (16:35)
[2024-05-07] MEDS: FAMOTIDINE 20 MG TAB PO SCH (16:35)
[2024-05-07 16:57] VITALS: TEMP 98.1
--- NOTE | 2024-05-07 17:04 | Discharge Summary ---
Discharge Summary Date of Service May 07, 2024 Principal Dx & Hospital Course #1 = Principal Diagnosis (1) NSTEMI (non-ST elevated myocardial infarction): (2) Obesity (BMI 30.0-34.9): (3) HLD (hyperlipidemia): (4) Dyspepsia: (5) GERD (gastroesophageal reflux disease): Plan Patient presents to the emergency room with acute onset of chest pain nausea and swelling. In the emergency room had a significant elevated troponin and was referred for further treatment. Patient was admitted to a monitored unit. Started on IV heparin for NSTEMI. Cardiology consultation was obtained. They recommended ongoing heparin, loading with Plavix and evaluation for cardiac catheterization. Patient underwent cardiac catheterization on 05/07/2024. There was no significant stenosis. Previous stents were patent. There was no eviden ce of wall motion abnormalities or reduced ejection fraction on cardiac cath or echocardiogram. Patient's postcardiac course was uneventful. Patient did report that he was having some abdominal bloating over the past multiple weeks. Did seem as though it may have been related to whenever he eats. He reports that little over a year ago he was being considered for possible cholecystectomy. However, he did not proceed with that due to the fact that he was still on his Brilinta from his previous cardiac stenting. Here this hospitalization his LFTs are within normal range. Patient was eager to get home. We discussed outpatient follow-up with his PCP to discuss possible outpatient HIDA scan or further GI evaluation. Patient reports he does not take anything for GI upset or reflux. Give a trial of Pepcid and Mylicon for his bloating. Anticipate patient will be discharged home this evening after he ambulates post craft and tolerates his meal. Confirm discharge plans with cardiology, recommend patient continue on his usual preadmission cardiac medications. Notes For Next Care Provider Consider outpatient HIDA scan or further evaluation of patient's somewhat chronic complaints of GI upset Medication Changes From Visit Losartan dose confirmed at 100 mg Simethicone and Pepcid added for his dyspepsia Admission HPI Per Admitting Provider Otilio Ward is a 58y/o M with PMHx significant for HLD, HTN, multivessel CAD, unstable angina s/p 2 JAIDEN to RCA + 1 JAIDEN to pLCx in 02/2023, LVH with diastolic dysfunction, sinus bradycardia, paroxysmal SVT, GERD, lumbar DDD, primary osteoarthritis of R hip, chronic pain of R knee, chewing tobacco use and gout who presented to the ED on 05/06/2024 for evaluation of chest pain. History obtained from the patient and associated chart review. Patient seen in the ED w liliana Tim. Patient with chest pain radiating across his entire chest wall starting this morning around 4AM with associated vomiting, body sweats and SOB. Initial troponin 1181.7. EKG without any evidence of ST elevation. He was loaded with aspirin 324mg in the ED. Currently without any chest pain at the time of our conversation however he mentions it does still come and go. He also endorses some abdominal bloating. ED provider, Dr. Emmanuel, contacted Dr. Murcia who is on-call with [facility]. Patient follows with [facility], Dr. Morgan, as an outpatient. IV heparin was initiated in the ED as directed by Dr. Murcia; Dr. Shine also contacted to evaluate the patient. Vitals in the ED notable for transient tachycardia with had resolved at the time of our evaluation in the ED, his HR was in the 80s and he was in NSR. CXR negative. Additional laboratory evaluation reviewed and unremarkable. Of note, patient was seen admitted to [facility] back in 02/2023 with progressive exertional chest discomfort over the preceding few months. He underwent cardiac catheterization at that time which revealed multivessel disease including 95% proximal LCx and sequential severe lesions in RCA. He subsequently had JAIDEN placed to proximal circumflex at that time and then later underwent staged outpatient PCI of RCA with 2 nonoverlapping JAIDEN. Outpatient lipid panel from 02/2024 revealed triglycerides 303, total cholesterol 188, HDL 45 and LDL 107. Hgb A1c was 5.6% on 04/22/2024. Resting echocardiogram from 02/2023 showed LVEF = 60-65%, mild concentric LVH, grade II diastolic dysfunction. There was no significant valvular pathology. Dr. Tim and I discussed the patient's case with Dr. Murcia in the ED. Admission Exam Per Admitting Provider See H&P Discharge Exam Constitutional: Alert, nontoxic HEENT: Mucous membranes moist. Lungs: Clear to auscultation, decreased, no wheezes rales or rhonchi CV: S1-S2, regular Abdomen: Soft, nontender, nondistended, no guarding, no rigidity, no tympany Extremities: No significant edema, right groin cath site soft, nontender, no evidence of hematoma Neuro: No focal deficits Psych: Cooperative, normal mood Updated Medication List Medication Instructions Recorded Confirmed Type fluticasone propionate 50 2 spray intranasal DAILY 03/01/23 05/06/24 History mcg/actuation nasal spray,suspension aspirin 81 mg chewable tablet 81 mg PO DAILY #30 tabs 03/03/23 05/06/24 Rx (Children's Aspirin) nitroglycerin 0.4 mg sublingual 0.4 mg sublingual UD PRN Chest Pain 04/22/23 05/06/24 History tablet gabapentin 300 mg capsule 300 mg PO TID 03/11/24 05/06/24 History ezetimibe 10 mg tablet (Zetia) 10 mg PO DAILY #30 tabs 03/12/24 05/06/24 Rx rosuvastatin 40 mg tablet 40 mg PO DAILY #30 tabs 03/12/24 05/06/24 Rx famotidine 20 mg tablet (Pepcid AC) 20 mg PO BID #60 tabs 05/07/24 Rx losartan 100 mg tablet 100 mg PO DAILY #30 tabs 05/07/24 Rx simethicone 80 mg chewable tablet 80 mg PO Q6H PRN abdominal 05/07/24 Rx (Gas Relief (simethicone)) distention/ bloating #30 tabs Hospital Stay Data Consultations 05/06/24 14:54 ED Decision to Admit Stat 05/06/24 14:58 Consult Cardiology Stat Procedures Performed Operation Date: 05/07/24 11:30 Actual Procedures p Cath, Left with Cors and Vent - Sebastien Shine MD, PhD s Cineradiography w/Routine Exam - Sebastien Shine MD, PhD Diagnostic Imagining Performed 05/07/24 10:51 CL Cath Imgs for PACS use only Routine Reviewed imaging, laboratory and diagnostic studies. Pertinent findings as below. Cardiac catheterization showed no significant occlusion that we wire intervention Echocardiogram showed normal wall motion abnormality some mild diastolic dysfunction Troponin peaked at 1539.7 declined to 616.8 WBCs 4.3 Hemoglobin 13.2 Sodium 135 Creatinine 1.04 Rest of electrolytes stable CRP pending Pending Results Patient Have Any Pending Studies at Discharge: Yes Discharge Instructions Given to Patient (Per Discharging Provider) Happy Birthday! Discuss with your PCP whether HIDA scan would be appropriate based on your symptoms Total Time Total Time Spent Total Time Spent (In Minutes): 40
[2024-05-07 17:59] VITALS: BP 141/81; PULSE 52; O2SAT 95
[2024-05-08 09:22] LABS: C-Reactive Protein High Sens. >20.0 mg/L
== END 2024-05-07 18:52 | disposition home or self-care (01) | DRG 282 ==
LOC: ED 13:34 → 2S 15:44 → SUATTDRO 15:44 → 2S 16:30